=== PATIENT | male | born 1965 | race Hispanic/Latino ===

== ENCOUNTER 2021-02-20 08:41 | Emergency (ER) | payer SELFPAY ==
--- OUTSIDE RECORDS SUMMARY | 2021-02-20 08:53 | XMS REPORT | Continuity of Care Document ---
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 No [id number] 10mg Take 1 [facility] 10 mg 8-18 12-22 capsule by ity of capsule 00:00: 00:00 mouth [place] 00 :00 every 8 Medical (eight) Branch hours as needed for Abdominal pain. ondansetron 2020- No [id number] 4mg Take 1 [facility] 4 mg 8-18 12-22 tablet by [facility] disintegrat 00:00: 00:[place] tablet 00 :00 every 8 Medica l (eight) Branch hours as needed for Nausea and Vomiting (N/V). cholecalcif Yes 1000U Take 1,000 [facility] sofia, 7-19 Units by ity of vitamin D3, 20:20: mouth [place] (VITAMIN 49 daily. Medical D3) 25 mcg Branch (1,000 unit) tablet aspirin 81 0 Yes 81mg Take 81 mg U nivers mg chewable 7-19 by mouth ity of tablet 20:20: daily. [place] 49 Medical Branch cholecalcif 2021-0 Yes 1000U Take 1,000 [facility] sofia, 7-19 Units by ity of vitamin D3, 15:20: mouth [place] (VITAMIN 49 daily. Medical D3) 25 mcg Branch (1,000 unit) tablet aspirin 81 2020-0 Yes 81mg Take 81 mg U nivers mg chewable 7-19 by mouth ity of tablet 15:20: daily. [place] [address] Medical Branch cholecalcif 2020-0 Yes 1000U Take 1,000 [facility] sofia, 7-19 Units by ity of vitamin D3, 15:20: mouth [place] (VITAMIN 49 daily. Medical D3) 25 mcg Branch (1,000 unit) tablet aspirin 81 2020-0 Yes 81mg Take 81 mg U nivers mg chewable 7-19 by mouth ity of tablet 15:20: daily. [place] [address] Medical Branch cholecalcif 2020-0 Yes 1000U Take 1,000 [facility] sofia, 7-19 Units by ity of vitamin D3, 15:20: mouth [place] (VITAMIN 49 daily. Medical D3) 25 mcg Branch (1,000 unit) tablet aspirin 81 2020-0 Yes 81mg Take 81 mg U nivers mg chewable 7-19 by mouth ity of tablet 15:20: daily. [place] [address] Medical Branch cholecalcif 2020-0 Yes 1000U Take 1,000 [facility] sofia, 7-19 Units by ity of vitamin D3, 15:20: mouth [place] (VITAMIN 49 daily. Medical D3) 25 mcg Branch (1,000 unit) tablet aspirin 81 2020-0 Yes 81mg Take 81 mg U nivers mg chewable 7-19 by mouth ity of tablet 15:20: daily. [place] [address] Medical Branch cholecalcif 2020-0 Yes 1000U Take 1,000 [facility] sofia, 7-19 Units by ity of vitamin D3, 15:20: mouth [place] (VITAMIN 49 daily. Medical D3) 25 mcg Branch (1,000 unit) tablet aspirin 81 2020-0 Yes 81mg Take 81 mg U nivers mg chewable 7-19 by mouth ity of tablet 15:20: daily. [place] [address] Medical Branch cholecalcif 2021-0 Yes 1000U Take 1,000 [facility] sofia, 7-19 Units by ity of vitamin D3, 15:20: mouth [place] (VITAMIN 49 daily. Medical D3) 25 mcg Branch (1,000 unit) tablet aspirin 81 2020-0 Yes 81mg Take 81 mg U nivers mg chewable 7-19 by mouth ity of tablet 15:20: daily. [place] [address] Medical Branch nitroglycer 2020-[id number] 1 [facility] in 0.4 mg 6-12 tablet ity of sublingual 00:00: under the [place] tablet 00 tongue Medical every 5 Branch (five) minutes as needed for Chest pain. nitroglycer 2020-[id number] 1 [facility] in 0.4 mg 6-12 tablet ity of sublingual 00:00: under the [place] tablet 00 tongue Medical every 5 Branch (five) minutes as needed for Chest pain. nitroglycer 2020-[id number] 1 [facility] in 0.4 mg 6-12 tablet ity of sublingual 00:00: under the [place] tablet 00 tongue Medical every 5 Branch (five) minutes as needed for Chest pain. nitroglycer 2020-[id number] 1 [facility] in 0.4 mg 6-12 tablet ity of sublingual 00:00: under the [place] tablet 00 tongue Medical every 5 Branch (five) minutes as needed for Chest pain. nitroglycer 2020-[id number] 1 [facility] in 0.4 mg 6-12 tablet ity of sublingual 00:00: under the [place] tablet 00 tongue Medical every 5 Branch (five) minutes as needed for Chest pain. nitroglycer 2020-[id number] 1 [facility] in 0.4 mg 6-12 tablet ity of sublingual 00:00: under the [place] tablet 00 tongue Medical every 5 Branch (five) minutes as needed for Chest pain. nitroglycer 2020-[id number] 1 [facility] in 0.4 mg 6-12 tablet ity of sublingual 00:00: under the [place] tablet 00 tongue Medical every 5 Branch (five) minutes as needed for Chest pain. nitroglycer 2020-0 2021- No [id number] .4mg Place 1 [facility] in 0.4 mg 6-12 12-22 tablet ity of sublingual 00:00: 00:00 under the [place] tablet 00 :00 tongue Medical every 5 Branch (five) minutes as needed for Chest pain. cloNIDine 2020-0 Yes Take 1 [place] HCL 2-19 tablet(s) [facility] (CATAPRES) 00:00: by mouth 0.1 mg 00 Twice a tablet day for anxiety as needed OLANZapine Yes Take 1 [facility] (ZYPREXA) 2-19 tablet(s) Healt h 10 mg 00:00: by mouth tablet 00 Twice a day cloNIDine Yes Take 1 [place] HCL 2-19 tablet(s) [facility] (CATAPRES) 00:00: by mouth 0.1 mg 00 Twice a tablet day for anxiety as needed OLANZapine Yes Take 1 [facility] (ZYPREXA) 2-19 tablet(s) Healt h 10 mg 00:00: by mouth tablet 00 Twice a day cloNIDine 0 2021- No TAKE ONE [place] HCL 2-19 - TABLET BY [facility] (CATAPRES) 00:00: 23:59 MOUTH 0.1 mg 00 :00 TWICE A tablet DAY FOR ANXIETY NEEDED OLANZapine 0 2021- No TAKE ONE [place] [facility] (ZYPREXA) 2-19 - TABLET BY Heal 10 mg 00:00: 23:59 MOUTH tablet 00 :00 TWICE A DAY cloNIDine 0 2021- No TAKE ONE [place] [facility] HCL 2-19 -19 TABLET BY [facility] (CATAPRLollipuff) 00:00: 23:59 MOUTH 0.1 mg 00 :00 TWICE A tablet DAY FOR ANXIETY NEEDED OLANZapine 0 2021- No TAKE ONE [place] (ZYPREXA) 2-19 -19 TABLET BY Heal th 10 mg 00:00: 23:59 MOUTH tablet 00 :00 TWICE A DAY rosuvastati 0 No 1{table Q1D take 1 A ccess n 20 mg 1-16 t} tablet by Health tablet 00:00: oral route 00 every day rosuvastati 2020-0 No 1{table Q1D take 1 A ccess n 20 mg 1-16 t} tablet by Health tablet 00:00: oral route 00 every day rosuvastati 2020-0 No 1{table Q1D take 1 A ccess n 20 mg 1-16 t} tablet by Health tablet 00:00: oral route 00 every day rosuvastati 2020-0 No 1{table Q1D take 1 A ccess n 20 mg 1-16 t} tablet by Health tablet 00:00: oral route 00 every day rosuvastati 2020-0 No 1{table Q1D take 1 A ccess n 20 mg 1-16 t} tablet by Health tablet 00:00: oral route 00 every day rosuvastati 2020-0 No 1{table Q1D take 1 A ccess n 20 mg 1-16 t} tablet by Health tablet 00:00: oral route 00 every day olanzapine 2020-0 No 1{table Q1D take 1 Ac cess 10 mg 1-14 t} tablet by Health tablet 00:00: oral route 00 every day naproxen 2020-0 No 1{table Q12H take 1 [facility] ss 500 mg 1-14 t} tablet by Health tablet 00:00: oral route 00 2 times every day with food lisinopril 2020-0 No 1{table Q1D take 1 Ac cess 40 mg 1-14 t} tablet by Health tablet 00:00: oral route 00 every day metoprolol 2020-0 No 1{table Q12H take 1 Ac cess tartrate 25 1-14 t} tablet by [facility] mg tablet 00:00: oral route 00 2 times every day amlodipine 2020-0 No 1{table Q1D take 1 Ac cess 10 mg 1-14 t} tablet by Health tablet 00:00: oral route 00 every day olanzapine 2020-0 No 1{table Q1D take 1 Ac cess 10 mg 1-14 t} tablet by Health tablet 00:00: oral route 00 every day naproxen 2020-0 No 1{table Q12H take 1 [facility] ss 500 mg 1-14 t} tablet by Health tablet 00:00: oral route 00 2 times every day with food lisinopril 2020-0 No 1{table Q1D take 1 Ac cess 40 mg 1-14 t} tablet by Health tablet 00:00: oral route 00 every day metoprolol 2020-0 No 1{table Q12H take 1 Ac cess tartrate 25 1-14 t} tablet by [facility] mg tablet 00:00: oral route 00 2 times every day amlodipine 2020-0 No 1{table Q1D take 1 Ac cess 10 mg 1-14 t} tablet by Health tablet 00:00: oral route 00 every day olanzapine 2020-0 No 1{table Q1D take 1 Ac cess 10 mg 1-14 t} tablet by Health tablet 00:00: oral route 00 every day naproxen 2020-0 No 1{table Q12H take 1 Acce ss 500 mg 1-14 t} tablet by Health tablet 00:00: oral route 00 2 times every day with food lisinopril 2020-0 No 1{table Q1D take 1 Ac cess 40 mg 1-14 t} tablet by Health tablet 00:00: oral route 00 every day metoprolol 2020-0 No 1{table Q12H take 1 Ac cess tartrate 25 1-14 t} tablet by [facility] mg tablet 00:00: oral route 00 2 times every day amlodipine 2020-0 No 1{table Q1D take 1 Ac cess 10 mg 1-14 t} tablet by Health tablet 00:00: oral route 00 every day olanzapine 2020-0 No 1{table Q1D take 1 Ac cess 10 mg 1-14 t} tablet by Health tablet 00:00: oral route 00 every day naproxen 2020-0 No 1{table Q12H take 1 Acce ss 500 mg 1-14 t} tablet by Health tablet 00:00: oral route 00 2 times every day with food lisinopril 0 No 1{table Q1D take 1 Ac cess 40 mg 1-14 t} tablet by Health tablet 00:00: oral route 00 every day metoprolol 2020-0 No 1{table Q12H take 1 Ac cess tartrate 25 1-14 t} tablet by [facility] mg tablet 00:00: oral route 00 2 times every day amlodipine 2020-0 No 1{table Q1D take 1 Ac cess 10 mg 1-14 t} tablet by Health tablet 00:00: oral route 00 every day olanzapine 2020-0 No 1{table Q1D take 1 Ac cess 10 mg 1-14 t} tablet by Health tablet 00:00: oral route 00 every day naproxen 2020-0 No 1{table Q12H take 1 Acce ss 500 mg 1-14 t} tablet by Health tablet 00:00: oral route 00 2 times every day with food lisinopril 2020-0 No 1{table Q1D take 1 Ac cess 40 mg 1-14 t} tablet by Health tablet 00:00: oral route 00 every day metoprolol 2021-0 No 1{table Q12H take 1 Ac cess tartrate 25 1-14 t} tablet by [facility] mg tablet 00:00: oral route 00 2 times every day amlodipine No 1{table Q1D take 1 Ac cess 10 mg 1-14 t} tablet by Health tablet 00:00: oral route 00 every day olanzapine No 1{table Q1D take 1 Ac cess 10 mg 1-14 t} tablet by Health tablet 00:00: oral route 00 every day naproxen No 1{table Q12H take 1 [facility]ce ss 500 mg 1-14 t} tablet by Health tablet 00:00: oral route 00 2 times every day with food lisinopril No 1{table Q1D take 1 Ac cess 40 mg 1-14 t} tablet by Health tablet 00:00: oral route 00 every day metoprolol No 1{table Q12H take 1 Ac cess tartrate 25 1-14 t} tablet by [facility] mg tablet 00:00: oral route 00 2 times every day amlodipine No 1{table Q1D take 1 Ac cess 10 mg 1-14 t} tablet by Health tablet 00:00: oral route 00 every day rosuvastati 2019-02 No 1{table Q1D take 1 A ccess n 20 mg 2-15 t} tablet by Health tablet 00:00: oral route 00 every day Vitamin D2 2019-02 No take 1 [facility] 1,250 mcg 2-15 capsule by [facility] (50,000 00:00: oral route unit) 00 every capsule week metformin 2019-02 No 1{table Q12H take 1 Acc ess 500 mg 2-15 t} tablet by Health tablet 00:00: oral route 00 2 times every day with morning and evening meals True Metrix 2019-02 No 1{strip Q12H use 1 Ac cess Glucose 2-15 } strip by [facility] 00:00: subcutaneo 00 us route 2 times every day lancets 2019-02 No Use twice Acces s 2-15 daily as Health 00:00: directed. 00 rosuvastati 2019-02 No 1{table Q1D take 1 A ccess n 20 mg 2-15 t} tablet by Health tablet 00:00: oral route 00 every day Vitamin D2 2019-02 No take 1 Acces s 1,250 mcg 2-15 capsule by [facility] (50,000 00:00: oral route unit) 00 every capsule week metformin 2019-02 No 1{table Q12H take 1 Acc ess 500 mg 2-15 t} tablet by Health tablet 00:00: oral route 00 2 times every day with morning and evening meals True Metrix 2019-02 No 1{strip Q12H use 1 Ac cess Glucose 2-15 } strip by Health Test Strip 00:00: subcutaneo 00 us route 2 times every day lancets 2019-02 No Use twice Acces s 2-15 daily as Health 00:00: directed. rosuvastati 2019-02 No 1{table Q1D take 1 A ccess n 20 mg 2-15 t} tablet by Health tablet 00:00: oral route 00 every day Vitamin D2 2019-02 No take 1 Acces s 1,250 mcg 2-15 capsule by [facility] (50,000 00:00: oral route unit) 00 every capsule week metformin 2019-02 No 1{table Q12H take 1 Acc ess 500 mg 2-15 t} tablet by Health tablet 00:00: oral route 00 2 times every day with morning and evening meals True Metrix 2019-02 No 1{strip Q12H use 1 Ac cess Glucose 2-15 } strip by Health Test Strip 00:00: subcutaneo 00 us route 2 times every day lancets 2019-02 No Use twice Acces s 2-15 daily as Health 00:00: directed. Vitamin D2 2019-02 No take 1 Acces s 1,250 mcg 2-15 capsule by [facility] (50,000 00:00: oral route unit) 00 every capsule week True Metrix 2019-02 No 1{strip Q12H use 1 Ac cess Glucose 2-15 } strip by Health Test Strip 00:00: subcutaneo 00 us route 2 times every day lancets 2019-02 No Use twice Acces s 2-15 daily as Health 00:00: directed. 00 Vitamin D2 2019-02 No take 1 Acces s 1,250 mcg 2-15 capsule by [facility] (50,000 00:00: oral route unit) 00 every capsule week True Metrix 2019-02 No 1{strip Q12H use 1 Ac cess Glucose 2-15 } strip by Health Test Strip 00:00: subcutaneo 00 us route 2 times every day lancets 2019-02 No Use twice Acces s 2-15 daily as Health 00:00: directed. Vitamin D2 2019-02 No take 1 Acces s 1,250 mcg 2-15 capsule by [facility] (50,000 00:00: oral route unit) 00 every capsule week True Metrix 2019-02 No 1{strip Q12H use 1 Ac cess Glucose 2-15 } strip by Health Test Strip 00:00: subcutaneo 00 us route 2 times every day lancets 2019-02 No Use twice Acces s 2-15 daily as Health 00:00: directed. Vitamin D2 2019-02 No take 1 Acces s 1,250 mcg 2-15 capsule by [facility] (50,000 00:00: oral route unit) 00 every capsule week True Metrix 2019-02 No 1{strip Q12H use 1 Ac cess Glucose 2-15 } strip by Health Test Strip 00:00: subcutaneo 00 us route 2 times every day lancets 2019-02 No Use twice Acces s 2-15 daily as Health 00:00: directed. Vitamin D2 2019-02 No take 1 Acces s 1,250 mcg 2-15 capsule by [facility] (50,000 00:00: oral route unit) 00 every capsule week True Metrix 2019-02 No 1{strip Q12H use 1 Ac cess Glucose 2-15 } strip by Health Test Strip 00:00: subcutaneo 00 us route 2 times every day lancets 2019-02 No Use twice Acces s 2-15 daily as Health 00:00: directed. Vitamin D2 2019-02 No take 1 Acces s 1,250 mcg 2-15 capsule by [facility] (50,000 00:00: oral route unit) 00 every capsule week True Metrix 2019-02 No 1{strip Q12H use 1 Ac cess Glucose 2-15 } strip by Health Test Strip 00:00: subcutaneo 00 us route 2 times every day lancets 2019-02 No Use twice Acces s 2-15 daily as Health 00:00: directed. 00 rosuvastati 2019-2020- No 1{table Q1D take 1 Access n 20 mg 2-15 01-16 t} tablet by Health tablet 00:00: 00:00 oral route 00 :00 every day rosuvastati 2019-02- No 1{table Q1D take 1 Access n 20 mg 2-15 -16 t} tablet by Health tablet 00:00: 00:00 oral route 00 :00 every day rosuvastati 2019-02- No 1{table Q1D take 1 Access n 20 mg 2-15 -16 t} tablet by Health tablet 00:00: 00:00 oral route 00 :00 every day rosuvastati 2019-02- No 1{table Q1D take 1 Access n 20 mg 2-15 -16 t} tablet by Health tablet 00:00: 00:00 oral route 00 :00 every day rosuvastati 2019-02- No 1{table Q1D take 1 Access n 20 mg 2-15 -16 t} tablet by Health tablet 00:00: 00:00 oral route 00 :00 every day rosuvastati 2019-02- No 1{table Q1D take 1 Access n 20 mg 2-15 -16 t} tablet by Health tablet 00:00: 00:00 oral route 00 :00 every day metformin 2019-02- No 1{table Q12H take 1 Ac cess 500 mg 2-15 -14 t} tablet by Health tablet 00:00: 00:00 oral route 00 :00 2 times every day with morning and evening meals metformin 2019-02- No 1{table Q12H take 1 Ac cess 500 mg 2-15 -14 t} tablet by Health tablet 00:00: 00:00 oral route 00 :00 2 times every day with morning and evening meals metformin 2019-02- No 1{table Q12H take 1 Ac cess 500 mg 2-15 -14 t} tablet by Health tablet 00:00: 00:00 oral route 00 :00 2 times every day with morning and evening meals metformin 2019-02- No 1{table Q12H take 1 Ac cess 500 mg 2-15 -14 t} tablet by Health tablet 00:00: 00:00 oral route 00 :00 2 times every day with morning and evening meals metformin 2019-02- No 1{table Q12H take 1 Ac cess 500 mg 2-15 -14 t} tablet by Health tablet 00:00: 00:00 oral route 00 :00 2 times every day with morning and evening meals metformin 2019-2020- No 1{table Q12H take 1 Ac cess 500 mg 2-15 01-14 t} tablet by Health tablet 00:00: 00:00 oral route 00 :00 2 times every day with morning and evening meals omeprazole 2019- No take 1 [facility]es s 20 mg 2-14 capsule by Health capsule,del 00:00: oral route ayed 00 twice release daily 30 minute before meals. metoprolol 2019-02 No 1{table Q12H take 1 Ac cess tartrate 25 2-14 t} tablet by [facility] mg tablet 00:00: oral route 00 2 times every day lisinopril 2019-02 No 1{table Q1D take 1 Ac cess 40 mg 2-14 t} tablet by Health tablet 00:00: oral route 00 every day hydroxyzine 2019- No 1{table BID take 1 A ccess HCl 25 mg 2-14 t} tablet by Healt h tablet 00:00: oral route 00 2 times every day as needed as needed for anxiety, insomnia aspirin 81 2019- No 1{table Q1D chew 1 Ac cess mg chewable 2-14 t} tablet by [facility] tablet 00:00: oral route 00 every day cyclobenzap 2019-02 No take 1 Acce ss rine 10 mg 2-14 tablet by Heal th tablet 00:00: oral route 00 every day at bedtime as needed for muscle spasm amlodipine 2019- No 1{table Q1D take 1 Ac cess 10 mg 2-14 t} tablet by Health tablet 00:00: oral route 00 every day naproxen 2019- No 1{table Q12H take 1 Acce ss 500 mg 2-14 t} tablet by Health tablet 00:00: oral route 00 2 times every day with food omeprazole 2019- No take 1 Acces s 20 mg 2-14 capsule by Health capsule,del 00:00: oral route ayed 00 twice release daily 30 minute before meals. metoprolol 2019-02 No 1{table Q12H take 1 Ac cess tartrate 25 2-14 t} tablet by [facility] mg tablet 00:00: oral route 00 2 times every day lisinopril 2019- No 1{table Q1D take 1 Ac cess 40 mg 2-14 t} tablet by Health tablet 00:00: oral route 00 every day hydroxyzine 2020- No 1{table BID take 1 A ccess HCl 25 mg 2-14 t} tablet by Healt [facility] tablet 00:00: oral route 00 2 times every day as needed as needed for anxiety, insomnia aspirin 81 2019- No 1{table Q1D chew 1 Ac cess mg chewable 2-14 t} tablet by [facility] tablet 00:00: oral route 00 every day cyclobenzap 2019- No take 1 Acce ss rine 10 mg 2-14 tablet by Heal th tablet 00:00: oral route 00 every day at bedtime as needed for muscle spasm amlodipine 2019-02 No 1{table Q1D take 1 Ac cess 10 mg 2-14 t} tablet by Health tablet 00:00: oral route 00 every day naproxen 2019- No 1{table Q12H take 1 Acce ss 500 mg 2-14 t} tablet by Health tablet 00:00: oral route 00 2 times every day with food omeprazole 2019-02 No take 1 Acces s 20 mg 2-14 capsule by [facility] 00:00: oral route ayed 00 twice release daily 30 minute before meals. metoprolol 2019- No 1{table Q12H take 1 Ac cess tartrate 25 2-14 t} tablet by [facility] mg tablet 00:00: oral route 00 2 times every day lisinopril 2019- No 1{table Q1D take 1 Ac cess 40 mg 2-14 t} tablet by Health tablet 00:00: oral route 00 every day hydroxyzine 2019- No 1{table BID take 1 A ccess HCl 25 mg 2-14 t} tablet by Healt [facility] tablet 00:00: oral route 00 2 times every day as needed as needed for anxiety, insomnia aspirin 81 2019- No 1{table Q1D chew 1 Ac cess mg chewable 2-14 t} tablet by [facility] tablet 00:00: oral route 00 every day cyclobenzap 2019- No take 1 Acce ss rine 10 mg 2-14 tablet by Heal th tablet 00:00: oral route 00 every day at bedtime as needed for muscle spasm amlodipine 2019- No 1{table Q1D take 1 Ac cess 10 mg 2-14 t} tablet by Health tablet 00:00: oral route 00 every day naproxen 2019- No 1{table Q12H take 1 Acce ss 500 mg 2-14 t} tablet by Health tablet 00:00: oral route 00 2 times every day with food omeprazole 2019- No take 1 Acces s 20 mg 2-14 capsule by Health capsule,del 00:00: oral route ayed 00 twice release daily 30 minute before meals. hydroxyzine 2019- No 1{table BID take 1 A ccess HCl 25 mg 2-14 t} tablet by Healt [facility] tablet 00:00: oral route 00 2 times every day as needed as needed for anxiety, insomnia aspirin 81 2019-02 No 1{table Q1D chew 1 Ac cess mg chewable 2-14 t} tablet by [facility] tablet 00:00: oral route 00 every day omeprazole 2019- No take 1 Acces s 20 mg 2-14 capsule by Health capsule,del 00:00: oral route ayed 00 twice release daily 30 minute before meals. hydroxyzine 2019-02 No 1{table BID take 1 A ccess HCl 25 mg 2-14 t} tablet by Healt [facility] tablet 00:00: oral route 00 2 times every day as needed as needed for anxiety, insomnia aspirin 81 2019- No 1{table Q1D chew 1 Ac cess mg chewable 2-14 t} tablet by [facility] tablet 00:00: oral route 00 every day omeprazole 2019- No take 1 Acces s 20 mg 2-14 capsule by Health capsule,del 00:00: oral route ayed 00 twice release daily 30 minute before meals. hydroxyzine 2019- No 1{table BID take 1 A ccess HCl 25 mg 2-14 t} tablet by [facility]alt [facility] tablet 00:00: oral route 00 2 times every day as needed as needed for anxiety, insomnia aspirin 81 2019- No 1{table Q1D chew 1 Ac cess mg chewable 2-14 t} tablet by [facility] tablet 00:00: oral route 00 every day omeprazole 2020- No take 1 Acces s 20 mg 2-14 capsule by Health capsule,del 00:00: oral route ayed 00 twice release daily 30 minute before meals. hydroxyzine 2019- No 1{table BID take 1 A ccess HCl 25 mg 2-14 t} tablet by [facility]alt [facility] tablet 00:00: oral route 00 2 times every day as needed as needed for anxiety, insomnia aspirin 81 2019-02 No 1{table Q1D chew 1 Ac cess mg chewable 2-14 t} tablet by [facility] tablet 00:00: oral route 00 every day omeprazole 2019-02 No take 1 Acces s 20 mg 2-14 capsule by Health capsule,del 00:00: oral route ayed 00 twice release daily 30 minute before meals. hydroxyzine 2019-02 No 1{table BID take 1 A ccess HCl 25 mg 2-14 t} tablet by [facility]alt [facility] tablet 00:00: oral route 00 2 times every day as needed as needed for anxiety, insomnia aspirin 81 2019-02 No 1{table Q1D chew 1 Ac cess mg chewable 2-14 t} tablet by [facility] tablet 00:00: oral route 00 every day omeprazole 2019-02 No take 1 Acces s 20 mg 2-14 capsule by Health capsule,del 00:00: oral route ayed 00 twice release daily 30 minute before meals. hydroxyzine 2019-02 No 1{table BID take 1 A ccess HCl 25 mg 2-14 t} tablet by [facility]alt [facility] tablet 00:00: oral route 00 2 times every day as needed as needed for anxiety, insomnia aspirin 81 2019-02 No 1{table Q1D chew 1 Ac cess mg chewable 2-14 t} tablet by [facility] tablet 00:00: oral route 00 every day metoprolol 2019-02- No 1{table Q12H take 1 A ccess tartrate 25 2-14 -14 t} tablet by [facility] mg tablet 00:00: 00:00 oral route 00 :00 2 times every day lisinopril 2019-02- No 1{table Q1D take 1 A ccess 40 mg 2-14 -14 t} tablet by Health tablet 00:00: 00:00 oral route 00 :00 every day cyclobenzap 2019-02- No take 1 Acc ess rine 10 mg 2-14 -14 tablet by [facility] tablet 00:00: 00:00 oral route 00 :00 every day at bedtime as needed for muscle spasm amlodipine 2019-02- No 1{table Q1D take 1 A ccess 10 mg 2-14 -14 t} tablet by Health tablet 00:00: 00:00 oral route 00 :00 every day naproxen 2019-02- No 1{table Q12H take 1 Acc ess 500 mg 2-14 03-09 t} tablet by Health tablet 00:00: 00:00 oral route 00 :00 2 times every day with food metoprolol 2019-02- No 1{table Q12H take 1 A ccess tartrate 25 2-14 03-09 t} tablet by [facility] mg tablet 00:00: 00:00 oral route 00 :00 2 times every day lisinopril 2019-02- No 1{table Q1D take 1 A ccess 40 mg 2-14 03-09 t} tablet by Health tablet 00:00: 00:00 oral route 00 :00 every day cyclobenzap 2019-02- No take 1 Acc ess rine 10 mg 2-03-09 tablet by [facility] tablet 00:00: 00:00 oral route 00 :00 every day at bedtime as needed for muscle spasm amlodipine 2019-02- No 1{table Q1D take 1 A ccess 10 mg 2-14 03-09 t} tablet by Health tablet 00:00: 00:00 oral route 00 :00 every day naproxen 2019-02- No 1{table Q12H take 1 Acc ess 500 mg -03-09 t} tablet by Health tablet 00:00: 00:00 oral route 00 :00 2 times every day with food metoprolol 2019-02- No 1{table Q12H take 1 A ccess tartrate 25 2-03-09 t} tablet by [facility]: 00:00 oral route 00 :00 2 times every day lisinopril 2019-02- No 1{table Q1D take 1 A ccess 40 mg 2-14 -14 t} tablet by [facility] 00:00: 00:00 oral route 00 :00 every day cyclobenzap 2019-02- No take 1 Acc ess rine 10 mg 2-14 -14 tablet by [facility] 00:[facility]: 00:00 oral route 00 :00 every day at bedtime as needed for muscle spasm amlodipine 2019-02- No 1{table Q1D take 1 A ccess 10 mg 2-14 03-09 t} tablet by [facility] tablet 00:00: 00:00 oral route 00 :00 every day naproxen 2019-02- No 1{table Q12H take 1 Acc ess 500 mg 2-14 03-09 t} tablet by [facility] tablet 00:00: 00:00 oral route 00 :00 2 times every day with food metoprolol 2019-02- No 1{table Q12H take 1 A ccess tartrate 25 2-14 03-09 t} tablet by [facility] tablet 00:00: 00:00 oral route 00 :00 2 times every day lisinopril 2019-02- No 1{table Q1D take 1 A ccess 40 mg 2-14 03-09 t} tablet by [facility] tablet 00:00: 00:00 oral route 00 :00 every day cyclobenzap 2019-02- No take 1 Acc ess rine 10 mg 2-14 03-09 tablet by [facility] 00:[facility]: 00:00 oral route 00 :00 every day at bedtime as needed for muscle spasm amlodipine 2019-02- No 1{table Q1D take 1 A ccess 10 mg 2-14 03-09 t} tablet by [facility] tablet 00:00: 00:00 oral route 00 :00 every day naproxen 2019-02- No 1{table Q12H take 1 Acc ess 500 mg -03-09 t} tablet by [facility] tablet 00:00: 00:00 oral route 00 :00 2 times every day with food metoprolol 2019-02- No 1{table Q12H take 1 A ccess tartrate 25 2-14 03-09 t} tablet by [facility] tablet 00:00: 00:00 oral route 00 :00 2 times every day lisinopril 2019-02- No 1{table Q1D take 1 A ccess 40 mg 2-14 03-09 t} tablet by [facility] tablet 00:00: 00:00 oral route 00 :00 every day cyclobenzap 2019-02- No take 1 Acc ess rine 10 mg 2-14 -14 tablet by [facility] 00:[facility]: 00:00 oral route 00 :00 every day at bedtime as needed for muscle spasm amlodipine 2019-02- No 1{table Q1D take 1 A ccess 10 mg 2-14 -14 t} tablet by [facility] tablet 00:00: 00:00 oral route 00 :00 every day naproxen 2019-02- No 1{table Q12H take 1 Acc ess 500 mg 2-14 - t} tablet by [facility] tablet 00:00: 00:00 oral route 00 :00 2 times every day with food metoprolol 2019-02- No 1{table Q12H take 1 A ccess tartrate 25 -14 03-09 t} tablet by [facility] 00:00: 00:00 oral route 00 :00 2 times every day lisinopril 2019-02- No 1{table Q1D take 1 A ccess 40 mg -14 03-09 t} tablet by [facility] tablet 00:00: 00:00 oral route 00 :00 every day cyclobenzap 2019-02- No take 1 Acc ess rine 10 mg -14 03-09 tablet by [facility] 00:[facility]: 00:00 oral route 00 :00 every day at bedtime as needed for muscle spasm amlodipine 2019-02- No 1{table Q1D take 1 A ccess 10 mg 2-14 - t} tablet by [facility] tablet 00:00: 00:00 oral route 00 :00 every day naproxen 2019-02- No 1{table Q12H take 1 Acc ess 500 mg 2-14 - t} tablet by [facility] tablet 00:00: 00:00 oral route 00 :00 2 times every day with food venlafaxine 2020-0 No 1{capsu Q12H take 1 A ccess ER 75 mg 9-14 le} capsule by [facility],ext 00:[facility]: oral route ended 00 2 times release 24 every day hr with food Augmentin 2020-0 No 1{table Q12H take 1 Acc ess 875 mg-125 9-14 t} tablet [facility] tablet 00:[facility]: oral route 00 every 12 hours Tylenol-Cod 2020-0 No 1{table QID take 1 A ccess eine #3 300 9-14 t} tablet by [facility] mg 00:00: oral route tablet 00 every 6 hours as needed as needed for tooth pain Augmentin 2019-0 2020- No 1{table Q12H take 1 Ac cess 875 mg-125 9-14 12-14 t} tablet by [facility] 00:00: 00:00 oral route 00 :00 every 12 hours Tylenol-Cod 2020-0 2020- No take 1 Acc ess eine #3 300 9-14 12-14 tablet by [facility]-30 mg 00:00: 00:00 oral route tablet 00 :00 every 6 hours as needed as needed for tooth pain venlafaxine 2020-0 2020- No 1{capsu Q12H take 1 Access ER 75 mg 9-14 12-14 le} capsule by [facility] capsule,ext 00:00: 00:00 oral route ended 00 :00 2 times release 24 every day hr with food Augmentin 2020-0 2020- No 1{table Q12H take 1 Ac cess 875 mg-125 9-14 12-14 t} tablet by [facility] tablet 00:00: 00:00 oral route 00 :00 every 12 hours Tylenol-Cod 2020-0 2020- No take 1 Acc ess eine #3 300 9-14 12-14 tablet by [facility]-30 mg 00:00: 00:00 oral route tablet 00 :00 every 6 hours as needed as needed for tooth pain venlafaxine 2020-0 2020- No 1{capsu Q12H take 1 Access ER 75 mg 9-14 12-14 le} capsule by [facility] capsule,ext 00:00: 00:00 oral route ended 00 :00 2 times release 24 every day hr with food Augmentin 2020-0 2020- No 1{table Q12H take 1 Ac cess 875 mg-125 9-14 12-14 t} tablet by [facility] 00:00: 00:00 oral route 00 :00 every 12 hours Tylenol-Cod 2020-0 2020- No take 1 Acc ess eine #3 300 9-14 12-14 tablet by [facility]-30 mg 00:00: 00:00 oral route tablet 00 :00 every 6 hours as needed as needed for tooth pain venlafaxine 2020-0 2020- No 1{capsu Q12H take 1 Access ER 75 mg 9-14 12-14 le} capsule by [facility] capsule,ext 00:00: 00:00 oral route ended 00 :00 2 times release 24 every day hr with food Augmentin 2020-0 2020- No 1{table Q12H take 1 Ac cess 875 mg-125 9-14 12-14 t} tablet by [facility] 00:00: 00:00 oral route 00 :00 every 12 hours Tylenol-Cod 2020-0 2020- No take 1 Acc ess eine #3 300 9-14 12-14 tablet by [facility]-30 mg 00:00: 00:00 oral route tablet 00 :00 every 6 hours as needed as needed for tooth pain venlafaxine 2020-0 2020- No 1{capsu Q12H take 1 Access ER 75 mg 9-14 12-14 le} capsule by [facility] capsule,ext 00:00: 00:00 oral route ended 00 :00 2 times release 24 every day hr with food Augmentin 2020-0 2020- No 1{table Q12H take 1 Ac cess 875 mg-125 9-14 12-14 t} tablet by [facility] tablet 00:00: 00:00 oral route 00 :00 every 12 hours Tylenol-Cod 2020-0 2020- No take 1 Acc ess eine #3 300 9-14 12-14 tablet by [facility]-30 mg 00:00: 00:00 oral route tablet 00 :00 every 6 hours as needed as needed for tooth pain venlafaxine 2020-0 2020- No 1{capsu Q12H take 1 Access ER 75 mg 9-14 12-14 le} capsule by [facility] capsule,ext 00:00: 00:00 oral route ended 00 :00 2 times release 24 every day hr with food Augmentin 2020-0 2020- No 1{table Q12H take 1 Ac cess 875 mg-125 9-14 12-14 t} tablet by [facility] tablet 00:00: 00:00 oral route 00 :00 every 12 hours Tylenol-Cod 2020-0 2020- No take 1 Acc ess eine #3 300 9-14 12-14 tablet by [facility]-30 mg 00:00: 00:00 oral route tablet 00 :00 every 6 hours as needed as needed for tooth pain venlafaxine 2020-0 2020- No 1{capsu Q12H take 1 Access ER 75 mg 9-14 12-14 le} capsule by [facility] capsule,ext 00:00: 00:00 oral route ended 00 :00 2 times release 24 every day hr with food Augmentin 2020-0 2020- No 1{table Q12H take 1 Ac cess 875 mg-125 9-14 12-14 t} tablet by [facility] tablet 00:00: 00:00 oral route 00 :00 every 12 hours Tylenol-Cod 2020-0 2020- No take 1 Acc ess eine #3 300 9-14 12-14 tablet by [facility]-30 mg 00:00: 00:00 oral route tablet 00 :00 every 6 hours as needed as needed for tooth pain venlafaxine 2020-0 2020- No 1{capsu Q12H take 1 Access ER 75 mg 9-14 12-14 le} capsule by [facility] capsule,ext 00:00: 00:00 oral route ended 00 :00 2 times release 24 every day hr with food Augmentin 2020-0 2020- No 1{table Q12H take 1 Ac cess 875 mg-125 9-14 12-14 t} tablet by [facility] tablet 00:00: 00:00 oral route 00 :00 every 12 hours Tylenol-Cod 2020-0 2020- No take 1 Acc ess eine #3 300 - 12-14 tablet by [facility]-30 mg 00:00: 00:00 oral route tablet 00 :00 every 6 hours as needed as needed for tooth pain venlafaxine 2020-0 2020- No 1{capsu Q12H take 1 Access ER 75 mg 9-14 12-14 le} capsule by [facility] capsule,ext 00:00: 00:00 oral route ended 00 :00 2 times release 24 every day hr with food Augmentin 2020-0 2020- No 1{table Q12H take 1 Ac cess 875 mg-125 9-14 12-14 t} tablet by [facility] tablet 00:00: 00:00 oral route 00 :00 every 12 hours Tylenol-Cod 2020-0 2020- No take 1 Acc ess eine #3 300 9-14 12-14 tablet by [facility]-30 mg 00:00: 00:00 oral route tablet 00 :00 every 6 hours as needed as needed for tooth pain venlafaxine 2020-0 2020- No 1{capsu Q12H take 1 Access ER 75 mg 9-14 12-14 le} capsule by [facility] capsule,ext 00:00: 00:00 oral route ended 00 :00 2 times release 24 every day hr with food Vitamin D2 2020-0 No take 1 Acces s 1,250 mcg 9-03 capsule by [facility] (50,000 00:00: oral route unit) 00 every capsule week atorvastati 2020-0 No 1{table take 1 A ccess n 40 mg 9-03 t} tablet by [facility] tablet 00:00: oral route 00 every bedtime at bedtime Vitamin D2 2020-0 No take 1 Acces s 1,250 mcg 9-03 capsule by [facility] (50,000 00:00: oral route unit) 00 every capsule week atorvastati 2020-0 No 1{table take 1 A ccess n 40 mg 9-03 t} tablet by [facility] tablet 00:00: oral route 00 every bedtime at bedtime Vitamin D2 2020-0 No take 1 Acces s 1,250 mcg 9-03 capsule by [facility] (50,000 00:00: oral route unit) 00 every capsule week atorvastati 2020-0 No 1{table take 1 A ccess n 40 mg 9-03 t} tablet by [facility] tablet 00:00: oral route 00 every bedtime at bedtime atorvastati 2020-0 2020- No 1{table take 1 Access n 40 mg 9-03 12-15 t} tablet by [facility] tablet 00:00: 00:00 oral route 00 :00 every bedtime at bedtime atorvastati 2020-0 2020- No 1{table take 1 Access n 40 mg 9-03 12-15 t} tablet by [facility] tablet 00:00: 00:00 oral route 00 :00 every bedtime at bedtime atorvastati 2020-0 2020- No 1{table take 1 Access n 40 mg 9-03 12-15 t} tablet by [facility] tablet 00:00: 00:00 oral route 00 :00 every bedtime at bedtime atorvastati 2020-0 2020- No 1{table take 1 Access n 40 mg 9-03 12-15 t} tablet by [facility] tablet 00:00: 00:00 oral route 00 :00 every bedtime at bedtime atorvastati 2020-0 2020- No 1{table take 1 Access n 40 mg 9-03 12-15 t} tablet by [facility] tablet 00:00: 00:00 oral route 00 :00 every bedtime at bedtime atorvastati 2020-0 2020- No 1{table take 1 Access n 40 mg 9-03 12-15 t} tablet by [facility] tablet 00:00: 00:00 oral route 00 :00 every bedtime at bedtime atorvastati 2020-0 2020- No 1{table take 1 Access n 40 mg 9-03 12-15 t} tablet by [facility] tablet 00:00: 00:00 oral route 00 :00 every bedtime at bedtime atorvastati 2020-0 2020- No 1{table take 1 Access n 40 mg 9-03 12-15 t} tablet by [facility] tablet 00:00: 00:00 oral route 00 :00 every bedtime at bedtime atorvastati 2020-0 2020- No 1{table take 1 Access n 40 mg 9-03 12-15 t} tablet by [facility] tablet 00:00: 00:00 oral route 00 :00 every bedtime at bedtime Vitamin D2 2020-0 2020- No take 1 Acce ss 1,250 mcg 9-03 12-14 capsule by [facility] (50,000 00:00: 00:00 oral route unit) 00 :00 every capsule week Vitamin D2 2020-0 2020- No take 1 Acce ss 1,250 mcg 9-03 12-14 capsule by [facility] (50,000 00:00: 00:00 oral route unit) 00 :00 every capsule week Vitamin D2 2020-0 2020- No take 1 Acce ss 1,250 mcg 9-03 12-14 capsule by [facility] (50,000 00:00: 00:00 oral route unit) 00 :00 every capsule week Vitamin D2 2020-0 2020- No take 1 Acce ss 1,250 mcg 9-03 12-14 capsule by [facility] (50,000 00:00: 00:00 oral route unit) 00 :00 every capsule week Vitamin D2 2020-0 2020- No take 1 Acce ss 1,250 mcg 9-03 12-14 capsule by [facility] (50,000 00:00: 00:00 oral route unit) 00 :00 every capsule week Vitamin D2 2020-0 2020- No take 1 Acce ss 1,250 mcg 9-03 12-14 capsule by [facility] (50,000 00:00: 00:00 oral route unit) 00 :00 every capsule week Vitamin D2 2020-0 2020- No take 1 Acce ss 1,250 mcg 10-2714 capsule by [facility] (50,000 00:00: 00:00 oral route unit) 00 :00 every capsule week Vitamin D2 2020-0 2020- No take 1 Acce ss 1,250 mcg 10-2714 capsule by [facility] (50,000 00:00: 00:00 oral route unit) 00 :00 every capsule week Vitamin D2 2019-0 2020- No take 1 Acce ss 1,250 mcg 10-2714 capsule by [facility] (50,000 00:00: 00:00 oral route unit) 00 :00 every capsule week Aspir-81 mg 2020-0 No 1{table Q1D take 1 A ccess tablet,ramon 8-31 t} tablet by [facility] yed release 00:00: oral route 00 every day hydrochloro 2020-0 No 1{table Q1D take 1 A ccess thiazide 25 8-31 t} tablet by [facility] mg tablet 00:00: oral route 00 every day hydroxyzine 2020-0 No 1{table BID take 1 A ccess HCl 25 mg 8-31 [facility] 2 times every day as needed as needed for anxiety, insomnia lisinopril 2020-0 No 1{table Q1D take 1 Ac cess 40 mg 8-31 t} tablet by [facility] tablet 00:00: oral route 00 every day metoprolol 2020-0 No 1{table Q12H take 1 Ac cess tartrate 25 8-31 t} tablet by [facility] mg tablet 00:00: oral route 00 2 times every day omeprazole 2020-0 No take 1 Acces s 20 mg 8-31 capsule by [facility] capsule,del 00:00: oral route ayed 00 twice release daily 30 minute before meals. Aspir-81 mg 2020-0 No 1{table Q1D take 1 A ccess tablet,ramon 8-31 t} tablet by [facility] yed release 00:00: oral route 00 every day hydrochloro 2020-0 No 1{table Q1D take 1 A ccess thiazide 25 8-31 t} tablet by [facility] mg tablet 00:00: oral route 00 every day hydroxyzine 2020-0 No 1{table BID take 1 A ccess HCl 25 mg 8-31 t} tablet by [facility] tablet 00:00: oral route 00 2 times every day as needed as needed for anxiety, insomnia lisinopril 2020-0 No 1{table Q1D take 1 Ac cess 40 mg 8-31 t} tablet by [facility] tablet 00:00: oral route 00 every day metoprolol 2020-0 No 1{table Q12H take 1 Ac cess tartrate 25 8-31 t} tablet by [facility] tablet 00:00: oral route 00 2 times every day omeprazole 2020-0 No take 1 Acces s 20 mg 8-31 capsule by [facility] capsule,del 00:00: oral route ayed 00 twice release daily 30 minute before meals. Aspir-81 mg 2020-0 No 1{table Q1D take 1 A ccess tablet,ramon 8-31 t} tablet by [facility] yed release 00:00: oral route 00 every day hydrochloro 2020-0 No 1{table Q1D take 1 A ccess thiazide 25 8-31 t} tablet by [facility] tablet 00:00: oral route 00 every day hydroxyzine 2020-0 No 1{table BID take 1 A ccess HCl 25 mg 8-31 t} tablet by [facility] tablet 00:00: oral route 00 2 times every day as needed as needed for anxiety, insomnia lisinopril 2020-0 No 1{table Q1D take 1 Ac cess 40 mg 8-31 t} tablet by [facility] tablet 00:00: oral route 00 every day metoprolol 2020-0 No 1{table Q12H take 1 Ac cess tartrate 25 8-31 t} tablet by [facility] tablet 00:00: oral route 00 2 times every day omeprazole 2020-0 No take 1 Acces s 20 mg 8-31 capsule by [facility] capsule,del 00:00: oral route ayed 00 twice release daily 30 minute before meals. Aspir-81 mg 2020-0 2020- No take 1 Acc ess tablet,ramon 8-31 12-14 tablet by [facility] yed release 00:00: 00:00 oral route 00 :00 every day hydrochloro 2020-0 2020- No 1{table Q1D take 1 Access thiazide 25 8-31 12-14 t} tablet by [facility] tablet 00:00: 00:00 oral route 00 :00 every day hydroxyzine 2020-0 2020- No 1{table BID take 1 Access HCl 25 mg 8-31 12-14 t} tablet by [facility] tablet 00:00: 00:00 oral route 00 :00 2 times every day as needed as needed for anxiety, insomnia lisinopril 2020-0 2020- No 1{table Q1D take 1 A ccess 40 mg 8-31 12-14 t} tablet by [facility] tablet 00:00: 00:00 oral route 00 :00 every day metoprolol 2020-0 2020- No 1{table Q12H take 1 A ccess tartrate 25 8-31 12-14 t} tablet by [facility] mg tablet 00:00: 00:00 oral route 00 :00 2 times every day omeprazole 2020-0 2020- No take 1 Acce ss 20 mg 8-31 12-14 capsule by [facility] capsule,del 00:00: 00:00 oral route ayed 00 :00 twice release daily 30 minute before meals. Aspir-81 mg 2020-0 2020- No take 1 Acc ess tablet,ramon 8-31 12-14 tablet by [facility] yed release 00:00: 00:00 oral route 00 :00 every day hydrochloro 2020-0 2020- No 1{table Q1D take 1 Access thiazide 25 8-31 12-14 t} tablet by [facility] mg tablet 00:00: 00:00 oral route 00 :00 every day hydroxyzine 2020-0 2020- No 1{table BID take 1 Access HCl 25 mg 8-31 12-14 t} tablet by [facility] tablet 00:00: 00:00 oral route 00 :00 2 times every day as needed as needed for anxiety, insomnia lisinopril 2020-0 2020- No 1{table Q1D take 1 A ccess 40 mg 8-31 12-14 t} tablet by [facility] tablet 00:00: 00:00 oral route 00 :00 every day metoprolol 2020-0 2020- No 1{table Q12H take 1 A ccess tartrate 25 8-31 12-14 t} tablet by [facility] mg tablet 00:00: 00:00 oral route 00 :00 2 times every day omeprazole 2020-0 2020- No take 1 Acce ss 20 mg 8-31 12-14 capsule by [facility] capsule,del 00:00: 00:00 oral route ayed 00 :00 twice release daily 30 minute before meals. Aspir-81 mg 2020-0 2020- No take 1 Acc ess tablet,ramon 8-31 12-14 tablet by [facility] yed release 00:00: 00:00 oral route 00 :00 every day hydrochloro 2020-0 2020- No 1{table Q1D take 1 Access thiazide 25 8-31 12-14 t} tablet by [facility] mg tablet 00:00: 00:00 oral route 00 :00 every day hydroxyzine 2020-0 2020- No 1{table BID take 1 Access HCl 25 mg 8-31 12-14 t} tablet by [facility] tablet 00:00: 00:00 oral route 00 :00 2 times every day as needed as needed for anxiety, insomnia lisinopril 2020-0 2020- No 1{table Q1D take 1 A ccess 40 mg 8-31 12-14 t} tablet by [facility] tablet 00:00: 00:00 oral route 00 :00 every day metoprolol 2020-0 2020- No 1{table Q12H take 1 A ccess tartrate 25 8-31 12-14 t} tablet [facility] mg tablet 00:00: 00:00 oral route 00 :00 2 times every day omeprazole 2019-0 2020- No take 1 Acce ss 20 mg 8-31 12-14 capsule by [facility] capsule,del 00:00: 00:00 oral route ayed 00 :00 twice release daily 30 minute before meals. Aspir-81 mg 2020-0 2020- No take 1 Acc ess tablet,ramon 8-31 12-14 tablet by [facility] release 00:00: 00:00 oral route 00 :00 every day hydrochloro 2020-0 2020- No 1{table Q1D take 1 Access thiazide 25 8-31 12-14 t} tablet by [facility] mg tablet 00:00: 00:00 oral route 00 :00 every day hydroxyzine 2020-0 2020- No 1{table BID take 1 Access HCl 25 mg 8-31 12-14 t} tablet by [facility] tablet 00:00: 00:00 oral route 00 :00 2 times every day as needed as needed for anxiety, insomnia lisinopril 2020-0 2020- No 1{table Q1D take 1 A ccess 40 mg 8-31 12-14 t} tablet by [facility] tablet 00:00: 00:00 oral route 00 :00 every day metoprolol 2020-0 2020- No 1{table Q12H take 1 A ccess tartrate 25 8-31 12-14 t} tablet by [facility] mg tablet 00:00: 00:00 oral route 00 :00 2 times every day omeprazole 2019-0 2020- No take 1 Acce ss 20 mg 8-31 12-14 capsule by [facility] capsule,del 00:00: 00:00 oral route ayed 00 :00 twice release daily 30 minute before meals. Aspir-81 mg 2019-0 2020- No take 1 Acc ess tablet,ramon 8-31 12-14 tablet by [facility] yed release 00:00: 00:00 oral route 00 :00 every day hydrochloro 2020-0 2020- No 1{table Q1D take 1 Access thiazide 25 8-31 12-14 t} tablet by [facility] mg tablet 00:00: 00:00 oral route 00 :00 every day hydroxyzine 2019-0 2020- No 1{table BID take 1 Access HCl 25 mg 8-31 12-14 t} tablet by [facility] th tablet 00:00: 00:00 oral route 00 :00 2 times every day as needed as needed for anxiety, insomnia lisinopril 2019-0 2020- No 1{table Q1D take 1 A ccess 40 mg 8-31 12-14 t} tablet by [facility] tablet 00:00: 00:00 oral route 00 :00 every day metoprolol 2020-0 2020- No 1{table Q12H take 1 A ccess tartrate 25 8-31 12-14 t} tablet by [facility] mg tablet 00:00: 00:00 oral route 00 :00 2 times every day omeprazole 2019-0 2020- No take 1 Acce ss 20 mg 8-31 12-14 capsule by [facility] capsule,del 00:00: 00:00 oral route ayed 00 :00 twice release daily 30 minute before meals. Aspir-81 mg 2020-0 2020- No take 1 Acc ess tablet,ramon 8-31 12-14 tablet by [facility] yed release 00:00: 00:00 oral route 00 :00 every day hydrochloro 2020-0 2020- No 1{table Q1D take 1 Access thiazide 25 8-31 12-14 t} tablet by [facility] mg tablet 00:00: 00:00 oral route 00 :00 every day hydroxyzine 2019-0 2020- No 1{table BID take 1 Access HCl 25 mg 8-31 12-14 t} tablet by [facility] tablet 00:00: 00:00 oral route 00 :00 2 times every day as needed as needed for anxiety, insomnia lisinopril 2020-0 2020- No 1{table Q1D take 1 A ccess 40 mg 8-31 12-14 t} tablet by [facility] tablet 00:00: 00:00 oral route 00 :00 every day metoprolol 2020-0 2020- No 1{table Q12H take 1 A ccess tartrate 25 8-31 12-14 t} tablet by [facility] tablet 00:00: 00:00 oral route 00 :00 2 times every day omeprazole 2020-0 2020- No take 1 Acce ss 20 mg 8-31 12-14 capsule by [facility] capsule,del 00:00: 00:00 oral route ayed 00 :00 twice release daily 30 minute before meals. Aspir-81 mg 2020-0 2020- No take 1 Acc ess tablet,ramon 8-31 12-14 tablet by [facility] yed release 00:00: 00:00 oral route 00 :00 every day hydrochloro 2020-0 2020- No 1{table Q1D take 1 Access thiazide 25 8-31 12-14 t} tablet by [facility] tablet 00:00: 00:00 oral route 00 :00 every day hydroxyzine 2020-0 2020- No 1{table BID take 1 Access HCl 25 mg 8-31 12-14 t} tablet by [facility] tablet 00:00: 00:00 oral route 00 :00 2 times every day as needed as needed for anxiety, insomnia lisinopril 2020-0 2020- No 1{table Q1D take 1 A ccess 40 mg 8-31 12-14 t} tablet by [facility] tablet 00:00: 00:00 oral route 00 :00 every day metoprolol 2020-0 2020- No 1{table Q12H take 1 A ccess tartrate 25 8-31 12-14 t} tablet by [facility] mg tablet 00:00: 00:00 oral route 00 :00 2 times every day omeprazole 2020-0 2020- No take 1 Acce ss 20 mg 8-31 12-14 capsule by [facility] capsule,del 00:00: 00:00 oral route ayed 00 :00 twice release daily 30 minute before meals. Aspir-81 mg 2020-0 2020- No take 1 Acc ess tablet,ramon 8-31 12-14 tablet by [facility] yed release 00:00: 00:00 oral route 00 :00 every day hydrochloro 2020-0 2020- No 1{table Q1D take 1 Access thiazide 25 8-31 12-14 t} tablet by [facility] tablet 00:00: 00:00 oral route 00 :00 every day hydroxyzine 2020-0 2020- No 1{table BID take 1 Access HCl 25 mg 8-31 12-14 t} tablet by [facility] tablet 00:00: 00:00 oral route 00 :00 2 times every day as needed as needed for anxiety, insomnia lisinopril 2019-0 2020- No 1{table Q1D take 1 A ccess 40 mg 8-31 12-14 t} tablet by [facility] tablet 00:00: 00:00 oral route 00 :00 every day metoprolol 2020-0 2020- No 1{table Q12H take 1 A ccess tartrate 25 8-31 12-14 t} tablet by [facility] mg tablet 00:00: 00:00 oral route 00 :00 2 times every day omeprazole 2020-0 2020- No take 1 Acce ss 20 mg 8-31 12-14 capsule by [facility] capsule,del 00:00: 00:00 oral route ayed 00 :00 twice release daily 30 minute before meals. Aspir-81 mg 2020-0 2020- No take 1 Acc ess tablet,ramon 8-31 12-14 tablet by [facility] release 00:00: 00:00 oral route 00 :00 every day hydrochloro 2020-0 2020- No 1{table Q1D take 1 Access thiazide 25 8-31 12-14 t} tablet by [facility] tablet 00:00: 00:00 oral route 00 :00 every day hydroxyzine 2020-0 2020- No 1{table BID take 1 Access HCl 25 mg 8-31 12-14 t} tablet by [facility] tablet 00:00: 00:00 oral route 00 :00 2 times every day as needed as needed for anxiety, insomnia lisinopril 2020-0 2020- No 1{table Q1D take 1 A ccess 40 mg 8-31 12-14 t} tablet by [facility] tablet 00:00: 00:00 oral route 00 :00 every day metoprolol 2020-0 2020- No 1{table Q12H take 1 A ccess tartrate 25 8 12-14 t} tablet by [facility] mg tablet 00:00: 00:00 oral route 00 :00 2 times every day omeprazole 2019- No take 1 Acce ss 20 mg 8 12-14 capsule by [facility],del 00:00: 00:00 oral route ayed 00 :00 twice release daily 30 minute before meals. lisinopril 2019- No take 1 Acce ss 10 06-19- tablet by [facility] mg-hydrochl 00:00: 00:00 oral route orothiazide 00 :00 once daily 12.5 mg tablet lisinopril 2019- No take 1 Acce ss 10 06-19- tablet by [facility] mg-hydrochl 00:00: 00:00 oral route orothiazide 00 :00 once daily 12.5 mg tablet lisinopril 2019- No take 1 Acce ss 10 06-19- tablet by [facility] mg-hydrochl 00:00: 00:00 oral route orothiazide 00 :00 once daily 12.5 mg tablet lisinopril 2019- No take 1 Acce ss 10 06-19-31 tablet by [facility] mg-hydrochl 00:00: 00:00 oral route orothiazide 00 :00 once daily 12.5 mg tablet lisinopril 2019- No take 1 Acce ss 10 06-19-31 tablet by [facility] mg-hydrochl 00:00: 00:00 oral route orothiazide 00 :00 once daily 12.5 mg tablet lisinopril 2019- No take 1 Acce ss 10 06-19-31 tablet by [facility] mg-hydrochl 00:00: 00:00 oral route orothiazide 00 :00 once daily 12.5 mg tablet lisinopril 2019- No take 1 Acce ss 10 06-19-31 tablet by [facility] mg-hydrochl 00:00: 00:00 oral route orothiazide 00 :00 once daily 12.5 mg tablet lisinopril 2019- No take 1 Acce ss 10 06-19-31 tablet by [facility]-hydrochl 00:00: 00:00 oral route orothiazide 00 :00 once daily 12.5 mg tablet lisinopril 2019- No take 1 Acce ss 10 06-19 tablet by [facility] mg-hydrochl 00:00: 00:00 oral route orothiazide 00 :00 once daily 12.5 mg tablet lisinopril 2019- No take 1 Acce ss 10 06-19 tablet by [facility] mg-hydrochl 00:00: 00:00 oral route orothiazide 00 :00 once daily 12.5 mg tablet lisinopril 2019- No take 1 Acce ss 06-19 tablet by [facility]-hydrochl 00:00: 00:00 oral route orothiazide 00 :00 once daily 12.5 mg tablet lisinopril 2019- No take 1 [facility] 10 [facility]:00 oral route orothiazide 00 :00 once daily 12.5 mg tablet tiZANidine Yes Knee pain, take 1 [place] (ZANAFLEX) 7-30 right tablet by [facility] 4 mg tablet 00:00: mouth 6 00 hours as needed for muscle spasms lisinopril Yes HTN 20mg Q.5D Take 1 Harri s (PRINIVIL, 7-30 (hypertensi tablet by [facility] ZESTRIL) 20 00:00: on) mouth 2 mg tablet 00 times daily. simvastatin Yes HLD 40mg Take 1 Monique is (ZOCOR) 40 7-30 (hyperlipid tablet by [facility] mg tablet 00:00: emia) mouth at 00 bedtime nightly. hydrochloro Yes HTN 25mg QD Take 1 [facility] is thiazide 7-30 (hypertensi tablet by [facility] (HYDRODIURI 00:00: on) mouth L) 25 mg 00 daily. tablet naproxen Yes Knee pain, 500mg Take 1 [place] (NAPROSYN) 7-30 right tablet by [facility] 500 mg 00:00: mouth 2 tablet 00 times daily (with meals). HYDROcodone Yes Knee pain, 1{tbl} Take 1 [place] -acetaminop 7-[address] [facility] (NORCO) 00:00: mouth 5-325 mg 00 every 6 tablet hours as needed for Pain (only for break thru pain). tiZANidine Yes Knee pain, take 1 [place] (ZANAFLEX) 7-30 right tablet by [facility] lt 4 mg tablet 00:00: mouth 6 00 hours as needed for muscle spasms lisinopril Yes HTN 20mg Q.5D Take 1 Harri [facility] (PRINIVIL, 7-30 (hypertensi tablet by [facility] ZESTRIL) 20 00:00: on) mouth 2 mg tablet 00 times daily. simvastatin Yes HLD 40mg Take 1 Monique is (ZOCOR) 40 7-30 (hyperlipid tablet by [facility] mg tablet 00:00: emia) mouth at 00 bedtime nightly. hydrochloro Yes HTN 25mg QD Take 1 [place] is thiazide 7-30 (hypertensi tablet by [facility] (HYDRODIURI 00:00: on) mouth L) 25 mg 00 daily. tablet naproxen Yes Knee pain, 500mg Take 1 [place] (NAPROSYN) 7-30 right tablet by [facility] lt 500 mg 00:00: mouth 2 tablet 00 times daily (with meals). HYDROcodone Yes Knee pain, 1{tbl} Take 1 [place] -acetaminop 7-30 right tablet by [facility] (NORCO) 00:00: mouth 5-325 mg 00 every 6 tablet hours as needed for Pain (only for break thru pain). albuterol Yes Asthma 2{puff} Inhale 2 [place] (VENTOLIN 7-17 Puffs by [facility] HFA,PROVENT 00:00: mouth 4 [place] 00 times HFA,PROAIR daily as HFA) 90 needed for mcg/actuati Wheezing. on inhaler albuterol Yes Asthma 2{puff} Inhale 2 [place] (VENTOLIN 7-17 Puffs by [facility] HFA,PROVENT 00:00: mouth 4 [place] 00 times HFA,PROAIR daily as HFA) 90 needed for mcg/actuati Wheezing. on inhaler fenofibrate Yes Take 2 [place] is nanocrystal 5-29 tablets by alth lized 00:00: mouth (TRICOR) 48 00 daily (at mg tablet night). Automactic substituti on for Fenofibrat e 54mg per P&T. fenofibrate Yes Take 2 [place] is nanocrystal 5-29 tablets by Harpreet thiago flores 00:00: mouth (TRICOR) 48 00 daily (at mg tablet night). Automactic substituti on for Fenofibrat e 54mg per P&T. loratadine Yes Sinus 10mg QD Take 1 Monique is (CLARITIN) 5-28 congestion tablet by [facility] 10 mg 00:00: mouth tablet 00 daily. beclomethas Yes Sinus 2{spray Q.5D Use 2 H arris one 5-28 congestion } Sprays in [facility] (BECONASE 00:00: each AQ) 42 mcg 00 nostril 2 (0.042 %) times nasal spray daily Dose is for each nostril.. HYDROcodone Yes Pain in 1{tbl} Take 1 [place] -acetaminop 5-28 joint, tablet by eaelyssa young (NORCO) 00:00: shoulder mouth 5-325 mg 00 region every 6 tablet hours as needed for Pain. loratadine Yes Sinus 10mg QD Take 1 [place] is (CLARITIN) 5-28 congestion tablet by [facility] 10 mg 00:00: mouth tablet 00 daily. beclomethas Yes Sinus 2{spray Q.5D Use 2 H arris one 5-28 congestion } Sprays in [facility] (BECONASE 00:00: each AQ) 42 mcg 00 nostril 2 (0.042 %) times nasal spray daily Dose is for each nostril.. HYDROcodone Yes Pain in 1{tbl} Take 1 [place] -acetaminop 5-28 joint, tablet by eaelyssa young (NORCO) 00:00: shoulder mouth 5-325 mg 00 region every 6 tablet hours as needed for Pain. ondansetron Yes 4mg Take 4 mg H arris (ZOFRAN-ODT 3-28 by mouth [facility] ) 4 mg 15:30: every 8 disintegrat 27 hours as ing tablet needed for Nausea. ondansetron Yes 4mg Take 4 mg H arris (ZOFRAN-ODT 3-28 by mouth [facility] ) 4 mg 15:30: every 8 disintegrat 27 hours as ing tablet needed for Nausea. EFFEXOR XR 2012-02 Yes PTSD Take 1 Harri s 37.5 mg 2-23 (post-traum capsule by Health extended 00:00: atic stress mouth release 00 disorder) daily for capsule a week then increase to 2 capsules afterwards hydrOXYzine 2012-02 Yes PTSD Takes 1 or [place] (ATARAX) 25 2-23 (post-traum 2 tablets Health mg tablet 00:00: atic stress by mouth 00 disorder) up to 3 times a day as needed for increased anxiety prazosin 2012-02 Yes PTSD Take 1 [place] (MINIPRESS) 2-23 (post-traum tablet by Health 1 mg 00:00: atic stress mouth at capsule 00 disorder) bedtime for a week when increase to 2 tablets afterwards EFFEXOR XR 2012-02 Yes PTSD Take 1 Harri s 37.5 mg 2-23 (post-traum capsule by Health extended 00:00: atic stress mouth release 00 disorder) daily for capsule a week then increase to 2 capsules afterwards hydrOXYzine 2012-02 Yes PTSD Takes 1 or [place] (ATARAX) 25 2-23 (post-traum 2 tablets Health mg tablet 00:00: atic stress by mouth 00 disorder) up to 3 times a day as needed for increased anxiety prazosin 2012-02 Yes PTSD Take 1 [place] (MINIPRESS) 2-23 (post-traum tablet by Health 1 mg 00:00: atic stress mouth at capsule 00 disorder) bedtime for a week when increase to 2 tablets afterwards tamsulosin 2012-02 Yes Kidney .4mg QD Take 1 [place] ris (FLOMAX) 2-17 stone capsule by [facility] 0.4 mg 00:00: mouth extended 00 daily. release capsule tamsulosin 2012-02 Yes Kidney .4mg QD Take 1 Rom[place] ris (FLOMAX) 2-17 stone capsule by [facility] 0.4 mg 00:00: mouth extended 00 daily. release capsule triamcinolo Yes Dry skin Apply to [facility] 9 dermatitis affected [facility] (KENALOG) 00:00: area 3 0.1 % 00 times ointment daily. triamcinolo Yes Dry skin Apply to [place] 9-23 dermatitis affected [facility]alt [facility] (KENALOG) 00:00: area 3 0.1 % 00 times ointment daily. omeprazole Yes GERD 20mg QD Take 1 Harri [facility] (PRILOSEC) 7-02 (gastroesop capsule by Health 20 mg 00:00: hageal mouth delayed 00 reflux daily. release disease) capsule omeprazole Yes GERD 20mg QD Take 1 Harri [facility] (PRILOSEC) 7 (gastroesop capsule by Health 20 mg 00:00: hageal mouth delayed 00 reflux daily. release disease) capsule aspirin 2010-02 Yes Chest pain, 81mg QD 1 Tab [place] [facility] (ASPIRIN) 2-20 unspecified daily. H [facility]alth 81 mg 00:00: chewable 00 tablet aspirin 2010-02 Yes Chest pain, 81mg QD 1 Tab [place] [facility] (ASPIRIN) 2-20 unspecified daily. [facility] 81 mg 00:00: chewable 00 tablet olanzapine No 1{table Q1D take 1 Acce ss 10 mg t} tablet by Health tablet oral route every day venlafaxine No 1{capsu Q1D take 1 Acc ess ER 75 mg le} capsule by Healt [facility] capsule,ext oral route ended every day release 24 with food hr venlafaxine No 1{capsu Q1D take 1 Acc ess ER 150 mg le} capsule by [facility] capsule,ext oral route ended every day release 24 hr olanzapine No 1{table Q1D take 1 Acce ss 10 mg t} tablet by Health tablet oral route every day venlafaxine No 1{capsu Q1D take 1 Acc ess ER 75 mg le} capsule by [facility]alt [facility] capsule,ext oral route ended every day release 24 with food hr venlafaxine No 1{capsu Q1D take 1 Acc ess ER 150 mg le} capsule by [facility] capsule,ext oral route ended every day release 24 hr clonidine No 1{table Q12H take 1 Acces s HCl 0.1 mg t} tablet by [facility] tablet oral route 2 times every day for restless leg syndrome olanzapine No 1{table Q1D take 1 Acce ss 10 mg t} tablet by Health tablet oral route every day Zyprexa 10 No 1{table Q1D take 1 Acce ss mg tablet t} tablet by [facility]alt [facility] oral route every day venlafaxine No 1{capsu Q12H take 1 Acc ess ER 75 mg le} capsule by [facility]alt [facility] capsule,ext oral route ended 2 times release 24 every day hr with food clonidine No 1{table Q12H take 1 Acces s HCl 0.1 mg t} tablet by [facility] tablet oral route 2 times every day for restless leg syndrome olanzapine No 1{table Q1D take 1 Acce ss 10 mg t} tablet by Health tablet oral route every day Zyprexa 10 No 1{table Q1D take 1 Acce ss mg tablet t} tablet by [facility]alt [facility] oral route every day venlafaxine No 1{capsu Q12H take 1 Acc ess ER 75 mg le} capsule by [facility]alt [facility] capsule,ext oral route ended 2 times release 24 every day hr with food clonidine No 1{table Q12H take 1 Acces s HCl 0.1 mg t} tablet by [facility] th tablet oral route 2 times every day for restless leg syndrome olanzapine No 1{table Q1D take 1 Acce ss 10 mg t} tablet by Health tablet oral route every day Zyprexa 10 No 1{table Q1D take 1 Acce ss mg tablet t} tablet by [facility]alt [facility] oral route every day venlafaxine No 1{capsu Q12H take 1 Acc ess ER 75 mg le} capsule by [facility]alt [facility] capsule,ext oral route ended 2 times release 24 every day hr with food clonidine No 1{table Q12H take 1 Acces s HCl 0.1 mg t} tablet by [facility] tablet oral route 2 times every day for restless leg syndrome olanzapine No 1{table Q1D take 1 Acce ss 10 mg t} tablet by Health tablet oral route every day Zyprexa 10 No 1{table Q1D take 1 Acce ss mg tablet t} tablet by [facility]alt [facility] oral route every day venlafaxine No 1{capsu Q12H take 1 Acc ess ER 75 mg le} capsule by [facility]alt [facility] capsule,ext oral route ended 2 times release 24 every day hr with food clonidine No 1{table Q12H take 1 Acces s HCl 0.1 mg t} tablet by [facility] tablet oral route 2 times every day for restless leg syndrome Zyprexa 10 No 1{table Q1D take 1 Acce ss mg tablet t} tablet by [facility]alt [facility] oral route every day venlafaxine No 1{capsu Q12H take 1 Acc ess ER 75 mg le} capsule by [facility]alt [facility] capsule,ext oral route ended 2 times release 24 every day hr with food clonidine No 1{table Q12H take 1 Acces s HCl 0.1 mg t} tablet by [facility] tablet oral route 2 times every day for restless leg syndrome Zyprexa 10 No 1{table Q1D take 1 Acce ss mg tablet t} tablet by [facility]alt [facility] oral route every day venlafaxine No 1{capsu Q12H take 1 Acc ess ER 75 mg le} capsule by [facility]alt [facility] capsule,ext oral route ended 2 times release 24 every day hr with food clonidine No 1{table Q12H take 1 Acces s HCl 0.1 mg t} tablet by [facility] tablet oral route 2 times every day for restless leg syndrome Zyprexa 10 No 1{table Q1D take 1 Acce ss mg tablet t} tablet by [facility]alt [facility] oral route every day venlafaxine No 1{capsu Q12H take 1 Acc ess ER 75 mg le} capsule by [facility] capsule,ext oral route ended 2 times release 24 every day hr with food clonidine No 1{table Q12H take 1 Acces s HCl 0.1 mg t} tablet by [facility] tablet oral route 2 times every day for restless leg syndrome Zyprexa 10 No 1{table Q1D take 1 Acce ss mg tablet t} tablet by [facility]alt [facility] oral route every day venlafaxine No 1{capsu Q12H take 1 Acc ess ER 75 mg le} capsule by [facility]alt [facility] capsule,ext oral route ended 2 times release 24 every day hr with food clonidine No 1{table Q12H take 1 Acces s HCl 0.1 mg t} tablet by [facility] tablet oral route 2 times every day for restless leg syndrome Zyprexa 10 No 1{table Q1D take 1 Acce ss mg tablet t} tablet by [facility]alt [facility] oral route every day venlafaxine No 1{capsu Q12H take 1 Acc ess ER 75 mg le} capsule by [facility]alt [facility] capsule,ext oral route ended 2 times release 24 every day hr with food clonidine No 1{table Q12H take 1 Acces s HCl 0.1 mg t} tablet by [facility] tablet oral route 2 times every day for restless leg syndrome olanzapine 2020- No 1{table Q1D take 1 Acc ess 10 mg 01-14 t} tablet by Health tablet 00:00 oral route :00 every day olanzapine 2020- No 1{table Q1D take 1 Acc ess 10 mg 01-14 t} tablet by Health tablet 00:00 oral route :00 every day olanzapine 2020- No 1{table Q1D take 1 Acc ess 10 mg 01-14 t} tablet by Health tablet 00:00 oral route :00 every day olanzapine 2020- No 1{table Q1D take 1 Acc ess 10 mg -14 t} tablet by Health tablet 00:00 oral route :00 every day olanzapine 2020- No 1{table Q1D take 1 Acc ess 10 mg -14 t} tablet by Health tablet 00:00 oral route :00 every day olanzapine 2020- No 1{table Q1D take 1 Acc ess 10 mg 01-14 t} tablet by Health tablet 00:00 oral route :00 every day venlafaxine 2020- No 1{capsu Q1D take 1 Ac cess ER 75 mg 09-14 le} capsule by [facility] capsule,ext 00:00 oral route ended :00 every day release 24 with food hr venlafaxine 2020- No 1{capsu Q1D take 1 Ac cess ER 150 mg 09-14 le} capsule by [facility] capsule,ext 00:00 oral route ended :00 every day release 24 hr venlafaxine 2020- No 1{capsu Q1D take 1 Ac cess ER 75 mg 09-14 le} capsule by [facility] capsule,ext 00:00 oral route ended :00 every day release 24 with food hr venlafaxine 2020- No 1{capsu Q1D take 1 Ac cess ER 150 mg 09-14 le} capsule by [facility] capsule,ext 00:00 oral route ended :00 every day release 24 hr venlafaxine 2020- No 1{capsu Q1D take 1 Ac cess ER 75 mg 09-14 le} capsule by [facility] capsule,ext 00:00 oral route ended :00 every day release 24 with food hr venlafaxine 2020- No 1{capsu Q1D take 1 Ac cess ER 150 mg 09-14 le} capsule by [facility] capsule,ext 00:00 oral route ended :00 every day release 24 hr venlafaxine 2020- No 1{capsu Q1D take 1 Ac cess ER 75 mg 09-14 le} capsule by [facility] capsule,ext 00:00 oral route ended :00 every day release 24 with food hr venlafaxine 2020- No 1{capsu Q1D take 1 Ac cess ER 150 mg 09-14 le} capsule by [facility] capsule,ext 00:00 oral route ended :00 every day release 24 hr venlafaxine 2020- No 1{capsu Q1D take 1 Ac cess ER 75 mg 09-14 le} capsule by [facility] capsule,ext 00:00 oral route ended :00 every day release 24 with food hr venlafaxine 2020- No 1{capsu Q1D take 1 Ac cess ER 150 mg 09-14 le} capsule by [facility] capsule,ext 00:00 oral route ended :00 every day release 24 hr venlafaxine 2020- No 1{capsu Q1D take 1 Ac cess ER 75 mg 09-14 le} capsule by [facility] capsule,ext 00:00 oral route ended :00 every day release 24 with food hr venlafaxine 2020- No 1{capsu Q1D take 1 Ac cess ER 150 mg 09-14 le} capsule by [facility] capsule,ext 00:00 oral route ended :00 every day release 24 hr venlafaxine 2020- No 1{capsu Q1D take 1 Ac cess ER 75 mg 09-14 le} capsule by [facility] capsule,ext 00:00 oral route ended :00 every day release 24 with food hr venlafaxine 2020- No 1{capsu Q1D take 1 Ac cess ER 150 mg 09-14 le} capsule by [facility] capsule,ext 00:00 oral route ended :00 every day release 24 hr venlafaxine 2020- No 1{capsu Q1D take 1 Ac cess ER 75 mg 09-14 le} capsule by [facility] capsule,ext 00:00 oral route ended :00 every day release 24 with food hr venlafaxine 2020- No 1{capsu Q1D take 1 Ac cess ER 150 mg 09-14 le} capsule by [facility] capsule,ext 00:00 oral route ended :00 every day release 24 hr venlafaxine 2020- No 1{capsu Q1D take 1 Ac cess ER 75 mg 09-14 le} capsule by [facility] capsule,ext 00:00 oral route ended :00 every day release 24 with food hr venlafaxine 2020- No 1{capsu Q1D take 1 Ac cess ER 150 mg 09-14 le} capsule by [facility] capsule,ext 00:00 oral route ended :00 every day release 24 hr venlafaxine 2020- No 1{capsu Q1D take 1 Ac cess ER 75 mg 09-14 le} capsule by [facility] capsule,ext 00:00 oral route ended :00 every day release 24 with food hr venlafaxine 2020- No 1{capsu Q1D take 1 Ac cess ER 150 mg 11-07 le} capsule by [facility] capsule,ext 00:00 oral route ended :00 every day release 24 hr clonidine 2020- No 1{table Q12H take 1 Acce ss HCl 0.1 mg 08-31 t} tablet by [facility] tablet 00:00 oral route :00 2 times every day clonidine 2020- No 1{table Q12H take 1 Acce ss HCl 0.1 mg 08-31 t} tablet by [facility] tablet 00:00 oral route :00 2 times every day clonidine 2020- No 1{table Q12H take 1 Acce ss HCl 0.1 mg 08-31 t} tablet by [facility] tablet 00:00 oral route :00 2 times every day clonidine 2020- No 1{table Q12H take 1 Acce ss HCl 0.1 mg 08-31 t} tablet by [facility] tablet 00:00 oral route :00 2 times every day clonidine 2020- No 1{table Q12H take 1 Acce ss HCl 0.1 mg 08-31 t} tablet by [facility] tablet 00:00 oral route :00 2 times every day clonidine 2020- No 1{table Q12H take 1 Acce ss HCl 0.1 mg 08-31 t} tablet by [facility] tablet 00:00 oral route :00 2 times every day clonidine 2020- No 1{table Q12H take 1 Acce ss HCl 0.1 mg 08-31 t} tablet by [facility] tablet 00:00 oral route :00 2 times every day clonidine 2020- No 1{table Q12H take 1 Acce ss HCl 0.1 mg 08-31 t} tablet by [facility] tablet 00:00 oral route :00 2 times every day clonidine 2020- No 1{table Q12H take 1 Acce ss HCl 0.1 mg 08-31 t} tablet by [facility] tablet 00:00 oral route :00 2 times every day clonidine 2020- No 1{table Q12H take 1 Acce ss HCl 0.1 mg 08-31 t} tablet by [facility] tablet 00:00 oral route :00 2 times every day clonidine 2020- No 1{table Q12H take 1 Acce ss HCl 0.1 mg 08-31 t} tablet by [facility] tablet 00:00 oral route :00 2 times every day clonidine 2020- No 1{table Q12H take 1 Acce ss HCl 0.1 mg 08-31 t} tablet by [facility] tablet 00:00 oral route :00 2 times every day Immunizations Ordered Immunization Filled Immunization Date Status Commen ts Source Name Name Influenza Vaccine 2011-02-12 Completed [facility] 00:00:00 PPV 23 Pneumococcal 2011-02-12 Completed [facility] Polysaccaride 00:00:00 Influenza Vaccine 2011-02-12 Completed [facility] 00:00:00 PPV 23 Pneumococcal 2011-02-12 Completed [facility] Polysaccaride 00:00:00 Influenza Virus 2011-02-12 Completed [facility] Vaccine 00:00:00 [facility] Pneumococcal 2011-02-12 Completed [facility] Polysaccharide, 00:00:00 [place] [facility] PPSV23 (PNEUMOVAX) [facility] Influenza Virus 2011-02-12 Completed [facility] Vaccine 00:00:00 [facility] Pneumococcal 2011-02-12 Completed [facility] Polysaccharide, 00:00:00 [place] [facility] PPSV23 (PNEUMOVAX) [facility] Vital Signs Vital Name Observation Time Observation Value Comments Source Systolic blood 2021-02-16 15:01:00 150 mm[Hg] [facility] Diastolic blood 2021-02-16 15:01:00 89 mm[Hg] [facility] Heart rate 2021-02-16 15:01:00 74 /min [facility] Body temperature 2021-02-16 15:01:00 36.11 Lindsay [facility] Respiratory rate 2021-02-16 15:01:00 18 /[facility] in 2021-02-16 15:01:00 99 /min [facility] Arterial blood by [facility] Pulse oximetry Branch Systolic blood 2021-02-14 10:10:00 128 mm[Hg] [facility] Diastolic blood 2021-02-14 10:10:00 73 mm[Hg] [facility] Heart rate 2021-02-14 10:10:00 50 /min [facility] Body temperature 2021-02-14 10:10:00 36.11 Lindsay [facility] Respiratory rate 2021-02-14 10:10:00 20 /min [facility] Body weight 2021-02-14 10:10:00 89.444 kg [facility] BMI 2021-02-14 10:10:00 34.93 kg/m2 [facility] Oxygen saturation in 2021-02-14 10:10:00 98 /min [facility] Arterial blood by [place] [employer] [employer] [facility] Pulse oximetry Branch Body height 2021-02-13 23:17:00 160 cm [facility] Systolic blood 2020-11-25 14:48:00 161 mm[Hg] [facility] Diastolic blood 2020-11-25 14:48:00 89 mm[Hg] [facility] Heart rate 2020-11-25 14:48:00 67 /min [facility] Body temperature 2020-11-25 14:48:00 36.72 Lindsay [facility] Respiratory rate 2020-11-25 14:48:00 17 /min [facility] Body weight 2020-11-25 14:48:00 90.719 kg [facility] BMI 2020-11-25 14:48:00 35.43 kg/m2 [facility] Oxygen saturation in 2020-11-25 14:48:00 99 /min [facility] Arterial blood by [place] [employer] [employer] [facility] Pulse oximetry Branch Systolic blood 2020-11-21 21:10:00 131 mm[Hg] [facility] Diastolic blood 2020-11-21 21:10:00 75 mm[Hg] [facility] Heart rate 2020-11-21 21:10:00 61 /min [facility] Body temperature 2020-11-21 21:10:00 36.89 Lindsay [facility] Respiratory rate 2020-11-21 21:10:00 22 /min [facility] Oxygen saturation in 2020-11-21 21:10:00 97 /min [facility] Arterial blood by [facility] Pulse oximetry Branch Body height 2020-11-21 20:19:00 160 cm [facility] Body weight 2020-11-21 20:19:00 90.719 kg [facility] BMI 2020-11-21 20:19:00 35.43 kg/m2 [facility] Systolic blood 2020-11-16 19:32:00 114 mm[Hg] [facility]iver [facility]ity of pressure [facility] Diastolic blood 2020-11-16 19:32:00 64 mm[Hg] Unive rsity of pressure [facility] Heart rate 2020-11-16 19:32:00 88 /min [facility] Body temperature 2020-11-16 19:32:00 37.67 Lindsay [facility] Respiratory rate 2020-11-16 19:32:00 18 /min [facility] Body weight 2020-11-16 19:32:00 90.719 kg [facility] BMI 2020-11-16 19:32:00 35.43 kg/m2 [facility] Oxygen saturation in 2020-11-16 19:32:00 99 /min [facility] Arterial blood by [facility] Pulse oximetry Branch Body height 2020-03-09 09:26:00 157.48 cm [facility] Body Weight 2020-03-09 09:26:00 97.159 kg [facility] 2020-03-09 09:26:00 134 mm[Hg] [facility] Systolic [facility] 2020-03-09 09:26:00 86 mm[Hg] [facility] Diastolic Heart Beat 2020-03-09 09:26:00 68 /min [facility] Body Temperature 2020-03-09 09:26:00 36.61 Lindsay [facility] Respiratory Rate 2020-03-09 09:26:00 18 /min [facility] Body mass index 2020-03-09 09:26:00 39.18 kg/m2 [facility] 2020-02-07 16:51:00 143 mm[Hg] [facility] Systolic [facility] 2020-02-07 16:51:00 84 mm[Hg] [facility] Diastolic Heart Beat 2020-02-07 16:51:00 64 /min [facility] Body height 2020-02-07 10:37:00 157.48 cm [facility] Patient Body Weight 2020-02-07 10:37:00 97.250 kg [facility] 2020-02-07 10:37:00 150 mm[Hg] [facility] Systolic [facility] 2020-02-07 10:37:00 85 mm[Hg] [facility] Diastolic Heart Beat 2020-02-07 10:37:00 65 /min [facility] Body Temperature 2020-02-07 10:37:00 36.78 [facility] Respiratory Rate 2020-02-07 10:37:00 18 /min [facility] Body mass index 2020-02-07 10:37:00 39.21 kg/m2 [facility] O2 % BldC Oximetry 2020-02-07 10:37:00 96 % [facility] 2019-11-08 13:41:00 129 mm[Hg] [facility] Systolic [facility] 2019-11-08 13:41:00 87 mm[Hg] [facility] Diastolic Heart Beat 2019-11-08 13:41:00 72 /min [facility] Body height 2019-11-08 10:41:00 157.48 cm [facility] Patient Body Weight 2019-11-08 10:41:00 99.881 kg [facility] 2019-11-08 10:41:00 145 mm[Hg] [facility] Systolic Intravascular 2019-11-08 10:41:00 75 mm[Hg] [facility] Diastolic Heart Beat 2019-11-08 10:41:00 75 /min [facility] Body Temperature 2019-11-08 10:41:00 36.50 Lindsay [facility] Respiratory Rate 2019-11-08 10:41:00 18 /min [facility] Body mass index 2019-11-08 10:41:00 40.27 kg/m2 [facility] O2 % BldC Oximetry 2019-11-08 10:41:00 98 % [facility] Body height 2019-10-25 11:31:00 157.48 cm [facility] Patient Body Weight 2019-10-25 11:31:00 100.244 kg [facility] Intravascular 2019-10-25 11:31:00 174 mm[Hg] [facility] Systolic Intravascular 2019-10-25 11:31:00 75 mm[Hg] [facility] Diastolic Heart Beat 2019-10-25 11:31:00 81 /min [facility] Body Temperature 2019-10-25 11:31:00 36.78 [facility] Respiratory Rate 2019-10-25 11:31:00 20 /min [facility] Body mass index 2019-10-25 11:31:00 40.42 kg/m2 [facility] Systolic blood 2019-10-22 09:04:08 162 mm[Hg] [facility] pressure Diastolic blood 2019-10-22 09:04:08 111 mm[Hg] [facility] pressure Heart rate 2019-10-22 09:04:08 76 /min [facility] Body temperature 2019-10-22 09:04:08 36.94 Lindsay [facility] Respiratory rate 2019-10-22 09:04:08 18 /min [facility] Body height 2019-10-22 09:04:08 160 cm [facility] Body weight 2019-10-22 09:04:08 99.791 kg [facility] BMI 2019-10-22 09:04:08 38.97 kg/m2 [facility] Body height 2015-06-20 14:49:00 62.00 [in_us] [facility] Patient Body Weight 2015-06-20 14:49:00 197.20 [lb_av] [facility] Intravascular 2015-06-20 14:49:00 152 mm[Hg] [facility] Systolic Intravascular 2015-06-20 14:49:00 95 mm[Hg] [facility] Diastolic Heart Beat 2015-06-20 14:49:00 65 /min [facility] Body Temperature 2015-06-20 14:49:00 98.30 [degF] [facility] Respiratory Rate 2015-06-20 14:49:00 18 /min [facility] Body mass index 2015-06-20 14:49:00 36.10 kg/m2 [facility] Procedures Procedure Date / Time Performing Clinician Source Performed CONSENT/REFUSAL FOR 2021-02-16 14:56:52 Doctor Unassigned, [facility] DIAGNOSIS AND TREATMENT [facility] MAGNESIUM 2021-02-14 09:19:00 Alex Castillo [place] [facility] TROPONIN I 2021-02-14 09:19:00 [facility]OLIC [facility]EL 2021-02-14 09:19:[address] [facility] (NA, K, CL, CO2, GLUCOSE, Medica l Branch BUN, CREATININE, CA) LIPID PANEL (52631)(TOTAL 2021-02-14 09:19:00 Alex Castillo [facility] CHOLESTEROL, Medical Branch TRIGLYCERIDES, HDL) TROPONIN I 2021-02-14 03:14:00 Anna [facility] POCT GLUCOSE (AUTOMATED) 2021-02-14 03:12:00 [facility] (ID NOW RAPID 2021-02-13 20:39:00 Venancio Milligan [facility] TESTING) [facility] CT ANGIOGRAM CHEST 2021-02-13 20:01:48 Singer [facility] CT ANGIOGRAM 2021-02-13 20:01:48 Singer [facility] ABDOMEN/PELVIS Medical Branch LIPASE 2021-02-13 19:30:00 Singer [facility] MAGNESIUM 2021-02-13 19:30:00 Singer [facility] TROPONIN I 2021-02-13 19:30:00 Singer [facility] THYROID STIMULATING 2021-02-13 19:30:00 Anna [facility] HORMONE [facility] COMP. METABOLIC PANEL 2021-02-13 19:30:00 Singer Venancio [facility] ([id number]) [facility] CBC WITH DIFF 2021-02-13 19:30:00 Singer [facility] GLYCOSYLATED HEMOGLOBIN 2021-02-13 19:30:00 Anna [facility] (A1C) [facility] N-TERMINAL PRO-BNP 2021-02-13 19:30:00 Singer [facility] HB ECG ROUTINE & RHYTHM 2021-02-13 19:20:07 Singer [facility] STRIP Medical Branch CONSENT/REFUSAL FOR 2021-02-13 19:10:13 [facility] DIAGNOSIS AND TREATMENT [facility] [address] [facility] CONSENT/REFUSAL FOR 2020-11-25 14:43:08 [facility] DIAGNOSIS AND TREATMENT [facility] [address] [facility] CONSENT/REFUSAL FOR 2020-11-21 05:01:00 Doctor Frandy Wolfe [facility] DIAGNOSIS AND TREATMENT [facility] [address] [facility] CONSENT/REFUSAL FOR 2020-11-16 19:22:48 [facility] DIAGNOSIS AND TREATMENT [facility] MEDICAL LEGAL PROGRAM 2020-10-09 00:00:00 [facility] PHONE CALL TO 2020-10-09 00:00:00 [facility] AUTHORIZATION FOR RELEASE 2020-09-20 05:01:00 Doctor Wolfe, [facility] [address] [facility] GLUCOSE BLOOD TEST 2020-03-09 00:00:00 [facility] OFF[facility]/OUTPATIENT VISIT 2020-03-09 00:00:00 [facility] EST LIPID PANEL 2020-03-09 00:00:00 [facility] OFF[facility]/OUTPATIENT VISIT 2020-02-07 00:00:00 [facility] EST COMPLETE CBC W/AUTO DIFF 2020-02-07 00:00:00 [facility] WBC COMPREHEN METABOLIC PANEL 2020-02-07 00:00:00 [facility] LIPID PANEL 2020-02-07 00:00:00 [facility] PROTHROMBIN TIME 2020-02-07 00:00:00 [facility] GLYCOSYLATED HEMOGLOBIN 2020-02-07 00:00:00 [facility] TEST THROMBOPLASTIN TIME 2020-02-07 00:00:00 [facility] PARTIAL VITAMIN D 25 HYDROXY 2020-02-07 00:00:00 [facility] OFFICE/OUTPATIENT VISIT 2019-11-08 00:00:00 [facility] EST PREV VISIT NEW AGE 40-64 2019-10-25 00:00:00 [facility] COMPLETE CBC W/AUTO DIFF 2019-10-25 00:00:00 [facility] WBC COMPREHEN METABOLIC PANEL 2019-10-25 00:00:00 [facility] LIPID PANEL 2019-10-25 00:00:00 [facility] CHYLMD TRACH DNA AMP 2019-10-25 00:00:00 [facility] PROBE GLYCOSYLATED HEMOGLOBIN 2019-10-25 00:00:00 [facility] TEST ASSAY THYROID STIM 2019-10-25 00:00:00 [facility] HORMONE SYPHILIS TEST NON-TREP 2019-10-25 00:00:00 [facility] QUAL VITAMIN D 25 HYDROXY 2019-10-25 00:00:00 [facility] HIV-1 AG W/HIV-1 & HIV-2 2019-10-25 00:00:00 [facility] AB HEPATITIS C AB TEST 2019-10-25 00:00:00 [facility] Plan of Care Planned Activity Planned Date Details Comments Source Future Scheduled Test 2014-02-19 00:00:00 Screening for [facility] malignant neoplasm of colon (procedure) [code = 559657651] Future Scheduled Test 2014-02-19 00:00:00 Screening for [facility] malignant neoplasm of colon (procedure) [code = 625530970] Future Scheduled Test 1976 00:00:00 COVID-19 Vaccine (1) zoojoo.BE [code = COVID-19 Vaccine (1)] Future Scheduled Test 1976 00:00:00 COVID-19 Vaccine (1) zoojoo.BE [code = COVID-19 Vaccine (1)] Encounters Start End Encounter Admission Attending Care Care Encounter Source Date/Time Date/Time Type Type Clinicians Facility Department ID 2020-12-26 Emergency [facility] [id number] Univers 00:56:46 ity of [facility] 2020-12-25 Emergency [facility] [id number] Univers 16:20:27 [facility] 2020-12-25 Emergency [facility] [id number] Univers 08:52:45 [facility] 2020-12-25 Emergency [facility] [id number] Univers 03:19:02 ity of [facility] 2020-12-25 Emergency [facility] [id number] Univers 01:43:58 [facility] 2020-12-25 Emergency [facility] [id number] Univers 00:35:24 [facility] 2020-12-24 Emergency [facility] [id number] Univers 14:35:26 [facility] 2021-02-16 2021-02-16 Emergency Emanuel MENG [facility] ERT [id number] Univers 09:02:00 09:54:00 MIRIAM [facility] 2021-02-16 2021-02-16 [facility] 1.2.840.114 [id number] Univers 09:02:00 09:54:00 Miriam FALCON [id number] [facility] [id number] [facility] [id number] [address] 2021-02-13 2021-02-14 Outpatient X ANNA [facility] [id number] Univers 13:20:00 11:50:00 [facility] 2021-02-13 2021-02-14 Emergency Venancio Milligan [facility] 1.2.840. 114 [id number] Univers 13:20:00 11:50:00 Alex Castillo [id number] [facility] 4.2.7.2.686 [facility] [id number] [address] 2020-12-21 2020-12-21 Outpatient DESHAWN QUINTERO [facility] [id number] Access 08:26:00 08:26:00 Health 2020-12-21 2020-12-21 Outpatient DESHAWN QUINTERO [facility] [id number] Access 08:26:00 08:26:00 [id number] [id number] Health [id number] 0f4 [id number] 2020-11-29 2020-11-29 Outpatient DESHAWN QUINTERO [facility] [id number] Access 10:33:00 10:33:00 Health 2020-11-29 2020-11-29 Outpatient DESHAWN QUINTERO [facility] [id number] Access 10:33:00 10:33:00 e2-5vq4-47h 04e-43ed-b Health [id number] 0f4 [id number] 2020-11-25 2020-11-25 [facility] 1.2.840.114 [id number] Univers 09:49:00 10:11:00 Miriam Falcon [id number] ity [facility] 4.2.7.2.686 [facility] [id number] [facility] 084 Branch 2020-11-25 2020-11-25 Emergency X YUSRA, [facility] ERT [id number] Univers 09:49:00 10:11:00 [facility]IRIAM [facility] 2020-11-24 2020-11-24 Outpatient [facility] [id number] Univers 00:00:00 00:00:00 [facility] 2020-11-21 2020-11-21 Nurse Therapy, Adc Covid Infusion [facility] 1.2.840.114 [id number] Univers 15:05:10 16:05:10 Visit Ariane Santa [id number] ity [facility] 4.2.7.2.686 [facility] [id number] Med [facility] 053 Branch 2020-11-21 2020-11-21 Outpatient [facility] [id number] Univers 16:00:00 16:00:00 [id number] [facility] 2020-11-21 2020-11-21 Outpatient R CODY [facility] [id number] Univers 16:00:00 16:00:00 [facility] 2020-11-21 2020-11-21 Orders Doctor PAZ 1.2.840.114 [id number] Univers 00:00:00 00:00:00 Only Unassigned, ZELALEM [id number] [facility] 4.2.7.2.686 [place] [phone] [facility] 009 Branch 2020-11-18 2020-11-18 Telephone Alexandra Abreu 1.2.840.114 [id number] Univers 00:00:00 00:00:00 ZELALEM [id number] it y of [facility] 4.2.7.2.686 [place] [id number] [facility] 019 Branch 2020-11-16 2020-11-16 Emergency Jose Allen [facility] 1.2.840.114 [id number] Univers 14:37:00 16:06:00 Sherry Falcon 350.1.13.10 i ty of [place] 4.2.7.2.686 [facility] [id number] [facility] 084 [place] 2020-11-16 2020-11-16 Orders Doctor BRANDI 1.2.840.114 [id number] Univers 00:00:00 00:00:00 Only Unassigned, ZELALEM [id number] [facility] 4.2.7.2.686 [place] [id number] [address] 2020-10-11 2020-10-11 Emergency Singer [facility] [id number] 08:53:00 10:25:00 Venancio Falcon 350.1.13.10 [place] 4.2.7.2.686 Elsa [id number] 084 2020-10-09 2020-10-09 Outpatient ALEXIS PELAEZ [facility] [id number] Access 16:35:00 16:35:00 Health 2020-10-09 2020-10-09 Outpatient ALEXIS PELAEZ [facility] [id number] Access 16:35:00 16:35:00 e2-6ng6-72w 4cd-43bd-b Health [id number] 0f4 [id number] 2020-09-25 2020-09-25 Outpatient Adalberto OSUNA [facility] [id number] Univers 10:00:00 10:00:00 SENDIL [id number] ity of [facility] 2020-09-20 2020-09-20 Orders Doctor BRANDI 1.2.840.114 [id number] Univers 00:00:00 00:00:00 Only Unassigned, ZELALEM [id number] [facility]y [address] [facility] 4.2.7.2.686 [place] [id number] [address] 2020-09-09 2020-09-11 Emergency William Sanchez [facility] 1.2.840. 114 [id number] 16:49:00 15:15:00 Gaudencio Villaseñor 350.1.13.10 [place] 4.2.7.2.686 Elsa [id number] 2020-08-16 2020-08-16 [facility] [id number] 14:24:00 16:48:00 William Lobatoton 350.1.13.10 [place] 4.2.7.2.686 Elsa [id number] 084 2020-08-09 2020-08-09 [facility] 1.2.329.886 [id number] 17:02:00 21:20:00 William Lobatoton 350.1.13.10 [place] 4.2.7.2.686 Elsa [id number] 084 2020-08-04 2020-08-05 Emergency Venancio Milligan [facility] 1.2.840. 114 [id number] 08:19:00 13:32:00 Alex Castillo 350.1.13.10 [place] 4.2.7.2.686 Elsa [id number] 1 2020-06-16 2020-06-16 Telephone BRANDI Lowe 1.2.138.325 [id number] 00:00:00 00:00:00 Mala MASTERSON 350.1.13.10 [facility] 4.2.7.2.686 [id number] 019 2020-06-15 2020-06-15 Emergency Jose Allen [facility] 1.2.840.114 [id number] 10:08:00 15:00:00 Sherry Falcon 350.1.13.10 [place] 4.2.7.2.686 Elsa [id number] 084 2020-06-15 2020-06-15 Orders Doctor PAZ 1.2.840.114 [id number] 00:00:00 00:00:00 Only Unassigned, ZEL[place] [address] [facility] 4.2.7.2.686 [id number] 009 2020-06-05 2020-06-05 Outpatient DESHAWN QUINTERO [facility] [id number] Access 08:18:00 08:18:00 Health 2020-06-05 2020-06-05 Outpatient DESHAWN QUINTERO [facility] [id number] Access 08:18:00 08:18:00 e2-3qv1-58m [id number] Health [id number] [id number]-5616dd 0f4 2c8a6d 2020-05-29 2020-05-29 Outpatient ARMSTRONG, [facility] [id number] Access 10:33:00 10:33:00 [facility] 2020-05-29 2020-05-29 Outpatient ARMSTRONG, [facility] [id number] [id number] Access 10:33:00 10:33:00 NUNO 22-4926-a4f [id number] Health [id number] raoul [id number] 2020-05-26 2020-05-26 Outpatient R [facility] [id number] Univers 18:00:00 18:00:00 [facility] 2020-04-24 2020-04-24 Outpatient ARMSTRONG, [facility] [id number] Access 14:02:00 14:02:00 [facility] 2020-04-24 2020-04-24 Outpatient ARMSTRONG, [facility] [id number] Access 14:02:00 14:02:00 NUNO 22-4926-a4f z4f-06sf-i Health [id number] raoul [id number] 2020-03-30 2020-03-30 Outpatient ARMSTRONG, [facility] [id number] Access 13:07:00 13:07:00 NUNO e2-7vt2-76v [id number] Health [id number] 0f4 [id number] 2020-03-13 2020-03-13 Outpatient ARMSTRONG, [facility] [id number] Access 13:32:00 13:32:00 [facility] 2020-03-13 2020-03-13 Outpatient ARMSTRONG, [facility] [id number] Access 13:32:00 13:32:00 NUNO 22-4926-a4f josiane-4e0f-a Health f-[id number]-[id number] raoul [id number] 2020-03-13 2020-03-13 Outpatient PATTI, [facility] [id number] Access 09:58:00 09:58:00 [facility] 2020-03-13 2020-03-13 Outpatient PATTI, [facility] [id number]-u Access 09:58:00 09:58:00 [facility] 22-4926-a4f [id number] Health [id number] raoul [id number] 2020-03-11 2020-03-11 Outpatient DEMETRIS, [facility] [id number] Access 11:28:00 11:28:00 [facility] 2020-03-11 2020-03-11 Outpatient DEMETRIS, [facility] [id number] Access 11:28:00 11:28:00 MIRIAM 89-477f-ac7 [id number] [facility] [id number] de3 05ea2b 2020-03-09 2020-03-09 Outpatient DEMETRIS, [facility] [id number] Access 09:30:00 09:30:00 [facility] 2020-03-09 2020-03-09 OFFICE/OUT DEMETRIS, [facility] [id number] Access 09:30:00 09:30:00 PATIENT MIRIAM 89-477f-ac7 [id number] Health VISIT EST [id number] de3 [id number] 2020-02-08 2020-02-08 Outpatient PATTI, [facility] [id number] Access 16:20:00 16:20:00 [facility] 2020-02-08 2020-02-08 Outpatient PATTI, [facility] [id number] adfc9-d Access 16:20:00 16:20:00 [facility] e2-8pr2-14d fef-[id number]-b Health [id number] [id number]-bd5c56 0f4 3ebba6 2020-02-08 2020-02-08 Outpatient PATTI, [facility] [id number] Access 14:14:00 14:14:00 [facility] 2020-02-08 2020-02-08 Outpatient PATTI, [facility] [id number] Access 14:14:00 14:14:00 [facility] e2-7es5-93a [id number] [facility] [id number]-ji5pqt201 [id number]-[id number] 0f4 3eb9cd 2020-02-08 2020-02-08 Outpatient DEMETRIS, [facility] [id number] Access 09:25:00 09:25:00 [facility] 2020-02-08 2020-02-08 Outpatient DEMETRIS, [facility] [id number] Access 09:25:00 09:25:00 MIRIAM 89-477f-ac7 [id number] Health [id number] de3 [id number] 2020-02-07 2020-02-07 Outpatient DEMETRIS, [facility] [id number] Access 10:30:00 10:30:00 [facility] 2020-02-07 2020-02-07 OFFICE/OUT WILLSON, [facility] [id number] Access 10:30:00 10:30:00 PATIENT MIRIAM [id number]-[id number] Health VISIT EST [id number] de3 [id number] 2019-11-08 2019-11-08 Outpatient DEMETRIS, [facility] [id number] Access 11:00:00 11:00:00 MIRIAM [facility] 2019-11-08 2019-11-08 OFFICE/OUT WILLSON, [facility] [id number] Access 11:00:00 11:00:00 PATIENT MIRIAM [id number]-ac7 [id number] Health VISIT EST [id number] de3 [id number] 2019-10-28 2019-10-28 Outpatient DEMETRIS, [facility] [id number] Access 14:37:00 14:37:00 MIRIAM [facility] 2019-10-28 2019-10-28 Outpatient DEMETRIS, [facility] [id number] Access 14:37:00 14:37:00 MIRIAM Cazares-477f-ac7 [id number] [facility] [id number] [id number] de3 [id number] 2019-10-26 2019-10-26 Outpatient DEMETRIS [facility] [id number] Access 10:09:00 10:09:00 [facility] 2019-10-26 2019-10-26 Outpatient DEMETRIS [facility] [id number] Access 10:09:00 10:09:00 MIRIAM [id number]-[id number] [facility] [id number] de3 [id number] 2019-10-25 2019-10-25 Outpatient DEMETRIS [facility] [id number] Access 12:00:00 12:00:00 [facility] 2019-10-25 2019-10-25 PREV VISIT DEMETRIS [facility] [id number]-d Access 12:00:00 12:00:00 NEW AGE MIRIAM [id number]-[id number] [facility] 40-64 [id number] 802-adfeee de3 [id number] 2016-10-08 2016-10-08 Emergency [facility] MED [id number] 8 [place] 14:27:44 14:27:44 Health 2015-06-22 2015-06-22 Outpatient ACC[facility] [id number] Access 00:00:00 00:00:00 H, PROVIDER Harpreet das 2015-06-22 2015-06-22 Outpatient [facility] [id number] Access 00:00:00 00:00:00 H, PROVIDER e2-6sh3-93c bcf-49 9b-a [facility] [id number] 0f4 [id number] 2015-06-22 2015-06-22 Outpatient CAITLYNSOLA, [facility] [id number] Access 00:00:00 00:00:00 KATHERINE 22-4926-a4f [id number] Health [id number] ebf-[id number] raoul [id number] 2015-06-20 2015-06-20 Outpatient [facility] [id number] Access 00:00:00 00:00:00 H, PROVIDER Harpreet das 2015-06-20 2015-06-20 [facility] [id number] Access 00:00:00 00:00:00 H, PROVIDER e2-9fl3-21k ac0-41 7b-a Health [id number] 0f4 [id number] 2015-06-20 2015-06-20 Outpatient [facility], [facility] [id number] Access 00:00:00 00:00:00 ALO e2-8yu3-97x [id number]- 9 Health [id number] [id number] 0f4 [id number] 2015-06-20 2015-06-20 Outpatient [facility], [facility] [id number] Access 00:00:00 00:00:00 ALO 22-4926-a4f afe-[id number]- 9 Health [id number]-[id number] raoul [id number] Results Test Description Test Time Test Comments Results Result Comments Source Troponin I 2021-02-14 11:24:35 Test Item Value Reference Range Interpretation Comme nts TROPONIN I (test code = 0.002 ng/mL See_Comment [Au tomated message] The [id number]) system which ge nerated this result tra nsmitted reference range : <=0.034. The reference r tomas was not used to int erpret this result as normal/abnormal . GAVIN (test code = GAVIN) Reference (Normal) Range (defined by the 99th percentile reference limit): <= 0.034 ng/mL Note: Cardiac troponin begins to rise 3-4 hours after the onset of ischemia. Repeat in 4-6 hours if the sample was drawn within 3-4 hours of the onset of the symptom and found normal. Diagnosis of myocardial injury is made with acute changes in cTn concentrations with at least one serial sample above the 99th percentile upper reference limit (URL), taken together with the patient's clinical presentation. Biotin has been reported to cause a negative bias, interpret results relative to patient's use of biotin. Lab Interpretation Normal (test code = 83450-7) [facility] (Total Cholesterol, Triglycerides, HDL)2021-02-14 11:13:54 Test Item Value Reference Range Interpretation Comments CHOL (test code = 206 mg/dL 120-200 H [id number]) HDL (test code = 26 mg/dL >40 L [id number]) HDLC RATIO (test code = See_Comment H [Au tomated message] [id number]) The system [employer] generated this result transmit sherman reference range : <=5.0. The refe rence range was not u sed to interpret th is result as normal/abnormal . TRIG (test code = 247 mg/dL 30-170 H [id number]) LDL CHOL (test code = 131 mg/dL See_Comment [Auto mated message] 44438-1) The system [employer] generated this result transmit sherman reference range : <=160. The refe rence range was not u sed to interpret th is result as normal/abnormal . VLDL (test code = 49 mg/dL 5-60 [id number]) Lab Interpretation (test Abnormal code = 59956-5) [facility] (NA, K, CL, CO2, GLUCOSE, BUN, CREATININE, CA)2021-02-14 11:13:34 Test Item Value Reference Range Interpretation Comments NA (test code = 137 mmol/L 135-145 [id number]) K (test code = 3.8 mmol/L 3.5-5.0 9756076446) CL (test code = 104 mmol/L 98-108 0887277202) CO2 TOTAL (test code = 27 mmol/L 23-31 8134933603) AGAP (test code = 2-16 7782964919) BUN (test code = 15 mg/dL 7-23 6467074163) GLUCOSE (test code = 118 mg/dL 70-110 H [id number]) CREATININE (test code = 0.89 mg/dL 0.60-1.25 [id number]) CALCIUM (test code = 9.2 mg/dL 8.6-10.6 7307622522) eGFR (test code = mL/min/1.73m2 5214952507) GAVIN (test code = GAVIN) Association of Glomerular Filtration Rate (GFR) and Staging of Kidney Disease* + --+ --+ ------+| GFR (mL/min/1.73 m2) ?| With Kidney Damage ?| ?Without Kidney Damage+ --------+ --------+ +| ?>90 ?| ?Stage one ?| ? Normal ?+ ---+ ---+ -------+| ?60-89 ?| ?Stage two ?| ? Decreased GFR ? + --+ --+ ------+| ?30-59 ?| ?Stage three ?| ? Stage three ? + --+ --+ ------+| ?15-29 ?| ?Stage four ? | ? Stage four ?+ ---+ ---+ -------+| ?<15 (or dialysis) ? ?| ?Stage five ? | ? Stage five ?+ ---+ ---+ -------+ *Each stage assumes the associated GFR level has been in effect for at least three months. ?Stages 1 to 5, with or without kidney disease, indicate chronic kidney disease. Notes: Determination of stages one and two (with eGFR >59mL/min/1.73 m2) requires estimation of kidney damage for at least three months as defined by structural or functional abnormalities of the kidney, manifested by either:Pathological abnormalities or Markers of kidney damage (including abnormalities in the composition of the blood or urine or abnormalities in imaging tests). Lab Interpretation Abnormal (test code = 06111-3) [facility] [id number] 11:13:34 Test Item Value Reference Range Interpretation Comments MAGNESIUM (test code = 4636926547) 2.1 mg/dL 1.7-2.4 Lab Interpretation (test code = Normal 55461-5) [facility] [id number] 04:12:39 Test Item Value Reference Interpretation Comments Range TROPONIN I (test 0.003 ng/mL See_Comment [Automated code = [id number]) message] The system which generated this result transmitted reference range : <=0.034. The reference range was not used to interpret this result as normal/abnormal . GAVIN (test code = Reference (Normal) GAVIN) Range (defined by the 99th percentile reference limit): <= 0.034 ng/mL Note: Cardiac troponin begins to rise 3-4 hours after the onset of ischemia. Repeat in 4-6 hours if the sample was drawn within 3-4 hours of the onset of the symptom and found normal. Diagnosis of myocardial injury is made with acute changes in cTn concentrations with at least one serial sample above the 99th percentile upper reference limit (URL), taken together with the patient's clinical presentation. Biotin has been reported to cause a negative bias, interpret results relative to patient's use of biotin. Lab Interpretation Normal (test code = 31808-4) [facility]SE (AUTOMATED)2021-02-14 03:17:31 Test Item Value Reference Range Interpretation Comments POCT GLU (test code = 9343162222) 104 mg/dL 70-110 Lab Interpretation (test code = Normal 25686-9) [facility] HospitalThyroid Stimulating Hormone (TSH)2021-02-14 00:23:29 Test Item Value Reference Range Interpretation Comments TSH (test code = See_Comment [Automated message] [id number]) The system [employer] generated this result transmitted ref erence range: 0.45 - 4 .70 mIU/L. The refe rence range was not u sed to interpret this result as normal/abnor mal. Lab Interpretation (test Normal code = 47003-8) [facility] HospitalGlycosylated Hemoglobin (A1C)2021-02-13 23:39:13 Test Item Value Reference Range Interpretation Comments HGB A1C (test code = 5.9 % 4.0-5.7 H 4548-4) GAVIN (test code = GAVIN) Reference RangesNormal: <5.7%Prediabetes: 5.7 - 6.4%Diabetes: > 6.5% Lab Interpretation (test Abnormal code = 96053-2) [facility] HospitalCOMP. METABOLIC PANEL (80013)2021-02-13 20:14:02 Test Item Value Reference Range Interpretation Comments NA (test code = 137 mmol/L 135-145 9760984093) K (test code = 4.3 mmol/L 3.5-5.0 4720924426) CL (test code = 103 mmol/L 98-108 3720309165) CO2 TOTAL (test code 25 mmol/L 23-31 = 1116270601) AGAP (test code = 2-16 1323270320) BUN (test code = 12 mg/dL 7-23 0194719386) GLUCOSE (test code = 100 mg/dL 70-110 6077331835) CREATININE (test code 1.01 mg/dL 0.60-1.25 = 6290611853) TOTAL BILI (test code 0.7 mg/dL 0.1-1.1 = 9223381711) CALCIUM (test code = 9.9 mg/dL 8.6-10.6 2496477793) T PROTEIN (test code 8.0 g/dL 6.3-8.2 = 1081888521) ALBUMIN (test code = 4.5 g/dL 3.5-5.0 8857562816) ALK PHOS (test code = 70 U/L 34-122 4170196781) ALTv (test code = 24 U/L 5-50 2-6) AST(SGOT) (test code 25 U/L 13-40 = 5313941980) eGFR (test code = mL/min/1.73m2 2009491168) GAVIN (test code = GAVIN) Association of Glomerular Filtration Rate (GFR) and Staging of Kidney Disease* + + +- +| GFR (mL/min/1.73 m2) ?| With Kidney Damage ?| ?Without Kidney Damage+ ------+ ----+ ------+| ?>90 ?| ?Stage one ?| ? Normal ?+ -+ + -+| ?60-89 ?| ?Stage two ?| ? Decreased GFR ? + + +- +| ?30-59 ?| ?Stage three ?| ? Stage three ? + + +- +| ?15-29 ?| ?Stage four ? | ? Stage four ?+ -+ + -+| ?<15 (or dialysis) ? ?| ?Stage five ? | ? Stage five ?+ -+ + -+ *Each stage assumes the associated GFR level has been in effect for at least three months. ?Stages 1 to 5, with or without kidney disease, indicate chronic kidney disease. Notes: Determination of stages one and two (with eGFR >59mL/min/1.73 m2) requires estimation of kidney damage for at least three months as defined by structural or functional abnormalities of the kidney, manifested by either:Pathological abnormalities or Markers of kidney damage (including abnormalities in the composition of the blood or urine or abnormalities in imaging tests). [facility] HospitalTROPONIN [id number] 20:10:29 Test Item Value Reference Interpretation Comments Range TROPONIN I (test 0.003 ng/mL See_Comment [Automated code = [id number]) message] The system which generated this result transmitted reference range : <=0.034. The reference range was not used to interpret this result as normal/abnormal . GAVIN (test code = Reference (Normal) GAVIN) Range (defined by the 99th percentile reference limit): <= 0.034 ng/mL Note: Cardiac troponin begins to rise 3-4 hours after the onset of ischemia. Repeat in 4-6 hours if the sample was drawn within 3-4 hours of the onset of the symptom and found normal. Diagnosis of myocardial injury is made with acute changes in cTn concentrations with at least one serial sample above the 99th percentile upper reference limit (URL), taken together with the patient's clinical presentation. Biotin has been reported to cause a negative bias, interpret results relative to patient's use of biotin. Lab Interpretation Normal (test code = 58938-8) [facility] HospitalN-TERMINAL [id number] 20:07:27 Test Item Value Reference Range Interpretation Comments NT-proBNP (test code 48 pg/mL See_Comment [Autom ated = 5082514639) message] The system which generated this result transmitted reference range : <=125. The reference range was not used to interpret this result as normal/abnormal . GAVIN (test code = GAVIN) Biotin has been reported to cause a negative bias, interpret results relative to patient's use of biotin. Lab Interpretation Normal (test code = 47117-7) [facility] HospitalMAGNESIUM2021-12-21 19:58:47 Test Item Value Reference Range Interpretation Comments MAGNESIUM (test code = 2532275500) 1.9 mg/dL 1.7-2.4 Lab Interpretation (test code = Normal 00403-1) [facility] HospitalLIPASE2021-12-21 19:58:27 Test Item Value Reference Range Interpretation Comments LIPASE (test code = 2483892115) 55 U/L 0-220 Lab Interpretation (test code = Normal 70603-5) [facility] WITH [id number] 19:42:44 Test Item Value Reference Range Interpretation Comments WBC (test code = See_Comment [Automated 6690-2) message] The sy stem which generated this result transmitted reference range : 4.20 - 10.70 10*3/?L. The reference range was not used to interpret this result as normal/abnormal . RBC (test code = See_Comment [Automated 789-8) message] The sy stem which generated this result transmitted reference range : 4.26 - 5.52 10*6/?L. The reference range was not used to interpret this result as normal/abnormal . HGB (test code = 13.6 g/dL 12.2-16.4 718-7) HCT (test code = 41.7 % 38.4-49.3 4544-3) MCV (test code = 86.5 fL 81.7-95.6 787-2) MCH (test code = 28.2 pg 26.1-32.7 785-6) MCHC (test code = 32.6 g/dL 31.2-35.0 786-4) RDW-SD (test code = 42.7 fL 38.5-51.6 56808-4) RDW-CV (test code = 13.5 % 12.1-15.4 788-0) PLT (test code = See_Comment [Automated 777-3) message] The sy stem which generated this result transmitted reference range : 150 - 328 10*3/ ?L. The reference r tomas was not used to interpret this result as normal/abnormal . MPV (test code = 11.3 fL 9.8-13.0 03196-6) NRBC/100 WBC (test See_Comment [Automat ed code = 5200860105) message] The system which generated this result transmitted reference range : 0.0 - 10.0 /100 WBCs. The refer ence range was not u sed to interpret th is result as normal/abnormal . NRBC x10^3 (test code <0.01 See_Comment [Auto mated = 1672570573) message] The s ystem which generated this result transmitted reference range : 10*3/?L. The reference range was not used to interpret this result as normal/abnormal . GRAN MAT (NEUT) % 62.4 % (test code = 770-8) IMM GRAN % (test code 0.40 % = 9893208997) LYMPH % (test code = 29.8 % 736-9) MONO % (test code = 6.7 % 5905-5) EOS % (test code = 0.1 % 713-8) BASO % (test code = 0.6 % 706-2) GRAN MAT x10^3(ANC) 5.64 10*3/uL 1.99-6.95 (test code = 5491004144) IMM GRAN x10^3 (test 0.04 10*3/uL 0.00-0.06 code = 7186886308) LYMPH x10^3 (test code 2.70 10*3/uL 1.09-3.23 = 731-0) MONO x10^3 (test code 0.61 10*3/uL 0.36-1.02 = 742-7) EOS x10^3 (test code = <0.03 0.06-0.53 L 711-2) BASO x10^3 (test code 0.05 10*3/uL 0.01-0.09 = 704-7) Lab Interpretation Abnormal (test code = 59234-7) [facility] Description: Lipid [id number] 01:06:00 Test Item Value Reference Range Interpretation Comments Cholesterol, Total (test code = 120 mg/dL 170-530 5178-3) Triglycerides (test code = 2571-8) 109 mg/dL 0-149 HDL Cholesterol (test code = 33 mg/dL >39 L 5-9) VLDL Cholesterol Andrea (test code = 20 mg/dL 5-40 77518-0) LDL Chol Calc ([facility]) (test code = 67 mg/dL 0-99 21826-9) Comment: (test code = 74001-4) [facility] Description: Lipid [id number] 01:06:00 Test Item Value Reference Range Interpretation Comments Cholesterol, Total (test code = 120 mg/dL 813-474 9938-3) Triglycerides (test code = 2571-8) 109 mg/dL 0-149 HDL Cholesterol (test code = 33 mg/dL >39 L 5-9) VLDL Cholesterol Andrea (test code = 20 mg/dL 5-40 62024-2) LDL Chol Calc ([facility]) (test code = 67 mg/dL 0-99 26588-5) Comment: (test code = 24596-5) [employer] Description: Lipid [id number] 01:06:00 Test Item Value Reference Range Interpretation Comments Cholesterol, Total (test code = 120 mg/dL 946-119 1515-3) Triglycerides (test code = 2571-8) 109 mg/dL 0-149 HDL Cholesterol (test code = 33 mg/dL >39 L 2085-9) VLDL Cholesterol Andrea (test code = 20 mg/dL 5-40 32999-0) LDL Chol Calc ([facility]) (test code = 67 mg/dL 0-99 19354-4) Comment: (test code = 17960-5) [employer] Description: Lipid [id number] 01:06:00 Test Item Value Reference Range Interpretation Comments Cholesterol, Total (test code = 120 mg/dL 498-188 1865-3) Triglycerides (test code = 2571-8) 109 mg/dL 0-149 HDL Cholesterol (test code = 33 mg/dL >39 L 2085-9) VLDL Cholesterol Andrea (test code = 20 mg/dL 5-40 63068-6) LDL Chol Calc ([facility]) (test code = 67 mg/dL 0-99 22077-1) Comment: (test code = 47583-1) [employer] Description: Lipid [id number] 01:06:00 Test Item Value Reference Range Interpretation Comments Cholesterol, Total (test code = 120 mg/dL 868-987 7478-3) Triglycerides (test code = 2571-8) 109 mg/dL 0-149 HDL Cholesterol (test code = 33 mg/dL >39 L 2085-9) VLDL Cholesterol Andrea (test code = 20 mg/dL 5-40 99605-1) LDL Chol Calc ([facility]) (test code = 67 mg/dL 0-99 76140-5) Comment: (test code = 47698-7) [employer] Description: Lipid [id number] 01:06:00 Test Item Value Reference Range Interpretation Comments Cholesterol, Total (test code = 120 mg/dL 730-063 3801-3) Triglycerides (test code = 2571-8) 109 mg/dL 0-149 HDL Cholesterol (test code = 33 mg/dL >39 L 2085-9) VLDL Cholesterol Andrea (test code = 20 mg/dL 5-40 47993-3) LDL Chol Calc ([facility]) (test code = 67 mg/dL 0-99 08404-1) Comment: (test code = 59105-6) [facility] Description: Prothrombin Time (PT)2020-02-08 09:53:00 Test Item Value Reference Range Interpretation Comments INR (test code = 1.0 0.9-1.2 6301-6) Reference inter gosia is for non-anticoa gulated patients. . Suggested INR therapeutic ran ge for Vitamin K antagonist the rapy: Standard Dose (moderate inten sity therapeut ic range): 2 .0 - 3.0 Higher intensit y therapeutic ran ge 2.5 - 3.5

Pe rformed by:
[facility] Patrick ()
<br/&g t; Prothrombin Time (test 10.5 sec 9.1-12.0 code = 5902-2) [facility] Description: aPTT in Platelet poor plasma by Coagulation [id number] 09:53:00 Test Item Value Reference Range Interpretation Comments aPTT (test code = 31 sec 24-33 This test has not been 85730-4) validated for m onitoring unfractionated heparintherapy. aPTT-based therapeutic ran ges for unfractionated heparintherapy have not been established. Fo r general guidelines onHe alice monitoring, ref [facility].
< br/>Performed by:
[facility] alejandro Nguyen ()

[facility] Description: Prothrombin Time (PT)2020-02-08 09:53:00 Test Item Value Reference Range Interpretation Comments INR (test code = 1.0 0.9-1.2 6301-6) Reference inter gosia is for non-anticoa gulated patients. . Suggested INR therapeutic ran ge for Vitamin K antagonist the rapy: Standard Dose (moderate inten sity therapeut ic range): 2 .0 - 3.0 Higher intensit y therapeutic ran ge 2.5 - 3.5

[facility]:
[facility]
<br/&g t; Prothrombin Time (test 10.5 sec 9.1-12.0 code = 5902-2) [facility] Description: aPTT in Platelet poor plasma by Coagulation [id number] 09:53:00 Test Item Value Reference Range Interpretation Comments aPTT (test code = 31 sec 24-33 This test has not been 13582-6) validated for m onitoring unfractionated heparintherapy. aPTT-based therapeutic ran ges for unfractionated heparintherapy have not been established. Fo r general guidelines onHe alice monitoring, ref er to the [facility] ry of Services.
< br/>Performed by:
[facility] ()

[facility] Description: Prothrombin Time (PT)2020-02-08 09:53:00 Test Item Value Reference Range Interpretation Comments INR (test code = 1.0 0.9-1.2 6301-6) Reference inter gosia is for non-anticoa gulated patients. . Suggested INR therapeutic ran ge for Vitamin K antagonist the rapy: Standard Dose (moderate inten sity therapeut ic range): 2 .0 - 3.0 Higher intensit y therapeutic ran ge 2.5 - 3.5

Pe rformed by:
[facility] ()
<br/&g t; Prothrombin Time (test 10.5 sec 9.1-12.0 code = 5902-2) [facility] Description: aPTT in Platelet poor plasma by Coagulation [id number] 09:53:00 Test Item Value Reference Range Interpretation Comments aPTT (test code = 31 sec 24-33 This test has not been 26793-9) validated for m onitoring unfractionated heparintherapy. aPTT-based therapeutic ran ges for unfractionated heparintherapy have not been established. Fo r general guidelines onHe alice monitoring, ref er to the [facility] ry of Services.
< br/>Performed by:
[facility] ()

[facility] Description: Prothrombin Time (PT)2020-02-08 09:53:00 Test Item Value Reference Range Interpretation Comments INR (test code = 1.0 0.9-1.2 6301-6) Reference inter gosia is for non-anticoa gulated patients. . Suggested INR therapeutic ran ge for Vitamin K antagonist the rapy: Standard Dose (moderate inten sity therapeut ic range): 2 .0 - 3.0 Higher intensit y therapeutic ran ge 2.5 - 3.5

Pe rformed by:
[facility] ()
<br/&g t; Prothrombin Time (test 10.5 sec 9.1-12.0 code = 5902-2) [facility] Description: aPTT in Platelet poor plasma by Coagulation [id number] 09:53:00 Test Item Value Reference Range Interpretation Comments aPTT (test code = 31 sec 24-33 This test has not been 62166-0) validated for m onitoring unfractionated heparintherapy. aPTT-based therapeutic ran ges for unfractionated heparintherapy have not been established. Fo r general guidelines onHe alice monitoring, ref [facility].
< br/>Performed by:
[facility] ()

[facility] Description: Prothrombin Time (PT)2020-02-08 09:53:00 Test Item Value Reference Range Interpretation Comments INR (test code = 1.0 0.9-1.2 6301-6) Reference inter gosia is for non-anticoa gulated patients. . Suggested INR therapeutic ran ge for Vitamin K antagonist the rapy: Standard Dose (moderate inten sity therapeut ic range): 2 .0 - 3.0 Higher intensit y therapeutic ran ge 2.5 - 3.5

Pe rformed by:
[facility] ()
<br/&g t; Prothrombin Time (test 10.5 sec 9.1-12.0 code = 5902-2) [facility] Description: aPTT in Platelet poor plasma by Coagulation [id number] 09:53:00 Test Item Value Reference Range Interpretation Comments aPTT (test code = 31 sec 24-33 This test has not been 10840-0) validated for m onitoring unfractionated heparintherapy. aPTT-based therapeutic ran ges for unfractionated heparintherapy have not been established. Fo r general guidelines onHe alice monitoring, ref [facility] the [facility].
< br/>Performed by:
[facility] ()

[facility]: Pro[facility] Time (PT)2020-02-08 09:53:00 Test Item Value Reference Range Interpretation Comments INR (test code = 1.0 0.9-1.2 6301-6) Reference inter gosia is for non-anticoa gulated patients. . Suggested INR therapeutic ran ge for Vitamin K antagonist the rapy: Standard Dose (moderate inten sity therapeut ic range): 2 .0 - 3.0 Higher intensit y therapeutic ran ge 2.5 - 3.5

Pe rformed by:
[facility] ()
<br/&g t; Prothrombin Time (test 10.5 sec 9.1-12.0 code = 5902-2) [facility] Description: aPTT in Platelet poor plasma by Coagulation [id number] 09:53:00 Test Item Value Reference Range Interpretation Comments aPTT (test code = 31 sec 24-33 This test has not been 37680-8) validated for m onitoring unfractionated heparintherapy. aPTT-based therapeutic ran ges for unfractionated heparintherapy have not been established. Fo r general guidelines onHe alice monitoring, ref er [facility] the [facility].
< br/>Performed by:
[facility] ()

[facility] Description: Prothrombin Time (PT)2020-02-08 09:53:00 Test Item Value Reference Range Interpretation Comments INR (test code = 1.0 0.9-1.2 6301-6) Reference inter gosia is for non-anticoa gulated patients. . Suggested INR therapeutic ran ge for Vitamin K antagonist the rapy: Standard Dose (moderate inten sity therapeut ic range): 2 .0 - 3.0 Higher intensit y therapeutic ran ge 2.5 - 3.5

Pe rformed by:
[facility] ([place])
<br/&g t; Prothrombin Time (test 10.5 sec 9.1-12.0 code = 5902-2) [facility] Description: aPTT in Platelet poor plasma by Coagulation [id number] 09:53:00 Test Item Value Reference Range Interpretation Comments aPTT (test code = 31 sec 24-33 This test has not been 59270-7) validated for m onitoring unfractionated heparintherapy. aPTT-based therapeutic ran ges for unfractionated heparintherapy have not been established. Fo r general guidelines onHe alice monitoring, ref er to the [employer] [facility] ry of Services.
< br/>Performed by:
[facility] ()

[facility] Description: Prothrombin Time (PT)2020-02-08 09:53:00 Test Item Value Reference Range Interpretation Comments INR (test code = 1.0 0.9-1.2 6301-6) Reference inter gosia is for non-anticoa gulated patients. . Suggested INR therapeutic ran ge for Vitamin K antagonist the rapy: Standard Dose (moderate inten sity therapeut ic range): 2 .0 - 3.0 Higher intensit y therapeutic ran ge 2.5 - 3.5

Pe rformed by:
[facility] ()
<br/&g t; Prothrombin Time (test 10.5 sec 9.1-12.0 code = 5902-2) [facility] Description: aPTT in Platelet poor plasma by Coagulation [id number] 09:53:00 Test Item Value Reference Range Interpretation Comments aPTT (test code = 31 sec 24-33 This test has not been 05987-4) validated for m onitoring unfractionated heparintherapy. aPTT-based therapeutic ran ges for unfractionated heparintherapy have not been established. Fo r general guidelines onHe alice monitoring, ref er to the [facility] Direct[facility] ry of Services.
< br/>Performed by:
[facility] ()

[facility] Description: Prothrombin Time (PT)2020-02-08 09:53:00 Test Item Value Reference Range Interpretation Comments INR (test code = 1.0 0.9-1.2 6301-6) Reference inter gosia is for non-anticoa gulated patients. . Suggested INR therapeutic ran ge for Vitamin K antagonist the rapy: Standard Dose (moderate inten sity therapeut ic range): 2 .0 - 3.0 Higher intensit y therapeutic ran ge 2.5 - 3.5

Pe rformed by:
[facility] Nguyen ()
<br/&g t; Prothrombin Time (test 10.5 sec 9.1-12.0 code = 5902-2) [facility] Description: aPTT in Platelet poor plasma by Coagulation [id number] 09:53:00 Test Item Value Reference Range Interpretation Comments aPTT (test code = 31 sec 24-33 This test has not been 48593-5) validated for m onitoring unfractionated heparintherapy. aPTT-based therapeutic ran ges for unfractionated heparintherapy have not been established. Fo r general guidelines onHe alice monitoring, ref er to the [facility] of Services.
< br/>Performed by:
[facility] ()

[facility] Description: Hemoglobin A1c/Hemoglobin.total in Blood 2020-02-08 09:36:00 Test Item Value Reference Range Interpretation Comments Hemoglobin A1c (test code 6.5 % 4.8-5.6 H = 4548-4) . Prediabetes: 5. 7 - 6.4 Diabetes : >6.4 Glycemic control for adults with diabetes: <7.0

P erformed by:
[facility] Nguyen ()

[facility] Description: Hemoglobin A1c/Hemoglobin.total in Blood 2020-02-08 09:36:00 Test Item Value Reference Range Interpretation Comments Hemoglobin A1c (test code 6.5 % 4.8-5.6 H = 4548-4) . Prediabetes: 5. 7 - 6.4 Diabetes : >6.4 Glycemic control for adults with diabetes: <7.0

P erformed by:
[facility] ([place])

[facility] Description: Hemoglobin A1c/Hemoglobin.total in Blood 2020-02-08 09:36:00 Test Item Value Reference Range Interpretation Comments Hemoglobin A1c (test code 6.5 % 4.8-5.6 H = 4548-4) . Prediabetes: 5. 7 - 6.4 Diabetes : >6.4 Glycemic control for adults with diabetes: <7.0

P erformed by:
[facility] ([place])

[facility] Description: Hemoglobin A1c/Hemoglobin.total in Blood 2020-02-08 09:36:00 Test Item Value Reference Range Interpretation Comments Hemoglobin A1c (test code 6.5 % 4.8-5.6 H = 4548-4) . Prediabetes: 5. 7 - 6.4 Diabetes : >6.4 Glycemic control for adults with diabetes: <7.0

P erformed by:
[facility] ([place])

[facility] Description: Hemoglobin A1c/Hemoglobin.total in Blood 2020-02-08 09:36:00 Test Item Value Reference Range Interpretation Comments Hemoglobin A1c (test code 6.5 % 4.8-5.6 H = 4548-4) . Prediabetes: 5. 7 - 6.4 Diabetes : >6.4 Glycemic control for adults with diabetes: <7.0

P erformed by:
[facility] ()

[facility] Description: Hemoglobin A1c/Hemoglobin.total in Blood 2020-02-08 09:36:00 Test Item Value Reference Range Interpretation Comments Hemoglobin A1c (test code 6.5 % 4.8-5.6 H = 4548-4) . Prediabetes: 5. 7 - 6.4 Diabetes : >6.4 Glycemic control for adults with diabetes: <7.0

P erformed by:
[facility] ()

[facility] Description: Hemoglobin A1c/Hemoglobin.total in Blood 2020-02-08 09:36:00 Test Item Value Reference Range Interpretation Comments Hemoglobin A1c (test code 6.5 % 4.8-5.6 H = 4548-4) . Prediabetes: 5. 7 - 6.4 Diabetes : >6.4 Glycemic control for adults with diabetes: <7.0

P erformed by:
[facility] ([place])

[facility] Description: Hemoglobin A1c/Hemoglobin.total in Blood 2020-02-08 09:36:00 Test Item Value Reference Range Interpretation Comments Hemoglobin A1c (test code 6.5 % 4.8-5.6 H = 4548-4) . Prediabetes: 5. 7 - 6.4 Diabetes : >6.4 Glycemic control for adults with diabetes: <7.0

P erformed by:
[facility] ()

[facility] Description: Hemoglobin A1c/Hemoglobin.total in Blood 2020-02-08 09:36:00 Test Item Value Reference Range Interpretation Comments Hemoglobin A1c (test code 6.5 % 4.8-5.6 H = 4548-4) . Prediabetes: 5. 7 - 6.4 Diabetes : >6.4 Glycemic control for adults with diabetes: <7.0

P erformed by:
[facility] ()

[facility] Description: CBC With Differential/[id number] 07:35:00 Test Item Value Reference Range Interpretation Comments WBC (test code = 6690-2) 10.0 x10E3/uL 3.4-10.8 RBC (test code = 789-8) 5.07 x10E6/uL 4.14-5.80 Hemoglobin (test code = 718-7) 14.0 g/dL 13.0-17.7 Hematocrit (test code = 4544-3) 42.9 % 37.5-51.0 MCV (test code = 787-2) 85 fL 79-97 MCH (test code = 785-6) 27.6 pg 26.6-33.0 MCHC (test code = 786-4) 32.6 g/dL 31.5-35.7 RDW (test code = 788-0) 14.2 % 11.6-15.4 Platelets (test code = 777-3) 319 x10E3/uL 150-450 Neutrophils (test code = 770-8) 67 % Not Estab. Lymphs (test code = 736-9) 24 % Not Estab. Monocytes (test code = 5905-5) 7 % Not Estab. Eos (test code = 713-8) 1 % Not Estab. Basos (test code = 706-2) 0 % Not Estab. Neutrophils (Absolute) (test 6.7 x10E3/uL 1.4-7.0 code = 751-8) Lymphs (Absolute) (test code = 2.4 x10E3/uL 0.7-3.1 731-0) Monocytes(Absolute) (test code 0.7 x10E3/uL 0.1-0.9 = 742-7) Eos (Absolute) (test code = 0.1 x10E3/uL 0.0-0.4 711-2) Baso (Absolute) (test code = 0.0 x10E3/uL 0.0-0.2 704-7) Immature Granulocytes (test 1 % Not Estab. code = 52771-6) Immature Grans (Abs) (test code 0.1 x10E3/uL 0.0-0.1 = 34258-3) NRBC (test code = 56695-5) Hematology Comments: (test code = 39550-1) [facility] Description: CBC With Differential/[id number] 07:35:00 Test Item Value Reference Range Interpretation Comments WBC (test code = 6690-2) 10.0 x10E3/uL 3.4-10.8 RBC (test code = 789-8) 5.07 x10E6/uL 4.14-5.80 Hemoglobin (test code = 718-7) 14.0 g/dL 13.0-17.7 Hematocrit (test code = 4544-3) 42.9 % 37.5-51.0 MCV (test code = 787-2) 85 fL 79-97 MCH (test code = 785-6) 27.6 pg 26.6-33.0 MCHC (test code = 786-4) 32.6 g/dL 31.5-35.7 RDW (test code = 788-0) 14.2 % 11.6-15.4 Platelets (test code = 777-3) 319 x10E3/uL 150-450 Neutrophils (test code = 770-8) 67 % Not Estab. Lymphs (test code = 736-9) 24 % Not Estab. Monocytes (test code = 5905-5) 7 % Not Estab. Eos (test code = 713-8) 1 % Not Estab. Basos (test code = 706-2) 0 % Not Estab. Neutrophils (Absolute) (test 6.7 x10E3/uL 1.4-7.0 code = 751-8) Lymphs (Absolute) (test code = 2.4 x10E3/uL 0.7-3.1 731-0) Monocytes(Absolute) (test code 0.7 x10E3/uL 0.1-0.9 = 742-7) Eos (Absolute) (test code = 0.1 x10E3/uL 0.0-0.4 711-2) Baso (Absolute) (test code = 0.0 x10E3/uL 0.0-0.2 704-7) Immature Granulocytes (test 1 % Not Estab. code = 97880-6) Immature Grans (Abs) (test code 0.1 x10E3/uL 0.0-0.1 = 15987-8) NRBC (test code = 84884-0) Hematology Comments: (test code = 30392-7) [facility] Description: CBC With Differential/Ggoycobe1498-95-13 07:35:00 Test Item Value Reference Range Interpretation Comments WBC (test code = 6690-2) 10.0 x10E3/uL 3.4-10.8 RBC (test code = 789-8) 5.07 x10E6/uL 4.14-5.80 Hemoglobin (test code = 718-7) 14.0 g/dL 13.0-17.7 Hematocrit (test code = 4544-3) 42.9 % 37.5-51.0 MCV (test code = 787-2) 85 fL 79-97 MCH (test code = 785-6) 27.6 pg 26.6-33.0 MCHC (test code = 786-4) 32.6 g/dL 31.5-35.7 RDW (test code = 788-0) 14.2 % 11.6-15.4 Platelets (test code = 777-3) 319 x10E3/uL 150-450 Neutrophils (test code = 770-8) 67 % Not Estab. Lymphs (test code = 736-9) 24 % Not Estab. Monocytes (test code = 5905-5) 7 % Not Estab. Eos (test code = 713-8) 1 % Not Estab. Basos (test code = 706-2) 0 % Not Estab. Neutrophils (Absolute) (test 6.7 x10E3/uL 1.4-7.0 code = 751-8) Lymphs (Absolute) (test code = 2.4 x10E3/uL 0.7-3.1 731-0) Monocytes(Absolute) (test code 0.7 x10E3/uL 0.1-0.9 = 742-7) Eos (Absolute) (test code = 0.1 x10E3/uL 0.0-0.4 711-2) Baso (Absolute) (test code = 0.0 x10E3/uL 0.0-0.2 704-7) Immature Granulocytes (test 1 % Not Estab. code = 90522-7) Immature Grans (Abs) (test code 0.1 x10E3/uL 0.0-0.1 = 42950-3) NRBC (test code = 10891-2) Hematology Comments: (test code = 74713-0) [facility] Description: CBC With Differential/Qguqgouw4392-74-76 07:35:00 Test Item Value Reference Range Interpretation Comments WBC (test code = 6690-2) 10.0 x10E3/uL 3.4-10.8 RBC (test code = 789-8) 5.07 x10E6/uL 4.14-5.80 Hemoglobin (test code = 718-7) 14.0 g/dL 13.0-17.7 Hematocrit (test code = 4544-3) 42.9 % 37.5-51.0 MCV (test code = 787-2) 85 fL 79-97 MCH (test code = 785-6) 27.6 pg 26.6-33.0 MCHC (test code = 786-4) 32.6 g/dL 31.5-35.7 RDW (test code = 788-0) 14.2 % 11.6-15.4 Platelets (test code = 777-3) 319 x10E3/uL 150-450 Neutrophils (test code = 770-8) 67 % Not Estab. Lymphs (test code = 736-9) 24 % Not Estab. Monocytes (test code = 5905-5) 7 % Not Estab. Eos (test code = 713-8) 1 % Not Estab. Basos (test code = 706-2) 0 % Not Estab. Neutrophils (Absolute) (test 6.7 x10E3/uL 1.4-7.0 code = 751-8) Lymphs (Absolute) (test code = 2.4 x10E3/uL 0.7-3.1 731-0) Monocytes(Absolute) (test code 0.7 x10E3/uL 0.1-0.9 = 742-7) Eos (Absolute) (test code = 0.1 x10E3/uL 0.0-0.4 711-2) Baso (Absolute) (test code = 0.0 x10E3/uL 0.0-0.2 704-7) Immature Granulocytes (test 1 % Not Estab. code = 75012-7) Immature Grans (Abs) (test code 0.1 x10E3/uL 0.0-0.1 = 31633-9) NRBC (test code = 66925-0) Hematology Comments: (test code = 94728-5) [facility]: CBC With Differential/Eopcepmb8816-88-90 07:35:00 Test Item Value Reference Range Interpretation Comments WBC (test code = 6690-2) 10.0 x10E3/uL 3.4-10.8 RBC (test code = 789-8) 5.07 x10E6/uL 4.14-5.80 Hemoglobin (test code = 718-7) 14.0 g/dL 13.0-17.7 Hematocrit (test code = 4544-3) 42.9 % 37.5-51.0 MCV (test code = 787-2) 85 fL 79-97 MCH (test code = 785-6) 27.6 pg 26.6-33.0 MCHC (test code = 786-4) 32.6 g/dL 31.5-35.7 RDW (test code = 788-0) 14.2 % 11.6-15.4 Platelets (test code = 777-3) 319 x10E3/uL 150-450 Neutrophils (test code = 770-8) 67 % Not Estab. Lymphs (test code = 736-9) 24 % Not Estab. Monocytes (test code = 5905-5) 7 % Not Estab. Eos (test code = 713-8) 1 % Not Estab. Basos (test code = 706-2) 0 % Not Estab. Neutrophils (Absolute) (test 6.7 x10E3/uL 1.4-7.0 code = 751-8) Lymphs (Absolute) (test code = 2.4 x10E3/uL 0.7-3.1 731-0) Monocytes(Absolute) (test code 0.7 x10E3/uL 0.1-0.9 = 742-7) Eos (Absolute) (test code = 0.1 x10E3/uL 0.0-0.4 711-2) Baso (Absolute) (test code = 0.0 x10E3/uL 0.0-0.2 704-7) Immature Granulocytes (test 1 % Not Estab. code = 32768-4) Immature Grans (Abs) (test code 0.1 x10E3/uL 0.0-0.1 = 51362-8) NRBC (test code = 88163-9) Hematology Comments: (test code = 06694-0) [facility]: CBC With Differential/Lfrbyype1851-01-31 07:35:00 Test Item Value Reference Range Interpretation Comments WBC (test code = 6690-2) 10.0 x10E3/uL 3.4-10.8 RBC (test code = 789-8) 5.07 x10E6/uL 4.14-5.80 Hemoglobin (test code = 718-7) 14.0 g/dL 13.0-17.7 Hematocrit (test code = 4544-3) 42.9 % 37.5-51.0 MCV (test code = 787-2) 85 fL 79-97 MCH (test code = 785-6) 27.6 pg 26.6-33.0 MCHC (test code = 786-4) 32.6 g/dL 31.5-35.7 RDW (test code = 788-0) 14.2 % 11.6-15.4 Platelets (test code = 777-3) 319 x10E3/uL 150-450 Neutrophils (test code = 770-8) 67 % Not Estab. Lymphs (test code = 736-9) 24 % Not Estab. Monocytes (test code = 5905-5) 7 % Not Estab. Eos (test code = 713-8) 1 % Not Estab. Basos (test code = 706-2) 0 % Not Estab. Neutrophils (Absolute) (test 6.7 x10E3/uL 1.4-7.0 code = 751-8) Lymphs (Absolute) (test code = 2.4 x10E3/uL 0.7-3.1 731-0) Monocytes(Absolute) (test code 0.7 x10E3/uL 0.1-0.9 = 742-7) Eos (Absolute) (test code = 0.1 x10E3/uL 0.0-0.4 711-2) Baso (Absolute) (test code = 0.0 x10E3/uL 0.0-0.2 704-7) Immature Granulocytes (test 1 % Not Estab. code = 70246-9) Immature Grans (Abs) (test code 0.1 x10E3/uL 0.0-0.1 = 30558-2) NRBC (test code = 20144-6) Hematology Comments: (test code = 45403-4) [facility] Description: CBC With Differential/Vsvnkbca9043-30-91 07:35:00 Test Item Value Reference Range Interpretation Comments WBC (test code = 6690-2) 10.0 x10E3/uL 3.4-10.8 RBC (test code = 789-8) 5.07 x10E6/uL 4.14-5.80 Hemoglobin (test code = 718-7) 14.0 g/dL 13.0-17.7 Hematocrit (test code = 4544-3) 42.9 % 37.5-51.0 MCV (test code = 787-2) 85 fL 79-97 MCH (test code = 785-6) 27.6 pg 26.6-33.0 MCHC (test code = 786-4) 32.6 g/dL 31.5-35.7 RDW (test code = 788-0) 14.2 % 11.6-15.4 Platelets (test code = 777-3) 319 x10E3/uL 150-450 Neutrophils (test code = 770-8) 67 % Not Estab. Lymphs (test code = 736-9) 24 % Not Estab. Monocytes (test code = 5905-5) 7 % Not Estab. Eos (test code = 713-8) 1 % Not Estab. Basos (test code = 706-2) 0 % Not Estab. Neutrophils (Absolute) (test 6.7 x10E3/uL 1.4-7.0 code = 751-8) Lymphs (Absolute) (test code = 2.4 x10E3/uL 0.7-3.1 731-0) Monocytes(Absolute) (test code 0.7 x10E3/uL 0.1-0.9 = 742-7) Eos (Absolute) (test code = 0.1 x10E3/uL 0.0-0.4 711-2) Baso (Absolute) (test code = 0.0 x10E3/uL 0.0-0.2 704-7) Immature Granulocytes (test 1 % Not Estab. code = 58142-1) Immature Grans (Abs) (test code 0.1 x10E3/uL 0.0-0.1 = 89239-5) NRBC (test code = 43806-0) Hematology Comments: (test code = 53193-4) [facility] Description: CBC With Differential/Wciefesb3716-17-11 07:35:00 Test Item Value Reference Range Interpretation Comments WBC (test code = 6690-2) 10.0 x10E3/uL 3.4-10.8 RBC (test code = 789-8) 5.07 x10E6/uL 4.14-5.80 Hemoglobin (test code = 718-7) 14.0 g/dL 13.0-17.7 Hematocrit (test code = 4544-3) 42.9 % 37.5-51.0 MCV (test code = 787-2) 85 fL 79-97 MCH (test code = 785-6) 27.6 pg 26.6-33.0 MCHC (test code = 786-4) 32.6 g/dL 31.5-35.7 RDW (test code = 788-0) 14.2 % 11.6-15.4 Platelets (test code = 777-3) 319 x10E3/uL 150-450 Neutrophils (test code = 770-8) 67 % Not Estab. Lymphs (test code = 736-9) 24 % Not Estab. Monocytes (test code = 5905-5) 7 % Not Estab. Eos (test code = 713-8) 1 % Not Estab. Basos (test code = 706-2) 0 % Not Estab. Neutrophils (Absolute) (test 6.7 x10E3/uL 1.4-7.0 code = 751-8) Lymphs (Absolute) (test code = 2.4 x10E3/uL 0.7-3.1 731-0) Monocytes(Absolute) (test code 0.7 x10E3/uL 0.1-0.9 = 742-7) Eos (Absolute) (test code = 0.1 x10E3/uL 0.0-0.4 711-2) Baso (Absolute) (test code = 0.0 x10E3/uL 0.0-0.2 704-7) Immature Granulocytes (test 1 % Not Estab. code = 70057-5) Immature Grans (Abs) (test code 0.1 x10E3/uL 0.0-0.1 = 52005-5) NRBC (test code = 14069-8) Hematology Comments: (test code = 08772-9) [facility] Description: CBC With Differential/Xnobflmg8597-33-89 07:35:00 Test Item Value Reference Range Interpretation Comments WBC (test code = 6690-2) 10.0 x10E3/uL 3.4-10.8 RBC (test code = 789-8) 5.07 x10E6/uL 4.14-5.80 Hemoglobin (test code = 718-7) 14.0 g/dL 13.0-17.7 Hematocrit (test code = 4544-3) 42.9 % 37.5-51.0 MCV (test code = 787-2) 85 fL 79-97 MCH (test code = 785-6) 27.6 pg 26.6-33.0 MCHC (test code = 786-4) 32.6 g/dL 31.5-35.7 RDW (test code = 788-0) 14.2 % 11.6-15.4 Platelets (test code = 777-3) 319 x10E3/uL 150-450 Neutrophils (test code = 770-8) 67 % Not Estab. Lymphs (test code = 736-9) 24 % Not Estab. Monocytes (test code = 5905-5) 7 % Not Estab. Eos (test code = 713-8) 1 % Not Estab. Basos (test code = 706-2) 0 % Not Estab. Neutrophils (Absolute) (test 6.7 x10E3/uL 1.4-7.0 code = 751-8) Lymphs (Absolute) (test code = 2.4 x10E3/uL 0.7-3.1 731-0) Monocytes(Absolute) (test code 0.7 x10E3/uL 0.1-0.9 = 742-7) Eos (Absolute) (test code = 0.1 x10E3/uL 0.0-0.4 711-2) Baso (Absolute) (test code = 0.0 x10E3/uL 0.0-0.2 704-7) Immature Granulocytes (test 1 % Not Estab. code = 12217-0) Immature Grans (Abs) (test code 0.1 x10E3/uL 0.0-0.1 = 10543-5) NRBC (test code = 95910-8) Hematology Comments: (test code = 63247-3) [facility] Description: 25-hydroxyvitamin D3 [Mass/volume] in Serum or [id number] 07:19:00 Test Item Value Reference Range Interpretation Comments Vitamin D, 24.2 ng/mL 30.0-100.0 L Vitamin D defic iency has 25-Hydroxy (test been define d by the code = 16955-0) [employer] [facility] ine as alevel of serum 25-OH vitamin D less than 20 ng/mL (1,2).The Endocrine Society went on to further define vitamin Dinsufficiency as a level between 21 and 29 ng/mL (2).1. IOM (Ins titute of Medicine). 2010 . Dietary reference int akes for calcium and D. [place]: [employer] .2. Armand Chanel, Sarai SALINAS, et al. Evaluatio n, treatment, and prevention of vitamin D deficiency: an Endocrine Society clinica l practice guideline. EM. 2010; 96(7):1911-30.< br/>
P erformed by:
[facility] ()

[facility] Description: 25-hydroxyvitamin D3 [Mass/volume] in Serum or [id number] 07:19:00 Test Item Value Reference Range Interpretation Comments Vitamin D, 24.2 ng/mL 30.0-100.0 L Vitamin D defic iency has 25-Hydroxy (test been define d by the code = 05742-4) [employer] [facility] guidel ine as alevel of serum 25-OH vitamin D less than 20 ng/mL (1,2).The Endocrine Society went on to further define vitamin Dinsufficiency as a level between 21 and 29 ng/mL (2).1. IOM (Ins titute of Medicine). 2010 . Dietary reference int akes for calcium and D. [place]: [employer] .2. Armand Chanel, Sarai SALINAS, et al. Evaluatio n, treatment, and prevention of vitamin D deficiency: an Endocrine Society clinica l practice guideline. EM. 2010; 96(7):1911-30.< br/>
P erformed by:
[facility] ([place])

[facility] Description: 25-hydroxyvitamin D3 [Mass/volume] in Serum or [id number] 07:19:00 Test Item Value Reference Range Interpretation Comments Vitamin D, 24.2 ng/mL 30.0-100.0 L Vitamin D defic iency has 25-Hydroxy (test been define d by the code = 21599-0) [employer] [facility] guidel ine as alevel of serum 25-OH vitamin D less than 20 ng/mL (1,2).The Endocrine Society went on to further define vitamin Dinsufficiency as a level between 21 and 29 ng/mL (2).1. IOM (Ins titute of Medicine). 2010 . Dietary reference int akes for calcium and D. [place]: [employer] .2. Armand Chanel, Sarai SALINAS, et al. Evaluatio n, treatment, and prevention of vitamin D deficiency: an Endocrine Society clinica l practice guideline. EM. 2010; 96(7):1911-30.< br/>
P erformed by:
[facility] ([place])

[facility] Description: 25-hydroxyvitamin D3 [Mass/volume] in Serum or [id number] 07:19:00 Test Item Value Reference Range Interpretation Comments Vitamin D, 24.2 ng/mL 30.0-100.0 L Vitamin D defic iency has 25-Hydroxy (test been define d by the code = 06832-9) [employer] [facility] guidel [facility]e as alevel of serum 25-OH vitamin D less than 20 ng/mL (1,2).The Endocrine Society went on to further define vitamin Dinsufficiency as a level between 21 and 29 ng/mL (2).1. IOM (Ins titute of Medicine). 2010 . Dietary reference int akes for calcium and D. [place]: [employer] .2. Armand Chanel, Sarai SALINAS, et al. Evaluatio n, treatment, and prevention of vitamin D deficiency: an Endocrine Society clinica l practice guideline. EM. 2010; 96(7):1911-30.< br/>
P erformed by:
[facility] ([place])

[facility] Description: 25-hydroxyvitamin D3 [Mass/volume] in Serum or [id number] 07:19:00 Test Item Value Reference Range Interpretation Comments Vitamin D, 24.2 ng/mL 30.0-100.0 L Vitamin D defic iency has 25-Hydroxy (test been define d by the code = 39816-5) [employer] [facility]e as alevel of serum 25-OH vitamin D less than 20 ng/mL (1,2).The Endocrine Society went on to further define vitamin Dinsufficiency as a level between 21 and 29 ng/mL (2).1. IOM (Ins titute of Medicine). 2010 . Dietary reference int akes for calcium and D. [place]: [employer] .2. Marguerite MF, Armand BOB, Sarai SALINAS, et al. Evaluatio n, treatment, and prevention of vitamin D deficiency: an Endocrine Society clinica l practice guideline. EM. 2010; 96(7):1911-30.< br/>
P erformed by:
[facility] ()

[facility] Description: 25-hydroxyvitamin D3 [Mass/volume] in Serum or [id number] 07:19:00 Test Item Value Reference Range Interpretation Comments Vitamin D, 24.2 ng/mL 30.0-100.0 L Vitamin D defic iency has 25-Hydroxy (test been define d by the code = 32449-5) [employer] [facility]e as alevel of serum 25-OH vitamin D less than 20 ng/mL (1,2).The Endocrine Society went on to further define vitamin Dinsufficiency as a level between 21 and 29 ng/mL (2).1. IOM (Ins titute of Medicine). 2010 . Dietary reference int akes for calcium and D. [facility]: [employer] .2. Armand Chanel, Sarai SALINAS, et al. Evaluatio n, treatment, and prevention of vitamin D deficiency: an Endocrine Society clinica l practice guideline. [facility]. 2010; 96(7):1911-30.< br/>
P erformed by:
[facility] ([place])

[facility] Description: 25-hydroxyvitamin D3 [Mass/volume] in Serum or [id number] 07:19:00 Test Item Value Reference Range Interpretation Comments Vitamin D, 24.2 ng/mL 30.0-100.0 L Vitamin D defic iency has 25-Hydroxy (test been define d by the code = 97116-5) [employer] [facility]e as alevel of serum 25-OH vitamin D less than 20 ng/mL (1,2).The Endocrine Society went on to further define vitamin Dinsufficiency as a level between 21 and 29 ng/mL (2).1. IOM (Ins titute of Medicine). 2010 . Dietary reference int akes for calcium and D. [facility]: [employer] .2. Armand Chanel, Sarai SALINAS, et al. Evaluatio n, treatment, and prevention of vitamin D deficiency: an Endocrine Society clinica l practice guideline. [facility]. 2010; 96(7):1911-30.< br/>
P erformed by:
[facility] ([place])

[facility] Description: 25-hydroxyvitamin D3 [Mass/volume] in Serum or [id number] 07:19:00 Test Item Value Reference Range Interpretation Comments Vitamin D, 24.2 ng/mL 30.0-100.0 L Vitamin D defic iency has 25-Hydroxy (test been define d by the code = 44575-4) [employer] [facility]idel [facility]e as alevel of serum 25-OH vitamin D less than 20 ng/mL (1,2).The Endocrine Society went on to further define vitamin Dinsufficiency as a level between 21 and 29 ng/mL (2).1. IOM (Ins titute of Medicine). 2010 . Dietary reference int akes for calcium and D. [facility]: [employer] .2. Armand Chanel, Sarai SALINAS, et al. Evaluatio n, treatment, and prevention of vitamin D deficiency: an Endocrine Society clinica l practice guideline. [facility] EM. 2010; 96(7):191-30.< br/>
P erformed by:
[facility] ([place])

[facility] Description: 25-hydroxyvitamin D3 [Mass/volume] in Serum or [id number] 07:19:00 Test Item Value Reference Range Interpretation Comments Vitamin D, 24.2 ng/mL 30.0-100.0 L Vitamin D defic iency has 25-Hydroxy (test been define d by the code = 63789-6) [employer] [facility]e as alevel of serum 25-OH vitamin D less than 20 ng/mL (1,2).The Endocrine Society went on to further define vitamin Dinsufficiency as a level between 21 and 29 ng/mL (2).1. IOM (Ins titute of Medicine). 2010 . Dietary reference int akes for calcium and D. [facility]: [employer] .2. Marguerite ROBERTO, Armand BOB, Sarai SALINAS, et al. Evaluatio n, treatment, and prevention of vitamin D deficiency: an Endocrine Society clinica l practice guideline. EM. 2010; 96(7):1911-30.< br/>
P erformed by:
[facility] ([place])

[facility] Description: Lipid [id number] 06:52:00 Test Item Value Reference Range Interpretation Comments Cholesterol, Total (test code = 249 mg/dL 100-199 H 2092-3) Triglycerides (test code = 2571-8) 226 mg/dL 0-149 H HDL Cholesterol (test code = 35 mg/dL >39 L 2085-9) VLDL Cholesterol Andrea (test code = 43 mg/dL 5-40 H 64175-4) LDL Chol Calc (NIH) (test code = 171 mg/dL 0-99 H 83501-4) Comment: (test code = 84283-2) [employer] Description: Lipid [id number] 06:52:00 Test Item Value Reference Range Interpretation Comments Cholesterol, Total (test code = 249 mg/dL 100-199 H 2093-3) Triglycerides (test code = 2571-8) 226 mg/dL 0-149 H HDL Cholesterol (test code = 35 mg/dL >39 L 5-9) VLDL Cholesterol Andrea (test code = 43 mg/dL 5-40 H 89843-8) LDL Chol Calc (NIH) (test code = 171 mg/dL 0-99 H 02683-7) Comment: (test code = 21362-9) [employer] Description: Lipid [id number] 06:52:00 Test Item Value Reference Range Interpretation Comments Cholesterol, Total (test code = 249 mg/dL 100-199 H 2093-3) Triglycerides (test code = 2571-8) 226 mg/dL 0-149 H HDL Cholesterol (test code = 35 mg/dL >39 L 2084-9) VLDL Cholesterol Andrea (test code = 43 mg/dL 5-40 H 23951-6) LDL Chol Calc (NIH) (test code = 171 mg/dL 0-99 H 33350-1) Comment: (test code = 66816-1) [employer] Description: Lipid [id number] 06:52:00 Test Item Value Reference Range Interpretation Comments Cholesterol, Total (test code = 249 mg/dL 100-199 H 2093-3) Triglycerides (test code = 2571-8) 226 mg/dL 0-149 H HDL Cholesterol (test code = 35 mg/dL >39 L 2084-9) VLDL Cholesterol Andrea (test code = 43 mg/dL 5-40 H 97058-1) LDL Chol Calc (NIH) (test code = 171 mg/dL 0-99 H 28624-0) Comment: (test code = 35091-9) [employer] Description: Lipid [id number] 06:52:00 Test Item Value Reference Range Interpretation Comments Cholesterol, Total (test code = 249 mg/dL 100-199 H 2093-3) Triglycerides (test code = 2571-8) 226 mg/dL 0-149 H HDL Cholesterol (test code = 35 mg/dL >39 L 5-9) VLDL Cholesterol Andrea (test code = 43 mg/dL 5-40 H 48629-6) LDL Chol Calc (NIH) (test code = 171 mg/dL 0-99 H 92656-6) Comment: (test code = 90763-0) [employer] Description: Lipid [id number] 06:52:00 Test Item Value Reference Range Interpretation Comments Cholesterol, Total (test code = 249 mg/dL 100-199 H 2093-3) Triglycerides (test code = 2571-8) 226 mg/dL 0-149 H HDL Cholesterol (test code = 35 mg/dL >39 L 2084-9) VLDL Cholesterol Andrea (test code = 43 mg/dL 5-40 H 77458-1) LDL Chol Calc (NIH) (test code = 171 mg/dL 0-99 H 29225-8) Comment: (test code = 74891-1) [employer] Description: Lipid [id number] 06:52:00 Test Item Value Reference Range Interpretation Comments Cholesterol, Total (test code = 249 mg/dL 100-199 H 3-3) Triglycerides (test code = 2571-8) 226 mg/dL 0-149 H HDL Cholesterol (test code = 35 mg/dL >39 L 2084-9) VLDL Cholesterol Andrea (test code = 43 mg/dL 5-40 H 85919-4) LDL Chol Calc (NIH) (test code = 171 mg/dL 0-99 H 34149-2) Comment: (test code = 24383-8) [employer] Description: Lipid [id number] 06:52:00 Test Item Value Reference Range Interpretation Comments Cholesterol, Total (test code = 249 mg/dL 100-199 H 3-3) Triglycerides (test code = 2571-8) 226 mg/dL 0-149 H HDL Cholesterol (test code = 35 mg/dL >39 L 5-9) VLDL Cholesterol Andrea (test code = 43 mg/dL 5-40 H 82480-7) LDL Chol Calc (NIH) (test code = 171 mg/dL 0-99 H 40301-1) Comment: (test code = 69620-8) [employer] Description: Lipid [id number] 06:52:00 Test Item Value Reference Range Interpretation Comments Cholesterol, Total (test code = 249 mg/dL 100-199 H 3-3) Triglycerides (test code = 2571-8) 226 mg/dL 0-149 H HDL Cholesterol (test code = 35 mg/dL >39 L 5-9) VLDL Cholesterol Andrea (test code = 43 mg/dL 5-40 H 57526-5) LDL Chol Calc (NIH) (test code = 171 mg/dL 0-99 H 92110-1) Comment: (test code = 71862-5) [employer] Description: Comp. Metabolic Panel (14)2020-02-08 06:31:00 Test Item Value Reference Range Interpretation Comments Glucose (test code = 2345-7) 96 mg/dL 65-99 BUN (test code = 3094-0) 15 mg/dL 6-24 Creatinine (test code = 0.97 mg/dL 0.76-1.27 0-0) eGFR If NonAfricn Am (test 88 mL/min/1.73 >59 code = 70035-5) eGFR If Africn Am (test code 101 mL/min/1.73 >59 = 59898-7) BUN/Creatinine Ratio (test 15 - code = 3097-3) Sodium (test code = 2951-2) 136 mmol/L 134-144 Potassium (test code = 4.4 mmol/L 3.5-5.2 2823-3) Chloride (test code = 2075-0) 96 mmol/L 96-106 Carbon Dioxide, Total (test 25 mmol/L 20-29 code = 2027-9) Calcium (test code = 08184-5) 10.0 mg/dL 8.7-10.2 Protein, Total (test code = 8.1 g/dL 6.0-8.5 2885-2) Albumin (test code = 1751-7) 4.8 g/dL 3.8-4.9 Globulin, Total (test code = 3.3 g/dL 1.5-4.5 56378-9) A/G Ratio (test code = 1.5 1.2-2.2 1759-0) Bilirubin, Total (test code = 0.5 mg/dL 0.0-1.2 1974-03) Alkaline Phosphatase (test 79 IU/L 39-117 code = 6768-6) AST (SGOT) (test code = 27 IU/L 0-40 1920-8) ALT (SGPT) (test code = 42 IU/L 0-44 1742-6) [facility] Description: Comp. Metabolic Panel (14)2020-02-08 06:31:00 Test Item Value Reference Range Interpretation Comments Glucose (test code = 2345-7) 96 mg/dL 65-99 BUN (test code = 3094-0) 15 mg/dL 6-24 Creatinine (test code = 0.97 mg/dL 0.76-1.27 2160-0) eGFR If NonAfricn Am (test 88 mL/min/1.73 >59 code = 05006-2) eGFR If Africn Am (test code 101 mL/min/1.73 >59 = 85563-5) BUN/Creatinine Ratio (test 15 9-20 code = 3097-3) Sodium (test code = 2951-2) 136 mmol/L 134-144 Potassium (test code = 4.4 mmol/L 3.5-5.2 2823-3) Chloride (test code = 2075-0) 96 mmol/L 96-106 Carbon Dioxide, Total (test 25 mmol/L 20-29 code = 8-9) Calcium (test code = 82376-9) 10.0 mg/dL 8.7-10.2 Protein, Total (test code = 8.1 g/dL 6.0-8.5 2885-2) Albumin (test code = 1751-7) 4.8 g/dL 3.8-4.9 Globulin, Total (test code = 3.3 g/dL 1.5-4.5 75325-9) A/G Ratio (test code = 1.5 1.2-2.2 1759-0) Bilirubin, Total (test code = 0.5 mg/dL 0.0-1.2 1974-03) Alkaline Phosphatase (test 79 IU/L 39-117 code = 6768-6) AST (SGOT) (test code = 27 IU/L 0-40 1920-8) ALT (SGPT) (test code = 42 IU/L 0-44 1742-6) [facility] Description: Comp. Metabolic Panel (14)2020-02-08 06:31:00 Test Item Value Reference Range Interpretation Comments Glucose (test code = 2345-7) 96 mg/dL 65-99 BUN (test code = 3094-0) 15 mg/dL 6-24 Creatinine (test code = 0.97 mg/dL 0.76-1.27 2160-0) eGFR If NonAfricn Am (test 88 mL/min/1.73 >59 code = 21248-1) eGFR If Africn Am (test code 101 mL/min/1.73 >59 = 06687-0) BUN/Creatinine Ratio (test 15 - code = 3097-3) Sodium (test code = 2951-2) 136 mmol/L 134-144 Potassium (test code = 4.4 mmol/L 3.5-5.2 2823-3) Chloride (test code = 2075-0) 96 mmol/L 96-106 Carbon Dioxide, Total (test 25 mmol/L 20-29 code = 8-9) Calcium (test code = 74021-7) 10.0 mg/dL 8.7-10.2 Protein, Total (test code = 8.1 g/dL 6.0-8.5 2885-2) Albumin (test code = 1751-7) 4.8 g/dL 3.8-4.9 Globulin, Total (test code = 3.3 g/dL 1.5-4.5 90121-8) A/G Ratio (test code = 1.5 1.2-2.2 1759-0) Bilirubin, Total (test code = 0.5 mg/dL 0.0-1.2 1975-2) Alkaline Phosphatase (test 79 IU/L 39-117 code = 6768-6) AST (SGOT) (test code = 27 IU/L 0-40 1920-8) ALT (SGPT) (test code = 42 IU/L 0-44 1742-6) [facility] Description: Comp. Metabolic Panel (14)2020-02-08 06:31:00 Test Item Value Reference Range Interpretation Comments Glucose (test code = 2345-7) 96 mg/dL 65-99 BUN (test code = 3094-0) 15 mg/dL 6-24 Creatinine (test code = 0.97 mg/dL 0.76-1.27 2160-0) eGFR If NonAfricn Am (test 88 mL/min/1.73 >59 code = 51325-1) eGFR If Africn Am (test code 101 mL/min/1.73 >59 = 34194-1) BUN/Creatinine Ratio (test 15 9- code = 3097-3) Sodium (test code = 2951-2) 136 mmol/L 134-144 Potassium (test code = 4.4 mmol/L 3.5-5.2 2823-3) Chloride (test code = 2075-0) 96 mmol/L 96-106 Carbon Dioxide, Total (test 25 mmol/L 20-29 code = 8-9) Calcium (test code = 34446-8) 10.0 mg/dL 8.7-10.2 Protein, Total (test code = 8.1 g/dL 6.0-8.5 2885-2) Albumin (test code = 1751-7) 4.8 g/dL 3.8-4.9 Globulin, Total (test code = 3.3 g/dL 1.5-4.5 56601-7) A/G Ratio (test code = 1.5 1.2-2.2 1759-0) Bilirubin, Total (test code = 0.5 mg/dL 0.0-1.2 1975-2) Alkaline Phosphatase (test 79 IU/L 39-117 code = 6768-6) AST (SGOT) (test code = 27 IU/L 0-40 1920-8) ALT (SGPT) (test code = 42 IU/L 0-44 1742-6) [facility] Description: Comp. Metabolic Panel (2020-02-08 06:31:00 Test Item Value Reference Range Interpretation Comments Glucose (test code = 2345-7) 96 mg/dL 65-99 BUN (test code = 3094-0) 15 mg/dL 6-24 Creatinine (test code = 0.97 mg/dL 0.76-1.27 2160-0) eGFR If NonAfricn Am (test 88 mL/min/1.73 >59 code = 44916-8) eGFR If Africn Am (test code 101 mL/min/1.73 >59 = 46790-5) BUN/Creatinine Ratio (test 11-13 code = 3097-3) Sodium (test code = 2951-2) 136 mmol/L 134-144 Potassium (test code = 4.4 mmol/L 3.5-5.2 2823-3) Chloride (test code = 2075-0) 96 mmol/L 96-106 Carbon Dioxide, Total (test 25 mmol/L 20-29 code = 8-9) Calcium (test code = 47022-9) 10.0 mg/dL 8.7-10.2 Protein, Total (test code = 8.1 g/dL 6.0-8.5 2885-2) Albumin (test code = 1751-7) 4.8 g/dL 3.8-4.9 Globulin, Total (test code = 3.3 g/dL 1.5-4.5 85468-5) A/G Ratio (test code = 1.5 1.2-2.2 1759-0) Bilirubin, Total (test code = 0.5 mg/dL 0.0-1.2 1975-2) Alkaline Phosphatase (test 79 IU/L 39-117 code = 6768-6) AST (SGOT) (test code = 27 IU/L 0-40 1920-8) ALT (SGPT) (test code = 42 IU/L 0-44 1742-6) [facility] Description: Comp. Metabolic Panel (14)2020-02-08 06:31:00 Test Item Value Reference Range Interpretation Comments Glucose (test code = 2345-7) 96 mg/dL 65-99 BUN (test code = 3094-0) 15 mg/dL 6-24 Creatinine (test code = 0.97 mg/dL 0.76-1.27 2160-0) eGFR If NonAfricn Am (test 88 mL/min/1.73 >59 code = 46458-6) eGFR If Africn Am (test code 101 mL/min/1.73 >59 = 69910-8) BUN/Creatinine Ratio (test 11-13 code = 3097-3) Sodium (test code = 2951-2) 136 mmol/L 134-144 Potassium (test code = 4.4 mmol/L 3.5-5.2 2823-3) Chloride (test code = 2075-0) 96 mmol/L 96-106 Carbon Dioxide, Total (test 25 mmol/L - code = 2027-) Calcium (test code = 28582-0) 10.0 mg/dL 8.7-10.2 Protein, Total (test code = 8.1 g/dL 6.0-8.5 2885-2) Albumin (test code = 1751-7) 4.8 g/dL 3.8-4.9 Globulin, Total (test code = 3.3 g/dL 1.5-4.5 09539-3) A/G Ratio (test code = 1.5 1.2-2.2 1759-0) Bilirubin, Total (test code = 0.5 mg/dL 0.0-1.2 1974-2) Alkaline Phosphatase (test 79 IU/L 39-117 code = 6768-6) AST (SGOT) (test code = 27 IU/L 0-40 1920-8) ALT (SGPT) (test code = 42 IU/L 0-44 1742-6) [facility] Description: Comp. Metabolic Panel (14)2020-02-08 06:31:00 Test Item Value Reference Range Interpretation Comments Glucose (test code = 2345-7) 96 mg/dL 65-99 BUN (test code = 3094-0) 15 mg/dL 6-24 Creatinine (test code = 0.97 mg/dL 0.76-1.27 2160-0) eGFR If NonAfricn Am (test 88 mL/min/1.73 >59 code = 95966-4) eGFR If Africn Am (test code 101 mL/min/1.73 >59 = 02471-4) BUN/Creatinine Ratio (test 15 11-13 code = 3097-3) Sodium (test code = 2951-2) 136 mmol/L 134-144 Potassium (test code = 4.4 mmol/L 3.5-5.2 2823-3) Chloride (test code = 2075-0) 96 mmol/L 96-106 Carbon Dioxide, Total (test 25 mmol/L code = 2027-9) Calcium (test code = 90067-8) 10.0 mg/dL 8.7-10.2 Protein, Total (test code = 8.1 g/dL 6.0-8.5 2885-2) Albumin (test code = 1751-7) 4.8 g/dL 3.8-4.9 Globulin, Total (test code = 3.3 g/dL 1.5-4.5 63545-4) A/G Ratio (test code = 1.5 1.2-2.2 1759-0) Bilirubin, Total (test code = 0.5 mg/dL 0.0-1.2 1975-2) Alkaline Phosphatase (test 79 IU/L 39-117 code = 6768-6) AST (SGOT) (test code = 27 IU/L 0-40 1920-8) ALT (SGPT) (test code = 42 IU/L 0-44 1742-6) [facility] Description: Comp. Metabolic Panel (14)2020-02-08 06:31:00 Test Item Value Reference Range Interpretation Comments Glucose (test code = 2345-7) 96 mg/dL 65-99 BUN (test code = 3094-0) 15 mg/dL 6-24 Creatinine (test code = 0.97 mg/dL 0.76-1.27 2160-0) eGFR If NonAfricn Am (test 88 mL/min/1.73 >59 code = 69531-9) eGFR If Africn Am (test code 101 mL/min/1.73 >59 = 33689-2) BUN/Creatinine Ratio (test 15 9-20 code = 3097-3) Sodium (test code = 2951-2) 136 mmol/L 134-144 Potassium (test code = 4.4 mmol/L 3.5-5.2 2823-3) Chloride (test code = 2075-0) 96 mmol/L 96-106 Carbon Dioxide, Total (test 25 mmol/L 20-29 code = 8-9) Calcium (test code = 80313-5) 10.0 mg/dL 8.7-10.2 Protein, Total (test code = 8.1 g/dL 6.0-8.5 2885-2) Albumin (test code = 1751-7) 4.8 g/dL 3.8-4.9 Globulin, Total (test code = 3.3 g/dL 1.5-4.5 94763-3) A/G Ratio (test code = 1.5 1.2-2.2 1759-0) Bilirubin, Total (test code = 0.5 mg/dL 0.0-1.2 1974-) Alkaline Phosphatase (test 79 IU/L 39-117 code = 6768-6) AST (SGOT) (test code = 27 IU/L 0-40 1920-8) ALT (SGPT) (test code = 42 IU/L 0-44 1742-6) [facility] Description: Comp. Metabolic Panel (14)2020-02-08 06:31:00 Test Item Value Reference Range Interpretation Comments Glucose (test code = 2345-7) 96 mg/dL 65-99 BUN (test code = 3094-0) 15 mg/dL 6-24 Creatinine (test code = 0.97 mg/dL 0.76-1.27 2160-0) eGFR If NonAfricn Am (test 88 mL/min/1.73 >59 code = 29006-1) eGFR If Africn Am (test code 101 mL/min/1.73 >59 = 55128-6) BUN/Creatinine Ratio (test 15 9-20 code = 3097-3) Sodium (test code = 2951-2) 136 mmol/L 134-144 Potassium (test code = 4.4 mmol/L 3.5-5.2 2823-3) Chloride (test code = 2075-0) 96 mmol/L 96-106 Carbon Dioxide, Total (test 25 mmol/L 20-29 code = 2027-9) Calcium (test code = 79428-0) 10.0 mg/dL 8.7-10.2 Protein, Total (test code = 8.1 g/dL 6.0-8.5 2885-2) Albumin (test code = 1751-7) 4.8 g/dL 3.8-4.9 Globulin, Total (test code = 3.3 g/dL 1.5-4.5 20701-1) A/G Ratio (test code = 1.5 1.2-2.2 1759-0) Bilirubin, Total (test code = 0.5 mg/dL 0.0-1.2 1974-03) Alkaline Phosphatase (test 79 IU/L 39-117 code = 6768-6) AST (SGOT) (test code = 27 IU/L 0-40 1920-8) ALT (SGPT) (test code = 42 IU/L 0-44 1742-6) [facility] Description: Chlamydia/GC Hqnwnhlkhyeuo5620-62-76 12:24:00 Test Item Value Reference Range Interpretation Comments Chlamydia trachomatis, MASSIMO (test Negative Negative code = 53912-8) Neisseria gonorrhoeae, MASSIMO (test Negative Negative code = 55040-5) [facility] Description: Chlamydia/GC Lxengfpmjsjkp5894-41-38 12:24:00 Test Item Value Reference Range Interpretation Comments Chlamydia trachomatis, MASSIMO (test Negative Negative code = 77620-5) Neisseria gonorrhoeae, MASSIMO (test Negative Negative code = 32036-9) [facility] Description: Chlamydia/GC Ewhtqcllvkpvz4441-78-37 12:24:00 Test Item Value Reference Range Interpretation Comments Chlamydia trachomatis, MASSIMO (test Negative Negative code = 45927-6) Neisseria gonorrhoeae, MASSIMO (test Negative Negative code = 22728-3) [facility] Description: Chlamydia/GC Awkkvlwssdwqe2010-41-91 12:24:00 Test Item Value Reference Range Interpretation Comments Chlamydia trachomatis, MASSIMO (test Negative Negative code = 68186-9) Neisseria gonorrhoeae, MASSIMO (test Negative Negative code = 60888-0) [facility] Description: Chlamydia/GC Daofcgwdesuxq2183-02-05 12:24:00 Test Item Value Reference Range Interpretation Comments Chlamydia trachomatis, MASSIMO (test Negative Negative code = 92850-9) Neisseria gonorrhoeae, MASSIMO (test Negative Negative code = 26697-2) [facility] Description: Chlamydia/GC Iakwbugvtdyik2189-93-89 12:24:00 Test Item Value Reference Range Interpretation Comments Chlamydia trachomatis, MASSIMO (test Negative Negative code = 77150-5) Neisseria gonorrhoeae, MASSIMO (test Negative Negative code = 15273-3) [facility] Description: Chlamydia/GC Qxrqbsgxltdti4863-36-10 12:24:00 Test Item Value Reference Range Interpretation Comments Chlamydia trachomatis, MASSIMO (test Negative Negative code = 39901-3) Neisseria gonorrhoeae, MASSIMO (test Negative Negative code = 80547-0) [facility] Description: Chlamydia/GC Mowndrbidbwhn8397-13-99 12:24:00 Test Item Value Reference Range Interpretation Comments Chlamydia trachomatis, MASSIMO (test Negative Negative code = 51017-7) Neisseria gonorrhoeae, MASSIMO (test Negative Negative code = 85634-4) [facility] Description: Chlamydia/GC Apgojqaqgncde8253-25-74 12:24:00 Test Item Value Reference Range Interpretation Comments Chlamydia trachomatis, MASSIMO (test Negative Negative code = 58550-1) Neisseria gonorrhoeae, MASSIMO (test Negative Negative code = 80018-3) [facility] Description: Chlamydia/GC Xewclvcsvxdqy2740-11-47 12:24:00 Test Item Value Reference Range Interpretation Comments Chlamydia trachomatis, MASSIMO (test Negative Negative code = 31523-5) Neisseria gonorrhoeae, MASSIMO (test Negative Negative code = 16175-0) [facility] Description: Chlamydia/GC Jbrbqiskfrace5827-52-77 12:24:00 Test Item Value Reference Range Interpretation Comments Chlamydia trachomatis, MASSIMO (test Negative Negative code = 24635-0) Neisseria gonorrhoeae, MASSIMO (test Negative Negative code = 32979-7) [facility] Description: Chlamydia/GC Nfckbohnkrzdu5550-24-36 12:24:00 Test Item Value Reference Range Interpretation Comments Chlamydia trachomatis, MASSIMO (test Negative Negative code = 64489-6) Neisseria gonorrhoeae, MASSIMO (test Negative Negative code = 11987-5) [facility] Description: HIV 1+2 Ab+HIV1 p24 Ag [Presence] in Serum or Plasma by Iabhcbeguze4970-27-28 07:26:00 Test Item Value Reference Range Interpretation Comments HIV Screen 4th Generation wRfx Non Reactive Non Reactive (test code = 86850-8) [facility] Description: HIV 1+2 Ab+HIV1 p24 Ag [Presence] in Serum or Plasma by Vapcurrnlyx0966-70-06 07:26:00 Test Item Value Reference Range Interpretation Comments HIV Screen 4th Generation wRfx Non Reactive Non Reactive (test code = 64072-3) [facility] Description: HIV 1+2 Ab+HIV1 p24 Ag [Presence] in Serum or Plasma by Kawqcxxjohw8275-06-13 07:26:00 Test Item Value Reference Range Interpretation Comments HIV Screen 4th Generation wRfx Non Reactive Non Reactive (test code = 91830-8) [facility] Description: HIV 1+2 Ab+HIV1 p24 Ag [Presence] in Serum or Plasma by Fazbyonxwbg4661-19-58 07:26:00 Test Item Value Reference Range Interpretation Comments HIV Screen 4th Generation wRfx Non Reactive Non Reactive (test code = 91106-0) [facility] Description: HIV 1+2 Ab+HIV1 p24 Ag [Presence] in Serum or Plasma by Eqdzewzytne1759-93-46 07:26:00 Test Item Value Reference Range Interpretation Comments HIV Screen 4th Generation wRfx Non Reactive Non Reactive (test code = 28188-7) [facility] Description: HIV 1+2 Ab+HIV1 p24 Ag [Presence] in Serum or Plasma by Gyywsyukcqh2790-79-74 07:26:00 Test Item Value Reference Range Interpretation Comments HIV Screen 4th Generation wRfx Non Reactive Non Reactive (test code = 08230-4) [facility] Description: HIV 1+2 Ab+HIV1 p24 Ag [Presence] in Serum or Plasma by Uvhcmdqregh3724-02-55 07:26:00 Test Item Value Reference Range Interpretation Comments HIV Screen 4th Generation wRfx Non Reactive Non Reactive (test code = 82066-0) [facility] Description: HIV 1+2 Ab+HIV1 p24 Ag [Presence] in Serum or Plasma by Ddhpzaztuyz4126-42-46 07:26:00 Test Item Value Reference Range Interpretation Comments HIV Screen 4th Generation wRfx Non Reactive Non Reactive (test code = 97031-4) [facility] Description: HIV 1+2 Ab+HIV1 p24 Ag [Presence] in Serum or Plasma by Pkdckdlkoee9200-77-17 07:26:00 Test Item Value Reference Range Interpretation Comments HIV Screen 4th Generation wRfx Non Reactive Non Reactive (test code = 73538-4) [facility] Description: HIV 1+2 Ab+HIV1 p24 Ag [Presence] in Serum or Plasma by Hsibvhgfkci0487-39-45 07:26:00 Test Item Value Reference Range Interpretation Comments HIV Screen 4th Generation wRfx Non Reactive Non Reactive (test code = 47779-5) [facility] Description: HIV 1+2 Ab+HIV1 p24 Ag [Presence] in Serum or Plasma by Tuqawbfqfor1178-85-82 07:26:00 Test Item Value Reference Range Interpretation Comments HIV Screen 4th Generation wRfx Non Reactive Non Reactive (test code = 11938-1) [facility] Description: HIV 1+2 Ab+HIV1 p24 Ag [Presence] in Serum or Plasma by Wlqggnvtwzc0398-26-99 07:26:00 Test Item Value Reference Range Interpretation Comments HIV Screen 4th Generation wRfx Non Reactive Non Reactive (test code = 27957-9) [facility] Description: 25-hydroxyvitamin D3 [Mass/volume] in Serum or Nmiovd3167-52-79 06:20:00 Test Item Value Reference Range Interpretation Comments Vitamin D, 13.0 ng/mL 30.0-100.0 L Vitamin D defic iency has 25-Hydroxy (test been define d by the code = 34176-6) [facility]e as alevel of serum 25-OH vitamin D less than 20 ng/mL (1,2).The Endocrine Society went on to further define vitamin Dinsufficiency as a level between 21 and 29 ng/mL (2).1. IOM (Ins titute of Medicine). 2010 . Dietary reference int akes for calcium and D. [place]: The [employer] .2. Armand Chanel, Sarai i SALINAS, et al. Evaluatio n, treatment, and prevention of vitamin D deficiency: an Endocrine Society clinica l practice guideline. EM. 2010; 96(7):1911-30.< br/>
P erformed by:
[facility] ()

[facility] Description: 25-hydroxyvitamin D3 [Mass/volume] in Serum or Kzyhvt6232-60-82 06:20:00 Test Item Value Reference Range Interpretation Comments Vitamin D, 13.0 ng/mL 30.0-100.0 L Vitamin D defic iency has 25-Hydroxy (test been define d by the code = 18861-1) [facility] guidel ine as alevel of serum 25-OH vitamin D less than 20 ng/mL (1,2).The Endocrine Society went on to further define vitamin Dinsufficiency as a level between 21 and 29 ng/mL (2).1. IOM (Ins titute of Medicine). 2010 . Dietary reference int akes for calcium and D. [place]: [employer] .2. Armand Chanel, Sarai SALINAS, et al. Evaluatio n, treatment, and prevention of vitamin D deficiency: an Endocrine Society clinica l practice guideline. CLARA EM. 2010; 96(7):1911-30.< br/>
P erformed by:
[facility] ([place])

[facility] Description: 25-hydroxyvitamin D3 [Mass/volume] in Serum or Xcyhab5186-21-05 06:20:00 Test Item Value Reference Range Interpretation Comments Vitamin D, 13.0 ng/mL 30.0-100.0 L Vitamin D defic iency has 25-Hydroxy (test been define d by the code = 36659-1) [facility] guidel ine as alevel of serum 25-OH vitamin D less than 20 ng/mL (1,2).The Endocrine Society went on to further define vitamin Dinsufficiency as a level between 21 and 29 ng/mL (2).1. IOM (Ins titute of Medicine). 2010 . Dietary reference int akes for calcium and D. [place]: [employer] .2. Marguerite ROBERTO, Armand BOB, Sarai SALINAS, et al. Evaluatio n, treatment, and prevention of vitamin D deficiency: an Endocrine Society clinica l practice guideline. EM. 2010; 96(7):1911-30.< br/>
P erformed by:
[facility] ([place])

[facility] Description: 25-hydroxyvitamin D3 [Mass/volume] in Serum or [id number] 06:20:00 Test Item Value Reference Range Interpretation Comments Vitamin D, 13.0 ng/mL 30.0-100.0 L Vitamin D defic iency has 25-Hydroxy (test been define d by the code = 72209-1) [facility] guidel [facility]e as alevel of serum 25-OH vitamin D less than 20 ng/mL (1,2).The Endocrine Society went on to further define vitamin Dinsufficiency as a level between 21 and 29 ng/mL (2).1. IOM (Ins titute of Medicine). 2010 . Dietary reference int akes for calcium and D. [facility]: The [email or web address] .2. Armand Chanel, Sarai SALINAS, et al. Evaluatio n, treatment, and prevention of vitamin D deficiency: an Endocrine Society clinica l practice guideline. EM. 2010; 96(7):191-.< br/>
P erformed by:
[facility] ([place])

[facility] Description: 25-hydroxyvitamin D3 [Mass/volume] in Serum or Xqknur3514-57-91 06:20:00 Test Item Value Reference Range Interpretation Comments Vitamin D, 13.0 ng/mL 30.0-100.0 L Vitamin D defic iency has 25-Hydroxy (test been define d by the code = 69946-4) [facility] guidel [facility]e as alevel of serum 25-OH vitamin D less than 20 ng/mL (1,2).The Endocrine Society went on to further define vitamin Dinsufficiency as a level between 21 and 29 ng/mL (2).1. IOM ([facility]). 2010 . Dietary reference int akes for calcium and D. [facility]: The [employer] .2. Armand Chanel, Sarai SALINAS, et al. Evaluatio n, treatment, and prevention of vitamin D deficiency: an Endocrine Society clinica l practice guideline. EM. 2010; 96(7):1911-30.< br/>
P erformed by:
[facility] ()

[facility] Description: 25-hydroxyvitamin D3 [Mass/volume] in Serum or Kvvjos1377-97-88 06:20:00 Test Item Value Reference Range Interpretation Comments Vitamin D, 13.0 ng/mL 30.0-100.0 L Vitamin D defic iency has 25-Hydroxy (test been define d by the code = 98945-4) [facility] [employer] [facility] So ciety practice guidel ine as alevel of serum 25-OH vitamin D less than 20 ng/mL (1,2).The Endocrine Society went on to further define vitamin Dinsufficiency as a level between 21 and 29 ng/mL (2).1. IOM (Ins titute of Medicine). 2010 . Dietary reference int akes for calcium and D. [facility]: The [employer] .2. Armand Chanel, Sarai SALINAS, et al. Evaluatio n, treatment, and prevention of vitamin D deficiency: an Endocrine Society clinica l practice guideline. CLARA EM. 2010; 96(7):1911-30.< br/>
P erformed by:
[facility] ([place])

[facility] Description: 25-hydroxyvitamin D3 [Mass/volume] in Serum or [id number] 06:20:00 Test Item Value Reference Range Interpretation Comments Vitamin D, 13.0 ng/mL 30.0-100.0 L Vitamin D defic iency has 25-Hydroxy (test been define d by the code = 88556-4) [facility]e as alevel of serum 25-OH vitamin D less than 20 ng/mL (1,2).The Endocrine Society went on to further define vitamin Dinsufficiency as a level between 21 and 29 ng/mL (2).1. IOM (Ins titute of Medicine). 2010 . Dietary reference int akes for calcium and D. [facility]: The [employer] .2. Armand Chanel, Sarai SALINAS, et al. Evaluatio n, treatment, and prevention of vitamin D deficiency: an Endocrine Society clinica l practice guideline. CLARA EM. 2010; 96(7):1911-30.< br/>
P erformed by:
[facility] ([place])

[facility] [employer] [facility] Description: 25-hydroxyvitamin D3 [Mass/volume] in Serum or [id number] 06:20:00 Test Item Value Reference Range Interpretation Comments Vitamin D, 13.0 ng/mL 30.0-100.0 L Vitamin D defic iency has 25-Hydroxy (test been define d by the code = 73731-6) [facility]idel [facility]e as alevel of serum 25-OH vitamin D less than 20 ng/mL (1,2).The Endocrine Society went on to further define vitamin Dinsufficiency as a level between 21 and 29 ng/mL (2).1. IOM (Ins titute of Medicine). 2010 . Dietary reference int akes for calcium and D. [facility]: [employer] .2. Armand Chanel, Sarai SALINAS, et al. Evaluatio n, treatment, and prevention of vitamin D deficiency: an Endocrine Society clinica l practice guideline. CLARA EM. 2010; 96(7):191-.< br/>
P erformed by:
[facility] ([place])

[facility]: 25-hydroxyvitamin D3 [Mass/volume] in Serum or [id number] 06:20:00 Test Item Value Reference Range Interpretation Comments Vitamin D, 13.0 ng/mL 30.0-100.0 L Vitamin D defic iency has 25-Hydroxy (test been define d by the code = 18213-3) [place] [employer] and an End[facility] practice guidel ine as alevel of serum 25-OH vitamin D less than 20 ng/mL (1,2).The Endocrine Society went on to further define vitamin Dinsufficiency as a level between 21 and 29 ng/mL (2).1. IOM (Ins [employer] of [employer]). 2010 . Dietary reference int akes for calcium and D. [facility]: [employer] .2. Armand Chanel, Sarai SALINAS, et al. Evaluatio n, treatment, and prevention of vitamin D deficiency: an Endocrine Society clinica l practice guideline. CLARA EM. 2010; 96(7):191-.< br/>
P erformed by:
[facility] (HD)

[facility] Description: 25-hydroxyvitamin D3 [Mass/volume] in Serum or [id number] 06:20:00 Test Item Value Reference Range Interpretation Comments Vitamin D, 13.0 ng/mL 30.0-100.0 L Vitamin D defic iency has 25-Hydroxy (test been define d by the code = 51397-7) [place] [employer] and an Endocrine So ciety practice guidel ine as alevel of serum 25-OH vitamin D less than 20 ng/mL (1,2).The Endocrine Society went on to further define vitamin Dinsufficiency as a level between 21 and 29 ng/mL (2).1. IOM (Ins titute of Medicine). 2010 . Dietary reference int akes for calcium and D. [facility]: [employer] .2. Armand Chanel, Sarai SALINAS, et al. Evaluatio n, treatment, and prevention of vitamin D deficiency: an Endocrine Society clinica l practice guideline. EM. 2010; 96(7):191-.< br/>
P erformed by:
[facility] (HD)

[facility] Description: 25-hydroxyvitamin D3 [Mass/volume] in Serum or [id number] 06:20:00 Test Item Value Reference Range Interpretation Comments Vitamin D, 13.0 ng/mL 30.0-100.0 L Vitamin D defic iency has 25-Hydroxy (test been define d by the code = 40204-4) [place] [employer] and an [facility] guidel ine as alevel of serum 25-OH vitamin D less than 20 ng/mL (1,2).The Endocrine Society went on to further define vitamin Dinsufficiency as a level between 21 and 29 ng/mL (2).1. IOM (Ins titute of Medicine). 2010 . Dietary reference int akes for calcium and D. [facility]: [employer] .2. Armand Chanel, Sarai SALINAS, et al. Evaluatio n, treatment, and prevention of vitamin D deficiency: an Endocrine Society clinica l practice guideline. EM. 2010; 96(7):191-.< br/>
P erformed by:
[facility] (HD)

[facility] Description: 25-hydroxyvitamin D3 [Mass/volume] in Serum or [id number] 06:20:00 Test Item Value Reference Range Interpretation Comments Vitamin D, 13.0 ng/mL 30.0-100.0 L Vitamin D defic iency has 25-Hydroxy (test been define d by the code = 37944-4) [place] [employer] and an Endocrine So ciety practice guidel ine as alevel of serum 25-OH vitamin D less than 20 ng/mL (1,2).The Endocrine Society went on to further define vitamin Dinsufficiency as a level between 21 and 29 ng/mL (2).1. IOM (Ins titute of Medicine). 2010 . Dietary reference int akes for calcium and D. [place]: [employer] .2. Marguerite MF, Armand BOB, Sarai cantu SALINAS, et al. Evaluatio n, treatment, and prevention of vitamin D deficiency: an Endocrine Society clinica l practice guideline. CLARA EM. 2010; 96(8):1911-30.< br/>
P erformed by:
[facility] (HD)

[facility] Description: RPR, Rfx Qn RPR/Confirm [id number] 05:52:00 Test Item Value Reference Range Interpretation Comments RPR (test code = 21766-7) Non Reactive Non Reactive [facility] Description: RPR, Rfx Qn RPR/Confirm [id number] 05:52:00 Test Item Value Reference Range Interpretation Comments RPR (test code = 37408-4) Non Reactive Non Reactive [facility] Description: RPR, Rfx Qn RPR/Confirm [id number] 05:52:00 Test Item Value Reference Range Interpretation Comments RPR (test code = 59024-3) Non Reactive Non Reactive [facility] Description: RPR, Rfx Qn RPR/Confirm [id number] 05:52:00 Test Item Value Reference Range Interpretation Comments RPR (test code = 35329-2) Non Reactive Non Reactive [facility] Description: RPR, Rfx Qn RPR/Confirm [id number] 05:52:00 Test Item Value Reference Range Interpretation Comments RPR (test code = 26873-7) Non Reactive Non Reactive [facility] Description: RPR, Rfx Qn RPR/Confirm [id number] 05:52:00 Test Item Value Reference Range Interpretation Comments RPR (test code = 99788-2) Non Reactive Non Reactive [facility] Description: RPR, Rfx Qn RPR/Confirm [id number] 05:52:00 Test Item Value Reference Range Interpretation Comments RPR (test code = 92909-6) Non Reactive Non Reactive [facility] Description: RPR, Rfx Qn RPR/Confirm [id number] 05:52:00 Test Item Value Reference Range Interpretation Comments RPR (test code = 65142-7) Non Reactive Non Reactive [facility] Description: RPR, Rfx Qn RPR/Confirm [id number] 05:52:00 Test Item Value Reference Range Interpretation Comments RPR (test code = 83012-1) Non Reactive Non Reactive [facility] Description: RPR, Rfx Qn RPR/Confirm [id number] 05:52:00 Test Item Value Reference Range Interpretation Comments RPR (test code = 43077-6) Non Reactive Non Reactive [facility] Description: RPR, Rfx Qn RPR/Confirm [id number] 05:52:00 Test Item Value Reference Range Interpretation Comments RPR (test code = 07365-6) Non Reactive Non Reactive [facility] Description: RPR, Rfx Qn RPR/Confirm [id number] 05:52:00 Test Item Value Reference Range Interpretation Comments RPR (test code = 06652-8) Non Reactive Non Reactive [facility] Description: Hepatitis C virus Ab Signal/Cutoff in Serum or Plasma by [id number] 05:50:00 Test Item Value Reference Range Interpretation Comments Hep C Virus Ab (test code = 19094-8) <0.1 0.0-0.9 [facility] Description: Hepatitis C virus Ab Signal/Cutoff in Serum or Plasma by [id number] 05:50:00 Test Item Value Reference Range Interpretation Comments Hep C Virus Ab (test code = 99434-6) <0.1 0.0-0.9 [facility] Description: Hepatitis C virus Ab Signal/Cutoff in Serum or Plasma by [id number] 05:50:00 Test Item Value Reference Range Interpretation Comments Hep C Virus Ab (test code = 09736-8) <0.1 0.0-0.9 [facility] Description: Hepatitis C virus Ab Signal/Cutoff in Serum or Plasma by [id number] 05:50:00 Test Item Value Reference Range Interpretation Comments Hep C Virus Ab (test code = 78371-3) <0.1 0.0-0.9 [facility] Description: Hepatitis C virus Ab Signal/Cutoff in Serum or Plasma by [id number] 05:50:00 Test Item Value Reference Range Interpretation Comments Hep C Virus Ab (test code = 12518-8) <0.1 0.0-0.9 [facility] Description: Hepatitis C virus Ab Signal/Cutoff in Serum or Plasma by [id number] 05:50:00 Test Item Value Reference Range Interpretation Comments Hep C Virus Ab (test code = 61743-9) <0.1 0.0-0.9 [facility] Description: Hepatitis C virus Ab Signal/Cutoff in Serum or Plasma by Zkcqcqalgaz0304-61-75 05:50:00 Test Item Value Reference Range Interpretation Comments Hep C Virus Ab (test code = 77999-1) <0.1 0.0-0.9 [facility] Description: Hepatitis C virus Ab Signal/Cutoff in Serum or Plasma by [id number] 05:50:00 Test Item Value Reference Range Interpretation Comments Hep C Virus Ab (test code = 91177-0) <0.1 0.0-0.9 [facility] Description: Hepatitis C virus Ab Signal/Cutoff in Serum or Plasma by [id number] 05:50:00 Test Item Value Reference Range Interpretation Comments Hep C Virus Ab (test code = 97114-1) <0.1 0.0-0.9 [facility] Description: Hepatitis C virus Ab Signal/Cutoff in Serum or Plasma by [id number] 05:50:00 Test Item Value Reference Range Interpretation Comments Hep C Virus Ab (test code = 73623-2) <0.1 0.0-0.9 [facility] Description: Hepatitis C virus Ab Signal/Cutoff in Serum or Plasma by [id number] 05:50:00 Test Item Value Reference Range Interpretation Comments Hep C Virus Ab (test code = 38005-2) <0.1 0.0-0.9 [facility] Description: Hepatitis C virus Ab Signal/Cutoff in Serum or Plasma by [id number] 05:50:00 Test Item Value Reference Range Interpretation Comments Hep C Virus Ab (test code = 78485-2) <0.1 0.0-0.9 [facility] Description: Thyrotropin [Units/volume] in Serum or Plasma by Detection limit <= 0.05 mIU/[id number] 03:47:00 Test Item Value Reference Range Interpretation Comments TSH (test code = 39847-6) 2.020 uIU/mL 0.450-4.500 [facility] Description: Thyrotropin [Units/volume] in Serum or Plasma by Detection limit <= 0.05 mIU/[id number] 03:47:00 Test Item Value Reference Range Interpretation Comments TSH (test code = 43461-0) 2.020 uIU/mL 0.450-4.500 [facility] Description: Thyrotropin [Units/volume] in Serum or Plasma by Detection limit <= 0.05 mIU/[id number] 03:47:00 Test Item Value Reference Range Interpretation Comments TSH (test code = 84636-3) 2.020 uIU/mL 0.450-4.500 [facility] Description: Thyrotropin [Units/volume] in Serum or Plasma by Detection limit <= 0.05 mIU/[id number] 03:47:00 Test Item Value Reference Range Interpretation Comments TSH (test code = 06012-9) 2.020 uIU/mL 0.450-4.500 [facility] Description: Thyrotropin [Units/volume] in Serum or Plasma by Detection limit <= 0.05 mIU/[id number] 03:47:00 Test Item Value Reference Range Interpretation Comments TSH (test code = 76546-3) 2.020 uIU/mL 0.450-4.500 [facility] Description: Thyrotropin [Units/volume] in Serum or Plasma by Detection limit <= 0.05 mIU/[id number] 03:47:00 Test Item Value Reference Range Interpretation Comments TSH (test code = 70719-1) 2.020 uIU/mL 0.450-4.500 [facility] Description: Thyrotropin [Units/volume] in Serum or Plasma by Detection limit <= 0.05 mIU/[id number] 03:47:00 Test Item Value Reference Range Interpretation Comments TSH (test code = 62473-6) 2.020 uIU/mL 0.450-4.500 [facility]: Thyrotropin [Units/volume] in Serum or Plasma by Detection limit <= 0.05 mIU/[id number] 03:47:00 Test Item Value Reference Range Interpretation Comments TSH (test code = 65534-5) 2.020 uIU/mL 0.450-4.500 [facility] Description: Thyrotropin [Units/volume] in Serum or Plasma by Detection limit <= 0.05 mIU/[id number] 03:47:00 Test Item Value Reference Range Interpretation Comments TSH (test code = 72285-8) 2.020 uIU/mL 0.450-4.500 [facility]: Thyrotropin [Units/volume] in Serum or Plasma by Detection limit <= 0.05 mIU/[id number] 03:47:00 Test Item Value Reference Range Interpretation Comments TSH (test code = 32449-4) 2.020 uIU/mL 0.450-4.500 [facility] Description: Thyrotropin [Units/volume] in Serum or Plasma by Detection limit <= 0.05 mIU/[id number] 03:47:00 Test Item Value Reference Range Interpretation Comments TSH (test code = 67559-1) 2.020 uIU/mL 0.450-4.500 [facility]: Thyrotropin [Units/volume] in Serum or Plasma by Detection limit <= 0.05 mIU/[id number] 03:47:00 Test Item Value Reference Range Interpretation Comments TSH (test code = 63353-1) 2.020 uIU/mL 0.450-4.500 [facility] Description: Hemoglobin A1c/Hemoglobin.total in Blood 2019-10-26 02:46:00 Test Item Value Reference Range Interpretation Comments Hemoglobin A1c (test code 6.3 % 4.8-5.6 H = 4548-4) . Prediabetes: 5. 7 - 6.4 Diabetes : >6.4 Glycemic control for adults with diabetes: <7.0

P erformed by:
[facility] (HD)

[facility] Description: Hemoglobin A1c/Hemoglobin.total in Blood 2019-10-26 02:46:00 Test Item Value Reference Range Interpretation Comments Hemoglobin A1c (test code 6.3 % 4.8-5.6 H = 4548-4) . Prediabetes: 5. 7 - 6.4 Diabetes : >6.4 Glycemic control for adults with diabetes: <7.0

P erformed by:
[facility] ([place])

[facility] Description: Hemoglobin A1c/Hemoglobin.total in Blood 2019-10-26 02:46:00 Test Item Value Reference Range Interpretation Comments Hemoglobin A1c (test code 6.3 % 4.8-5.6 H = 4548-4) . Prediabetes: 5. 7 - 6.4 Diabetes : >6.4 Glycemic control for adults with diabetes: <7.0

P erformed by:
[facility] (HD)

[facility] Description: Hemoglobin A1c/Hemoglobin.total in Blood 2019-10-26 02:46:00 Test Item Value Reference Range Interpretation Comments Hemoglobin A1c (test code 6.3 % 4.8-5.6 H = 4548-4) . Prediabetes: 5. 7 - 6.4 Diabetes : >6.4 Glycemic control for adults with diabetes: <7.0

P erformed by:
[facility] ([place])

[facility] Description: Hemoglobin A1c/Hemoglobin.total in Blood 2019-10-26 02:46:00 Test Item Value Reference Range Interpretation Comments Hemoglobin A1c (test code 6.3 % 4.8-5.6 H = 4548-4) . Prediabetes: 5. 7 - 6.4 Diabetes : >6.4 Glycemic control for adults with diabetes: <7.0

P erformed by:
[facility] ([place])

[facility] Description: Hemoglobin A1c/Hemoglobin.total in Blood 2019-10-26 02:46:00 Test Item Value Reference Range Interpretation Comments Hemoglobin A1c (test code 6.3 % 4.8-5.6 H = 4548-4) . Prediabetes: 5. 7 - 6.4 Diabetes : >6.4 Glycemic control for adults with diabetes: <7.0

P erformed by:
[facility] (HD)

[facility] Description: Hemoglobin A1c/Hemoglobin.total in Blood 2019-10-26 02:46:00 Test Item Value Reference Range Interpretation Comments Hemoglobin A1c (test code 6.3 % 4.8-5.6 H = 4548-4) . Prediabetes: 5. 7 - 6.4 Diabetes : >6.4 Glycemic control for adults with diabetes: <7.0

P erformed by:
[facility] (HD)

[facility] Description: Hemoglobin A1c/Hemoglobin.total in Blood 2019-10-26 02:46:00 Test Item Value Reference Range Interpretation Comments Hemoglobin A1c (test code 6.3 % 4.8-5.6 H = 4548-4) . Prediabetes: 5. 7 - 6.4 Diabetes : >6.4 Glycemic control for adults with diabetes: <7.0

P erformed by:
[facility] (HD)

[facility] Description: Hemoglobin A1c/Hemoglobin.total in Blood 2019-10-26 02:46:00 Test Item Value Reference Range Interpretation Comments Hemoglobin A1c (test code 6.3 % 4.8-5.6 H = 4548-4) . Prediabetes: 5. 7 - 6.4 Diabetes : >6.4 Glycemic control for adults with diabetes: <7.0

P erformed by:
[facility] ()

[facility] Description: Hemoglobin A1c/Hemoglobin.total in Blood 2019-10-26 02:46:00 Test Item Value Reference Range Interpretation Comments Hemoglobin A1c (test code 6.3 % 4.8-5.6 H = 4548-4) . Prediabetes: 5. 7 - 6.4 Diabetes : >6.4 Glycemic control for adults with diabetes: <7.0

P erformed by:
[facility] ([place])

[facility] Description: Hemoglobin A1c/Hemoglobin.total in Blood 2019-10-26 02:46:00 Test Item Value Reference Range Interpretation Comments Hemoglobin A1c (test code 6.3 % 4.8-5.6 H = 4548-4) . Prediabetes: 5. 7 - 6.4 Diabetes : >6.4 Glycemic control for adults with diabetes: <7.0

P erformed by:
[facility] ()

[facility] Description: Hemoglobin A1c/Hemoglobin.total in Blood 2019-10-26 02:46:00 Test Item Value Reference Range Interpretation Comments Hemoglobin A1c (test code 6.3 % 4.8-5.6 H = 4548-4) . Prediabetes: 5. 7 - 6.4 Diabetes : >6.4 Glycemic control for adults with diabetes: <7.0

P erformed by:
[facility] ()

[facility] Description: Comp. Metabolic Panel (14)2019-10-26 02:18:00 Test Item Value Reference Range Interpretation Comments Glucose (test code = 2345-7) 96 mg/dL 65-99 BUN (test code = 3094-0) 14 mg/dL 6-24 Creatinine (test code = 1.00 mg/dL 0.76-1.27 2160-0) eGFR If NonAfricn Am (test 84 mL/min/1.73 >59 code = 55169-4) eGFR If Africn Am (test code = 98 mL/min/1.73 >59 18225-0) BUN/Creatinine Ratio (test 14 9-20 code = 3097-3) Sodium (test code = 2951-2) 137 mmol/L 134-144 Potassium (test code = 2823-3) 4.3 mmol/L 3.5-5.2 Chloride (test code = 2075-0) 97 mmol/L 96-106 Carbon Dioxide, Total (test 23 mmol/L 20-29 code = 2028-9) Calcium (test code = 68994-4) 9.5 mg/dL 8.7-10.2 Protein, Total (test code = 7.5 g/dL 6.0-8.5 2885-2) Albumin (test code = 1751-7) 4.2 g/dL 3.8-4.9 Globulin, Total (test code = 3.3 g/dL 1.5-4.5 69314-5) A/G Ratio (test code = 1759-0) 1.3 1.2-2.2 Bilirubin, Total (test code = 0.3 mg/dL 0.0-1.2 1975-2) Alkaline Phosphatase (test 68 IU/L 39-117 code = 6768-6) AST (SGOT) (test code = 26 IU/L 0-40 1920-8) ALT (SGPT) (test code = 36 IU/L 0-44 1742-6) [employer] [facility] Description: Lipid [id number] 02:18:00 Test Item Value Reference Range Interpretation Comments Cholesterol, Total (test 228 mg/dL 100-199 H code = 3-3) Triglycerides (test code 483 mg/dL 0-149 H = 2571-8) HDL Cholesterol (test 34 mg/dL >39 L code = 5-9) VLDL Cholesterol Andrea 84 mg/dL 5-40 H (test code = 71109-9) LDL Chol Calc (NIH) (test 110 mg/dL 0-99 H code = 53932-5) Comment: (test code = [place] [address]-9) performed
< br/> Performed by:
[facility] ()

[facility] Description: Comp. Metabolic Panel (14)2019-10-26 02:18:00 Test Item Value Reference Range Interpretation Comments Glucose (test code = 2345-7) 96 mg/dL 65-99 BUN (test code = 3094-0) 14 mg/dL 6-24 Creatinine (test code = 1.00 mg/dL 0.76-1.27 2160-0) eGFR If NonAfricn Am (test 84 mL/min/1.73 >59 code = 85450-8) eGFR If Africn Am (test code = 98 mL/min/1.73 >59 67506-7) BUN/Creatinine Ratio (test 14 9-20 code = 3097-3) Sodium (test code = 2951-2) 137 mmol/L 134-144 Potassium (test code = 2823-3) 4.3 mmol/L 3.5-5.2 Chloride (test code = 2075-0) 97 mmol/L 96-106 Carbon Dioxide, Total (test 23 mmol/L 20-29 code = 2028-9) Calcium (test code = 75124-1) 9.5 mg/dL 8.7-10.2 Protein, Total (test code = 7.5 g/dL 6.0-8.5 2885-2) Albumin (test code = 1751-7) 4.2 g/dL 3.8-4.9 Globulin, Total (test code = 3.3 g/dL 1.5-4.5 38008-9) A/G Ratio (test code = 1759-0) 1.3 1.2-2.2 Bilirubin, Total (test code = 0.3 mg/dL 0.0-1.2 1975-2) Alkaline Phosphatase (test 68 IU/L 39-117 code = 6768-6) AST (SGOT) (test code = 26 IU/L 0-40 1920-8) ALT (SGPT) (test code = 36 IU/L 0-44 1742-6) [facility] Description: Lipid [id number] 02:18:00 Test Item Value Reference Range Interpretation Comments Cholesterol, Total (test 228 mg/dL 100-199 H code = 3-3) Triglycerides (test code 483 mg/dL 0-149 H = 2571-8) HDL Cholesterol (test 34 mg/dL >39 L code = 5-9) VLDL Cholesterol Andrea 84 mg/dL 5-40 H (test code = 38883-3) LDL Chol Calc (NIH) (test 110 mg/dL 0-99 H code = 48344-6) Comment: (test code = [place] [address]-9) performed
< br/> Performed by:
[facility] ([place])

[facility] Description: Comp. Metabolic Panel (14)2019-10-26 02:18:00 Test Item Value Reference Range Interpretation Comments Glucose (test code = 2345-7) 96 mg/dL 65-99 BUN (test code = 3094-0) 14 mg/dL 6-24 Creatinine (test code = 1.00 mg/dL 0.76-1.27 2160-0) eGFR If NonAfricn Am (test 84 mL/min/1.73 >59 code = 38432-9) eGFR If Africn Am (test code = 98 mL/min/1.73 >59 53894-8) BUN/Creatinine Ratio (test 14 9-20 code = 3097-3) Sodium (test code = 2951-2) 137 mmol/L 134-144 Potassium (test code = 2823-3) 4.3 mmol/L 3.5-5.2 Chloride (test code = 2075-0) 97 mmol/L 96-106 Carbon Dioxide, Total (test 23 mmol/L 20-29 code = 8-9) Calcium (test code = 86717-1) 9.5 mg/dL 8.7-10.2 Protein, Total (test code = 7.5 g/dL 6.0-8.5 2885-2) Albumin (test code = 1751-7) 4.2 g/dL 3.8-4.9 Globulin, Total (test code = 3.3 g/dL 1.5-4.5 39661-8) A/G Ratio (test code = 1759-0) 1.3 1.2-2.2 Bilirubin, Total (test code = 0.3 mg/dL 0.0-1.2 1975-2) Alkaline Phosphatase (test 68 IU/L 39-117 code = 6768-6) AST (SGOT) (test code = 26 IU/L 0-40 1920-8) ALT (SGPT) (test code = 36 IU/L 0-44 1742-6) [facility] Description: Lipid [id number] 02:18:00 Test Item Value Reference Range Interpretation Comments Cholesterol, Total (test 228 mg/dL 100-199 H code = 2093-3) Triglycerides (test code 483 mg/dL 0-149 H = 2571-8) HDL Cholesterol (test 34 mg/dL >39 L code = 5-9) VLDL Cholesterol Andrea 84 mg/dL 5-40 H (test code = 80165-5) LDL Chol Calc (NIH) (test 110 mg/dL 0-99 H code = 19140-4) Comment: (test code = [place] [address]-1) performed
< br/> Performed by:
[facility] ([place])

[facility] Description: Comp. Metabolic Panel (14)2019-10-26 02:18:00 Test Item Value Reference Range Interpretation Comments Glucose (test code = 2345-7) 96 mg/dL 65-99 BUN (test code = 3094-0) 14 mg/dL 6-24 Creatinine (test code = 1.00 mg/dL 0.76-1.27 2160-0) eGFR If NonAfricn Am (test 84 mL/min/1.73 >59 code = 23652-7) eGFR If Africn Am (test code = 98 mL/min/1.73 >59 08378-2) BUN/Creatinine Ratio (test 14 9-20 code = 3097-3) Sodium (test code = 2951-2) 137 mmol/L 134-144 Potassium (test code = 2823-3) 4.3 mmol/L 3.5-5.2 Chloride (test code = 2075-0) 97 mmol/L 96-106 Carbon Dioxide, Total (test 23 mmol/L 20-29 code = 2027-9) Calcium (test code = 24922-3) 9.5 mg/dL 8.7-10.2 Protein, Total (test code = 7.5 g/dL 6.0-8.5 2885-2) Albumin (test code = 1751-7) 4.2 g/dL 3.8-4.9 Globulin, Total (test code = 3.3 g/dL 1.5-4.5 18690-7) A/G Ratio (test code = 1759-0) 1.3 1.2-2.2 Bilirubin, Total (test code = 0.3 mg/dL 0.0-1.2 1975-2) Alkaline Phosphatase (test 68 IU/L 39-117 code = 6768-6) AST (SGOT) (test code = 26 IU/L 0-40 1920-8) ALT (SGPT) (test code = 36 IU/L 0-44 1742-6) [facility] Description: Lipid [id number] 02:18:00 Test Item Value Reference Range Interpretation Comments Cholesterol, Total (test 228 mg/dL 100-199 H code = 2093-3) Triglycerides (test code 483 mg/dL 0-149 H = 2571-8) HDL Cholesterol (test 34 mg/dL >39 L code = 2085-9) VLDL Cholesterol Andrea 84 mg/dL 5-40 H (test code = 69134-1) LDL Chol Calc (NIH) (test 110 mg/dL 0-99 H code = 44871-7) Comment: (test code = [place] [address]-0) performed
< br/> Performed by:
[facility] ([place])

[employer] [facility] Description: Comp. Metabolic Panel (14)2019-10-26 02:18:00 Test Item Value Reference Range Interpretation Comments Glucose (test code = 2345-7) 96 mg/dL 65-99 BUN (test code = 3094-0) 14 mg/dL 6-24 Creatinine (test code = 1.00 mg/dL 0.76-1.27 2160-0) eGFR If NonAfricn Am (test 84 mL/min/1.73 >59 code = 15855-6) eGFR If Africn Am (test code = 98 mL/min/1.73 >59 44115-0) BUN/Creatinine Ratio (test 14 11-13 code = 3097-3) Sodium (test code = 2951-2) 137 mmol/L 134-144 Potassium (test code = 2823-3) 4.3 mmol/L 3.5-5.2 Chloride (test code = 2075-0) 97 mmol/L 96-106 Carbon Dioxide, Total (test 23 mmol/L 20-29 code = 8-9) Calcium (test code = 69918-5) 9.5 mg/dL 8.7-10.2 Protein, Total (test code = 7.5 g/dL 6.0-8.5 2885-2) Albumin (test code = 1751-7) 4.2 g/dL 3.8-4.9 Globulin, Total (test code = 3.3 g/dL 1.5-4.5 95267-2) A/G Ratio (test code = 1759-0) 1.3 1.2-2.2 Bilirubin, Total (test code = 0.3 mg/dL 0.0-1.2 1975-2) Alkaline Phosphatase (test 68 IU/L 39-117 code = 6768-6) AST (SGOT) (test code = 26 IU/L 0-40 1920-8) ALT (SGPT) (test code = 36 IU/L 0-44 1742-6) [employer] Description: Lipid [id number] 02:18:00 Test Item Value Reference Range Interpretation Comments Cholesterol, Total (test 228 mg/dL 100-199 H code = 3-3) Triglycerides (test code 483 mg/dL 0-149 H = 2571-8) HDL Cholesterol (test 34 mg/dL >39 L code = 5-9) VLDL Cholesterol Andrea 84 mg/dL 5-40 H (test code = 75520-9) LDL Chol Calc (NIH) (test 110 mg/dL 0-99 H code = 62011-4) Comment: (test code = [place] [address]-1) performed
< br/> Performed by:
[facility] ()

[employer] Description: Comp. Metabolic Panel (14)2019-10-26 02:18:00 Test Item Value Reference Range Interpretation Comments Glucose (test code = 2345-7) 96 mg/dL 65-99 BUN (test code = 3094-0) 14 mg/dL 6-24 Creatinine (test code = 1.00 mg/dL 0.76-1.27 2160-0) eGFR If NonAfricn Am (test 84 mL/min/1.73 >59 code = 97447-4) eGFR If Africn Am (test code = 98 mL/min/1.73 >59 59785-4) BUN/Creatinine Ratio (test 14 9-20 code = 3097-3) Sodium (test code = 2951-2) 137 mmol/L 134-144 Potassium (test code = 2823-3) 4.3 mmol/L 3.5-5.2 Chloride (test code = 2075-0) 97 mmol/L 96-106 Carbon Dioxide, Total (test 23 mmol/L 20-29 code = 2028-9) Calcium (test code = 07910-3) 9.5 mg/dL 8.7-10.2 Protein, Total (test code = 7.5 g/dL 6.0-8.5 2885-2) Albumin (test code = 1751-7) 4.2 g/dL 3.8-4.9 Globulin, Total (test code = 3.3 g/dL 1.5-4.5 98554-4) A/G Ratio (test code = 1759-0) 1.3 1.2-2.2 Bilirubin, Total (test code = 0.3 mg/dL 0.0-1.2 1975-2) Alkaline Phosphatase (test 68 IU/L 39-117 code = 6768-6) AST (SGOT) (test code = 26 IU/L 0-40 1920-8) ALT (SGPT) (test code = 36 IU/L 0-44 1742-6) [facility] Description: Lipid [id number] 02:18:00 Test Item Value Reference Range Interpretation Comments Cholesterol, Total (test 228 mg/dL 100-199 H code = 3-3) Triglycerides (test code 483 mg/dL 0-149 H = 2571-8) HDL Cholesterol (test 34 mg/dL >39 L code = 5-9) VLDL Cholesterol Andrea 84 mg/dL 5-40 H (test code = 20943-4) LDL Chol Calc (NIH) (test 110 mg/dL 0-99 H code = 90384-3) Comment: (test code = [place] [address]-0) performed
< br/> Performed by:
[facility] (HD)

[facility] Description: Comp. Metabolic Panel (14)2019-10-26 02:18:00 Test Item Value Reference Range Interpretation Comments Glucose (test code = 2345-7) 96 mg/dL 65-99 BUN (test code = 3094-0) 14 mg/dL 6-24 Creatinine (test code = 1.00 mg/dL 0.76-1.27 2160-0) eGFR If NonAfricn Am (test 84 mL/min/1.73 >59 code = 74696-8) eGFR If Africn Am (test code = 98 mL/min/1.73 >59 58538-0) BUN/Creatinine Ratio (test 14 -20 code = 3097-3) Sodium (test code = 2951-2) 137 mmol/L 134-144 Potassium (test code = 2823-3) 4.3 mmol/L 3.5-5.2 Chloride (test code = 2075-0) 97 mmol/L 96-106 Carbon Dioxide, Total (test 23 mmol/L 20-29 code = 8-9) Calcium (test code = 86312-1) 9.5 mg/dL 8.7-10.2 Protein, Total (test code = 7.5 g/dL 6.0-8.5 2885-2) Albumin (test code = 1751-7) 4.2 g/dL 3.8-4.9 Globulin, Total (test code = 3.3 g/dL 1.5-4.5 47961-0) A/G Ratio (test code = 1759-0) 1.3 1.2-2.2 Bilirubin, Total (test code = 0.3 mg/dL 0.0-1.2 1975-2) Alkaline Phosphatase (test 68 IU/L 39-117 code = 6768-6) AST (SGOT) (test code = 26 IU/L 0-40 1920-8) ALT (SGPT) (test code = 36 IU/L 0-44 1742-6) [facility] Description: Lipid [id number] 02:18:00 Test Item Value Reference Range Interpretation Comments Cholesterol, Total (test 228 mg/dL 100-199 H code = 3-3) Triglycerides (test code 483 mg/dL 0-149 H = 2571-8) HDL Cholesterol (test 34 mg/dL >39 L code = 2085-9) VLDL Cholesterol Andrea 84 mg/dL 5-40 H (test code = 39899-6) LDL Chol Calc (NIH) (test 110 mg/dL 0-99 H code = 65573-1) Comment: (test code = [place] [address]-3) performed
< br/> Performed by:
[facility] (HD)

[facility] Description: Comp. Metabolic Panel (14)2019-10-26 02:18:00 Test Item Value Reference Range Interpretation Comments Glucose (test code = 2345-7) 96 mg/dL 65-99 BUN (test code = 3094-0) 14 mg/dL 6-24 Creatinine (test code = 1.00 mg/dL 0.76-1.27 2160-0) eGFR If NonAfricn Am (test 84 mL/min/1.73 >59 code = 86393-9) eGFR If Africn Am (test code = 98 mL/min/1.73 >59 59249-2) BUN/Creatinine Ratio (test 14 9-20 code = 3097-3) Sodium (test code = 2951-2) 137 mmol/L 134-144 Potassium (test code = 2823-3) 4.3 mmol/L 3.5-5.2 Chloride (test code = 2075-0) 97 mmol/L 96-106 Carbon Dioxide, Total (test 23 mmol/L 20-29 code = 2027-9) Calcium (test code = 88682-9) 9.5 mg/dL 8.7-10.2 Protein, Total (test code = 7.5 g/dL 6.0-8.5 2885-2) Albumin (test code = 1751-7) 4.2 g/dL 3.8-4.9 Globulin, Total (test code = 3.3 g/dL 1.5-4.5 12715-1) A/G Ratio (test code = 1759-0) 1.3 1.2-2.2 Bilirubin, Total (test code = 0.3 mg/dL 0.0-1.2 1975-2) Alkaline Phosphatase (test 68 IU/L 39-117 code = 6768-6) AST (SGOT) (test code = 26 IU/L 0-40 1920-8) ALT (SGPT) (test code = 36 IU/L 0-44 1742-6) [facility] Description: Lipid [id number] 02:18:00 Test Item Value Reference Range Interpretation Comments Cholesterol, Total (test 228 mg/dL 100-199 H code = 2093-3) Triglycerides (test code 483 mg/dL 0-149 H = 2571-8) HDL Cholesterol (test 34 mg/dL >39 L code = 5-9) VLDL Cholesterol Andrea 84 mg/dL 5-40 H (test code = 72250-5) LDL Chol Calc (NIH) (test 110 mg/dL 0-99 H code = 09358-2) Comment: (test code = [place] [address]-5) performed
< br/> Performed by:
[facility] (HD)

[facility] Description: Comp. Metabolic Panel (14)2019-10-26 02:18:00 Test Item Value Reference Range Interpretation Comments Glucose (test code = 2345-7) 96 mg/dL 65-99 BUN (test code = 3094-0) 14 mg/dL 6-24 Creatinine (test code = 1.00 mg/dL 0.76-1.27 2160-0) eGFR If NonAfricn Am (test 84 mL/min/1.73 >59 code = 97004-7) eGFR If Africn Am (test code = 98 mL/min/1.73 >59 95335-5) BUN/Creatinine Ratio (test 14 9- code = 3097-3) Sodium (test code = 2951-2) 137 mmol/L 134-144 Potassium (test code = 2823-3) 4.3 mmol/L 3.5-5.2 Chloride (test code = 2075-0) 97 mmol/L 96-106 Carbon Dioxide, Total (test 23 mmol/L 20-29 code = 2027-9) Calcium (test code = 00952-0) 9.5 mg/dL 8.7-10.2 Protein, Total (test code = 7.5 g/dL 6.0-8.5 2885-2) Albumin (test code = 1751-7) 4.2 g/dL 3.8-4.9 Globulin, Total (test code = 3.3 g/dL 1.5-4.5 91436-9) A/G Ratio (test code = 1759-0) 1.3 1.2-2.2 Bilirubin, Total (test code = 0.3 mg/dL 0.0-1.2 1975-2) Alkaline Phosphatase (test 68 IU/L 39-117 code = 6768-6) AST (SGOT) (test code = 26 IU/L 0-40 1920-8) ALT (SGPT) (test code = 36 IU/L 0-44 1742-6) [facility] Description: Lipid [id number] 02:18:00 Test Item Value Reference Range Interpretation Comments Cholesterol, Total (test 228 mg/dL 100-199 H code = 2093-3) Triglycerides (test code 483 mg/dL 0-149 H = 2571-8) HDL Cholesterol (test 34 mg/dL >39 L code = 2085-9) VLDL Cholesterol Andrea 84 mg/dL 5-40 H (test code = 94746-2) LDL Chol Calc (NIH) (test 110 mg/dL 0-99 H code = 17633-4) Comment: (test code = [place] [address]-3) performed
< br/> Performed by:
[facility] ()

[facility] Description: Comp. Metabolic Panel (14)2019-10-26 02:18:00 Test Item Value Reference Range Interpretation Comments Glucose (test code = 2345-7) 96 mg/dL 65-99 BUN (test code = 3094-0) 14 mg/dL 6-24 Creatinine (test code = 1.00 mg/dL 0.76-1.27 2160-0) eGFR If NonAfricn Am (test 84 mL/min/1.73 >59 code = 25126-1) eGFR If Africn Am (test code = 98 mL/min/1.73 >59 82519-2) BUN/Creatinine Ratio (test 14 20 code = 3097-3) Sodium (test code = 2951-2) 137 mmol/L 134-144 Potassium (test code = 2823-3) 4.3 mmol/L 3.5-5.2 Chloride (test code = 2075-0) 97 mmol/L 96-106 Carbon Dioxide, Total (test 23 mmol/L 20-29 code = 8-9) Calcium (test code = 00037-1) 9.5 mg/dL 8.7-10.2 Protein, Total (test code = 7.5 g/dL 6.0-8.5 2885-2) Albumin (test code = 1751-7) 4.2 g/dL 3.8-4.9 Globulin, Total (test code = 3.3 g/dL 1.5-4.5 10797-3) A/G Ratio (test code = 1759-0) 1.3 1.2-2.2 Bilirubin, Total (test code = 0.3 mg/dL 0.0-1.2 1975-2) Alkaline Phosphatase (test 68 IU/L 39-117 code = 6768-6) AST (SGOT) (test code = 26 IU/L 0-40 1920-8) ALT (SGPT) (test code = 36 IU/L 0-44 1742-6) [employer] [facility] [employer] [facility] Description: Lipid [id number] 02:18:00 Test Item Value Reference Range Interpretation Comments Cholesterol, Total (test 228 mg/dL 100-199 H code = 3-3) Triglycerides (test code 483 mg/dL 0-149 H = 2571-8) HDL Cholesterol (test 34 mg/dL >39 L code = 5-9) VLDL Cholesterol Andrea 84 mg/dL 5-40 H (test code = 67130-8) LDL Chol Calc (NIH) (test 110 mg/dL 0-99 H code = 72842-1) Comment: (test code = [place] [address]-2) performed
< br/> Performed by:
[facility] ()

[facility]: [facility] (14)2019-10-26 02:18:00 Test Item Value Reference Range Interpretation Comments Glucose (test code = 2345-7) 96 mg/dL 65-99 BUN (test code = 3094-0) 14 mg/dL 6-24 Creatinine (test code = 1.00 mg/dL 0.76-1.27 2160-0) eGFR If NonAfricn Am (test 84 mL/min/1.73 >59 code = 21939-2) eGFR If Africn Am (test code = 98 mL/min/1.73 >59 38951-7) BUN/Creatinine Ratio (test 14 9-20 code = 3097-3) Sodium (test code = 2951-2) 137 mmol/L 134-144 Potassium (test code = 2823-3) 4.3 mmol/L 3.5-5.2 Chloride (test code = 2075-0) 97 mmol/L 96-106 Carbon Dioxide, Total (test 23 mmol/L 20-29 code = 8-9) Calcium (test code = 35170-2) 9.5 mg/dL 8.7-10.2 Protein, Total (test code = 7.5 g/dL 6.0-8.5 2885-2) Albumin (test code = 1751-7) 4.2 g/dL 3.8-4.9 Globulin, Total (test code = 3.3 g/dL 1.5-4.5 73990-3) A/G Ratio (test code = 1759-0) 1.3 1.2-2.2 Bilirubin, Total (test code = 0.3 mg/dL 0.0-1.2 1975-2) Alkaline Phosphatase (test 68 IU/L 39-117 code = 6768-6) AST (SGOT) (test code = 26 IU/L 0-40 1920-8) ALT (SGPT) (test code = 36 IU/L 0-44 1742-6) [facility] Description: Lipid [id number] 02:18:00 Test Item Value Reference Range Interpretation Comments Cholesterol, Total (test 228 mg/dL 100-199 H code = 3-3) Triglycerides (test code 483 mg/dL 0-149 H = 2571-8) HDL Cholesterol (test 34 mg/dL >39 L code = 5-9) VLDL Cholesterol Andrea 84 mg/dL 5-40 H (test code = 95990-2) LDL Chol Calc (NIH) (test 110 mg/dL 0-99 H code = 33942-9) Comment: (test code = [place] [address]-9) performed
< br/> Performed by:
[facility] (HD)

[employer] [facility] Description: Comp. Metabolic Panel (14)2019-10-26 02:18:00 Test Item Value Reference Range Interpretation Comments Glucose (test code = 2345-7) 96 mg/dL 65-99 BUN (test code = 3094-0) 14 mg/dL 6-24 Creatinine (test code = 1.00 mg/dL 0.76-1.27 2160-0) eGFR If NonAfricn Am (test 84 mL/min/1.73 >59 code = 20465-3) eGFR If Africn Am (test code = 98 mL/min/1.73 >59 69841-4) BUN/Creatinine Ratio (test 14 9-20 code = 3097-3) Sodium (test code = 2951-2) 137 mmol/L 134-144 Potassium (test code = 2823-3) 4.3 mmol/L 3.5-5.2 Chloride (test code = 2075-0) 97 mmol/L 96-106 Carbon Dioxide, Total (test 23 mmol/L 20-29 code = 8-9) Calcium (test code = 20633-5) 9.5 mg/dL 8.7-10.2 Protein, Total (test code = 7.5 g/dL 6.0-8.5 2885-2) Albumin (test code = 1751-7) 4.2 g/dL 3.8-4.9 Globulin, Total (test code = 3.3 g/dL 1.5-4.5 21096-9) A/G Ratio (test code = 1759-0) 1.3 1.2-2.2 Bilirubin, Total (test code = 0.3 mg/dL 0.0-1.2 1975-2) Alkaline Phosphatase (test 68 IU/L 39-117 code = 6768-6) AST (SGOT) (test code = 26 IU/L 0-40 1920-8) ALT (SGPT) (test code = 36 IU/L 0-44 1742-6) [employer] [facility] Description: Lipid [id number] 02:18:00 Test Item Value Reference Range Interpretation Comments Cholesterol, Total (test 228 mg/dL 100-199 H code = 2093-3) Triglycerides (test code 483 mg/dL 0-149 H = 2571-8) HDL Cholesterol (test 34 mg/dL >39 L code = 2085-9) VLDL Cholesterol Andrea 84 mg/dL 5-40 H (test code = 90728-5) LDL Chol Calc (NIH) (test 110 mg/dL 0-99 H code = 98004-6) Comment: (test code = [place] [address]-7) performed
< br/> Performed by:
[facility] (HD)

[facility] Description: CBC With Differential/Utfwzoeq9373-41-92 00:15:00 Test Item Value Reference Range Interpretation Comments WBC (test code = 6690-2) 9.1 x10E3/uL 3.4-10.8 RBC (test code = 789-8) 4.52 x10E6/uL 4.14-5.80 Hemoglobin (test code = 718-7) 12.7 g/dL 13.0-17.7 L Hematocrit (test code = 4544-3) 38.6 % 37.5-51.0 MCV (test code = 787-2) 85 fL 79-97 MCH (test code = 785-6) 28.1 pg 26.6-33.0 MCHC (test code = 786-4) 32.9 g/dL 31.5-35.7 RDW (test code = 788-0) 13.5 % 11.6-15.4 Platelets (test code = 777-3) 283 x10E3/uL 150-450 Neutrophils (test code = 770-8) 62 % Not Estab. Lymphs (test code = 736-9) 26 % Not Estab. Monocytes (test code = 5905-5) 11 % Not Estab. Eos (test code = 713-8) 0 % Not Estab. Basos (test code = 706-2) 0 % Not Estab. Neutrophils (Absolute) (test 5.6 x10E3/uL 1.4-7.0 code = 751-8) Lymphs (Absolute) (test code = 2.4 x10E3/uL 0.7-3.1 731-0) Monocytes(Absolute) (test code 1.0 x10E3/uL 0.1-0.9 H = 742-7) Eos (Absolute) (test code = 0.0 x10E3/uL 0.0-0.4 711-2) Baso (Absolute) (test code = 0.0 x10E3/uL 0.0-0.2 704-7) Immature Granulocytes (test 1 % Not Estab. code = 86020-9) Immature Grans (Abs) (test code 0.1 x10E3/uL 0.0-0.1 = 86938-7) NRBC (test code = 18149-1) Hematology Comments: (test code = 71854-6) [facility] Description: CBC With Differential/Vawmjvhw4086-14-37 00:15:00 Test Item Value Reference Range Interpretation Comments WBC (test code = 6690-2) 9.1 x10E3/uL 3.4-10.8 RBC (test code = 789-8) 4.52 x10E6/uL 4.14-5.80 Hemoglobin (test code = 718-7) 12.7 g/dL 13.0-17.7 L Hematocrit (test code = 4544-3) 38.6 % 37.5-51.0 MCV (test code = 787-2) 85 fL 79-97 MCH (test code = 785-6) 28.1 pg 26.6-33.0 MCHC (test code = 786-4) 32.9 g/dL 31.5-35.7 RDW (test code = 788-0) 13.5 % 11.6-15.4 Platelets (test code = 777-3) 283 x10E3/uL 150-450 Neutrophils (test code = 770-8) 62 % Not Estab. Lymphs (test code = 736-9) 26 % Not Estab. Monocytes (test code = 5905-5) 11 % Not Estab. Eos (test code = 713-8) 0 % Not Estab. Basos (test code = 706-2) 0 % Not Estab. Neutrophils (Absolute) (test 5.6 x10E3/uL 1.4-7.0 code = 751-8) Lymphs (Absolute) (test code = 2.4 x10E3/uL 0.7-3.1 731-0) Monocytes(Absolute) (test code 1.0 x10E3/uL 0.1-0.9 H = 742-7) Eos (Absolute) (test code = 0.0 x10E3/uL 0.0-0.4 711-2) Baso (Absolute) (test code = 0.0 x10E3/uL 0.0-0.2 704-7) Immature Granulocytes (test 1 % Not Estab. code = 60900-6) Immature Grans (Abs) (test code 0.1 x10E3/uL 0.0-0.1 = 93461-9) NRBC (test code = 48472-2) Hematology Comments: (test code = 89574-8) [facility]: CBC With Differential/Gyfortol0445-01-56 00:15:00 Test Item Value Reference Range Interpretation Comments WBC (test code = 6690-2) 9.1 x10E3/uL 3.4-10.8 RBC (test code = 789-8) 4.52 x10E6/uL 4.14-5.80 Hemoglobin (test code = 718-7) 12.7 g/dL 13.0-17.7 L Hematocrit (test code = 4544-3) 38.6 % 37.5-51.0 MCV (test code = 787-2) 85 fL 79-97 MCH (test code = 785-6) 28.1 pg 26.6-33.0 MCHC (test code = 786-4) 32.9 g/dL 31.5-35.7 RDW (test code = 788-0) 13.5 % 11.6-15.4 Platelets (test code = 777-3) 283 x10E3/uL 150-450 Neutrophils (test code = 770-8) 62 % Not Estab. Lymphs (test code = 736-9) 26 % Not Estab. Monocytes (test code = 5905-5) 11 % Not Estab. Eos (test code = 713-8) 0 % Not Estab. Basos (test code = 706-2) 0 % Not Estab. Neutrophils (Absolute) (test 5.6 x10E3/uL 1.4-7.0 code = 751-8) Lymphs (Absolute) (test code = 2.4 x10E3/uL 0.7-3.1 731-0) Monocytes(Absolute) (test code 1.0 x10E3/uL 0.1-0.9 H = 742-7) Eos (Absolute) (test code = 0.0 x10E3/uL 0.0-0.4 711-2) Baso (Absolute) (test code = 0.0 x10E3/uL 0.0-0.2 704-7) Immature Granulocytes (test 1 % Not Estab. code = 97094-4) Immature Grans (Abs) (test code 0.1 x10E3/uL 0.0-0.1 = 27449-2) NRBC (test code = 26629-7) Hematology Comments: (test code = 54809-3) [facility]: CBC With Differential/[id number] 00:15:00 Test Item Value Reference Range Interpretation Comments WBC (test code = 6690-2) 9.1 x10E3/uL 3.4-10.8 RBC (test code = 789-8) 4.52 x10E6/uL 4.14-5.80 Hemoglobin (test code = 718-7) 12.7 g/dL 13.0-17.7 L Hematocrit (test code = 4544-3) 38.6 % 37.5-51.0 MCV (test code = 787-2) 85 fL 79-97 MCH (test code = 785-6) 28.1 pg 26.6-33.0 MCHC (test code = 786-4) 32.9 g/dL 31.5-35.7 RDW (test code = 788-0) 13.5 % 11.6-15.4 Platelets (test code = 777-3) 283 x10E3/uL 150-450 Neutrophils (test code = 770-8) 62 % Not Estab. Lymphs (test code = 736-9) 26 % Not Estab. Monocytes (test code = 5905-5) 11 % Not Estab. Eos (test code = 713-8) 0 % Not Estab. Basos (test code = 706-2) 0 % Not Estab. Neutrophils (Absolute) (test 5.6 x10E3/uL 1.4-7.0 code = 751-8) Lymphs (Absolute) (test code = 2.4 x10E3/uL 0.7-3.1 731-0) Monocytes(Absolute) (test code 1.0 x10E3/uL 0.1-0.9 H = 742-7) Eos (Absolute) (test code = 0.0 x10E3/uL 0.0-0.4 711-2) Baso (Absolute) (test code = 0.0 x10E3/uL 0.0-0.2 704-7) Immature Granulocytes (test 1 % Not Estab. code = 16837-2) Immature Grans (Abs) (test code 0.1 x10E3/uL 0.0-0.1 = 77304-7) NRBC (test code = 56297-0) Hematology Comments: (test code = 66813-9) [facility]: CBC With Differential/Dhjqotui5795-06-59 00:15:00 Test Item Value Reference Range Interpretation Comments WBC (test code = 6690-2) 9.1 x10E3/uL 3.4-10.8 RBC (test code = 789-8) 4.52 x10E6/uL 4.14-5.80 Hemoglobin (test code = 718-7) 12.7 g/dL 13.0-17.7 L Hematocrit (test code = 4544-3) 38.6 % 37.5-51.0 MCV (test code = 787-2) 85 fL 79-97 MCH (test code = 785-6) 28.1 pg 26.6-33.0 MCHC (test code = 786-4) 32.9 g/dL 31.5-35.7 RDW (test code = 788-0) 13.5 % 11.6-15.4 Platelets (test code = 777-3) 283 x10E3/uL 150-450 Neutrophils (test code = 770-8) 62 % Not Estab. Lymphs (test code = 736-9) 26 % Not Estab. Monocytes (test code = 5905-5) 11 % Not Estab. Eos (test code = 713-8) 0 % Not Estab. Basos (test code = 706-2) 0 % Not Estab. Neutrophils (Absolute) (test 5.6 x10E3/uL 1.4-7.0 code = 751-8) Lymphs (Absolute) (test code = 2.4 x10E3/uL 0.7-3.1 731-0) Monocytes(Absolute) (test code 1.0 x10E3/uL 0.1-0.9 H = 742-7) Eos (Absolute) (test code = 0.0 x10E3/uL 0.0-0.4 711-2) Baso (Absolute) (test code = 0.0 x10E3/uL 0.0-0.2 704-7) Immature Granulocytes (test 1 % Not Estab. code = 40313-9) Immature Grans (Abs) (test code 0.1 x10E3/uL 0.0-0.1 = 66779-9) NRBC (test code = 45796-6) Hematology Comments: (test code = 37610-5) [facility] Description: CBC With Differential/Vrpeevic5419-69-81 00:15:00 Test Item Value Reference Range Interpretation Comments WBC (test code = 6690-2) 9.1 x10E3/uL 3.4-10.8 RBC (test code = 789-8) 4.52 x10E6/uL 4.14-5.80 Hemoglobin (test code = 718-7) 12.7 g/dL 13.0-17.7 L Hematocrit (test code = 4544-3) 38.6 % 37.5-51.0 MCV (test code = 787-2) 85 fL 79-97 MCH (test code = 785-6) 28.1 pg 26.6-33.0 MCHC (test code = 786-4) 32.9 g/dL 31.5-35.7 RDW (test code = 788-0) 13.5 % 11.6-15.4 Platelets (test code = 777-3) 283 x10E3/uL 150-450 Neutrophils (test code = 770-8) 62 % Not Estab. Lymphs (test code = 736-9) 26 % Not Estab. Monocytes (test code = 5905-5) 11 % Not Estab. Eos (test code = 713-8) 0 % Not Estab. Basos (test code = 706-2) 0 % Not Estab. Neutrophils (Absolute) (test 5.6 x10E3/uL 1.4-7.0 code = 751-8) Lymphs (Absolute) (test code = 2.4 x10E3/uL 0.7-3.1 731-0) Monocytes(Absolute) (test code 1.0 x10E3/uL 0.1-0.9 H = 742-7) Eos (Absolute) (test code = 0.0 x10E3/uL 0.0-0.4 711-2) Baso (Absolute) (test code = 0.0 x10E3/uL 0.0-0.2 704-7) Immature Granulocytes (test 1 % Not Estab. code = 45867-2) Immature Grans (Abs) (test code 0.1 x10E3/uL 0.0-0.1 = 15028-6) NRBC (test code = 75903-3) Hematology Comments: (test code = 44066-1) [facility] Description: CBC With Differential/Hlcqljou1377-55-25 00:15:00 Test Item Value Reference Range Interpretation Comments WBC (test code = 6690-2) 9.1 x10E3/uL 3.4-10.8 RBC (test code = 789-8) 4.52 x10E6/uL 4.14-5.80 Hemoglobin (test code = 718-7) 12.7 g/dL 13.0-17.7 L Hematocrit (test code = 4544-3) 38.6 % 37.5-51.0 MCV (test code = 787-2) 85 fL 79-97 MCH (test code = 785-6) 28.1 pg 26.6-33.0 MCHC (test code = 786-4) 32.9 g/dL 31.5-35.7 RDW (test code = 788-0) 13.5 % 11.6-15.4 Platelets (test code = 777-3) 283 x10E3/uL 150-450 Neutrophils (test code = 770-8) 62 % Not Estab. Lymphs (test code = 736-9) 26 % Not Estab. Monocytes (test code = 5905-5) 11 % Not Estab. Eos (test code = 713-8) 0 % Not Estab. Basos (test code = 706-2) 0 % Not Estab. Neutrophils (Absolute) (test 5.6 x10E3/uL 1.4-7.0 code = 751-8) Lymphs (Absolute) (test code = 2.4 x10E3/uL 0.7-3.1 731-0) Monocytes(Absolute) (test code 1.0 x10E3/uL 0.1-0.9 H = 742-7) Eos (Absolute) (test code = 0.0 x10E3/uL 0.0-0.4 711-2) Baso (Absolute) (test code = 0.0 x10E3/uL 0.0-0.2 704-7) Immature Granulocytes (test 1 % Not Estab. code = 48111-2) Immature Grans (Abs) (test code 0.1 x10E3/uL 0.0-0.1 = 73832-5) NRBC (test code = 23285-1) Hematology Comments: (test code = 17902-6) [facility] Description: CBC With Differential/Mhgcwups8580-61-34 00:15:00 Test Item Value Reference Range Interpretation Comments WBC (test code = 6690-2) 9.1 x10E3/uL 3.4-10.8 RBC (test code = 789-8) 4.52 x10E6/uL 4.14-5.80 Hemoglobin (test code = 718-7) 12.7 g/dL 13.0-17.7 L Hematocrit (test code = 4544-3) 38.6 % 37.5-51.0 MCV (test code = 787-2) 85 fL 79-97 MCH (test code = 785-6) 28.1 pg 26.6-33.0 MCHC (test code = 786-4) 32.9 g/dL 31.5-35.7 RDW (test code = 788-0) 13.5 % 11.6-15.4 Platelets (test code = 777-3) 283 x10E3/uL 150-450 Neutrophils (test code = 770-8) 62 % Not Estab. Lymphs (test code = 736-9) 26 % Not Estab. Monocytes (test code = 5905-5) 11 % Not Estab. Eos (test code = 713-8) 0 % Not Estab. Basos (test code = 706-2) 0 % Not Estab. Neutrophils (Absolute) (test 5.6 x10E3/uL 1.4-7.0 code = 751-8) Lymphs (Absolute) (test code = 2.4 x10E3/uL 0.7-3.1 731-0) Monocytes(Absolute) (test code 1.0 x10E3/uL 0.1-0.9 H = 742-7) Eos (Absolute) (test code = 0.0 x10E3/uL 0.0-0.4 711-2) Baso (Absolute) (test code = 0.0 x10E3/uL 0.0-0.2 704-7) Immature Granulocytes (test 1 % Not Estab. code = 29937-2) Immature Grans (Abs) (test code 0.1 x10E3/uL 0.0-0.1 = 78588-2) NRBC (test code = 84368-7) Hematology Comments: (test code = 26917-5) Access [facility] Description: CBC With Differential/Mjlxehsf5535-25-08 00:15:00 Test Item Value Reference Range Interpretation Comments WBC (test code = 6690-2) 9.1 x10E3/uL 3.4-10.8 RBC (test code = 789-8) 4.52 x10E6/uL 4.14-5.80 Hemoglobin (test code = 718-7) 12.7 g/dL 13.0-17.7 L Hematocrit (test code = 4544-3) 38.6 % 37.5-51.0 MCV (test code = 787-2) 85 fL 79-97 MCH (test code = 785-6) 28.1 pg 26.6-33.0 MCHC (test code = 786-4) 32.9 g/dL 31.5-35.7 RDW (test code = 788-0) 13.5 % 11.6-15.4 Platelets (test code = 777-3) 283 x10E3/uL 150-450 Neutrophils (test code = 770-8) 62 % Not Estab. Lymphs (test code = 736-9) 26 % Not Estab. Monocytes (test code = 5905-5) 11 % Not Estab. Eos (test code = 713-8) 0 % Not Estab. Basos (test code = 706-2) 0 % Not Estab. Neutrophils (Absolute) (test 5.6 x10E3/uL 1.4-7.0 code = 751-8) Lymphs (Absolute) (test code = 2.4 x10E3/uL 0.7-3.1 731-0) Monocytes(Absolute) (test code 1.0 x10E3/uL 0.1-0.9 H = 742-7) Eos (Absolute) (test code = 0.0 x10E3/uL 0.0-0.4 711-2) Baso (Absolute) (test code = 0.0 x10E3/uL 0.0-0.2 704-7) Immature Granulocytes (test 1 % Not Estab. code = 64482-9) Immature Grans (Abs) (test code 0.1 x10E3/uL 0.0-0.1 = 08281-4) NRBC (test code = 13382-4) Hematology Comments: (test code = 12483-0) [facility]: [facility] With Differential/Njuqsoyu1833-17-39 00:15:00 Test Item Value Reference Range Interpretation Comments WBC (test code = 6690-2) 9.1 x10E3/uL 3.4-10.8 RBC (test code = 789-8) 4.52 x10E6/uL 4.14-5.80 Hemoglobin (test code = 718-7) 12.7 g/dL 13.0-17.7 L Hematocrit (test code = 4544-3) 38.6 % 37.5-51.0 MCV (test code = 787-2) 85 fL 79-97 MCH (test code = 785-6) 28.1 pg 26.6-33.0 MCHC (test code = 786-4) 32.9 g/dL 31.5-35.7 RDW (test code = 788-0) 13.5 % 11.6-15.4 Platelets (test code = 777-3) 283 x10E3/uL 150-450 Neutrophils (test code = 770-8) 62 % Not Estab. Lymphs (test code = 736-9) 26 % Not Estab. Monocytes (test code = 5905-5) 11 % Not Estab. Eos (test code = 713-8) 0 % Not Estab. Basos (test code = 706-2) 0 % Not Estab. Neutrophils (Absolute) (test 5.6 x10E3/uL 1.4-7.0 code = 751-8) Lymphs (Absolute) (test code = 2.4 x10E3/uL 0.7-3.1 731-0) Monocytes(Absolute) (test code 1.0 x10E3/uL 0.1-0.9 H = 742-7) Eos (Absolute) (test code = 0.0 x10E3/uL 0.0-0.4 711-2) Baso (Absolute) (test code = 0.0 x10E3/uL 0.0-0.2 704-7) Immature Granulocytes (test 1 % Not Estab. code = 53427-8) Immature Grans (Abs) (test code 0.1 x10E3/uL 0.0-0.1 = 23093-9) NRBC (test code = 83233-4) Hematology Comments: (test code = 09519-1) Access [facility] Description: CBC With Differential/Aoikyjct5801-58-79 00:15:00 Test Item Value Reference Range Interpretation Comments WBC (test code = 6690-2) 9.1 x10E3/uL 3.4-10.8 RBC (test code = 789-8) 4.52 x10E6/uL 4.14-5.80 Hemoglobin (test code = 718-7) 12.7 g/dL 13.0-17.7 L Hematocrit (test code = 4544-3) 38.6 % 37.5-51.0 MCV (test code = 787-2) 85 fL 79-97 MCH (test code = 785-6) 28.1 pg 26.6-33.0 MCHC (test code = 786-4) 32.9 g/dL 31.5-35.7 RDW (test code = 788-0) 13.5 % 11.6-15.4 Platelets (test code = 777-3) 283 x10E3/uL 150-450 Neutrophils (test code = 770-8) 62 % Not Estab. Lymphs (test code = 736-9) 26 % Not Estab. Monocytes (test code = 5905-5) 11 % Not Estab. Eos (test code = 713-8) 0 % Not Estab. Basos (test code = 706-2) 0 % Not Estab. Neutrophils (Absolute) (test 5.6 x10E3/uL 1.4-7.0 code = 751-8) Lymphs (Absolute) (test code = 2.4 x10E3/uL 0.7-3.1 731-0) Monocytes(Absolute) (test code 1.0 x10E3/uL 0.1-0.9 H = 742-7) Eos (Absolute) (test code = 0.0 x10E3/uL 0.0-0.4 711-2) Baso (Absolute) (test code = 0.0 x10E3/uL 0.0-0.2 704-7) Immature Granulocytes (test 1 % Not Estab. code = 58152-9) Immature Grans (Abs) (test code 0.1 x10E3/uL 0.0-0.1 = 01066-2) NRBC (test code = 03704-7) Hematology Comments: (test code = 40671-8) Access [facility] Description: CBC With Differential/[id number] 00:15:00 Test Item Value Reference Range Interpretation Comments WBC (test code = 6690-2) 9.1 x10E3/uL 3.4-10.8 RBC (test code = 789-8) 4.52 x10E6/uL 4.14-5.80 Hemoglobin (test code = 718-7) 12.7 g/dL 13.0-17.7 L Hematocrit (test code = 4544-3) 38.6 % 37.5-51.0 MCV (test code = 787-2) 85 fL 79-97 MCH (test code = 785-6) 28.1 pg 26.6-33.0 MCHC (test code = 786-4) 32.9 g/dL 31.5-35.7 RDW (test code = 788-0) 13.5 % 11.6-15.4 Platelets (test code = 777-3) 283 x10E3/uL 150-450 Neutrophils (test code = 770-8) 62 % Not Estab. Lymphs (test code = 736-9) 26 % Not Estab. Monocytes (test code = 5905-5) 11 % Not Estab. Eos (test code = 713-8) 0 % Not Estab. Basos (test code = 706-2) 0 % Not Estab. Neutrophils (Absolute) (test 5.6 x10E3/uL 1.4-7.0 code = 751-8) Lymphs (Absolute) (test code = 2.4 x10E3/uL 0.7-3.1 731-0) Monocytes(Absolute) (test code 1.0 x10E3/uL 0.1-0.9 H = 742-7) Eos (Absolute) (test code = 0.0 x10E3/uL 0.0-0.4 711-2) Baso (Absolute) (test code = 0.0 x10E3/uL 0.0-0.2 704-7) Immature Granulocytes (test 1 % Not Estab. code = 83663-7) Immature Grans (Abs) (test code 0.1 x10E3/uL 0.0-0.1 = 03684-8) NRBC (test code = 39010-8) Hematology Comments: (test code = 42750-6) [employer]"
[2021-02-20] MEDS ORDERED: DIPHENHYDRAMINE 25 MG TAB/CAP ONE (09:45)
[2021-02-20] MEDS ORDERED: FAMOTIDINE 20 MG TAB ONE (09:45)
[2021-02-20] MEDS ORDERED: dexAMETHasone 10 MG/ML VIAL ONE (09:45)
--- NOTE | 2021-02-20 10:01 | EDPHYS ---
Physician Documentation [facility] Name: Sean Starks Age: 56 yrs Sex: Male : 1965 Arrival Date: 02/20/2021 Time: 08:46 Bed DIS12 Private MD: ED Physician Michael Lyon HPI: 02/20 11:31 This 56 yrs old Male presents to ER via Ambulatory with complaints of Rash, pm1 Itching. 11:31 The patient's rash thought to be caused by soap. The rash is located on the back, chest pm1 and abdomen. The rash can be described as raised, urticarial. Onset: The symptoms/episode began/occurred 2 day(s) ago. Associated signs and symptoms: Pertinent positives: itching, Pertinent negatives: fever. Severity of symptoms: in the emergency department the symptoms are worse. The patient has not experienced similar symptoms in the past. Historical: - Allergies: 09:06 Nuts; ll1 - Immunization history:: Adult Immunizations up to date. - Social history:: Smoking status: Patient denies any tobacco usage or history of. ROS: 11:31 Constitutional: Negative for fever, chills, and weight loss, Cardiovascular: Negative pm1 for chest pain, palpitations, and edema, Respiratory: Negative for shortness of breath, cough, wheezing, and pleuritic chest pain. 11:31 MS/Extremity: Negative for injury and deformity, Neuro: Negative for headache, weakness, numbness, tingling, and seizure. 11:31 Skin: Positive for rash. 11:31 All other systems are negative. Exam: 11:31 Constitutional: This is a well developed, well nourished patient who is awake, alert, pm1 and in no acute distress. Head/Face: Normocephalic, atraumatic. 11:31 MS/ Extremity: Pulses equal, no cyanosis. Neurovascular intact. Full, normal range of motion. 11:31 Cardiovascular: Rate: normal, Rhythm: regular, Pulses: no pulse deficits are appreciated. 11:31 Respiratory: Exam negative for acute changes, respiratory distress, shortness of breath, Breath sounds: are clear throughout. 11:31 Skin: Appearance: normal except for affected area, consistent with contact dermatitis. Vital Signs: 09:02 BP 165 / 80; Pulse 68; Resp 16; Temp 98.1; Pulse Ox 100% ; Weight 89.81 kg; Height 5 ll1 ft. 3 in. (160.02 cm); 09:02 Body Mass Index 35.07 (89.81 kg, 160.02 cm) ll1 MDM: 09:29 Patient medically screened. pm1 09:59 Data reviewed: vital signs. Data interpreted: Pulse oximetry: on room air is 100 %. pm1 Interpretation: normal. Counseling: I had a detailed discussion with the patient and/or guardian regarding: the historical points, exam findings, and any diagnostic results supporting the discharge/admit diagnosis, the need for outpatient follow up, to return to the emergency department if symptoms worsen or persist or if there are any questions or concerns that arise at home. Administered Medications: 09:56 Drug: Decadron (dexamethasone) 10 mg Route: IM; Site: right gluteus; ll1 10:18 Follow up: Response: No adverse reaction ll1 09:56 Drug: Pepcid (famotidine) 20 mg Route: PO; ll1 10:19 Follow up: Response: No adverse reaction ll1 09:56 Drug: Benadryl (diphenhydrAMINE) 25 mg Route: PO; ll1 10:19 Follow up: Response: No adverse reaction ll1 Disposition: 11:31 Co-signature as Attending Physician, Michael Lyon MD I agree with the assessment and kdr plan of care. Disposition Summary: 02/20/21 10:00 Discharge Ordered Location: Home pm1 Problem: new pm1 Symptoms: have improved pm1 Condition: Stable pm1 Diagnosis - Rash and other nonspecific skin eruption pm1 Followup: pm1 - With: Emergency Department - When: As needed - Reason: Worsening of condition Followup: pm1 - With: Private Physician - When: 2 - 3 days - Reason: Recheck today's complaints, Continuance of care, Re-evaluation by your physician Discharge Instructions: - Contact Dermatitis pm1 - Rash, Adult pm1 - Discharge Summary Sheet ll1 Forms: - Work release form ll1 - Medication Reconciliation Form pm1 - Thank You Letter pm1 - Antibiotic Education pm1 - Prescription Opioid Use pm1 Prescriptions: - Benadryl 25 mg Oral Capsule - take 1 capsule by ORAL route every 6 hours As needed; 30 tablet; Refills: 0, pm1 Product Selection Permitted - Pepcid 20 mg Oral Tablet - take 1 tablet by ORAL route every 12 hours for 10 days; 20 tablet; Refills: 0, pm1 Product Selection Permitted - Medrol (Mike) 4 mg Oral Tablets, Dose Pack - take 1 tablet by ORAL route as directed - follow package instructions; 1 pm1 packet; Refills: 0, Product Selection Permitted Signatures: Michael Lyon MD MD kdr Duarte Hagan NP REEL HOOKER pm1 Fátima Burk RN RN ll1 Corrections: (The following items were deleted from the chart) 09:07 09:06 Allergies: No Known Allergies; ll1 ll1
--- NOTE | 2021-02-20 10:01 | ER ---
Nurse's Notes [facility] Name: Sean Starks Age: 56 yrs Sex: Male : 1965 Arrival Date: 02/20/2021 Time: 08:46 Bed DIS12 Private MD: Diagnosis: Rash and other nonspecific skin eruption Presentation: 02/20 09:02 Chief complaint: Patient states: rash all over body, legs, itching and restless. Pt ll1 thinks they got something from cat.. states cat goes by [employer], theyre unsure of what it is but cat at home has spots all over face. Coronavirus screen: Vaccine status: Patient reports being unvaccinated. Client denies travel out of the [place] in the last 14 days. At this time, the client does not indicate any symptoms associated with coronavirus-19. Ebola Screen: Patient negative for fever greater than or equal to 101.5 degrees Fahrenheit, and additional compatible Ebola Virus Disease symptoms Patient denies exposure to infectious person. Patient denies travel to an Ebola-affected area in the 21 days before illness onset. Onset: The symptoms/episode began/occurred gradually. Anaphylaxis evaluation, no signs or symptoms of anaphylaxis were noted. Initial Sepsis Screen: Does the patient meet any 2 criteria? No. Patient's initial sepsis screen is negative. Does the patient have a suspected source of infection? No. Patient's initial sepsis screen is negative. Risk Assessment: Do you want to hurt yourself or someone else? Patient reports no desire to harm self or others. Onset of symptoms was February 17, 2021. 09:02 Method Of Arrival: Ambulatory ll1 09:02 Acuity: DOMINGA 4 ll1 Triage Assessment: 09:07 General: Appears in no apparent distress. well groomed, well developed, well nourished, ll1 Behavior is calm, cooperative, appropriate for age. Pain: Denies pain. Historical: - Allergies: 09:06 Nuts; ll1 - Immunization history:: Adult Immunizations up to date. - Social history:: Smoking status: Patient denies any tobacco usage or history of. Screenin:29 Abuse screen: Denies threats or abuse. Nutritional screening: No deficits noted. ll1 Tuberculosis screening: No symptoms or risk factors identified. Fall Risk Total Gordon Fall Scale indicates No Risk (0-24 pts). Assessment: 09:24 Reassessment: No changes from previously documented assessment. Patient and/or family ll1 updated on plan of care and expected duration. Pain level reassessed. Patient is alert, oriented x 3, equal unlabored respirations, skin warm/dry/pink. Respiratory: Airway is patent Respiratory effort is even, unlabored, Breath sounds are clear. Derm: Reports rash with itching all over. 10:10 Reassessment: No changes from previously documented assessment. Patient and/or family ll1 updated on plan of care and expected duration. Pain level reassessed. Patient is alert, oriented x 3, equal unlabored respirations, skin warm/dry/pink. Vital Signs: 09:02 BP 165 / 80; Pulse 68; Resp 16; Temp 98.1; Pulse Ox 100% ; Weight 89.81 kg; Height 5 ll1 ft. 3 in. (160.02 cm); 09:02 Body Mass Index 35.07 (89.81 kg, 160.02 cm) ll1 ED Course: 08:46 Patient arrived in ED. mr 09:06 Triage completed. ll1 09:17 Fátima Burk, DANTE is Primary Nurse. ll1 09:19 Duarte Hagan NP is PHCP. pm1 09:19 Michael Lyon MD is Attending Physician. pm1 09:25 Arm band placed on Patient placed in an exam room, on a stretcher. ll1 09:29 Patient has correct armband on for positive identification. Bed in low position. Call ll1 light in reach. Side rails up X 1. Cardiac monitoring not applicable on this patient. 09:29 No provider procedures requiring assistance completed. Patient did not have IV access ll1 during this emergency room visit. Administered Medications: 09:56 Drug: Decadron (dexamethasone) 10 mg Route: IM; Site: right gluteus; ll1 10:18 Follow up: Response: No adverse reaction ll1 09:56 Drug: Pepcid (famotidine) 20 mg Route: PO; ll1 10:19 Follow up: Response: No adverse reaction ll1 09:56 Drug: Benadryl (diphenhydrAMINE) 25 mg Route: PO; ll1 10:19 Follow up: Response: No adverse reaction 1 Outcome: 10:00 Discharge ordered by . pm1 10:12 Patient left the ED. ll1 10:12 Discharged to home ambulatory. ll1 10:12 Condition: stable 10:12 Discharge instructions given to patient, family, Instructed on discharge instructions, follow up and referral plans. medication usage, Demonstrated understanding of instructions, follow-up care, medications, Prescriptions given X 3. Signatures: Ruth Ann Villatoro BentleyDuarte, RED CAP RED CAP pm1 Fátima Burk RN RN ll1 Corrections: (The following items were deleted from the chart) 09:07 09:06 Allergies: No Known Allergies; ll1 ll1
[2021-02-20 10:18] VITALS: BP 165/80; TEMP 98.1; O2SAT 100
== END 2021-02-20 10:12 | disposition home or self-care (01) ==
LOC: ER 08:41
DX: R21 Rash and other nonspecific skin eruption (principal)
CPT/HCPCS: 96372; 99283; J1100

== ENCOUNTER 2021-03-05 08:39 | Emergency (ER) | payer SELFPAY ==
--- OUTSIDE RECORDS SUMMARY | 2021-03-05 08:53 | XMS REPORT | Continuity of Care Document ---
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 00 (three) Medical times Branch daily as needed for Cough for up to 20 doses. ondansetron 2020-0 Yes [id number] 4mg Take 1 [facility] (ZOFRAN 9-23 tablet by ity of ODT) 4 mg 00:00: mouth [place] disintegrat 00 every 8 Medic al ing tablet (eight) Branch hours as needed for Nausea and Vomiting (N/V). albuterol 2020-0 Yes [id number] 2{puff} Inhale 2 [facility] 90 9-23 Puffs ity of mcg/actuati 00:00: every 4 [place] on inhaler 00 (four) Medical hours as Branch needed for Wheezing or Shortness of Breath. ibuprofen 0 Yes [id number] 600mg Take 1 [facility] 600 mg 9-23 tablet by ity of tablet 00:00: mouth [place] 00 every 6 Medical (six) Branch hours as needed for Pain (scale 4-6). benzonatate 0 Yes [id number] 200mg Take 1 [facility] 200 mg 9-23 capsule by ity of capsule 00:00: mouth 3 [place] 00 (three) Medical times Branch daily as needed for Cough for up to 20 doses. ondansetron 0 Yes [id number] 4mg Take 1 [facility] (ZOFRAN 9-23 tablet by ity of ODT) 4 mg 00:00: mouth [place] disintegrat 00 every 8 Medic al ing tablet (eight) Branch hours as needed for Nausea and Vomiting (N/V). ibuprofen 0 Yes [id number] 600mg Take 1 [facility] 600 mg 9-23 tablet by ity of tablet 00:00: mouth [place] 00 every 6 Medical (six) Branch hours as needed for Pain (scale 4-6). ibuprofen 0 Yes [id number] 600mg Take 1 [facility] 600 mg 9-23 tablet by ity of tablet 00:00: mouth [place] 00 every 6 Medical (six) Branch hours as needed for Pain (scale 4-6). ibuprofen 0 Yes [id number] 600mg Take 1 [facility] 600 mg 9-23 tablet by ity of tablet 00:00: mouth [place] 00 every 6 Medical (six) Branch hours as needed for Pain (scale 4-6). ibuprofen 0 Yes [id number] 600mg Take 1 [facility] 600 mg 9-23 tablet by ity of tablet 00:00: mouth [place] 00 every 6 Medical (six) Branch hours as needed for Pain (scale 4-6). albuterol 2020-0 2020- No [id number] 2{puff} Inhale 2 [facility] 90 9-23 12-22 Puffs ity of mcg/actuati 00:00: 00:00 every 4 [place] on inhaler 00 :00 (four) Medical hours as Branch needed for Wheezing or Shortness of Breath. benzonatate 2020- No [id number] 200mg Take 1 [facility] 200 mg 9-23 12-22 capsule by ity of capsule 00:00: 00:00 mouth 3 [place] 00 :00 (three) Medical times Branch daily as needed for Cough for up to 20 doses. ondansetron 2020- No [id number] 4mg Take 1 [facility] (ZOFRAN 9-23 12-22 tablet by ity of ODT) 4 mg 00:00: 00:00 mouth [place] disintegrat 00 :00 every 8 Medic al ing tablet (eight) Branch hours as needed for Nausea and Vomiting (N/V). dicyclomine Yes [id number] 10mg Take 1 [facility] 10 mg 8-18 capsule by ity of capsule 00:00: mouth [place] 00 every 8 Medical (eight) Branch hours as needed for Abdominal pain. ondansetron Yes [id number] 4mg Take 1 [facility] 4 mg 8-18 tablet by ity of disintegrat 00:00: mouth [place] ing tablet 00 every 8 Medica l (eight) Branch hours as needed for Nausea and Vomiting (N/V). dicyclomine Yes [id number] 10mg Take 1 [facility] 10 mg 8-18 capsule by ity of capsule 00:00: mouth [place] 00 every 8 Medical (eight) Branch hours as needed for Abdominal pain. ondansetron Yes [id number] 4mg Take 1 [facility] 4 mg 8-18 tablet by ity of disintegrat 00:00: mouth [place] ing tablet 00 every 8 Medica l (eight) Branch hours as needed for Nausea and Vomiting (N/V). dicyclomine Yes [id number] 10mg Take 1 [facility] 10 mg 8-18 capsule by ity of capsule 00:00: mouth [place] 00 every 8 Medical (eight) Branch hours as needed for Abdominal pain. ondansetron 0 Yes [id number] 4mg Take 1 [facility] 4 mg 8-18 tablet by ity of disintegrat 00:00: mouth [place] ing tablet 00 every 8 Medica l (eight) Branch hours as needed for Nausea and Vomiting (N/V). dicyclomine Yes [id number] 10mg Take 1 [facility] 10 mg 8-18 capsule by ity of capsule 00:00: mouth [place] 00 every 8 Medical (eight) Branch hours as needed for Abdominal pain. ondansetron Yes [id number] 4mg Take 1 [facility] 4 mg 8-18 tablet by ity of disintegrat 00:00: mouth [place] ing tablet 00 every 8 Medica l (eight) Branch hours as needed for Nausea and Vomiting (N/V). dicyclomine Yes [id number] 10mg Take 1 [facility] 10 mg 8-18 capsule by ity of capsule 00:00: mouth [place] 00 every 8 Medical (eight) Branch hours as needed for Abdominal pain. ondansetron Yes [id number] 4mg Take 1 [facility] 4 mg 8-18 tablet by ity of disintegrat 00:00: mouth [place] ing tablet 00 every 8 Medica l (eight) Branch hours as needed for Nausea and Vomiting (N/V). dicyclomine Yes [id number] 10mg Take 1 [facility] 10 mg 8-18 capsule by ity of capsule 00:00: mouth [place] 00 every 8 Medical (eight) Branch hours as needed for Abdominal pain. ondansetron Yes [id number] 4mg Take 1 [facility] 4 mg 8-18 tablet by ity of disintegrat 00:00: mouth [place] ing tablet 00 every 8 Medica l (eight) Branch hours as needed for Nausea and Vomiting (N/V). dicyclomine 2020- No [id number] 10mg Take 1 [facility] 10 mg 8-18 12-22 capsule by ity of capsule 00:00: 00:00 mouth [place] 00 :00 every 8 Medical (eight) Branch hours as needed for Abdominal pain. ondansetron 2020- No [id number] 4mg Take 1 [facility] 4 mg 8-18 12-22 tablet by ity of disintegrat 00:00: 00:00 mouth [place] ing tablet 00 :00 every 8 Medica l (eight) Branch hours as needed for Nausea and Vomiting (N/V). cholecalcif Yes 1000U Take 1,000 [facility] sofia, 7-19 Units by ity of vitamin D3, 20:20: mouth [place] (VITAMIN 49 daily. Medical D3) 25 mcg Branch (1,000 unit) tablet aspirin 81 2021-0 Yes 81mg Take 81 mg U nivers mg chewable 7-19 by mouth ity of tablet 20:20: daily. [place] [address] Medical Branch cholecalcif 2020-0 Yes 1000U Take 1,000 [facility] sofia, 7-19 Units by ity of vitamin D3, 15:20: mouth [place] (VITAMIN 49 daily. Medical D3) 25 mcg Branch (1,000 unit) tablet aspirin 81 2020-0 Yes 81mg Take 81 mg U nivers mg chewable 7-19 by mouth ity of tablet 15:20: daily. [place] [address] Medical Branch cholecalcif 202-0 Yes 1000U Take 1,000 [facility] sofia, 7-19 Units by ity of vitamin D3, 15:20: mouth [place] (VITAMIN 49 daily. Medical D3) 25 mcg Branch (1,000 unit) tablet aspirin 81 2020-0 Yes 81mg Take 81 mg U nivers mg chewable 7-19 by mouth ity of tablet 15:20: daily. [place] [address] Medical Branch cholecalcif 2020-0 Yes 1000U Take 1,000 [facility] sofia, 7-19 Units by ity of vitamin D3, 15:20: mouth [place] (VITAMIN 49 daily. Medical D3) 25 mcg Branch (1,000 unit) tablet aspirin 81 2020-0 Yes 81mg Take 81 mg U nivers mg chewable 7-19 by mouth ity of tablet 15:20: daily. [place] [address] Medical Branch cholecalcif 2020-0 Yes 1000U Take 1,000 [facility] sofia, 7-19 Units by ity of vitamin D3, 15:20: mouth [place] (VITAMIN 49 daily. Medical D3) 25 mcg Branch (1,000 unit) tablet aspirin 81 2020-0 Yes 81mg Take 81 mg U nivers mg chewable 7-19 by mouth ity of tablet 15:20: daily. [place] [address] Medical Branch cholecalcif 2021-0 Yes 1000U Take 1,000 [facility] sofia, 7-19 Units by ity of vitamin D3, 15:20: mouth [place] (VITAMIN 49 daily. Medical D3) 25 mcg Branch (1,000 unit) tablet aspirin 81 2021-0 Yes 81mg Take 81 mg U nivers mg chewable 7-19 by mouth ity of tablet 15:20: daily. [place] [address] Medical Branch cholecalcif 2021-0 Yes 1000U Take 1,000 [facility] sofia, 7-19 Units by ity of vitamin D3, 15:20: mouth [place] (VITAMIN 49 daily. Medical D3) 25 mcg Branch (1,000 unit) tablet aspirin 81 2020-0 Yes 81mg Take 81 mg U nivers mg chewable 7-19 by mouth ity of tablet 15:20: daily. [place] 49 Medical Branch nitroglycer 2020-[id number] 1 [facility] in 0.4 mg 6-12 tablet ity of sublingual 00:00: under the [place] tablet 00 tongue Medical every 5 Branch (five) minutes as needed for Chest pain. nitroglycer 2020-[id number] 1 [facility] in 0.4 mg 6-12 tablet ity of sublingual 00:00: under the [place] tablet 00 tongue Medical every 5 Branch (five) minutes as needed for Chest pain. nitroglycer 2020-[id number] 1 [facility] in 0.4 mg 6-12 tablet ity of sublingual 00:00: under the [place] tablet 00 tongue Medical every 5 Branch (five) minutes as needed for Chest pain. nitroglycer 2020-[id number] 1 [facility] in 0.4 mg 6-12 tablet ity of sublingual 00:00: under the [place] tablet 00 tongue Medical every 5 Branch (five) minutes as needed for Chest pain. nitroglycer 2020-[id number] 1 [facility] in 0.4 mg 6-12 tablet ity of sublingual 00:00: under the [place] tablet 00 tongue Medical every 5 Branch (five) minutes as needed for Chest pain. nitroglycer 2020-[id number] 1 [facility] in 0.4 mg 6-12 tablet ity of sublingual 00:00: under the [place] tablet 00 tongue Medical every 5 Branch (five) minutes as needed for Chest pain. nitroglycer 2020-[id number] 1 [facility] in 0.4 mg 6-12 tablet ity of sublingual 00:00: under the [place] tablet 00 tongue Medical every 5 Branch (five) minutes as needed for Chest pain. nitroglycer 2020-0 202- No [id number] .4mg Place 1 [facility] in 0.4 mg 6-12 12-22 tablet ity of sublingual 00:00: 00:00 under the [place] tablet 00 :00 tongue Medical every 5 Branch (five) minutes as needed for Chest pain. cloNIDine Yes Take 1 [place] HCL 2-19 tablet(s) [facility] (CATAPRES) 00:00: by mouth 0.1 mg 00 Twice a tablet day for anxiety as needed OLANZapine Yes Take 1 [facility] [facility] (ZYPREXA) 2-19 tablet(s) Healt h 10 mg 00:00: by mouth tablet 00 Twice a day cloNIDine Yes Take 1 [place] HCL 2-19 tablet(s) [facility] (CATAPROMG) 00:00: by mouth 0.1 mg 00 Twice a tablet day for anxiety as needed OLANZapine Yes Take 1 [facility] [facility] (ZYPREXA) 2-19 tablet(s) Healt h 10 mg 00:00: by mouth tablet 00 Twice a day cloNIDine 2020-0 2021- No TAKE ONE [place] HCL 2-19 -19 TABLET BY [facility] (CATAPROMG) 00:00: 23:59 MOUTH 0.1 mg 00 :00 TWICE A tablet DAY FOR ANXIETY NEEDED OLANZapine 0 2021- No TAKE ONE [place] (ZYPREXA) 2-19 -19 TABLET BY Heal th 10 mg 00:00: 23:59 MOUTH tablet 00 :00 TWICE A DAY cloNIDine 2020-0 2021- No TAKE ONE [place] ris HCL 2-19 -19 TABLET BY [facility] (CATAPRES) 00:00: 23:59 MOUTH 0.1 mg 00 :00 TWICE A tablet DAY FOR ANXIETY NEEDED OLANZapine 2020-0 2021- No TAKE ONE [place] (ZYPREXA) 2-19 -19 TABLET BY Heal th 10 mg 00:00: 23:59 MOUTH tablet 00 :00 TWICE A DAY rosuvastati 2020-0 No 1{table Q1D take 1 [...] tablet 00:00: oral route 00 every day amlodipine 2020-0 No 1{table Q1D [...] oral route 00 2 times every day rosuvastati 2019-02 No 1{table Q1D take 1 A ccess n 20 mg 2-15 t} tablet by Health tablet 00:00: oral route 00 every day Vitamin D2 2019- No take 1 Acces s 1,250 mcg 2-15 capsule by [facility] (50,000 00:00: oral route unit) 00 every capsule week metformin 2019- No 1{table Q12H take 1 Acc ess 500 mg 2-15 t} tablet by Health tablet 00:00: oral route 00 2 times every day with morning and evening meals True Metrix 2019- No 1{strip Q12H use 1 Ac cess Glucose 2-15 } strip by [place] Test Strip 00:00: subcutaneo 00 us route 2 times every day lancets 2019- No Use twice Acces s 2-15 daily as Health 00:00: directed. 00 rosuvastati 2019-02 No 1{table Q1D take 1 A ccess n 20 mg 2-15 t} tablet by Health tablet 00:00: oral route 00 every day Vitamin D2 2019-02 No take 1 Acces s 1,250 mcg 2-15 capsule by [facility] (50,000 00:00: oral route unit) 00 [...] Acces s 1,250 mcg 2-15 capsule by [facility] (50,000 00:00: oral route unit) 00 [...] Acces s 1,250 mcg 2-15 capsule by [facility] (50,000 00:00: oral route unit) 00 every capsule week True Metrix 2019-02 No 1{strip Q12H use 1 Ac cess Glucose 2-15 } strip by Health Test Strip 00:00: subcutaneo 00 us route 2 times every day lancets 2019-02 No Use twice Acces s 2-15 daily as Health 00:00: directed. Vitamin D2 2019-02 No take 1 Acces s 1,250 mcg 2-15 capsule by [facility] (50,000 00:00: oral route unit) 00 every capsule week True Metrix 2019- No 1{strip Q12H use 1 Ac cess Glucose 2-15 } strip by Health Test Strip 00:00: subcutaneo 00 us route 2 times every day lancets 2019-02 No Use twice Acces s 2-15 daily as Health 00:00: directed. 00 Vitamin D2 2019-02 No take 1 Acces s 1,250 mcg 2-15 capsule by [facility] (50,000 00:00: oral route unit) 00 every capsule week True Metrix 2019-02 No 1{strip Q12H use 1 Ac cess Glucose 2-15 } strip by Health Test Strip 00:00: subcutaneo 00 us route 2 times every day lancets 2019-02 No Use twice Acces s 2-15 daily as Health 00:00: directed. Vitamin D2 2019-02 No take 1 Acces s 1,250 mcg 2-15 capsule by [facility] (50,000 00:00: oral route unit) 00 every capsule week True Metrix 2019-02 No 1{strip Q12H use 1 Ac cess Glucose 2-15 } strip by Health Test Strip 00:00: subcutaneo 00 us route 2 times every day lancets 2019-02 No Use twice Acces s 2-15 daily as Health 00:00: directed. Vitamin D2 2019-02 No take 1 Acces s 1,250 mcg 2-15 capsule by [facility] (50,000 00:00: oral route unit) 00 [...] Acces s 1,250 mcg 2-15 capsule by [facility] (50,000 00:00: oral route unit) 00 every capsule week True Metrix 2020 No 1{strip Q12H use 1 Ac cess Glucose 2-15 } strip by Health Test Strip 00:00: subcutaneo 00 us route 2 times every day lancets 2019-02 No Use twice Acces s 2-15 daily as Health 00:00: directed. 00 rosuvastati 2019-02- No 1{table Q1D take 1 [...] day with morning and evening meals omeprazole 2019-02 No take 1 Acces s [...] 00:00: oral route 00 every day hydroxyzine 2019-02 No 1{table BID take 1 [...] route 00 2 times every day lisinopril 2020- No 1{table Q1D take 1 Ac cess [...] Acces s 20 mg 2-14 capsule by [place] capsule,del 00:00: oral route ayed 00 twice release daily 30 minute before meals. metoprolol 2019- No 1{table Q12H take 1 Ac cess tartrate 25 2-14 t} tablet by Hea lth mg tablet 00:00: oral route 00 2 times every day lisinopril 2020- No 1{table Q1D take 1 Ac cess [...] take 1 Acc ess rine 10 mg -09 03- tablet by Hea lth tablet 00:00: 00:00 [...] take 1 Acc ess 500 mg 2-14 -14 t} tablet by Health [...] take 1 Acc ess 500 mg 2-14 -14 t} tablet by Health tablet 00:00: 00:00 oral route 00 :00 2 times every day with food metoprolol 2019-02- No 1{table Q12H take 1 A ccess tartrate 25 2-14 - t} tablet by He alth mg tablet [...] take 1 Acc ess 500 mg 2-14 -14 t} tablet by Health [...] needed as needed for tooth pain Augmentin 2020-0 2020- No 1{table Q12H take [...] Q12H take 1 [facility] 75 mg -14 12-14 le} capsule by Heal th capsule,ext [...] needed as needed for tooth pain venlafaxine 2019-0 2020- No 1{capsu Q12H take 1 [facility] 75 mg -14 12-14 le} capsule by Heal th capsule,ext [...] 75 mg 9-14 12-14 le} capsule by [facility] capsule,ext 00:00: 00:00 oral route ended 00 [...] 75 mg 9-14 12-14 le} capsule by [facility] capsule,ext 00:00: 00:00 oral route ended 00 [...] 75 mg 9-14 12-14 le} capsule by [facility] capsule,ext 00:00: 00:00 oral route ended 00 [...] 75 mg 9-14 12-14 le} capsule by [facility] capsule,ext 00:00: 00:00 oral route ended 00 [...] 75 mg 9-14 12-14 le} capsule by [facility] capsule,ext 00:00: 00:00 oral route ended 00 :00 2 times release 24 every day hr with food Vitamin D2 2020-0 No take 1 Acces s 1,250 mcg 9-03 capsule by [facility] (50,000 00:00: oral route unit) 00 every capsule week atorvastati 2020-0 No 1{table take 1 A ccess n 40 mg 9-03 t} tablet by Health tablet 00:00: oral route 00 every bedtime at bedtime Vitamin D2 2020-0 No take 1 Acces s 1,250 mcg 9-03 capsule by [facility] (50,000 00:00: oral route unit) 00 every capsule week atorvastati 2020-0 No 1{table take 1 A ccess n 40 mg 9-03 t} tablet by Health tablet 00:00: oral route 00 every bedtime at bedtime Vitamin D2 2020-0 No take 1 Acces s 1,250 mcg 9-03 capsule by [facility] (50,000 00:00: oral route unit) 00 [...] No take 1 Acce ss 1,250 mcg 9- 12-14 capsule by [facility] (50,000 00:00: 00:00 oral route unit) 00 :00 every capsule week Vitamin D2 2020-0 2020- No take 1 Acce ss 1,250 mcg 9-03 12-14 capsule by [facility] (50,000 00:00: 00:00 oral route unit) 00 :00 every capsule week Vitamin D2 2020-0 2020- No take 1 Acce ss 1,250 mcg 9- 12-14 capsule by [facility] (50,000 00:00: 00:00 oral route unit) 00 :00 every capsule week Vitamin D2 2020-0 2020- No take 1 Acce ss 1,250 mcg 9-03 12-14 capsule by [facility] (50,000 00:00: 00:00 oral route unit) 00 :00 every capsule week Vitamin D2 2020-0 2020- No take 1 Acce ss 1,250 mcg 9-03 12-14 capsule by [facility] (50,000 00:00: 00:00 oral route unit) 00 :00 every capsule week Vitamin D2 2020-0 2020- No take 1 Acce ss 1,250 mcg 9-03 12-14 capsule by [facility] (50,000 00:00: 00:00 oral route unit) 00 :00 every capsule week Vitamin D2 2020-0 2020- No take 1 Acce ss 1,250 mcg -14 capsule by [facility] (50,000 00:00: 00:00 oral route unit) 00 :00 every capsule week Vitamin D2 2019-0 2020- No take 1 [facility]ce ss 1,250 mcg 10-2714 capsule by [facility] (50,000 00:00: 00:00 oral route unit) 00 :00 every capsule week Vitamin D2 2019-0 2020- No take 1 Acce ss 1,250 mcg 10-2714 capsule by [facility] (50,000 00:00: 00:00 oral route unit) 00 :00 every capsule week Aspir-81 mg 2020-0 No 1{table Q1D take 1 A ccess tablet,ramon 8-31 t} tablet by [facility] yed release 00:00: oral route 00 every day hydrochloro 2020-0 No 1{table Q1D take 1 A ccess thiazide 25 8-31 t} tablet by [facility] mg tablet 00:00: oral route 00 every day hydroxyzine 2020-0 No 1{table BID take 1 A ccess HCl 25 mg 8-31 t} tablet by [facility] h tablet 00:00: oral route 00 2 times every day as needed as needed for anxiety, insomnia lisinopril 2020-0 No 1{table Q1D take 1 Ac cess 40 mg 8-31 t} tablet by Health tablet 00:00: oral route 00 every day metoprolol 2020-0 No 1{table Q12H take 1 Ac cess tartrate 25 8-31 t} tablet by [facility] mg tablet 00:00: oral route 00 2 times every day omeprazole 2020-0 No take 1 Acces s 20 mg 8-31 capsule by [facility] capsule,del 00:00: oral route ayed 00 twice release daily 30 minute before meals. Aspir-81 mg 2020-0 No 1{table Q1D take 1 A ccess tablet,ramon 8-31 t} tablet by [facility] yed release 00:00: oral route 00 [...] Acces s 20 mg 8-31 capsule by [place] capsule,del 00:00: oral route ayed 00 twice [...] ss 20 mg 8-31 12-14 capsule by [facility] capsule,del 00:00: 00:00 oral route ayed 00 [...] oral route 00 :00 every day metoprolol 2019-0 2020- No 1{table Q12H take 1 A [...] 25 mg 8-31 12-14 t} tablet by [facility] th tablet 00:00: 00:00 oral route 00 [...] oral route 00 :00 every day metoprolol 2020- No 1{table Q12H take 1 A ccess tartrate 25 8-31 12-14 t} tablet by alth mg tablet 00:00: 00:00 oral route 00 :00 2 times every day omeprazole 2019- No take 1 Acce ss 20 mg 8 12-14 capsule by [place] capsule,del 00:00: 00:00 oral route ayed 00 :00 twice release daily 30 minute before meals. lisinopril 2019- No take 1 Acce ss 10 06-19-31 tablet by [place] mg-hydrochl 00:00: 00:00 oral route orothiazide 00 :00 once daily 12.5 mg tablet lisinopril 2019- No take 1 Acce ss 10 06-19-31 tablet by [place] mg-hydrochl 00:00: 00:00 oral route orothiazide 00 :00 once daily 12.5 mg tablet lisinopril 2019- No take 1 Acce ss 10 06-19-31 tablet by [place] mg-hydrochl 00:00: 00:00 oral route orothiazide 00 :00 once daily 12.5 mg tablet lisinopril 2019- No take 1 Acce ss 10 06-19-31 tablet by [place] mg-hydrochl 00:00: 00:00 oral route orothiazide 00 :00 once daily 12.5 mg tablet lisinopril 2019- No take 1 Acce ss 10 06-19-31 tablet by [place] mg-hydrochl 00:00: 00:00 oral route orothiazide 00 :00 once daily 12.5 mg tablet lisinopril 2019- No take 1 Acce ss 10 - 08-31 tablet by [place] mg-hydrochl 00:00: 00:00 oral route orothiazide 00 :00 once daily 12.5 mg tablet lisinopril 2019- No take 1 Acce ss 10 - 08-31 tablet by [place] mg-hydrochl 00:00: 00:00 oral route orothiazide 00 :00 once daily 12.5 mg tablet lisinopril 2019- No take 1 Acce ss 10 4- 08-31 tablet by [facility] mg-hydrochl 00:00: 00:00 oral route orothiazide 00 :00 once daily 12.5 mg tablet lisinopril 2019- No take 1 Acce ss 10 06-19 tablet by [facility] mg-hydrochl 00:00: 00:00 oral route orothiazide 00 :00 once daily 12.5 mg tablet lisinopril 2019- No take 1 Acce ss 10 06-[address] [facility]-hydrochl 00:00: 00:00 oral route orothiazide 00 :00 once daily 12.5 mg tablet lisinopril 2019- No take 1 Acce ss 10 06-[address] [facility]-hydrochl 00:00: 00:00 oral route orothiazide 00 :00 once daily 12.5 mg tablet lisinopril 2019- No take 1 Acce ss 06-19 tablet by [facility] mg-hydrochl 00:00: 00:00 oral route orothiazide 00 :00 once daily 12.5 mg tablet tiZANidine Yes Knee pain, take 1 [place] (ZANAFLEX) 7-30 right tablet by [facility] 4 mg tablet 00:00: mouth 6 00 hours as needed for muscle spasms lisinopril Yes HTN 20mg Q.5D Take 1 [facility] (PRINIVIL, 7-30 (hypertensi tablet by [facility] ZESTRIL) 20 00:00: on) mouth 2 mg tablet 00 times daily. simvastatin Yes HLD 40mg Take 1 [facility] (ZOCOR) 40 7-30 (hyperlipid tablet by [facility] mg tablet 00:00: emia) mouth at 00 bedtime nightly. hydrochloro Yes HTN 25mg QD Take 1 [place] thiazide 7-30 (hypertensi tablet by [facility] (HYDRODIURI 00:00: on) mouth L) 25 mg 00 daily. tablet naproxen Yes Knee pain, 500mg Take 1 [place] (NAPROSYN) 7-30 right tablet by [facility] lt 500 mg 00:00: mouth 2 tablet 00 times daily (with meals). HYDROcodone Yes Knee pain, 1{tbl} Take 1 [place] -acetaminop 7-30 right tablet by [facility] ([place]) 00:00: mouth 5-325 mg 00 every 6 tablet hours as needed for Pain (only for break thru pain). tiZANidine Yes Knee pain, take 1 [place] (ZANAFLEX) 7-30 right tablet by [facility] 4 mg tablet 00:00: mouth 6 00 hours as needed for muscle spasms lisinopril Yes HTN 20mg Q.5D Take 1 [place] (PRINIVIL, 7-30 (hypertensi tablet by [facility] ZESTRIL) 20 00:00: on) mouth 2 mg tablet 00 times daily. simvastatin Yes HLD 40mg Take 1 [place] [facility] (ZOCOR) 40 7-30 (hyperlipid tablet by [facility] mg tablet 00:00: emia) mouth at 00 bedtime nightly. hydrochloro Yes HTN 25mg QD Take 1 [place] thiazide 7-30 (hypertensi tablet by [facility] (HYDRODIURI 00:00: on) mouth L) 25 mg 00 daily. tablet naproxen Yes Knee pain, 500mg Take 1 [place] (NAPROSYN) 7-30 right tablet by [facility] 500 mg 00:00: mouth 2 tablet 00 times daily (with meals). HYDROcodone Yes Knee pain, 1{tbl} Take 1 [place] -acetaminop 7-30 right tablet by [facility] ([place]) 00:00: mouth 5-325 mg 00 every 6 tablet hours as needed for Pain (only for break thru pain). albuterol Yes Asthma 2{puff} Inhale 2 [place] (VENTOLIN 7-17 Puffs by [place] HFA,PROVENT 00:00: mouth 4 [place] 00 times HFA,PROAIR daily as HFA) 90 needed for mcg/actuati Wheezing. on inhaler albuterol Yes Asthma 2{puff} Inhale 2 [place] (VENTOLIN 7-17 Puffs by [place] HFA,PROVENT 00:00: mouth 4 [place] 00 times [...] Monique is (CLARITIN) 5-28 congestion tablet by Health 10 mg 00:00: mouth tablet 00 daily. beclomethas Yes Sinus 2{spray Q.5D Use 2 H arris one 5-28 congestion } Sprays in [facility] (BECONASE 00:00: each AQ) 42 mcg 00 nostril 2 (0.042 %) times nasal spray daily Dose is for each nostril.. HYDROcodone Yes Pain in 1{tbl} Take 1 [place] -acetaminop 5-28 joint, tablet by H ealth hen (NORCO) 00:00: shoulder mouth 5-325 mg 00 region every 6 tablet hours as needed for Pain. loratadine Yes Sinus 10mg QD Take 1 Monique is (CLARITIN) 5-28 congestion tablet by Health 10 mg 00:00: mouth tablet 00 daily. beclomethas Yes Sinus 2{spray Q.5D Use 2 H arris one 5-28 congestion } Sprays in [facility] (BECONASE 00:00: each AQ) 42 mcg 00 nostril 2 (0.042 %) times nasal spray daily Dose is for each nostril.. HYDROcodone Yes Pain in 1{tbl} Take 1 [place] -acetaminop 5-28 joint, tablet by H ealth hen (NORCO) 00:00: shoulder mouth 5-325 mg 00 region every 6 tablet hours as needed for Pain. ondansetron 2013-0 Yes 4mg Take 4 mg H arris (ZOFRAN-ODT 3-28 by mouth [facility] ) 4 mg 15:30: every 8 disintegrat 27 hours as ing tablet needed for Nausea. ondansetron 2013-0 Yes 4mg Take 4 mg H arris (ZOFRAN-ODT 3-28 by mouth [facility] ) 4 mg 15:30: every 8 [...] 2012-02 Yes Kidney .4mg QD Take 1 [place] ris (FLOMAX) 2-17 stone capsule by Heal th 0.4 mg 00:00: mouth extended 00 daily. release capsule tamsulosin 2012-02 Yes Kidney .4mg QD Take 1 Romel ris (FLOMAX) 2-17 stone capsule by Heal th 0.4 mg 00:00: mouth extended 00 daily. release capsule triamcinolo Yes Dry skin Apply to [place] 9-23 dermatitis affected Healt [facility] (KENALOG) 00:00: area 3 0.1 % 00 times ointment daily. triamcinolo Yes Dry skin Apply to [place] 9-23 dermatitis affected [facility]alt [facility] (KENALOG) 00:00: area 3 0.1 % 00 times ointment daily. omeprazole Yes GERD 20mg QD Take 1 [facility] (PRILOSEC) 08-25 (gastroesop capsule by Health 20 mg 00:00: hageal mouth delayed 00 reflux daily. release disease) capsule omeprazole Yes GERD 20mg QD Take 1 [place] (PRILOSEC) 08-25 (gastroesop capsule by Health 20 mg 00:00: [...] ER 75 mg 09-14 le} capsule by [facility] capsule,ext 00:00 oral route ended :00 every day release 24 with food hr venlafaxine 2020- No 1{capsu Q1D take 1 Ac cess ER 150 mg 09-14 le} capsule by [facility] capsule,ext 00:00 oral route ended :00 every day release 24 hr venlafaxine 2020- No 1{capsu Q1D take 1 Ac cess ER 75 mg 09-14 le} capsule by [facility] capsule,ext 00:00 oral route ended :00 every day release 24 with food hr venlafaxine 2020- No 1{capsu Q1D take 1 Ac cess ER 150 mg 09-14 le} capsule by [facility] capsule,ext 00:00 oral route ended :00 every day release 24 hr venlafaxine 2020- No 1{capsu Q1D take 1 Ac cess ER 75 mg 09-14 le} capsule by [facility] capsule,ext 00:00 oral route ended :00 every day release 24 with food hr venlafaxine 2020- No 1{capsu Q1D take 1 Ac cess ER 150 mg 09-14 le} capsule by [facility] capsule,ext 00:00 oral route ended :00 every day release 24 hr venlafaxine 2020- No 1{capsu Q1D take 1 Ac cess ER 75 mg 09-14 le} capsule by [facility] capsule,ext 00:00 oral route ended :00 every day release 24 with food hr venlafaxine 2020- No 1{capsu Q1D take 1 Ac cess ER 150 mg 09-14 le} capsule by [facility] capsule,ext 00:00 oral route ended :00 every day release 24 hr venlafaxine 2020- No 1{capsu Q1D take 1 Ac cess ER 75 mg 09-14 le} capsule by [facility] capsule,ext 00:00 oral route ended :00 every day release 24 with food hr venlafaxine 2020- No 1{capsu Q1D take 1 Ac cess ER 150 mg 09-14 le} capsule by [facility] capsule,ext 00:00 oral route ended :00 every day release 24 hr venlafaxine 2020- No 1{capsu Q1D take 1 Ac cess ER 75 mg 09-14 le} capsule by [facility] capsule,ext 00:00 oral route ended :00 every day release 24 with food hr venlafaxine 2020- No 1{capsu Q1D take 1 Ac cess ER 150 mg 09-14 le} capsule by [facility] capsule,ext 00:00 oral route ended :00 every day release 24 hr venlafaxine 2020- No 1{capsu Q1D take 1 Ac cess ER 75 mg 09-14 le} capsule by [facility] capsule,ext 00:00 oral route ended :00 every day release 24 with food hr venlafaxine 2020- No 1{capsu Q1D take 1 Ac cess ER 150 mg 09-14 le} capsule by [facility] capsule,ext 00:00 oral route ended :00 every day release 24 hr venlafaxine 2020- No 1{capsu Q1D take 1 Ac cess ER 75 mg 09-14 le} capsule by [facility] capsule,ext 00:00 oral route ended :00 every day release 24 with food hr venlafaxine 2020- No 1{capsu Q1D take 1 Ac cess ER 150 mg 09-14 le} capsule by [facility] capsule,ext 00:00 oral route ended :00 every day release 24 hr venlafaxine 2020- No 1{capsu Q1D take 1 Ac cess ER 75 mg 09-14 le} capsule by [facility] capsule,ext 00:00 oral route ended :00 every day release 24 with food hr venlafaxine 2020- No 1{capsu Q1D take 1 Ac cess ER 150 mg 09-14 le} capsule by [facility] capsule,ext 00:00 oral route ended :00 every day release 24 hr venlafaxine 2020- No 1{capsu Q1D take 1 Ac cess ER 75 mg 14 le} capsule by Heal th capsule,ext 00:00 oral route ended :00 every day release 24 with food hr venlafaxine 2020- No 1{saidau Q1D take 1 Ac cess ER 150 mg -14 le} capsule by Hea lth capsule,ext 00:00 [...] route :00 2 times every day clonidine 2019- No 1{table Q12H take 1 Acce [...] Source Name Name Influenza Vaccine 2011-02-12 Completed [facility] 00:00:00 PPV 23 Pneumococcal 2011-02-12 Completed [facility] Polysaccaride 00:00:00 Influenza Vaccine 2011-02-12 Completed [facility] 00:00:00 PPV 23 Pneumococcal 2011-02-12 Completed [facility] Polysaccaride 00:00:00 Influenza Virus 2011-02-12 Completed Universit y of Vaccine 00:00:00 [facility] Pneumococcal 2011-02-12 Completed University o f Polysaccharide, 00:00:00 [place] [facility] PPSV23 (PNEUMOVAX) Branch Influenza Virus 2011-02-12 Completed Universit y of Vaccine 00:00:00 [facility] Pneumococcal 2011-02-12 Completed University o f Polysaccharide, 00:00:00 [place] [facility] PPSV23 (PNEUMOVAX) Branch Influenza Virus 2011-02-12 Completed Universit y of Vaccine 00:00:00 [facility] Pneumococcal 2011-02-12 Completed University o f Polysaccharide, 00:00:00 [place] [facility] PPSV23 (PNEUMOVAX) Branch Influenza Virus 2011-02-12 Completed Universit y of Vaccine 00:00:00 [facility] Pneumococcal 2011-02-12 Completed University o f Polysaccharide, 00:00:00 [place] [facility] PPSV23 (PNEUMOVAX) Branch Vital Signs Vital Name Observation Time Observation Value Comments Source Systolic blood 2021-03-04 01:38:35 132 mm[Hg] Univer sity of pressure [facility] Diastolic blood 2021-03-04 01:38:35 78 mm[Hg] Unive rsity of pressure [facility] Heart rate 2021-03-04 01:38:35 76 /min Universi ty of [facility] Respiratory rate 2021-03-04 01:38:35 20 /min Univ ersity of [facility] Oxygen saturation in 2021-03-04 01:38:35 97 /min University of Arterial blood by [place] [facility] Pulse oximetry Branch Body temperature 2021-03-03 23:00:00 36.5 Lindsay [facility] Body height 2021-03-03 23:00:00 160 cm [facility] Body weight 2021-03-03 23:00:00 89.812 kg [facility] BMI 2021-03-03 23:00:00 35.07 kg/m2 [facility] Systolic blood 2021-02-16 15:01:00 150 mm[Hg] Univer sity of pressure [facility] Diastolic blood 2021-02-16 15:01:00 89 mm[Hg] Unive rsity of pressure [facility] Heart rate 2021-02-16 15:01:00 74 /min [facility] Body temperature 2021-02-16 15:01:00 36.11 Lindsay Univ ersity [facility] [place] [facility] Respiratory rate 2021-02-16 15:01:00 18 /min [facility] Oxygen saturation in 2021-02-16 15:01:00 99 /min University of Arterial blood by [place] [facility] Pulse oximetry Branch Systolic blood 2021-02-14 10:10:00 128 mm[Hg] Univer sity of pressure [facility] Diastolic blood 2021-02-14 10:10:00 73 mm[Hg] Unive rsity of pressure [facility] Heart rate 2021-02-14 10:10:00 50 /min [facility] Body temperature 2021-02-14 10:10:00 36.11 Lindsay [facility] [place] [facility] Respiratory rate 2021-02-14 10:10:00 20 /min Univ [facility] Body weight 2021-02-14 10:10:00 89.444 kg [facility] BMI 2021-02-14 10:10:00 34.93 kg/m2 [facility] [place] [facility] Oxygen saturation in 2021-02-14 10:10:00 98 /min University of Arterial blood by [place] [facility] Pulse oximetry Branch Body height 2021-02-13 23:17:00 160 cm [facility] Systolic blood 2020-11-25 14:48:00 161 mm[Hg] Univer sity of pressure [facility] Diastolic blood 2020-11-25 14:48:00 89 mm[Hg] Unive rsity of pressure [facility] Heart rate 2020-11-25 14:48:00 67 /min [facility]i [facility] Body temperature 2020-11-25 14:48:00 36.72 Lindsay Univ [facility] [place] [facility] Respiratory rate 2020-11-25 14:48:00 17 /min Univ ersity [facility] Body weight 2020-11-25 14:48:00 90.719 kg [facility] [place] [facility] BMI 2020-11-25 14:48:00 35.43 kg/m2 [facility] [place] [facility] Oxygen saturation in 2020-11-25 14:48:00 99 /min University of Arterial blood by [facility] Pulse oximetry Branch Systolic blood 2020-11-21 21:10:00 131 mm[Hg] Univer sity of pressure [facility] [place] [facility] Diastolic blood 2020-11-21 21:10:00 75 mm[Hg] Unive rsity of pressure [facility] Heart rate 2020-11-21 21:10:00 61 /min [facility]i [facility] [place] [facility] Body temperature 2020-11-21 21:10:00 36.89 Lindsay [facility] [place] [facility] Respiratory rate 2020-11-21 21:10:00 22 /min Univ ersity [facility] [place] [facility] Oxygen saturation in 2020-11-21 21:10:00 97 /min University of Arterial blood by [facility] Pulse oximetry Branch Body height 2020-11-21 20:19:00 160 cm [facility] [place] [facility] Body weight 2020-11-21 20:19:00 90.719 kg [facility] BMI 2020-11-21 20:19:00 35.43 kg/m2 [facility] [place] [facility] Systolic blood 2020-11-16 19:32:00 114 mm[Hg] Univer sity of pressure [facility] [place] [facility] Diastolic blood 2020-11-16 19:32:00 64 mm[Hg] Unive rsity of pressure [facility] Heart rate 2020-11-16 19:32:00 88 /min [facility] Body temperature 2020-11-16 19:32:00 37.67 Lindsay [facility] Respiratory rate 2020-11-16 19:32:00 18 /min [facility] Body weight 2020-11-16 19:32:00 90.719 kg [facility] BMI 2020-11-16 19:32:00 35.43 kg/m2 [facility] Oxygen saturation in 2020-11-16 19:32:00 99 /min University Arterial blood by [facility] Pulse oximetry Branch Body height 2020-03-09 09:26:00 157.48 cm [facility] Body Weight 2020-03-09 09:26:00 97.159 kg [facility] 2020-03-09 09:26:00 134 mm[Hg] [facility] Systolic [facility]ravascular 2020-03-09 09:26:00 86 mm[Hg] [facility] Diastolic Heart Beat 2020-03-09 09:26:00 68 /min [facility] Body Temperature 2020-03-09 09:26:00 36.61 Lindsay [facility] Respiratory Rate 2020-03-09 09:26:00 18 /min [facility] Body mass index 2020-03-09 09:26:00 39.18 kg/m2 [facility] 2020-02-07 16:51:00 143 mm[Hg] [facility] Systolic [facility] 2020-02-07 16:51:00 84 mm[Hg] [facility] Diastolic Heart Beat 2020-02-07 16:51:00 64 /min [facility] Body height 2020-02-07 10:37:00 157.48 cm [facility] Body Weight 2020-02-07 10:37:00 97.250 kg [facility] 2020-02-07 10:37:00 150 mm[Hg] [facility] Systolic [facility]ascular 2020-02-07 10:37:00 85 mm[Hg] [facility] Diastolic Heart Beat 2020-02-07 10:37:00 65 /min [facility] Body Temperature 2020-02-07 10:37:00 36.78 Lindsay Acce [...] pressure Diastolic blood 2019-10-22 09:04:08 111 mm[Hg] [facility] pressure Heart rate 2019-10-22 09:04:08 76 /min [facility] Body temperature 2019-10-22 09:04:08 36.94 Lindsay [facility] Respiratory rate 2019-10-22 09:04:08 18 /min [facility] Body height 2019-10-22 09:04:08 160 cm [place] [facility] Body weight 2019-10-22 09:04:08 99.791 kg [facility] BMI 2019-10-22 09:04:08 38.97 kg/m2 [facility] Body height 2015-06-20 14:49:00 62.00 [in_us] [facility] Patient Body Weight 2015-06-20 14:49:00 197.20 [lb_av] [facility] Int[facility] 2015-06-20 14:49:00 152 mm[Hg] [facility] Systolic Intravascular 2015-06-20 14:49:00 95 mm[Hg] [facility] Diastolic Heart Beat 2015-06-20 14:49:00 65 /min [facility] Body Temperature 2015-06-20 14:49:00 98.30 [facility]degF[facility] 2015-06-20 14:49:00 18 /min [facility] Body mass index 2015-06-20 14:49:00 36.10 kg/m2 [facility] Procedures Procedure Date / Time Performing Clinician Source Performed CONSENT/REFUSAL FOR 2021-03-03 22:48:57 [facility] DIAGNOSIS AND TREATMENT [facility] [place] NOTICE OF PRIVACY 2021-03-03 22:48:12 Doctor Yaneth, [facility] PRACTICES [facility] CONSENT/REFUSAL FOR 2021-02-16 14:56:52 [facility] DIAGNOSIS AND TREATMENT [facility] MAGNESIUM 2021-02-14 09:19:00 [facility] TROPONIN I 2021-02-14 09:19:00 [facility] BASIC METABOLIC PANEL 2021-02-14 09:19:00 Anna Alex [facility] (NA, K, CL, CO2, GLUCOSE, Medica l Branch BUN, CREATININE, CA) LIPID PANEL (22104)(TOTAL 2021-02-14 09:19:00 Alex Castillo [facility] CHOLESTEROL, Medical Branch TRIGLYCERIDES, HDL) TROPONIN I 2021-02-14 03:14:00 [facility] POCT GLUCOSE (AUTOMATED) 2021-02-14 03:12:00 Alex Castillo [facility] COVID-19 (ID NOW RAPID 2021-02-13 20:39:00 Venancio Milligan [facility] TESTING) Medical Branch CT ANGIOGRAM CHEST 2021-02-13 20:01:48 Singer Venancio [facility] CT ANGIOGRAM 2021-02-13 20:01:48 Singer [facility] ABDOMEN/PELVIS Medical Branch LIPASE 2021-02-13 19:30:00 Singer [facility] MAGNESIUM 2021-02-13 19:30:00 Singer [facility] TROPONIN I 2021-02-13 19:30:00 Singer [facility] THYROID STIMULATING 2021-02-13 19:30:00 Anna Alex [facility] HORMONE [facility] COMP. METABOLIC PANEL 2021-02-13 19:30:00 [facility]io [facility] ([id number]) [facility] [place] CBC WITH DIFF 2021-02-13 19:30:00 Singer [facility] GLYCOSYLATED HEMOGLOBIN 2021-02-13 19:30:00 Anna [facility] (A1C) [facility] N-TERMINAL PRO-BNP 2021-02-13 19:30:00 Venancio Milligan [facility] HB ECG ROUTINE & RHYTHM 2021-02-13 19:20:07 Singer Venancio [facility] STRIP Medical Branch CONSENT/REFUSAL FOR 2021-02-13 19:10:13 Doctor Yaneth [facility] DIAGNOSIS AND TREATMENT [facility] CONSENT/REFUSAL FOR 2020-11-25 14:43:08 Doctor Yaneth [facility] DIAGNOSIS AND TREATMENT [facility] CONSENT/REFUSAL FOR 2020-11-21 05:01:00 Doctor Yaneth [facility] DIAGNOSIS AND TREATMENT [facility] CONSENT/REFUSAL FOR 2020-11-16 19:22:48 Doctor Yaneth [facility] DIAGNOSIS AND TREATMENT [facility] MEDICAL LEGAL PROGRAM 2020-10-09 00:00:00 [facility] PHONE CALL TO 2020-10-09 00:00:00 [facility] AUTHORIZATION FOR RELEASE 2020-09-20 05:01:00 Doctor Anayelisskana, [facility] GLUCOSE BLOOD TEST 2020-03-09 00:00:00 [...] alth HORMONE SYPHILIS TEST NON-TREP 2019-10-25 00:00:00 [facility] QUAL VITAMIN D 25 HYDROXY 2019-10-25 00:00:00 [facility] HIV-1 AG W/HIV-1 & HIV-2 2019-10-25 00:00:00 [facility] AB HEPATITIS C AB TEST 2019-10-25 00:00:00 [facility] Plan of Care Planned Activity Planned Date Details Comments Source Future Scheduled Test 2014-02-19 00:00:00 Screening for [facility] malignant neoplasm of colon (procedure) [code = 032831113] Future Scheduled Test 2014-02-19 00:00:00 Screening for [facility] malignant neoplasm of colon (procedure) [code = 286921491] Future Scheduled Test 1976 00:00:00 COVID-19 Vaccine (1) [facility] [code = COVID-19 Vaccine (1)] Future Scheduled Test 1976 00:00:00 COVID-19 Vaccine (1) [facility] [code = COVID-19 Vaccine (1)] Encounters Start End Encounter Admission Attending Care Care Encounter Source Date/Time Date/Time Type Type Clinicians Facility Department ID 2020-12-26 Emergency [facility] [id number] Univers 00:56:46 ity of [facility] 2020-12-25 [facility] [id number] Univers 16:20:27 ity of [facility] 2020-12-25 [facility] [id number] Univers 08:52:45 ity of [facility] 2020-12-25 [facility] [id number] Univers 03:19:02 ity [facility] 2020-12-25 [facility] [id number] Univers 01:43:58 ity [facility] 2020-12-25 [facility] [id number] Univers 00:35:24 ity [facility] 2020-12-24 [facility] [id number] Univers 14:35:26 ity [facility] 2021-03-04 2021-03-04 Letter BRANDI Perez [id number] Univers 00:00:00 00:00:00 (Out) Lisa MASTERSON [id number] it y [facility] [id number] [place] [phone] [address] 2021-03-03 2021-03-03 Emergency [facility] [id number] Univers 17:01:00 20:38:00 WAKILI ity [facility] 2021-03-03 2021-03-03 Emergency [facility] [id number] Univers 17:01:00 20:38:00 Adalberto FALCON [id number] ity [facility] [id number] [facility] [phone] [address] 2021-02-16 2021-02-16 Emergency X [facility] ERT [id number] Univers 09:02:00 09:54:00 MIRIAM westfall [facility] 2021-02-16 2021-02-16 Emergency [facility] [id number] Univers 09:02:00 09:54:00 Miriam Pop TERRIE [id number] ity [facility] [id number] [facility] [id number] [address] 2021-02-13 2021-02-14 Outpatient [facility] [id number] Univers 13:20:00 11:50:00 ALEX itcabrera [facility] 2021-02-13 2021-02-14 Emergency Singer Venancio [facility] 1.2.840. [id number] Univers 13:20:00 11:50:00 Stanton Castilloemilio FALCON [id number] ity [facility] [id number] [facility] [phone] [address] 2020-12-21 2020-12-21 Outpatient DESHAWN QUINTERO [facility] [id number] Access 08:26:00 08:26:00 Health 2020-12-21 2020-12-21 Outpatient DESHAWN QUINTERO [facility] [id number] Access 08:26:00 08:26:00 [id number] [facility] [id number] 2020-11-29 2020-11-29 Outpatient DESHAWN QUINTERO [facility] [id number] Access 10:33:00 10:33:00 Health 2020-11-29 2020-11-29 Outpatient DESHAWN QUINTERO [facility] [id number] Access 10:33:00 10:33:00 [id number] [facility] [id number] 2020-11-25 2020-11-25 Emergency [facility] [id number] Univers 09:49:00 10:11:00 Miriam Falcon [id number] ity [facility] [id number] [phone] [facility] 084 [place] 2020-11-25 2020-11-25 Emergency X [facility] ERT [id number] Univers 09:49:00 10:11:00 [facility] 2020-11-24 2020-11-24 Outpatient [facility] [id number] [facility]21 2020-11-21 Nurse Therapy, Adc Covid Infusion [facility] [id number] Univers 15:05:10 16:05:10 Visit Ariane Santa [id number] ity [facility] [id number] [phone] [place] [id number] Branch 2020-11-21 2020-11-21 Outpatient [facility] [id number] Univers 16:00:00 16:00:00 [id number] [facility] 2020-11-21 2020-11-21 Outpatient Adalberto SANTA [facility] [id number] Univers 16:00:00 16:00:00 ARIANE [facility] 2020-11-21 2020-11-21 Orders Doctor PAZ [id number] Univers 00:00:00 00:00:00 Only Unassigned, ZELALEM [id number] ity of [place] [facility] [id number] [place] [phone] [facility] 009 [place] 2020-11-18 2020-11-18 Telephone BradyAlexandra [id number] Univers 00:00:00 00:00:00 ZELALEM [id number] it y of [facility] [id number] [place] [phone] [facility] 019 Branch 2020-11-16 2020-11-16 Emergency Jose Allen [facility] [id number] Univers 14:37:00 16:06:00 Sherry Falcon [id number] i ty of [place] [id number] [facility] [phone] [facility] 084 Branch 2020-11-16 2020-11-16 Orders Doctor PAZ [id number] Univers 00:00:00 00:00:00 Only Unassigned, ZELALEM [id number] ity of [place] [facility] [id number] [place] [phone] [facility] 009 [place] 2020-10-11 2020-10-11 Emergency [facility] [id number] 08:53:00 10:25:00 Venancio [place] [id number] [place] [id number] [place] [id number] [id number] 2020-10-09 2020-10-09 Outpatient ALEXIS PELAEZ [facility] [id number] Access 16:35:00 16:35:00 Health 2020-10-09 2020-10-09 Outpatient ALEXIS PELAEZ [facility] [id number] Access 16:35:00 16:35:00 [id number] 2020-09-25 2020-09-25 Outpatient Adalberto OSUNA [facility] [id number] Univers 10:00:00 10:00:00 SENDIL [id number] ity of [facility] 2020-09-20 2020-09-20 Orders Doctor BRANDI [id number] Univers 00:00:00 00:00:00 Only Unassigned, ZELALEM [id number] ity of [place] [facility] [id number] [facility] as [phone] [address] 2020-09-09 2020-09-11 Emergency Sanchez William [facility] 1.2.840. 114 [id number] 16:49:00 15:15:00 Gaudencio Villaseñor [id number] [place] 4.2.7.2.686 [place] [id number] 081 2020-08-16 2020-08-16 Emergency Daniel [facility] [id number] 14:24:00 16:48:00 William Falcon 350.1.13.10 [place] 4.2.7.2.686 [place] [id number] 084 2020-08-09 2020-08-09 Emergency Daniel [facility] [id number] 17:02:00 21:20:00 William Falcon 350.1.13.10 [place] 4.2.7.2.686 [place] [id number] 2020-08-04 2020-08-05 Emergency Venancio Milligan [facility] 1.2.840. 114 [id number] 08:19:00 13:32:00 Alex Castillo 350.1.13.10 [place] 4.2.7.2.686 [place] [id number] 081 2020-06-16 2020-06-16 Telephone BRANDI Lowe 1.2.603.011 [id number] 00:00:00 00:00:00 Mala MASTERSON 350.1.13.10 [facility] 4.2.7.2.686 [id number] 2020-06-15 2020-06-15 Emergency Jose Allen [facility] 1.2.840.114 [id number] 10:08:00 15:00:00 Sherry Falcon 350.1.13.10 [place] 4.2.7.2.686 [place] [id number] 084 2020-06-15 2020-06-15 Orders Doctor BRANDI 1.2.840.114 [id number] 00:00:00 00:00:00 Only Unassigned, [place] 350.1.13.10 [place] [facility] 4.2.7.2.686 [id number] 2020-06-05 2020-06-05 Outpatient DESHAWN QUINTERO [facility] [id number] Access 08:18:00 08:18:00 Health 2020-06-05 2020-06-05 Outpatient DESHAWN QUINTERO [facility] [id number] Access 08:18:00 08:18:00 e2-7wz4-53z [id number]-9 [facility] [id number] [id number]-5616dd 0f4 2c8a6d 2020-05-29 2020-05-29 Outpatient PATTI [facility] [id number] Access 10:33:00 10:33:00 [facility] 2020-05-29 2020-05-29 Outpatient PATTI [facility] [id number] [id number]-p Access 10:33:00 10:33:00 [facility] 22-4926-a4f [id number]-8 Health f-[id number] raoul 00e4fe 2020-05-26 2020-05-26 Outpatient R [facility] [id number] 18:00:00 18:00:00 [facility] of [facility] 2020-04-24 2020-04-24 Outpatient PATTI [facility] [id number] Access 14:02:00 14:02:00 [facility] 2020-04-24 2020-04-24 Outpatient PATTI [facility] [id number] [id number] Access 14:02:00 14:02:00 NUNO 22-4926-a4f w2f-31gy-b Health f-[id number] raoul [id number] 2020-03-30 2020-03-30 Outpatient PATTI [facility] [id number] d99 [id number] Access 13:07:00 13:07:00 NUNO e2-0af8-89x 373-4f89-b Health [id number]-ni9ffd558 [id number]-qha518 0f4 9b12d6 2020-03-13 2020-03-13 Outpatient PATTI, [facility] [id number] Access 13:32:00 13:32:00 [facility] 2020-03-13 2020-03-13 Outpatient PATTI [facility] [id number] Access 13:32:00 13:32:00 [facility] 22-4926-a4f josiane-4e0f-a Health f-[id number] [id number]-[id number] raoul 5aab79 2020-03-13 2020-03-13 Outpatient PATTI, [facility] [id number] Access 09:58:00 09:58:00 [facility] 2020-03-13 2020-03-13 Outpatient PATTI [facility] [id number] fkc6o-a Access 09:58:00 09:58:00 [facility] 22-4926-a4f [id number] Health f-[id number] raoul [id number] 2020-03-11 2020-03-11 Outpatient DEMETRIS, [facility] [id number] Access 11:28:00 11:28:00 [facility] 2020-03-11 2020-03-11 Outpatient DEMETRIS [facility] [id number] Access 11:28:00 11:28:00 MIRIAM 89-477f-ac7 [id number] [facility] 5-m66x2v9o5 [id number] [facility] 05ea2b 2020-03-09 2020-03-09 Outpatient DEMETRIS [facility] [id number] Access 09:30:00 09:30:00 [facility] 2020-03-09 2020-03-09 OFFICE/OUT DEMETRIS [facility] [id number] Access 09:30:00 09:30:00 PATIENT MIRIAM 89-477f-ac7 [id number] Health VISIT EST 5-[id number] [id number] de3 [id number] 2020-02-08 2020-02-08 Outpatient PATTI, [facility] [id number] Access 16:20:00 16:20:00 [facility] 2020-02-08 2020-02-08 Outpatient PATTI, [facility] [id number] fe9 adfc9-d Access 16:20:00 16:20:00 NUNO e2-8cd7-86s fef-453b-b Health [id number]-ta4cqz043 3ef-bd5c56 0f4 3ebba6 2020-02-08 2020-02-08 Outpatient PATTI, [facility] [id number] Access 14:14:00 14:14:00 [facility] 2020-02-08 2020-02-08 Outpatient PATTI, [facility] [id number] [id number] [id number] Access 14:14:00 14:14:00 NUNO e2-2rn3-60w [id number]-b Health 0-el2xzg325 9o3-m62t3o 0f4 3eb9cd 2020-02-08 2020-02-08 Outpatient DEMETRIS, [facility] [id number] Access 09:25:00 09:25:00 [facility] 2020-02-08 2020-02-08 Outpatient DEMETRIS, [facility] [id number] Access 09:25:00 09:25:00 MIRIAM 89-477f-ac7 [id number] Health 5-k13q2n0h2 [id number] de3 9d4bf4 2020-02-07 2020-02-07 Outpatient DEMETRIS, [facility] [id number] Access 10:30:00 10:30:00 [facility] 2020-02-07 2020-02-07 OFFICE/OUT DEMETRIS, [facility] [id number] [id number] Access 10:30:00 10:30:00 PATIENT MIRIAM 89-477f-ac7 [id number] Health VISIT EST 5-[id number] [id number]-[id number] de3 [id number] 2019-11-08 2019-11-08 Outpatient DEMETRIS, [facility] [id number] Access 11:00:00 11:00:00 [facility] 2019-11-08 2019-11-08 [facility] [id number] [id number] [id number] Access 11:00:00 11:00:00 PATIENT MIRIAM Simon477f-ac7 [id number] Health VISIT EST 5-o68u9x3y1 [id number] de3 [id number] 2019-10-28 2019-10-28 [facility] [id number] Access 14:37:00 14:37:00 [facility] 2019-10-28 2019-10-28 [facility] [id number] [id number] Access 14:37:00 14:37:00 MIRIAM Simon477f-ac7 [id number]-a Health 5-p02s2v9y2 09c-3ba5a2 de3 9d32ec 2019-10-26 2019-10-26 [facility] [id number] Access 10:09:00 10:09:00 [facility] 2019-10-26 2019-10-26 [facility] [id number] [id number] dda41-b Access 10:09:00 10:09:00 MIRIAM Simon477f-ac7 [id number] [facility] 5-[id number] [id number] de3 [id number] 2019-10-25 2019-10-25 [facility] [id number] Access 12:00:00 12:00:00 [facility] 2019-10-25 2019-10-25 [facility]V V[facility]IT [facility] [id number] [id number]-n Access 12:00:00 12:00:00 NEW AGE MIRIAM Cazares-477f-ac7 36b-45e4-b Health 40-64 5-u03j2q9x9 802-adfeee de3 17d2e4 2016-10-08 2016-10-08 Emergency [facility] [id number] [place] 14:27:44 14:27:44 Health 2015-06-22 2015-06-22 Outpatient ACCESSHEALT [facility] [id number] Access 00:00:00 00:00:00 H, PROVIDER Harpreet das 2015-06-22 2015-06-22 [facility] [id number] Access 00:00:00 00:00:00 H, PROVIDER e2-1qm8-33p bcf-49 9b-a Health [id number] 5g6-75ceti 0f4 [id number] 2015-06-22 2015-06-22 Outpatient HARRIET, [facility] [id number] Access 00:00:00 00:00:00 KATHERINE 22-4926-a4f [id number] Health f-[id number]-[id number] raoul [id number] 2015-06-20 2015-06-20 Outpatient [facility] [id number] Access 00:00:00 00:00:00 H, PROVIDER Harpreet ads 2015-06-20 2015-06-20 Outpatient [facility] [id number] Access 00:00:00 00:00:00 H, PROVIDER odin-8nf9-84b ac0-41 7b-a Health [id number] [id number]-[id number] 0f4 68fa3d 2015-06-20 2015-06-20 Outpatient [facility], [facility] [id number] Access 00:00:00 00:00:00 ALO odin-4nb9-48s [id number]- 9 Health [id number]-[id number]-[id number] 0f4 [id number] 2015-06-20 2015-06-20 Outpatient [facility], [facility] [id number] 9e7 [id number]-1 Access 00:00:00 00:00:00 ALO 22-4926-a4f afe-456b- 9 Health f-[id number] [id number]-cp9et8 raoul hs7943 Results Test Description Test Time Test Comments Results Result Comments Source Troponin I 2021-02-14 11:24:35 Test Item Value Reference Range Interpretation Comme nts TROPONIN I (test code = 0.002 ng/mL See_Comment [Au tomated message] The [id number]) system which ge nerated this result tra nsmitted reference range : <=0.034. The reference r tomas was not used to int erpret this result as normal/abnormal . AGVIN (test code = GAVIN) Reference (Normal) Range [...] biotin. Lab Interpretation Normal (test code = 83167-3) [facility] (Total Cholesterol, Triglycerides, HDL)2021-02-14 11:13:54 Test Item Value Reference Range Interpretation Comments CHOL (test code = 206 mg/dL 120-200 H 2670580386) HDL (test code = 26 mg/dL >40 L 0959929613) HDLC RATIO (test code = See_Comment H [Au tomated message] 1758713311) The system Tessella generated this result transmit sherman reference range : <=5.0. The refe rence range was not u sed to interpret th is result as normal/abnormal . TRIG (test code = 247 mg/dL 30-170 H 8685920904) LDL CHOL (test code = 131 mg/dL See_Comment [Auto mated message] 93568-9) The system Tessella generated this result transmit sherman reference range : <=160. The refe rence range was not u sed to interpret th is result as normal/abnormal . VLDL (test code = 49 mg/dL 5-60 5383399958) Lab Interpretation (test Abnormal code = 12835-1) [facility] (NA, K, CL, CO2, GLUCOSE, BUN, CREATININE, CA)2021-02-14 11:13:34 Test Item Value Reference Range Interpretation Comments NA (test code = 137 mmol/L 135-145 8974805950) K (test code = 3.8 mmol/L 3.5-5.0 0822136746) CL (test code = 104 mmol/L 98-108 0974368353) CO2 TOTAL (test code = 27 mmol/L 23-31 3022830610) AGAP (test code = 2-16 3888487235) BUN (test code = 15 mg/dL 7-23 8309372306) GLUCOSE (test code = 118 mg/dL 70-110 H 2428586901) CREATININE (test code = 0.89 mg/dL 0.60-1.25 8443502550) CALCIUM (test code = 9.2 mg/dL 8.6-10.6 8277588065) eGFR (test code = mL/min/1.73m2 1210179583) GAVIN (test code = GAVIN) Association of [...] tests). Lab Interpretation Abnormal (test code = 56361-8) [facility] [id number] 11:13:34 Test Item Value Reference Range Interpretation Comments MAGNESIUM (test code = 2607703128) 2.1 mg/dL 1.7-2.4 Lab Interpretation (test code = Normal 60280-5) [facility] [id number] 04:12:39 Test Item Value Reference Interpretation Comments Range TROPONIN I (test 0.003 ng/mL See_Comment [Automated code = 9294689432) message] The system which generated this result [...] biotin. Lab Interpretation Normal (test code = 56316-6) [facility] (AUTOMATED)2021-02-14 03:17:31 Test Item Value Reference Range Interpretation Comments POCT GLU (test code = 8413432486) 104 mg/dL 70-110 Lab Interpretation (test code = Normal 23012-5) [facility] Center[facility]yroid Stimulating Hormone (TSH)2021-02-14 00:23:29 Test Item Value Reference Range Interpretation Comments TSH (test code = See_Comment [Automated message] 0181096005) The system Tessella generated this result transmitted ref erence range: 0.45 - 4 .70 mIU/L. The refe rence range was not u sed to interpret this result as normal/abnor mal. Lab Interpretation (test Normal code = 97106-9) [facility]cos[facility] Hemoglobin (A1C)2021-02-13 23:39:13 Test Item Value Reference Range Interpretation Comments HGB A1C (test code = 5.9 % 4.0-5.7 H 4548-4) GAVIN (test code = GAVIN) Reference RangesNormal: <5.7%Prediabetes: 5.7 - 6.4%Diabetes: > 6.5% Lab Interpretation (test Abnormal code = 65845-5) [facility]. METABOLIC PANEL (84555)2021-02-13 20:14:02 Test Item Value Reference Range Interpretation Comments NA (test code = 137 mmol/L 135-145 0702948640) K (test code = 4.3 mmol/L 3.5-5.0 1468853510) CL (test code = 103 mmol/L 98-108 9912930034) CO2 TOTAL (test code 25 mmol/L 23-31 = 0138177344) AGAP (test code = 2-16 1719802445) BUN (test code = 12 mg/dL 7-23 2789222002) GLUCOSE (test code = 100 mg/dL 70-110 9011243917) CREATININE (test code 1.01 mg/dL 0.60-1.25 = 5563586421) TOTAL BILI (test code 0.7 mg/dL 0.1-1.1 = 1245006299) CALCIUM (test code = 9.9 mg/dL 8.6-10.6 0667909925) T PROTEIN (test code 8.0 g/dL 6.3-8.2 = 9232271624) ALBUMIN (test code = 4.5 g/dL 3.5-5.0 0423059417) ALK PHOS (test code = 70 U/L 34-122 0392797015) ALTv (test code = 24 U/L 5-50 1742-6) AST(SGOT) (test code 25 U/L 13-40 = 3931517919) eGFR (test code = mL/min/1.73m2 8177681747) GAVIN (test code = GAVIN) Association of [...] or urine or abnormalities in imaging tests). [facility] [id number] 20:10:29 Test Item Value Reference Interpretation Comments Range TROPONIN I (test 0.003 ng/mL See_Comment [Automated code = 9629798286) message] The system which generated this result [...] biotin. Lab Interpretation Normal (test code = 01264-0) [facility] Center[facility]-TERMINAL [id number] 20:07:27 Test Item Value Reference Range Interpretation Comments NT-proBNP (test code 48 pg/mL See_Comment [Autom ated = 9041156168) message] The system which generated this result transmitted reference range : <=125. The reference range was not used to interpret this result as normal/abnormal . GAVIN (test code = GAVIN) Biotin has been reported to cause a negative bias, interpret results relative to patient's use of biotin. Lab Interpretation Normal (test code = 16195-7) [facility]UM2021-12-21 19:58:47 Test Item Value Reference Range Interpretation Comments MAGNESIUM (test code = 2770676175) 1.9 mg/dL 1.7-2.4 Lab Interpretation (test code = Normal 12545-3) [facility]2021-12-21 19:58:27 Test Item Value Reference Range Interpretation Comments LIPASE (test code = 4526996511) 55 U/L 0-220 Lab Interpretation (test code = Normal 69311-1) [facility] CenterCB WITH [id number] 19:42:44 Test Item Value Reference Range Interpretation Comments WBC (test code = See_Comment [Automated 9690-2) message] The sy stem which generated this result transmitted reference range : 4.20 - 10.70 10*3/?L. The reference range was not used to interpret this result as normal/abnormal . RBC (test code = See_Comment [Automated 946-8) message] The sy stem which generated this [...] RDW-SD (test code = 42.7 fL 38.5-51.6 97002-0) RDW-CV (test code = 13.5 % 12.1-15.4 788-0) PLT (test code = See_Comment [Automated 227-3) message] The sy stem which generated this result transmitted reference range : 150 - 328 10*3/ ?L. The reference r tomas was not used to interpret this result as normal/abnormal . MPV (test code = 11.3 fL 9.8-13.0 62823-6) NRBC/100 WBC (test See_Comment [Automat ed code = 2749119447) message] The system which generated this result transmitted reference range : 0.0 - 10.0 /100 WBCs. The refer ence range was not u sed to interpret th is result as normal/abnormal . NRBC x10^3 (test code <0.01 See_Comment [Auto mated = 9287730401) message] The s ystem which generated this result transmitted reference range : 10*3/?L. The reference range was not used to interpret this result as normal/abnormal . GRAN MAT (NEUT) % 62.4 % (test code = 770-8) IMM GRAN % (test code 0.40 % = 9627242679) LYMPH % (test code = 29.8 % 736-9) MONO % (test code = 6.7 % 5905-5) EOS % (test code = 0.1 % 713-8) BASO % (test code = 0.6 % 706-2) GRAN MAT x10^3(ANC) 5.64 10*3/uL 1.99-6.95 (test code = 3938060382) IMM GRAN x10^3 (test 0.04 10*3/uL 0.00-0.06 code = 0127190857) LYMPH x10^3 (test code 2.70 10*3/uL 1.09-3.23 = 731-0) MONO x10^3 (test code 0.61 10*3/uL 0.36-1.02 = 742-7) EOS x10^3 (test code = <0.03 0.06-0.53 L 711-2) BASO x10^3 (test code 0.05 10*3/uL 0.01-0.09 = 704-7) Lab Interpretation Abnormal (test code = 24603-9) [facility] Description: Lipid Arswn8549-92-76 01:06:00 Test Item Value Reference Range Interpretation Comments Cholesterol, Total (test code = 120 mg/dL 747-885 0528-3) Triglycerides (test code = 2571-8) 109 mg/dL 0-149 HDL Cholesterol (test code = 33 mg/dL >39 L 2084-9) VLDL Cholesterol Andrea (test code = 20 mg/dL 5-40 88261-1) LDL Chol Calc (NIH) (test code = 67 mg/dL 0-99 47202-5) Comment: (test code = 56262-2) [facility] Description: Lipid Hcsgx6224-75-54 01:06:00 Test Item Value Reference Range Interpretation Comments Cholesterol, Total (test code = 120 mg/dL 956-560 5547-3) Triglycerides (test code = 2571-8) 109 mg/dL 0-149 HDL Cholesterol (test code = 33 mg/dL >39 L 2085-9) VLDL Cholesterol Andrea (test code = 20 mg/dL 5-40 53908-4) LDL Chol Calc (NIH) (test code = 67 mg/dL 0-99 10287-6) Comment: (test code = 82758-1) [facility] Description: Lipid Zrlel2064-96-79 01:06:00 Test Item Value Reference Range Interpretation Comments Cholesterol, Total (test code = 120 mg/dL 671-695 7502-3) Triglycerides (test code = 2571-8) 109 mg/dL 0-149 HDL Cholesterol (test code = 33 mg/dL >39 L 2085-9) VLDL Cholesterol Andrea (test code = 20 mg/dL 5-40 12782-1) LDL Chol Calc (NIH) (test code = 67 mg/dL 0-99 58590-2) Comment: (test code = 91795-2) [facility] Description: Lipid Rltvk7004-14-83 01:06:00 Test Item Value Reference Range Interpretation Comments Cholesterol, Total (test code = 120 mg/dL 733-719 3563-3) Triglycerides (test code = 2571-8) 109 mg/dL 0-149 HDL Cholesterol (test code = 33 mg/dL >39 L 2085-9) VLDL Cholesterol Andrea (test code = 20 mg/dL 5-40 62426-2) LDL Chol Calc (NIH) (test code = 67 mg/dL 0-99 86329-9) Comment: (test code = 40967-4) [facility] Description: Lipid Ofonp7597-09-10 01:06:00 Test Item Value Reference Range Interpretation Comments Cholesterol, Total (test code = 120 mg/dL 565-495 3211-3) Triglycerides (test code = 2571-8) 109 mg/dL 0-149 HDL Cholesterol (test code = 33 mg/dL >39 L 2085-9) VLDL Cholesterol Andrea (test code = 20 mg/dL 5-40 61184-1) LDL Chol Calc (NIH) (test code = 67 mg/dL 0-99 59378-4) Comment: (test code = 31326-9) [facility] Description: Lipid [id number] 01:06:00 Test Item Value Reference Range Interpretation Comments Cholesterol, Total (test code = 120 mg/dL 755-586 2128-3) Triglycerides (test code = 2571-8) 109 mg/dL 0-149 HDL Cholesterol (test code = 33 mg/dL >39 L 5-9) VLDL Cholesterol Andrea (test code = 20 mg/dL 5-40 12878-1) LDL Chol Calc (NIH) (test code = 67 mg/dL 0-99 80563-9) Comment: (test code = 70059-5) [facility] Description: Prothrombin Time (PT)2020-02-08 09:53:00 Test [...] ge 2.5 - 3.5

Pe rformed by:
[facility]
<br/&g t; Prothrombin Time (test 10.5 sec 9.1-12.0 code = 5902-2) [facility] Description: aPTT in Platelet poor plasma by Coagulation [id number] 09:53:00 Test Item Value Reference Range Interpretation Comments aPTT (test code = 31 sec 24-33 This test has not been 52079-5) validated for m onitoring unfractionated heparintherapy. aPTT-based therapeutic ran ges for unfractionated heparintherapy have not been established. Fo r general guidelines onHe alice monitoring, ref er to the [facility] ry of Services.
< br/>Performed by:
Lab ormartha Nguyen ()

Access [facility] Description: Prothrombin Time (PT)2020-02-08 09:53:00 Test Item Value Reference Range Interpretation Comments INR (test code = 1.0 0.9-1.2 6301-6) Reference inter gosia is for non-anticoa gulated patients. . Suggested INR therapeutic ran ge for Vitamin K antagonist the rapy: Standard Dose (moderate inten sity therapeut ic range): 2 .0 - 3.0 Higher intensit y therapeutic ran ge 2.5 - 3.5

Pe rformed by:
[facility] ()
<br/&g t; Prothrombin Time (test 10.5 sec 9.1-12.0 code = 5902-2) [facility] Description: aPTT in Platelet poor plasma by Coagulation frawv7495-38-93 09:53:00 Test Item Value Reference Range Interpretation Comments aPTT (test code = 31 sec 24-33 This test has not been 61336-7) validated for m onitoring unfractionated heparintherapy. aPTT-based therapeutic ran ges for unfractionated heparintherapy have not been established. Fo r general guidelines onHe alice monitoring, ref er to the [facility] ry of Services.
< br/>Performed by:
[facility] ()

Access [facility] Description: Prothrombin Time (PT)2020-02-08 09:53:00 Test Item Value Reference Range Interpretation Comments INR (test code = 1.0 0.9-1.2 6301-6) Reference inter gosia is for non-anticoa gulated patients. . Suggested INR therapeutic ran ge for Vitamin K antagonist the rapy: Standard Dose (moderate inten sity therapeut ic range): 2 .0 - 3.0 Higher intensit y therapeutic ran ge 2.5 - 3.5

Pe rformed by:
[facility] ()
<br/&g t; Prothrombin Time (test 10.5 sec 9.1-12.0 code = 5902-2) Access [facility] Description: aPTT in Platelet poor plasma by Coagulation [id number] 09:53:00 Test Item Value Reference Range Interpretation Comments aPTT (test code = 31 sec 24-33 [place] test [place] been 35507-5) validated for m onitoring unfractionated heparintherapy. aPTT-based therapeutic ran ges for unfractionated heparintherapy have not been established. Fo r general guidelines onHe alice monitoring, ref [facility].
< br/>Performed by:
[facility] ()

Access [facility] Description: Prothrombin Time (PT)2020-02-08 09:53:00 Test Item Value Reference Range Interpretation Comments INR (test code = 1.0 0.9-1.2 6301-6) Reference inter gosia is for non-anticoa gulated patients. . Suggested INR therapeutic ran ge for Vitamin K antagonist the rapy: Standard Dose (moderate inten sity therapeut ic range): 2 .0 - 3.0 Higher intensit y therapeutic ran ge 2.5 - 3.5

Pe rformed by:
[facility] ()
<br/&g t; Prothrombin Time (test 10.5 sec 9.1-12.0 code = 5902-2) [facility] Description: aPTT in Platelet poor plasma by Coagulation [id number] 09:53:00 Test Item Value Reference Range Interpretation Comments aPTT (test code = 31 sec 24-33 This test has not been 44763-8) validated for m onitoring unfractionated heparintherapy. aPTT-based therapeutic ran ges for unfractionated heparintherapy have not been established. Fo r general guidelines onHe alice monitoring, ref [facility].
< br/>Performed by:
[facility] ()

Access [facility] Description: Prothrombin Time (PT)2020-02-08 09:53:00 Test Item Value Reference Range Interpretation Comments INR (test code = 1.0 0.9-1.2 6301-6) Reference inter gosia is for non-anticoa gulated patients. . Suggested INR therapeutic ran ge for Vitamin K antagonist the rapy: Standard Dose (moderate inten sity therapeut ic range): 2 .0 - 3.0 Higher intensit y therapeutic ran ge 2.5 - 3.5

Pe rformed by:
[facility] ([facility])
<br/&g t; Prothrombin Time (test 10.5 sec 9.1-12.0 code = 5902-2) Access [facility] Description: aPTT in Platelet poor plasma by Coagulation [id number] 09:53:00 Test Item Value Reference Range Interpretation Comments aPTT (test code = 31 sec 24-33 This test [place] not been 52805-7) validated for m onitoring unfractionated heparintherapy. aPTT-based therapeutic ran ges for unfractionated heparintherapy have not been established. Fo r general guidelines onHe alice monitoring, ref er to the [facility] ry of Services.
< br/>Performed by:
[facility] ([facility])

Access [facility] Description: Prothrombin Time (PT)2020-02-08 09:53:00 Test Item Value Reference Range Interpretation Comments INR (test code = 1.0 0.9-1.2 6301-6) Reference inter gosia is for non-anticoa gulated patients. . Suggested INR therapeutic ran ge for Vitamin K antagonist the rapy: Standard Dose (moderate inten sity therapeut ic range): 2 .0 - 3.0 Higher intensit y therapeutic ran ge 2.5 - 3.5

Pe rformed by:
[facility] ([facility])
<br/&g t; Prothrombin Time (test 10.5 sec 9.1-12.0 code = 5902-2) Access [facility] Description: aPTT in Platelet poor plasma by Coagulation [id number] 09:53:00 Test Item Value Reference Range Interpretation Comments aPTT (test code = 31 sec 24-33 This test has [place] been 49273-4) validated for m onitoring unfractionated heparintherapy. aPTT-based therapeutic ran ges for unfractionated heparintherapy have not been established. Fo r general guidelines onHe alice monitoring, ref er to the [facility].
< br/>Performed by:
[facility] ()

[facility] Description: Prothrombin Time (PT)2020-02-08 09:53:00 Test Item Value Reference Range Interpretation Comments INR (test code = 1.0 0.9-1.2 6301-6) Reference inter gosia is for non-anticoa gulated patients. . Suggested INR therapeutic ran ge for Vitamin K antagonist the rapy: Standard Dose (moderate inten sity therapeut ic range): 2 .0 - 3.0 Higher intensit y therapeutic ran ge 2.5 - 3.5

Pe rformed by:
[facility] ()
<br/&g t; Prothrombin Time (test 10.5 sec 9.1-12.0 code = 5902-2) [facility] Description: aPTT in Platelet poor plasma by Coagulation [id number] 09:53:00 Test Item Value Reference Range Interpretation Comments aPTT (test code = 31 sec 24-33 [place] test [place] been 89722-5) validated for m onitoring unfractionated heparintherapy. aPTT-based therapeutic ran ges for unfractionated heparintherapy have not been established. Fo r general guidelines onHe alice monitoring, ref er to the [facility].
< br/>Performed by:
[facility] ()

[facility] Description: Prothrombin Time (PT)2020-02-08 09:53:00 Test Item Value Reference Range Interpretation Comments INR (test code = 1.0 0.9-1.2 6301-6) Reference inter gosia is for non-anticoa gulated patients. . Suggested INR therapeutic ran ge for Vitamin K antagonist the rapy: Standard Dose (moderate inten sity therapeut ic range): 2 .0 - 3.0 Higher intensit y therapeutic ran ge 2.5 - 3.5

Pe rformed by:
[facility] ()
<br/&g t; Prothrombin Time (test 10.5 sec 9.1-12.0 code = 5902-2) [facility] Description: aPTT in Platelet poor plasma by Coagulation [id number] 09:53:00 Test Item Value Reference Range Interpretation Comments aPTT (test code = 31 sec 24-33 This test [place] been 19715-9) validated for m onitoring unfractionated heparintherapy. aPTT-based therapeutic ran ges for unfractionated heparintherapy have not been established. Fo r general guidelines onHe alice monitoring, ref er to the [facility].
< br/>Performed by:
[facility] ()

[facility] Description: Prothrombin Time (PT)2020-02-08 09:53:00 Test Item Value Reference Range Interpretation Comments INR (test code = 1.0 0.9-1.2 6301-6) Reference inter gosia is for non-anticoa gulated patients. . Suggested INR therapeutic ran ge for Vitamin K antagonist the rapy: Standard Dose (moderate inten sity therapeut ic range): 2 .0 - 3.0 Higher intensit y therapeutic ran ge 2.5 - 3.5

Pe rformed by:
[facility] ()
<br/&g t; Prothrombin Time (test 10.5 sec 9.1-12.0 code = 5902-2) [facility] Description: aPTT in Platelet poor plasma by Coagulation [id number] 09:53:00 Test Item Value Reference Range Interpretation Comments aPTT (test code = 31 sec 24-33 This test has not been 52587-1) validated for m onitoring unfractionated heparintherapy. aPTT-based therapeutic ran ges for unfractionated heparintherapy have not been established. Fo r general guidelines onHe alice monitoring, [facility].
< br/>Performed by:
[facility] ()

[facility] Description: Hemoglobin A1c/Hemoglobin.total in Blood 2020-02-08 09:36:00 [...]

P erformed by:
[facility] ([place])

[facility] Description: Hemoglobin A1c/Hemoglobin.total in Blood 2020-02-08 09:36:00 [...] with diabetes: <7.0

P erformed by:
[facility] ([place])

[facility]: CBC With Differential/[id number] 07:35:00 Test Item Value Reference Range Interpretation [...] (test 1 % Not Estab. code = 62905-5) Immature Grans (Abs) (test code 0.1 x10E3/uL 0.0-0.1 = 35006-6) NRBC (test code = 38654-6) Hematology Comments: (test code = 47236-4) [facility] Description: CBC With Differential/[id number] 07:35:00 Test Item Value Reference Range Interpretation [...] (test 1 % Not Estab. code = 66791-0) Immature Grans (Abs) (test code 0.1 x10E3/uL 0.0-0.1 = 00922-8) NRBC (test code = 92978-1) Hematology Comments: (test code = 93696-1) [facility]: CBC With Differential/[id number] 07:35:00 Test Item Value Reference Range Interpretation [...] (test 1 % Not Estab. code = 06925-4) Immature Grans (Abs) (test code 0.1 x10E3/uL 0.0-0.1 = 21322-5) NRBC (test code = 15786-9) Hematology Comments: (test code = 40699-7) [facility] Description: CBC With Differential/Wyttbwrv0214-86-05 07:35:00 Test Item Value Reference Range Interpretation [...] (test 1 % Not Estab. code = 21433-6) Immature Grans (Abs) (test code 0.1 x10E3/uL 0.0-0.1 = 66279-5) NRBC (test code = 39624-0) Hematology Comments: (test code = 20656-7) [facility]: CBC With Differential/[id number] 07:35:00 Test Item Value Reference Range Interpretation [...] (test 1 % Not Estab. code = 41139-9) Immature Grans (Abs) (test code 0.1 x10E3/uL 0.0-0.1 = 79944-2) NRBC (test code = 57779-3) Hematology Comments: (test code = 82856-6) [facility]: CBC With Differential/Grixlukp3395-02-74 07:35:00 Test Item Value Reference Range Interpretation [...] (test 1 % Not Estab. code = 32540-8) Immature Grans (Abs) (test code 0.1 x10E3/uL 0.0-0.1 = 76227-7) NRBC (test code = 82758-7) Hematology Comments: (test code = 09018-6) [facility]: CBC With Differential/Vpyrimoy5970-77-65 07:35:00 Test Item Value Reference Range Interpretation [...] (test 1 % Not Estab. code = 81436-0) Immature Grans (Abs) (test code 0.1 x10E3/uL 0.0-0.1 = 34817-5) NRBC (test code = 71770-6) Hematology Comments: (test code = 31698-6) [facility]: CBC With Differential/Vaytxvct8728-41-07 07:35:00 Test Item Value Reference Range Interpretation [...] (test 1 % Not Estab. code = 16261-2) Immature Grans (Abs) (test code 0.1 x10E3/uL 0.0-0.1 = 08885-2) NRBC (test code = 44391-1) Hematology Comments: (test code = 75324-9) [facility] Description: CBC With Differential/[id number] 07:35:00 Test Item Value Reference Range Interpretation [...] (test 1 % Not Estab. code = 83928-2) Immature Grans (Abs) (test code 0.1 x10E3/uL 0.0-0.1 = 33373-3) NRBC (test code = 74640-0) Hematology Comments: (test code = 77161-4) [facility] Description: 25-hydroxyvitamin D3 [Mass/volume] in Serum or [id number] 07:19:00 Test Item Value Reference Range Interpretation Comments Vitamin D, 24.2 ng/mL 30.0-100.0 L Vitamin D defic iency has 25-Hydroxy (test been define d by the code = 38633-8) [place] [employer] and an Endocrine [facility] guidel ine as alevel of serum 25-OH vitamin D less than 20 ng/mL (1,2).The Endocrine Society went on to further define vitamin Dinsufficiency as a level between 21 and 29 ng/mL (2).1. IOM (Ins titute of Medicine). 2010 . Dietary reference int akes for calcium and D. [place]: [employer] .2. Marguerite MF, Armand NC, Sarai cantu SALINAS, et al. Evaluatio n, treatment, and prevention of vitamin D deficiency: an Endocrine Society clinica l practice guideline. CLARA EM. 2010; 96(7):1911-30.< br/>
P erformed by:
[facility] ()

[facility] Description: 25-hydroxyvitamin D3 [Mass/volume] in Serum or [id number] 07:19:00 Test Item Value Reference Range Interpretation Comments Vitamin D, 24.2 ng/mL 30.0-100.0 L Vitamin D defic iency has 25-Hydroxy (test been define d by the code = 39685-3) [place] [employer] and an Endocrine [facility] guidel ine as alevel of serum 25-OH vitamin D less than 20 ng/mL (1,2).The Endocrine Society went on to further define vitamin Dinsufficiency as a level between 21 and 29 ng/mL (2).1. IOM (Ins titute of Medicine). 2010 . Dietary reference int akes for calcium and D. [facility]: The [employer] .2. Armand Chanel, Sarai SALINAS, et al. Evaluatio n, treatment, and prevention of vitamin D deficiency: an Endocrine Society clinica l practice guideline. CLARA EM. 2010; 96(7):1911-30.< br/>
P erformed by:
[facility] ([place])

[facility] Description: 25-hydroxyvitamin D3 [Mass/volume] in Serum or [id number] 07:19:00 Test Item Value Reference Range Interpretation Comments Vitamin D, 24.2 ng/mL 30.0-100.0 L Vitamin D defic iency has 25-Hydroxy (test been define d by the code = 44268-0) [place] [employer] and an Endocrine [facility] guidel ine as alevel of serum 25-OH vitamin D less than 20 ng/mL (1,2).The Endocrine Society went on to further define vitamin Dinsufficiency as a level between 21 and 29 ng/mL (2).1. IOM (Ins titute of Medicine). 2010 . Dietary reference int akes for calcium and D. [place]: The [employer] .2. Armand Chanel, Sarai SALINAS, et al. Evaluatio n, treatment, and prevention of vitamin D deficiency: an Endocrine Society clinica l practice guideline. CLARA EM. 2010; 96(7):1911-30.< br/>
P erformed by:
[facility] ([place])

[facility] Description: 25-hydroxyvitamin D3 [Mass/volume] in Serum or [id number] 07:19:00 Test Item Value Reference Range Interpretation Comments Vitamin D, 24.2 ng/mL 30.0-100.0 L Vitamin D defic iency has 25-Hydroxy (test been define d by the code = 84260-3) [place] [employer] and an Endocrine So ety practice guidel ine as alevel of serum 25-OH vitamin D less than 20 ng/mL (1,2).The Endocrine Society went on to further define vitamin Dinsufficiency as a level between 21 and 29 ng/mL (2).1. IOM (Ins titute of Medicine). 2010 . Dietary reference int akes for calcium and D. [facility]: The [employer] .2. Armand Chanel, Sarai SALINAS, et al. Evaluatio n, treatment, and prevention of vitamin D deficiency: an Endocrine Society clinica l practice guideline. EM. 2010; 96(7):191-.< br/>
P erformed by:
[facility] ([place])

[facility] Description: 25-hydroxyvitamin D3 [Mass/volume] in Serum or [id number] 07:19:00 Test Item Value Reference Range Interpretation Comments Vitamin D, 24.2 ng/mL 30.0-100.0 L Vitamin D defic iency has 25-Hydroxy (test been define d by the code = 26006-0) [place] [employer] and an Endocrine [facility] guidel ine as alevel of serum 25-OH vitamin D less than 20 ng/mL (1,2).The Endocrine Society went on to further define vitamin Dinsufficiency as a level between 21 and 29 ng/mL (2).1. IOM (Ins titute of Medicine). 2010 . Dietary reference int akes for calcium and D. [facility]: The [employer] .2. Armand Chanel, Sarai SALINAS, et al. Evaluatio n, treatment, and prevention of vitamin D deficiency: an Endocrine Society clinica l practice guideline. EM. 2010; 96(7):191-.< br/>
P erformed by:
[facility] ([place])

[facility] Description: 25-hydroxyvitamin D3 [Mass/volume] in Serum or [id number] 07:19:00 Test Item Value Reference Range Interpretation Comments Vitamin D, 24.2 ng/mL 30.0-100.0 L Vitamin D defic iency has 25-Hydroxy (test been define d by the code = 13914-4) [place] [employer] and an Endocrine So [facility] guidel ine as alevel of serum 25-OH vitamin D less than 20 ng/mL (1,2).The Endocrine Society went on to further define vitamin Dinsufficiency as a level between 21 and 29 ng/mL (2).1. IOM (Ins titute of Medicine). 2010 . Dietary reference int akes for calcium and D. [place]: The [employer] .2. Armand Chanel, Sarai SALINAS, et al. Evaluatio n, treatment, and prevention of vitamin D deficiency: an Endocrine Society clinica l practice guideline. EM. 2010; 96(7):191-.< br/>
P erformed by:
[facility] ([place])

[facility] Description: 25-hydroxyvitamin D3 [Mass/volume] in Serum or [id number] 07:19:00 Test Item Value Reference Range Interpretation Comments Vitamin D, 24.2 ng/mL 30.0-100.0 L Vitamin D defic iency has 25-Hydroxy (test been define d by the code = 89143-8) [place] [employer] and an Endocrine [facility] guidel ine as alevel of serum 25-OH vitamin D less than 20 ng/mL (1,2).The Endocrine Society went on to further define vitamin Dinsufficiency as a level between 21 and 29 ng/mL (2).1. IOM (Ins titute of Medicine). 2010 . Dietary reference int akes for calcium and D. [place]: The [employer] .2. Armand Chanel, Sarai SALINAS, et al. Evaluatio n, treatment, and prevention of vitamin D deficiency: an Endocrine Society clinica l practice guideline. EM. 2010; 96(7):1911-30.< br/>
P erformed by:
[facility] ([place])

[facility] Description: 25-hydroxyvitamin D3 [Mass/volume] in Serum or [id number] 07:19:00 Test Item Value Reference Range Interpretation Comments Vitamin D, 24.2 ng/mL 30.0-100.0 L Vitamin D defic iency has 25-Hydroxy (test been define d by the code = 90203-3) [place] [employer] and an Endocrine [facility] guidel ine as alevel of serum 25-OH vitamin D less than 20 ng/mL (1,2).The Endocrine Society went on to further define vitamin Dinsufficiency as a level between 21 and 29 ng/mL (2).1. IOM (Ins titute of Medicine). 2010 . Dietary reference int akes for calcium and D. [place]: The [employer] .2. Armand Chanel, Sarai SALINAS, et al. Evaluatio n, treatment, and prevention of vitamin D deficiency: an Endocrine Society clinica l practice guideline. EM. 2010; 96(9):1911-30.< br/>
P erformed by:
[facility] ([place])

[facility] Description: 25-hydroxyvitamin D3 [Mass/volume] in Serum or [id number] 07:19:00 Test Item Value Reference Range Interpretation Comments Vitamin D, 24.2 ng/mL 30.0-100.0 L Vitamin D defic iency has 25-Hydroxy (test been define d by the code = 91420-3) [place] [employer] and an Endocrine [facility] guidel ine as alevel of serum 25-OH vitamin D less than 20 ng/mL (1,2).The Endocrine Society went on to further define vitamin Dinsufficiency as a level between 21 and 29 ng/mL (2).1. IOM (Ins titute of Medicine). 2010 . Dietary reference int akes for calcium and D. [place]: The [employer] .2. Armand Chanel, Sarai SALINAS, et al. Evaluatio n, treatment, and prevention of vitamin D deficiency: an Endocrine Society clinica l practice guideline. CLARA EM. 2010; 96(4):9441-30.< br/>
P erformed by:
[facility] ([place])

[facility] Description: Lipid [id number] 06:52:00 Test Item Value Reference Range Interpretation Comments Cholesterol, Total (test code = 249 mg/dL 100-199 H 2093-3) Triglycerides (test code = 2571-8) 226 mg/dL 0-149 H HDL Cholesterol (test code = 35 mg/dL >39 L 2085-9) VLDL Cholesterol Andrea (test code = 43 mg/dL 5-40 H 28565-2) LDL Chol Calc (NIH) (test code = 171 mg/dL 0-99 H 04222-0) Comment: (test code = 68608-1) [facility] Description: Lipid [id number] 06:52:00 Test Item Value Reference Range Interpretation Comments Cholesterol, Total (test code = 249 mg/dL 100-199 H 2093-3) Triglycerides (test code = 2571-8) 226 mg/dL 0-149 H HDL Cholesterol (test code = 35 mg/dL >39 L 5-9) VLDL Cholesterol Andrea (test code = 43 mg/dL 5-40 H 55631-5) LDL Chol Calc (NIH) (test code = 171 mg/dL 0-99 H 12504-6) Comment: (test code = 45417-3) [facility] Description: Lipid [id number] 06:52:00 Test Item Value Reference Range Interpretation Comments Cholesterol, Total (test code = 249 mg/dL 100-199 H 2093-3) Triglycerides (test code = 2571-8) 226 mg/dL 0-149 H HDL Cholesterol (test code = 35 mg/dL >39 L 5-9) VLDL Cholesterol Andrea (test code = 43 mg/dL 5-40 H 29797-2) LDL Chol Calc (NIH) (test code = 171 mg/dL 0-99 H 21201-5) Comment: (test code = 40130-2) [facility] Description: Lipid [id number] 06:52:00 Test Item Value Reference Range Interpretation Comments Cholesterol, Total (test code = 249 mg/dL 100-199 H 2093-3) Triglycerides (test code = 2571-8) 226 mg/dL 0-149 H HDL Cholesterol (test code = 35 mg/dL >39 L 5-9) VLDL Cholesterol Andrea (test code = 43 mg/dL 5-40 H 63618-0) LDL Chol Calc (NIH) (test code = 171 mg/dL 0-99 H 03756-9) Comment: (test code = 99304-7) [facility] Description: Lipid [id number] 06:52:00 Test Item Value Reference Range Interpretation Comments Cholesterol, Total (test code = 249 mg/dL 100-199 H 2093-3) Triglycerides (test code = 2571-8) 226 mg/dL 0-149 H HDL Cholesterol (test code = 35 mg/dL >39 L 2084-9) VLDL Cholesterol Andrea (test code = 43 mg/dL 5-40 H 21016-1) LDL Chol Calc (NIH) (test code = 171 mg/dL 0-99 H 69208-1) Comment: (test code = 89486-9) [facility] Description: Lipid [id number] 06:52:00 Test Item Value Reference Range Interpretation Comments Cholesterol, Total (test code = 249 mg/dL 100-199 H 3-3) Triglycerides (test code = 2571-8) 226 mg/dL 0-149 H HDL Cholesterol (test code = 35 mg/dL >39 L 2084-9) VLDL Cholesterol Andrea (test code = 43 mg/dL 5-40 H 07524-7) LDL Chol Calc (NIH) (test code = 171 mg/dL 0-99 H 35328-4) Comment: (test code = 25492-8) [facility] Description: Lipid [id number] 06:52:00 Test Item Value Reference Range Interpretation Comments Cholesterol, Total (test code = 249 mg/dL 100-199 H 3-3) Triglycerides (test code = 2571-8) 226 mg/dL 0-149 H HDL Cholesterol (test code = 35 mg/dL >39 L 5-9) VLDL Cholesterol Andrea (test code = 43 mg/dL 5-40 H 62211-9) LDL Chol Calc (NIH) (test code = 171 mg/dL 0-99 H 19671-6) Comment: (test code = 28288-4) [facility] Description: Lipid [id number] 06:52:00 Test Item Value Reference Range Interpretation Comments Cholesterol, Total (test code = 249 mg/dL 100-199 H 2093-3) Triglycerides (test code = 2571-8) 226 mg/dL 0-149 H HDL Cholesterol (test code = 35 mg/dL >39 L 2085-9) VLDL Cholesterol Andrea (test code = 43 mg/dL 5-40 H 77643-3) LDL Chol Calc (NIH) (test code = 171 mg/dL 0-99 H 43923-5) Comment: (test code = 97138-3) [facility] Description: Lipid [id number] 06:52:00 Test Item Value Reference Range Interpretation Comments Cholesterol, Total (test code = 249 mg/dL 100-199 H 3-3) Triglycerides (test code = 2571-8) 226 mg/dL 0-149 H HDL Cholesterol (test code = 35 mg/dL >39 L 2085-9) VLDL Cholesterol Andrea (test code = 43 mg/dL 5-40 H 99028-7) LDL Chol Calc (NIH) (test code = 171 mg/dL 0-99 H 70831-8) Comment: (test code = 14447-6) [facility] Description: Comp. Metabolic Panel (14)2020-02-08 06:31:00 Test Item Value Reference Range Interpretation Comments Glucose (test code = 2345-7) 96 mg/dL 65-99 BUN (test code = 3094-0) 15 mg/dL 6-24 Creatinine (test code = 0.97 mg/dL 0.76-1.27 2160-0) eGFR If NonAfricn Am (test 88 mL/min/1.73 >59 code = 88864-7) eGFR If Africn Am (test code 101 mL/min/1.73 >59 = 85073-4) BUN/Creatinine Ratio (test 15 11-13 code = 3097-3) Sodium (test code = 2951-2) 136 mmol/L 134-144 Potassium (test code = 4.4 mmol/L 3.5-5.2 2823-3) Chloride (test code = 2075-0) 96 mmol/L 96-106 Carbon Dioxide, Total (test 25 mmol/L 20-29 code = 2028-) Calcium (test code = 96956-8) 10.0 mg/dL 8.7-10.2 Protein, Total (test code = 8.1 g/dL 6.0-8.5 2885-2) Albumin (test code = 1751-7) 4.8 g/dL 3.8-4.9 Globulin, Total (test code = 3.3 g/dL 1.5-4.5 22655-4) A/G Ratio (test code = 1.5 1.2-2.2 1759-0) Bilirubin, Total (test code = 0.5 mg/dL 0.0-1.2 1975-2) Alkaline Phosphatase (test 79 IU/L 39-117 code = 6768-6) AST (SGOT) (test code = 27 IU/L 0-40 1920-8) ALT (SGPT) (test code = 42 IU/L 0-44 1742-6) [facility] Description: Comp. Metabolic Panel (2020-02-08 06:31:00 Test Item Value Reference Range Interpretation Comments Glucose (test code = 2345-7) 96 mg/dL 65-99 BUN (test code = 3094-0) 15 mg/dL 6-24 Creatinine (test code = 0.97 mg/dL 0.76-1.27 2160-0) eGFR If NonAfricn Am (test 88 mL/min/1.73 >59 code = 99364-6) eGFR If Africn Am (test code 101 mL/min/1.73 >59 = 06631-4) BUN/Creatinine Ratio (test 15 11-13 code = 3097-3) Sodium (test code = 2951-2) 136 mmol/L 134-144 Potassium (test code = 4.4 mmol/L 3.5-5.2 2823-3) Chloride (test code = 2075-0) 96 mmol/L 96-106 Carbon Dioxide, Total (test 25 mmol/L code = 2027-) Calcium (test code = 71740-0) 10.0 mg/dL 8.7-10.2 Protein, Total (test code = 8.1 g/dL 6.0-8.5 2885-2) Albumin (test code = 1751-7) 4.8 g/dL 3.8-4.9 Globulin, Total (test code = 3.3 g/dL 1.5-4.5 77252-5) A/G Ratio (test code = 1.5 1.2-2.2 1759-0) Bilirubin, Total (test code = 0.5 mg/dL 0.0-1.2 1975-2) Alkaline Phosphatase (test 79 IU/L 39-117 code = 6768-6) AST (SGOT) (test code = 27 IU/L 0-40 1920-8) ALT (SGPT) (test code = 42 IU/L 0-44 1742-6) [facility] Description: Comp. Metabolic Panel (2020-02-08 06:31:00 Test Item Value Reference Range Interpretation Comments Glucose (test code = 2345-7) 96 mg/dL 65-99 BUN (test code = 3094-0) 15 mg/dL 6-24 Creatinine (test code = 0.97 mg/dL 0.76-1.27 2160-0) eGFR If NonAfricn Am (test 88 mL/min/1.73 >59 code = 23142-0) eGFR If Africn Am (test code 101 mL/min/1.73 >59 = 70522-8) BUN/Creatinine Ratio (test 15 -20 code = 3097-3) Sodium (test code = 2951-2) 136 mmol/L 134-144 Potassium (test code = 4.4 mmol/L 3.5-5.2 2823-3) Chloride (test code = 2075-0) 96 mmol/L 96-106 Carbon Dioxide, Total (test 25 mmol/L 20-29 code = 2027-9) Calcium (test code = 08047-4) 10.0 mg/dL 8.7-10.2 Protein, Total (test code = 8.1 g/dL 6.0-8.5 2885-2) Albumin (test code = 1751-7) 4.8 g/dL 3.8-4.9 Globulin, Total (test code = 3.3 g/dL 1.5-4.5 40052-7) A/G Ratio (test code = 1.5 1.2-2.2 1759-0) Bilirubin, Total (test code = 0.5 mg/dL 0.0-1.2 1974-03) Alkaline Phosphatase (test 79 IU/L 39-117 code = 6768-6) AST (SGOT) (test code = 27 IU/L 0-40 1920-8) ALT (SGPT) (test code = 42 IU/L 0-44 1742-6) [facility] Description: Comp. Metabolic Panel (2020-02-08 06:31:00 Test Item Value Reference Range Interpretation Comments Glucose (test code = 2345-7) 96 mg/dL 65-99 BUN (test code = 3094-0) 15 mg/dL 6-24 Creatinine (test code = 0.97 mg/dL 0.76-1.27 2160-0) eGFR If NonAfricn Am (test 88 mL/min/1.73 >59 code = 61027-1) eGFR If Africn Am (test code 101 mL/min/1.73 >59 = 28780-6) BUN/Creatinine Ratio (test 15 - code = 3097-3) Sodium (test code = 2951-2) 136 mmol/L 134-144 Potassium (test code = 4.4 mmol/L 3.5-5.2 2823-3) Chloride (test code = 2075-0) 96 mmol/L 96-106 Carbon Dioxide, Total (test 25 mmol/L 20-29 code = 8-9) Calcium (test code = 66102-0) 10.0 mg/dL 8.7-10.2 Protein, Total (test code = 8.1 g/dL 6.0-8.5 2885-2) Albumin (test code = 1751-7) 4.8 g/dL 3.8-4.9 Globulin, Total (test code = 3.3 g/dL 1.5-4.5 87853-6) A/G Ratio (test code = 1.5 1.2-2.2 1759-0) Bilirubin, Total (test code = 0.5 mg/dL 0.0-1.2 1974-03) Alkaline Phosphatase (test 79 IU/L 39-117 code = 6768-6) AST (SGOT) (test code = 27 IU/L 0-40 0-8) ALT (SGPT) (test code = 42 IU/L 0-44 1742-6) [facility] Description: Comp. Metabolic Panel (14)2020-02-08 06:31:00 Test Item Value Reference Range Interpretation Comments Glucose (test code = 2345-7) 96 mg/dL 65-99 BUN (test code = 3094-0) 15 mg/dL 6-24 Creatinine (test code = 0.97 mg/dL 0.76-1.27 2160-0) eGFR If NonAfricn Am (test 88 mL/min/1.73 >59 code = 34638-9) eGFR If Africn Am (test code 101 mL/min/1.73 >59 = 93346-4) BUN/Creatinine Ratio (test 15 - code = 3097-3) Sodium (test code = 2951-2) 136 mmol/L 134-144 Potassium (test code = 4.4 mmol/L 3.5-5.2 2823-3) Chloride (test code = 2075-0) 96 mmol/L 96-106 Carbon Dioxide, Total (test 25 mmol/L 20-29 code = 8-9) Calcium (test code = 17234-8) 10.0 mg/dL 8.7-10.2 Protein, Total (test code = 8.1 g/dL 6.0-8.5 2885-2) Albumin (test code = 1751-7) 4.8 g/dL 3.8-4.9 Globulin, Total (test code = 3.3 g/dL 1.5-4.5 02751-1) A/G Ratio (test code = 1.5 1.2-2.2 1759-0) Bilirubin, Total (test code = 0.5 mg/dL 0.0-1.2 1975-2) Alkaline Phosphatase (test 79 IU/L 39-117 code = 6768-6) AST (SGOT) (test code = 27 IU/L 0-40 1920-8) ALT (SGPT) (test code = 42 IU/L 0-44 1742-6) [facility] Description: Comp. Metabolic Panel (14)2020-02-08 06:31:00 Test Item Value Reference Range Interpretation Comments Glucose (test code = 2345-7) 96 mg/dL 65-99 BUN (test code = 3094-0) 15 mg/dL 6-24 Creatinine (test code = 0.97 mg/dL 0.76-1.27 2160-0) eGFR If NonAfricn Am (test 88 mL/min/1.73 >59 code = 58045-5) eGFR If Africn Am (test code 101 mL/min/1.73 >59 = 52406-7) BUN/Creatinine Ratio (test 15 9-20 code = 3097-3) Sodium (test code = 2951-2) 136 mmol/L 134-144 Potassium (test code = 4.4 mmol/L 3.5-5.2 2823-3) Chloride (test code = 2075-0) 96 mmol/L 96-106 Carbon Dioxide, Total (test 25 mmol/L 20-29 code = 8-9) Calcium (test code = 23000-3) 10.0 mg/dL 8.7-10.2 Protein, Total (test code = 8.1 g/dL 6.0-8.5 2885-2) Albumin (test code = 1751-7) 4.8 g/dL 3.8-4.9 Globulin, Total (test code = 3.3 g/dL 1.5-4.5 93177-7) A/G Ratio (test code = 1.5 1.2-2.2 1759-0) Bilirubin, Total (test code = 0.5 mg/dL 0.0-1.2 1975-2) Alkaline Phosphatase (test 79 IU/L 39-117 code = 6768-6) AST (SGOT) (test code = 27 IU/L 0-40 1920-8) ALT (SGPT) (test code = 42 IU/L 0-44 1742-6) [facility] Description: Comp. Metabolic Panel (14)2020-02-08 06:31:00 Test Item Value Reference Range Interpretation Comments Glucose (test code = 2345-7) 96 mg/dL 65-99 BUN (test code = 3094-0) 15 mg/dL 6-24 Creatinine (test code = 0.97 mg/dL 0.76-1.27 2160-0) eGFR If NonAfricn Am (test 88 mL/min/1.73 >59 code = 78845-9) eGFR If Africn Am (test code 101 mL/min/1.73 >59 = 98997-3) BUN/Creatinine Ratio (test 11-13 code = 3097-3) Sodium (test code = 2951-2) 136 mmol/L 134-144 Potassium (test code = 4.4 mmol/L 3.5-5.2 2823-3) Chloride (test code = 2075-0) 96 mmol/L 96-106 Carbon Dioxide, Total (test 25 mmol/L 20-29 code = 8-9) Calcium (test code = 31778-9) 10.0 mg/dL 8.7-10.2 Protein, Total (test code = 8.1 g/dL 6.0-8.5 2885-2) Albumin (test code = 1751-7) 4.8 g/dL 3.8-4.9 Globulin, Total (test code = 3.3 g/dL 1.5-4.5 02501-6) A/G Ratio (test code = 1.5 1.2-2.2 1759-0) Bilirubin, Total (test code = 0.5 mg/dL 0.0-1.2 1975-2) Alkaline Phosphatase (test 79 IU/L 39-117 code = 6768-6) AST (SGOT) (test code = 27 IU/L 0-40 1920-8) ALT (SGPT) (test code = 42 IU/L 0-44 1742-6) [facility] Description: Comp. Metabolic Panel (14)2020-02-08 06:31:00 Test Item Value Reference Range Interpretation Comments Glucose (test code = 2345-7) 96 mg/dL 65-99 BUN (test code = 3094-0) 15 mg/dL 6-24 Creatinine (test code = 0.97 mg/dL 0.76-1.27 2160-0) eGFR If NonAfricn Am (test 88 mL/min/1.73 >59 code = 36492-8) eGFR If Africn Am (test code 101 mL/min/1.73 >59 = 73895-0) BUN/Creatinine Ratio (test 11-13 code = 3097-3) Sodium (test code = 2951-2) 136 mmol/L 134-144 Potassium (test code = 4.4 mmol/L 3.5-5.2 2823-3) Chloride (test code = 2075-0) 96 mmol/L 96-106 Carbon Dioxide, Total (test 25 mmol/L - code = 2027-) Calcium (test code = 26825-9) 10.0 mg/dL 8.7-10.2 Protein, Total (test code = 8.1 g/dL 6.0-8.5 2885-2) Albumin (test code = 1751-7) 4.8 g/dL 3.8-4.9 Globulin, Total (test code = 3.3 g/dL 1.5-4.5 85093-2) A/G Ratio (test code = 1.5 1.2-2.2 1759-0) Bilirubin, Total (test code = 0.5 mg/dL 0.0-1.2 1975-2) Alkaline Phosphatase (test 79 IU/L 39-117 code = 6768-6) AST (SGOT) (test code = 27 IU/L 0-40 1920-8) ALT (SGPT) (test code = 42 IU/L 0-44 1742-6) [facility] Description: Comp. Metabolic Panel (14)2020-02-08 06:31:00 Test Item Value Reference Range Interpretation Comments Glucose (test code = 2345-7) 96 mg/dL 65-99 BUN (test code = 3094-0) 15 mg/dL 6-24 Creatinine (test code = 0.97 mg/dL 0.76-1.27 2160-0) eGFR If NonAfricn Am (test 88 mL/min/1.73 >59 code = 65066-2) eGFR If Africn Am (test code 101 mL/min/1.73 >59 = 50782-4) BUN/Creatinine Ratio (test 15 11-13 code = 3097-3) Sodium (test code = 2951-2) 136 mmol/L 134-144 Potassium (test code = 4.4 mmol/L 3.5-5.2 2823-3) Chloride (test code = 2075-0) 96 mmol/L 96-106 Carbon Dioxide, Total (test 25 mmol/L -29 code = 2027-) Calcium (test code = 00277-8) 10.0 mg/dL 8.7-10.2 Protein, Total (test code = 8.1 g/dL 6.0-8.5 2885-2) Albumin (test code = 1751-7) 4.8 g/dL 3.8-4.9 Globulin, Total (test code = 3.3 g/dL 1.5-4.5 60057-1) A/G Ratio (test code = 1.5 1.2-2.2 1759-0) Bilirubin, Total (test code = 0.5 mg/dL 0.0-1.2 1975-2) Alkaline Phosphatase (test 79 IU/L 39-117 code = 6768-6) AST (SGOT) (test code = 27 IU/L 0-40 1920-8) ALT (SGPT) (test code = 42 IU/L 0-44 1742-6) [facility] Description: Chlamydia/GC Rxvsvknwukzha6272-52-30 12:24:00 Test Item Value Reference Range Interpretation Comments Chlamydia trachomatis, MASSIMO (test Negative Negative code = 85309-3) Neisseria gonorrhoeae, MASSIMO (test Negative Negative code = 31565-1) [facility] Description: Chlamydia/GC Fnxewntfdcuwv9557-17-22 12:24:00 Test Item Value Reference Range Interpretation Comments Chlamydia trachomatis, MASSIMO (test Negative Negative code = 68429-6) Neisseria gonorrhoeae, MASSIMO (test Negative Negative code = 34110-5) [facility] Description: Chlamydia/GC Dioimyhbxnshc0629-21-79 12:24:00 Test Item Value Reference Range Interpretation Comments Chlamydia trachomatis, MASSIMO (test Negative Negative code = 35597-7) Neisseria gonorrhoeae, MASSIMO (test Negative Negative code = 70140-6) [facility] Description: Chlamydia/GC Qbifnqthkkbqn6384-01-00 12:24:00 Test Item Value Reference Range Interpretation Comments Chlamydia trachomatis, MASSIMO (test Negative Negative code = 28547-9) Neisseria gonorrhoeae, MASSIMO (test Negative Negative code = 01513-5) [facility] Description: Chlamydia/GC Behvaatkbmhbz5170-56-66 12:24:00 Test Item Value Reference Range Interpretation Comments Chlamydia trachomatis, MASSIMO (test Negative Negative code = 40418-3) Neisseria gonorrhoeae, MASSIMO (test Negative Negative code = 93071-0) [facility] Description: Chlamydia/GC Lipaokedttoou2416-60-83 12:24:00 Test Item Value Reference Range Interpretation Comments Chlamydia trachomatis, MASSIMO (test Negative Negative code = 13132-2) Neisseria gonorrhoeae, MASSIMO (test Negative Negative code = 60728-3) [facility] Description: Chlamydia/GC Stwidiwpbsfln9055-02-23 12:24:00 Test Item Value Reference Range Interpretation Comments Chlamydia trachomatis, MASSIMO (test Negative Negative code = 12688-1) Neisseria gonorrhoeae, MASSIMO (test Negative Negative code = 31079-2) [facility] Description: Chlamydia/GC Nwaincxdxzdtt3486-95-96 12:24:00 Test Item Value Reference Range Interpretation Comments Chlamydia trachomatis, MASSIMO (test Negative Negative code = 33244-9) Neisseria gonorrhoeae, MASSIMO (test Negative Negative code = 93183-0) [facility] Description: Chlamydia/GC Dyofsrswvadbr3265-71-55 12:24:00 Test Item Value Reference Range Interpretation Comments Chlamydia trachomatis, MASSIMO (test Negative Negative code = 02669-2) Neisseria gonorrhoeae, MASSIMO (test Negative Negative code = 01933-8) [facility] Description: Chlamydia/GC Rclotpagodklp2340-09-12 12:24:00 Test Item Value Reference Range Interpretation Comments Chlamydia trachomatis, MASSIMO (test Negative Negative code = 91364-2) Neisseria gonorrhoeae, MASSIMO (test Negative Negative code = 67670-8) [facility] Description: Chlamydia/GC Weoxdsvykqiyk3174-08-62 12:24:00 Test Item Value Reference Range Interpretation Comments Chlamydia trachomatis, MASSIMO (test Negative Negative code = 27920-1) Neisseria gonorrhoeae, MASSIMO (test Negative Negative code = 49754-1) [facility] Description: Chlamydia/GC Nfahvzqjahzly6912-80-32 12:24:00 Test Item Value Reference Range Interpretation Comments Chlamydia trachomatis, MASSIMO (test Negative Negative code = 65934-5) Neisseria gonorrhoeae, MASSIMO (test Negative Negative code = 40689-2) [facility] Description: HIV 1+2 Ab+HIV1 p24 Ag [Presence] in Serum or Plasma by Corrqtohjad4972-65-90 07:26:00 Test Item Value Reference Range Interpretation Comments HIV Screen 4th Generation wRfx Non Reactive Non Reactive (test code = 39538-4) [facility]: [facility]+2 Ab+HIV1 p24 Ag [Presence] in Serum or Plasma by Qcspzsbeaza4679-56-95 07:26:00 Test Item Value Reference Range Interpretation Comments HIV Screen 4th Generation wRfx Non Reactive Non Reactive (test code = 54242-6) [facility] Description: HIV 1+2 Ab+HIV1 p24 Ag [Presence] in Serum or Plasma by Bvvgikgfqno3141-18-37 07:26:00 Test Item Value Reference Range Interpretation Comments HIV Screen 4th Generation wRfx Non Reactive Non Reactive (test code = 20282-2) [facility] Description: HIV 1+2 Ab+HIV1 p24 Ag [Presence] in Serum or Plasma by Ieesmjufzon8786-67-19 07:26:00 Test Item Value Reference Range Interpretation Comments HIV Screen 4th Generation wRfx Non Reactive Non Reactive (test code = 01054-5) [facility] Description: HIV 1+2 Ab+HIV1 p24 Ag [Presence] in Serum or Plasma by Vyqxehubrcp9440-34-72 07:26:00 Test Item Value Reference Range Interpretation Comments HIV Screen 4th Generation wRfx Non Reactive Non Reactive (test code = 01518-6) [facility] Description: HIV 1+2 Ab+HIV1 p24 Ag [Presence] in Serum or Plasma by Euvumvmrgxd1692-45-39 07:26:00 Test Item Value Reference Range Interpretation Comments HIV Screen 4th Generation wRfx Non Reactive Non Reactive (test code = 73158-6) [facility] Description: HIV 1+2 Ab+HIV1 p24 Ag [Presence] in Serum or Plasma by Tfcwrthkwoc9792-38-78 07:26:00 Test Item Value Reference Range Interpretation Comments HIV Screen 4th Generation wRfx Non Reactive Non Reactive (test code = 40749-6) [facility] Description: HIV 1+2 Ab+HIV1 p24 Ag [Presence] in Serum or Plasma by Fbbyqdhkzsn4318-80-87 07:26:00 Test Item Value Reference Range Interpretation Comments HIV Screen 4th Generation wRfx Non Reactive Non Reactive (test code = 46093-0) [facility] Description: HIV 1+2 Ab+HIV1 p24 Ag [Presence] in Serum or Plasma by Auiwjczlrsi1177-30-77 07:26:00 Test Item Value Reference Range Interpretation Comments HIV Screen 4th Generation wRfx Non Reactive Non Reactive (test code = 89716-3) [facility] Description: HIV 1+2 Ab+HIV1 p24 Ag [Presence] in Serum or Plasma by Plrfdikxwsz2226-83-17 07:26:00 Test Item Value Reference Range Interpretation Comments HIV Screen 4th Generation wRfx Non Reactive Non Reactive (test code = 16616-5) [facility] Description: HIV 1+2 Ab+HIV1 p24 Ag [Presence] in Serum or Plasma by Tefjsueueyo8660-15-46 07:26:00 Test Item Value Reference Range Interpretation Comments HIV Screen 4th Generation wRfx Non Reactive Non Reactive (test code = 07683-0) [facility] Description: HIV 1+2 Ab+HIV1 p24 Ag [Presence] in Serum or Plasma by Auisoefhfsw8680-11-47 07:26:00 Test Item Value Reference Range Interpretation Comments HIV Screen 4th Generation wRfx Non Reactive Non Reactive (test code = 05701-4) [facility] Description: 25-hydroxyvitamin D3 [Mass/volume] in Serum or Niyolp6233-02-42 06:20:00 Test Item Value Reference Range Interpretation Comments Vitamin D, 13.0 ng/mL 30.0-100.0 L Vitamin D defic iency has 25-Hydroxy (test been define d by the code = 10043-1) [place] [employer] and an Endocrine [facility] guidel ine as alevel of serum 25-OH vitamin D less than 20 ng/mL (1,2).The Endocrine Society went on to further define vitamin Dinsufficiency as a level between 21 and 29 ng/mL (2).1. IOM (Ins titute of Medicine). 2010 . Dietary reference int akes for calcium and D. [place]: [employer] .2. Marguerite MF, Armand NC, Sarai cantu SALINAS, et al. Evaluatio n, treatment, and prevention of vitamin D deficiency: an Endocrine Society clinica l practice guideline. CLARA EM. 2010; 96(2):1911-30.< br/>
P erformed by:
[facility] ()

[facility] Description: 25-hydroxyvitamin D3 [Mass/volume] in Serum or Uldbcp8426-24-32 06:20:00 Test Item Value Reference Range Interpretation Comments Vitamin D, 13.0 ng/mL 30.0-100.0 L Vitamin D defic iency has 25-Hydroxy (test been define d by the code = 86017-6) [place] [employer] and an Endocrine So ciety practice guidel ine as alevel of serum 25-OH vitamin D less than 20 ng/mL (1,2).The Endocrine Society went on to further define vitamin Dinsufficiency as a level between 21 and 29 ng/mL (2).1. IOM (Ins titute of Medicine). 2010 . Dietary reference int akes for calcium and D. [facility]: The [employer] .2. Armand Chanel, Sarai SALINAS, et al. Evaluatio n, treatment, and prevention of vitamin D deficiency: an Endocrine Society clinica l practice guideline. EM. 2010; 96(7):191-.< br/>
P erformed by:
[facility] ([place])

[facility] Description: 25-hydroxyvitamin D3 [Mass/volume] in Serum or Goozyb7464-13-91 06:20:00 Test Item Value Reference Range Interpretation Comments Vitamin D, 13.0 ng/mL 30.0-100.0 L Vitamin D defic iency has 25-Hydroxy (test been define d by the code = 74891-5) [place] [employer] and an Endocrine [facility] guidel ine as alevel of serum 25-OH vitamin D less than 20 ng/mL (1,2).The Endocrine Society went on to further define vitamin Dinsufficiency as a level between 21 and 29 ng/mL (2).1. IOM (Ins titute of Medicine). 2010 . Dietary reference int akes for calcium and D. [facility]: [employer] .2. Armand Chanel, Sarai SALINAS, et al. Evaluatio n, treatment, and prevention of vitamin D deficiency: an Endocrine Society clinica l practice guideline. EM. 2010; 96(7):191-.< br/>
P erformed by:
[facility] ([place])

[facility] Description: 25-hydroxyvitamin D3 [Mass/volume] in Serum or Nuqvli2529-39-87 06:20:00 Test Item Value Reference Range Interpretation Comments Vitamin D, 13.0 ng/mL 30.0-100.0 L Vitamin D defic iency has 25-Hydroxy (test been define d by the code = 12634-0) [place] [employer] and an Endocrine [facility] guidel ine as alevel of serum 25-OH vitamin D less than 20 ng/mL (1,2).The Endocrine Society went on to further define vitamin Dinsufficiency as a level between 21 and 29 ng/mL (2).1. IOM (Ins titute of Medicine). 2010 . Dietary reference int akes for calcium and D. [place]: [employer] .2. Armand Chanel, Sarai SALINAS, et al. Evaluatio n, treatment, and prevention of vitamin D deficiency: an Endocrine Society clinica l practice guideline. EM. 2010; 96(7):1911-30.< br/>
P [facility]formed by:
[facility] ()

[facility] Description: 25-hydroxyvitamin D3 [Mass/volume] in Serum or Vgbrky7439-46-33 06:20:00 Test Item Value Reference Range Interpretation Comments Vitamin D, 13.0 ng/mL 30.0-100.0 L Vitamin D defic iency has 25-Hydroxy (test been define d by the code = 53425-9) [place] [employer] and [employer] Endocrine [facility] guidel ine as alevel of serum 25-OH vitamin D less than 20 ng/mL (1,2).The Endocrine Society went on to further define vitamin Dinsufficiency as a level between 21 and 29 ng/mL (2).1. IOM (Ins titute of Medicine). 2010 . Dietary reference int akes for calcium and D. [place]: The [employer] .2. Armand Chanel, Sarai SALINAS, et al. Evaluatio n, treatment, and prevention of vitamin D deficiency: an Endocrine Society clinica l practice guideline. EM. 2010; 96(7):1911-30.< br/>
P erformed by:
[facility] ([place])

[facility] Description: 25-hydroxyvitamin D3 [Mass/volume] in Serum or Vbxcmv8820-33-16 06:20:00 Test Item Value Reference Range Interpretation Comments Vitamin D, 13.0 ng/mL 30.0-100.0 L Vitamin D defic iency has 25-Hydroxy (test been define d by the code = 97398-0) [place] [employer] and an Endocrine So [facility] practice guidel ine as alevel of serum 25-OH vitamin D less than 20 ng/mL (1,2).The Endocrine Society went on to further define vitamin Dinsufficiency as a level between 21 and 29 ng/mL (2).1. IOM (Ins titute of Medicine). 2010 . Dietary reference int akes for calcium and D. [place]: [employer] .2. Armand Chanel, Sarai SALINAS, et al. Evaluatio n, treatment, and prevention of vitamin D deficiency: an Endocrine Society clinica l practice guideline. EM. 2010; 96(7):1911-30.< br/>
P erformed by:
[facility] ([place])

[facility] Description: 25-hydroxyvitamin D3 [Mass/volume] in Serum or Zcwgzs2388-99-77 06:20:00 Test Item Value Reference Range Interpretation Comments Vitamin D, 13.0 ng/mL 30.0-100.0 L Vitamin D defic iency has 25-Hydroxy (test been define d by the code = 91961-2) [place] [employer] and an Endocrine [facility] guidel ine as alevel of serum 25-OH vitamin D less than 20 ng/mL (1,2).The Endocrine Society went on to further define vitamin Dinsufficiency as a level between 21 and 29 ng/mL (2).1. IOM (Ins titute of Medicine). 2010 . Dietary reference int akes for calcium and D. [place]: [employer] .2. Armand Chanel, Sarai SALINAS, et al. Evaluatio n, treatment, and prevention of vitamin D deficiency: an Endocrine Society clinica l practice guideline. EM. 2010; 96(7):1911-30.< br/>
P erformed by:
[facility] ([place])

[facility]: 25-hydroxyvitamin D3 [Mass/volume] in Serum or Zgyisl3551-91-05 06:20:00 Test Item Value Reference Range Interpretation Comments Vitamin D, 13.0 ng/mL 30.0-100.0 L Vitamin D defic iency has 25-Hydroxy (test been define d by the code = 80392-9) [place] [employer] and an Endocrine [facility] guidel ine as alevel of serum 25-OH vitamin D less than 20 ng/mL (1,2).The Endocrine Society went on to further define vitamin Dinsufficiency as a level between 21 and 29 ng/mL (2).1. IOM (Ins titute of Medicine). 2010 . Dietary reference int akes for calcium and D. [place]: [employer] .2. Marguerite MF, Armand BOB, Sarai cantu SALINAS, et al. Evaluatio n, treatment, and prevention of vitamin D deficiency: an Endocrine Society clinica l practice guideline. EM. 2010; 96(7):1911-30.< br/>
P erformed by:
[facility] ([place])

[facility]: 25-hydroxyvitamin D3 [Mass/volume] in Serum or Tgolwk2942-49-80 06:20:00 Test Item Value Reference Range Interpretation Comments Vitamin D, 13.0 ng/mL 30.0-100.0 L Vitamin D defic iency has 25-Hydroxy (test been define d by the code = 69401-0) [place] [employer] and an Endocrine [facility] guidel ine as alevel of serum 25-OH vitamin D less than 20 ng/mL (1,2).The Endocrine Society went on to further define vitamin Dinsufficiency as a level between 21 and 29 ng/mL (2).1. IOM (Ins titute of Medicine). 2010 . Dietary reference int akes for calcium and D. [place]: [employer] .2. Marguerite ROBERTO, Armand BOB, Sarai SALINAS, et al. Evaluatio n, treatment, and prevention of vitamin D deficiency: an Endocrine Society clinica l practice guideline. EM. 2010; 96(7):1911-30.< br/>
P erformed by:
[facility] ([place])

[facility] Description: 25-hydroxyvitamin D3 [Mass/volume] in Serum or Edamlh3098-46-17 06:20:00 Test Item Value Reference Range Interpretation Comments Vitamin D, 13.0 ng/mL 30.0-100.0 L Vitamin D defic iency has 25-Hydroxy (test been define d by the code = 10256-8) [place] [employer] and [employer] Endocrine [facility] guidel ine as alevel of serum 25-OH vitamin D less than 20 ng/mL (1,2).The Endocrine Society went on to further define vitamin Dinsufficiency as a level between 21 and 29 ng/mL (2).1. IOM (Ins titute of Medicine). 2010 . Dietary reference int akes for calcium and D. [facility]: The [employer] .2. Marguerite ROBERTO, Armand BOB, Sarai SALINAS, et al. Evaluatio n, treatment, and prevention of vitamin D deficiency: an Endocrine Society clinica l practice guideline. EM. 2010; 96(7):1911-30.< br/>
P erformed by:
[facility] ([place])

[facility] Description: 25-hydroxyvitamin D3 [Mass/volume] in Serum or Nuavpk4503-46-38 06:20:00 Test Item Value Reference Range Interpretation Comments Vitamin D, 13.0 ng/mL 30.0-100.0 L Vitamin D defic iency has 25-Hydroxy (test been define d by the code = 73259-3) [place] [employer] and an Endocrine [facility] guidel ine as alevel of serum 25-OH vitamin D less than 20 ng/mL (1,2).The Endocrine Society went on to further define vitamin Dinsufficiency as a level between 21 and 29 ng/mL (2).1. IOM (Ins titute of Medicine). 2010 . Dietary reference int akes for calcium and D. [facility]: [employer] .2. Armand Chanel, Sarai SALINAS, et al. Evaluatio n, treatment, and prevention of vitamin D deficiency: an Endocrine Society clinica l practice guideline. EM. 2010; 96(7):1911-30.< br/>
P erformed by:
[facility] ([place])

[facility] Description: 25-hydroxyvitamin D3 [Mass/volume] in Serum or Sbgnhi8294-94-57 06:20:00 Test Item Value Reference Range Interpretation Comments Vitamin D, 13.0 ng/mL 30.0-100.0 L Vitamin D defic iency has 25-Hydroxy (test been define d by the code = 23628-7) [place] [employer] and an Endocrine [facility] guidel ine as alevel of serum 25-OH vitamin D less than 20 ng/mL (1,2).The Endocrine Society went on to further define vitamin Dinsufficiency as a level between 21 and 29 ng/mL (2).1. IOM (Ins titute of Medicine). 2010 . Dietary reference int akes for calcium and D. [facility]: [employer] .2. Armand Chanel, Sarai SALINAS, et al. Evaluatio n, treatment, and prevention of vitamin D deficiency: an Endocrine Society clinica l practice guideline. EM. 2010; 96(7):1911-30.< br/>
P erformed by:
[facility] ()

[facility] Description: RPR, Rfx Qn RPR/Confirm [id number] 05:52:00 Test Item Value Reference Range Interpretation Comments RPR (test code = 29473-8) Non Reactive Non Reactive [facility] Description: RPR, Rfx Qn RPR/Confirm [id number] 05:52:00 Test Item Value Reference Range Interpretation Comments RPR (test code = 64709-8) Non Reactive Non Reactive [facility] Description: RPR, Rfx Qn RPR/Confirm [id number] 05:52:00 Test Item Value Reference Range Interpretation Comments RPR (test code = 26191-5) Non Reactive Non Reactive [facility] Description: RPR, Rfx Qn RPR/Confirm [id number] 05:52:00 Test Item Value Reference Range Interpretation Comments RPR (test code = 77478-2) Non Reactive Non Reactive [facility] Description: RPR, Rfx Qn RPR/Confirm [id number] 05:52:00 Test Item Value Reference Range Interpretation Comments RPR (test code = 62426-6) Non Reactive Non Reactive [facility] Description: RPR, Rfx Qn RPR/Confirm [id number] 05:52:00 Test Item Value Reference Range Interpretation Comments RPR (test code = 33624-6) Non Reactive Non Reactive [facility] Description: RPR, Rfx Qn RPR/Confirm [id number] 05:52:00 Test Item Value Reference Range Interpretation Comments RPR (test code = 62684-1) Non Reactive Non Reactive [facility] Description: RPR, Rfx Qn RPR/Confirm [id number] 05:52:00 Test Item Value Reference Range Interpretation Comments RPR (test code = 28543-4) Non Reactive Non Reactive [facility] Description: RPR, Rfx Qn RPR/Confirm [id number] 05:52:00 Test Item Value Reference Range Interpretation Comments RPR (test code = 83693-6) Non Reactive Non Reactive [facility] Description: RPR, Rfx Qn RPR/Confirm [id number] 05:52:00 Test Item Value Reference Range Interpretation Comments RPR (test code = 82710-2) Non Reactive Non Reactive [facility] Description: RPR, Rfx Qn RPR/Confirm [id number] 05:52:00 Test Item Value Reference Range Interpretation Comments RPR (test code = 91850-0) Non Reactive Non Reactive [facility] Description: RPR, Rfx Qn RPR/Confirm [id number] 05:52:00 Test Item Value Reference Range Interpretation Comments RPR (test code = 62190-2) Non Reactive Non Reactive [facility] Description: Hepatitis C virus Ab Signal/Cutoff in Serum or Plasma by Ugtmakgwhxi0714-43-28 05:50:00 Test Item Value Reference Range Interpretation Comments Hep C Virus Ab (test code = 67871-2) <0.1 0.0-0.9 [facility] Description: Hepatitis C virus Ab Signal/Cutoff in Serum or Plasma by Czmpbvfpwyr1920-05-90 05:50:00 Test Item Value Reference Range Interpretation Comments Hep C Virus Ab (test code = 78027-0) <0.1 0.0-0.9 [facility] Description: Hepatitis C virus Ab Signal/Cutoff in Serum or Plasma by Pengrqoddnz9144-22-20 05:50:00 Test Item Value Reference Range Interpretation Comments Hep C Virus Ab (test code = 58098-4) <0.1 0.0-0.9 [facility] Description: Hepatitis C virus Ab Signal/Cutoff in Serum or Plasma by Ikyxvggayru8294-59-93 05:50:00 Test Item Value Reference Range Interpretation Comments Hep C Virus Ab (test code = 61426-4) <0.1 0.0-0.9 [facility] Description: Hepatitis C virus Ab Signal/Cutoff in Serum or Plasma by Oiwegpuxncd4940-09-81 05:50:00 Test Item Value Reference Range Interpretation Comments Hep C Virus Ab (test code = 41171-9) <0.1 0.0-0.9 [facility] Description: Hepatitis C virus Ab Signal/Cutoff in Serum or Plasma by Nrxzksieafw1665-32-52 05:50:00 Test Item Value Reference Range Interpretation Comments Hep C Virus Ab (test code = 92496-1) <0.1 0.0-0.9 [facility] Description: Hepatitis C virus Ab Signal/Cutoff in Serum or Plasma by Jiyranqzvbh3793-46-61 05:50:00 Test Item Value Reference Range Interpretation Comments Hep C Virus Ab (test code = 34918-1) <0.1 0.0-0.9 [facility] Description: Hepatitis C virus Ab Signal/Cutoff in Serum or Plasma by Qtoogejypwj1524-63-89 05:50:00 Test Item Value Reference Range Interpretation Comments Hep C Virus Ab (test code = 50174-4) <0.1 0.0-0.9 [facility] Description: Hepatitis C virus Ab Signal/Cutoff in Serum or Plasma by Bqnvshsbeia2741-04-19 05:50:00 Test Item Value Reference Range Interpretation Comments Hep C Virus Ab (test code = 90240-8) <0.1 0.0-0.9 [facility] Description: Hepatitis C virus Ab Signal/Cutoff in Serum or Plasma by Hgcobuocvwk4288-00-36 05:50:00 Test Item Value Reference Range Interpretation Comments Hep C Virus Ab (test code = 44246-6) <0.1 0.0-0.9 [facility] Description: Hepatitis C virus Ab Signal/Cutoff in Serum or Plasma by Jdwaczqujvb8505-54-63 05:50:00 Test Item Value Reference Range Interpretation Comments Hep C Virus Ab (test code = 45267-6) <0.1 0.0-0.9 [facility] Description: Hepatitis C virus Ab Signal/Cutoff in Serum or Plasma by Gfhpbflmepq4597-87-79 05:50:00 Test Item Value Reference Range Interpretation Comments Hep C Virus Ab (test code = 11301-2) <0.1 0.0-0.9 [facility] Description: Thyrotropin [Units/volume] in Serum or Plasma by Detection limit <= 0.05 mIU/[id number] 03:47:00 Test Item Value Reference Range Interpretation Comments TSH (test code = 62716-6) 2.020 uIU/mL 0.450-4.500 [facility] Description: Thyrotropin [Units/volume] in Serum or Plasma by Detection limit <= 0.05 mIU/[id number] 03:47:00 Test Item Value Reference Range Interpretation Comments TSH (test code = 06759-6) 2.020 uIU/mL 0.450-4.500 [facility] Description: Thyrotropin [Units/volume] in Serum or Plasma by Detection limit <= 0.05 mIU/[id number] 03:47:00 Test Item Value Reference Range Interpretation Comments TSH (test code = 74749-1) 2.020 uIU/mL 0.450-4.500 [facility] Description: Thyrotropin [Units/volume] in Serum or Plasma by Detection limit <= 0.05 mIU/[id number] 03:47:00 Test Item Value Reference Range Interpretation Comments TSH (test code = 39589-7) 2.020 uIU/mL 0.450-4.500 [facility]: Thyrotropin [Units/volume] in Serum or Plasma by Detection limit <= 0.05 mIU/[id number] 03:47:00 Test Item Value Reference Range Interpretation Comments TSH (test code = 13083-1) 2.020 uIU/mL 0.450-4.500 [facility] Thyrotropin [Units/volume] in Serum or Plasma by Detection limit <= 0.05 mIU/[id number] 03:47:00 Test Item Value Reference Range Interpretation Comments TSH (test code = 84665-8) 2.020 uIU/mL 0.450-4.500 [facility]: Thyrotropin [Units/volume] in Serum or Plasma by Detection limit <= 0.05 mIU/[id number] 03:47:00 Test Item Value Reference Range Interpretation Comments TSH (test code = 30530-5) 2.020 uIU/mL 0.450-4.500 [facility]: Thyrotropin [Units/volume] in Serum or Plasma by Detection limit <= 0.05 mIU/[id number] 03:47:00 Test Item Value Reference Range Interpretation Comments TSH (test code = 89013-1) 2.020 uIU/mL 0.450-4.500 [facility]: Thyrotropin [Units/volume] in Serum or Plasma by Detection limit <= 0.05 mIU/[id number] 03:47:00 Test Item Value Reference Range Interpretation Comments TSH (test code = 45806-6) 2.020 uIU/mL 0.450-4.500 [facility]: Thyrotropin [Units/volume] in Serum or Plasma by Detection limit <= 0.05 mIU/[id number] 03:47:00 Test Item Value Reference Range Interpretation Comments TSH (test code = 47736-4) 2.020 uIU/mL 0.450-4.500 [facility]: Thyrotropin [Units/volume] in Serum or Plasma by Detection limit <= 0.05 mIU/[id number] 03:47:00 Test Item Value Reference Range Interpretation Comments TSH (test code = 28775-1) 2.020 uIU/mL 0.450-4.500 [facility] Description: Thyrotropin [Units/volume] in Serum or Plasma by Detection limit <= 0.05 mIU/[id number] 03:47:00 Test Item Value Reference Range Interpretation Comments TSH (test code = 44363-4) 2.020 uIU/mL 0.450-4.500 [facility] Description: Hemoglobin A1c/Hemoglobin.total in Blood 2019-10-26 02:46:00 Test Item Value Reference Range Interpretation Comments Hemoglobin A1c (test code 6.3 % 4.8-5.6 H = 4548-4) . Prediabetes: 5. 7 - 6.4 Diabetes : >6.4 Glycemic control for adults with diabetes: <7.0

P erformed by:
[facility] ()

[facility] Description: Hemoglobin A1c/Hemoglobin.total in Blood 2019-10-26 02:46:00 Test Item Value Reference Range Interpretation Comments Hemoglobin A1c (test code 6.3 % 4.8-5.6 H = 4548-4) . Prediabetes: 5. 7 - 6.4 Diabetes : >6.4 Glycemic control for adults with diabetes: <7.0

P erformed by:
[facility] ()

[facility] Description: Hemoglobin A1c/Hemoglobin.total in Blood 2019-10-26 02:46:00 Test Item Value Reference Range Interpretation Comments Hemoglobin A1c (test code 6.3 % 4.8-5.6 H = 4548-4) . Prediabetes: 5. 7 - 6.4 Diabetes : >6.4 Glycemic control for adults with diabetes: <7.0

P erformed by:
[facility] ()

[facility] Description: Hemoglobin A1c/Hemoglobin.total in Blood 2019-10-26 02:46:00 [...] with diabetes: <7.0

P erformed by:
[facility] ([place])

[facility] Description: Hemoglobin A1c/Hemoglobin.total in [...] <7.0

P erformed by:
[facility] ([place])

[facility] Description: Comp. Metabolic Panel (14)2019-10-26 02:18:00 Test Item Value Reference Range Interpretation Comments Glucose (test code = 2345-7) 96 mg/dL 65-99 BUN (test code = 3094-0) 14 mg/dL 6-24 Creatinine (test code = 1.00 mg/dL 0.76-1.27 2160-0) eGFR If NonAfricn Am (test 84 mL/min/1.73 >59 code = 55830-6) eGFR If Africn Am (test code = 98 mL/min/1.73 >59 60797-2) BUN/Creatinine Ratio (test 14 9-20 code = 3097-3) Sodium (test code = 2951-2) 137 mmol/L 134-144 Potassium (test code = 2823-3) 4.3 mmol/L 3.5-5.2 Chloride (test code = 2075-0) 97 mmol/L 96-106 Carbon Dioxide, Total (test 23 mmol/L 20-29 code = 8-9) Calcium (test code = 90952-7) 9.5 mg/dL 8.7-10.2 Protein, Total (test code = 7.5 g/dL 6.0-8.5 2885-2) Albumin (test code = 1751-7) 4.2 g/dL 3.8-4.9 Globulin, Total (test code = 3.3 g/dL 1.5-4.5 16752-7) A/G Ratio (test code = 1759-0) 1.3 1.2-2.2 Bilirubin, Total (test code = 0.3 mg/dL 0.0-1.2 1975-2) Alkaline Phosphatase (test 68 IU/L 39-117 code = 6768-6) AST (SGOT) (test code = 26 IU/L 0-40 1920-8) ALT (SGPT) (test code = 36 IU/L 0-44 2-6) [facility] Description: Lipid [id number] 02:18:00 Test Item Value Reference Range Interpretation Comments Cholesterol, Total (test 228 mg/dL 100-199 H code = 3-3) Triglycerides (test code 483 mg/dL 0-149 H = 2571-8) HDL Cholesterol (test 34 mg/dL >39 L code = 2085-9) VLDL Cholesterol Andrea 84 mg/dL 5-40 H (test code = 74506-2) LDL Chol Calc (NIH) (test 110 mg/dL 0-99 H code = 30438-4) Comment: (test code = [place] [address]-5) performed
< br/> Performed by:
[facility] ([place])

[facility] Description: Comp. Metabolic Panel (14)2019-10-26 02:18:00 Test Item Value Reference Range Interpretation Comments Glucose (test code = 2345-7) 96 mg/dL 65-99 BUN (test code = 3094-0) 14 mg/dL 6-24 Creatinine (test code = 1.00 mg/dL 0.76-1.27 2160-0) eGFR If NonAfricn Am (test 84 mL/min/1.73 >59 code = 51414-9) eGFR If Africn Am (test code = 98 mL/min/1.73 >59 66420-0) BUN/Creatinine Ratio (test 14 9-20 code = 3097-3) Sodium (test code = 2951-2) 137 mmol/L 134-144 Potassium (test code = 2823-3) 4.3 mmol/L 3.5-5.2 Chloride (test code = 2075-0) 97 mmol/L 96-106 Carbon Dioxide, Total (test 23 mmol/L 20-29 code = 8-9) Calcium (test code = 61599-2) 9.5 mg/dL 8.7-10.2 Protein, Total (test code = 7.5 g/dL 6.0-8.5 2885-2) Albumin (test code = 1751-7) 4.2 g/dL 3.8-4.9 Globulin, Total (test code = 3.3 g/dL 1.5-4.5 49139-1) A/G Ratio (test code = 1759-0) 1.3 1.2-2.2 Bilirubin, Total (test code = 0.3 mg/dL 0.0-1.2 1975-2) Alkaline Phosphatase (test 68 IU/L 39-117 code = 6768-6) AST (SGOT) (test code = 26 IU/L 0-40 1920-8) ALT (SGPT) (test code = 36 IU/L 0-44 1742-6) [facility] Description: Lipid [id number] 02:18:00 Test Item Value Reference Range Interpretation Comments Cholesterol, Total (test 228 mg/dL 100-199 H code = 2093-3) Triglycerides (test code 483 mg/dL 0-149 H = 2571-8) HDL Cholesterol (test 34 mg/dL >39 L code = 2085-9) VLDL Cholesterol Andrea 84 mg/dL 5-40 H (test code = 12171-7) LDL Chol Calc (NIH) (test 110 mg/dL 0-99 H code = 97361-1) Comment: (test code = [place] [address]-6) performed
< br/> Performed by:
[facility] ([place])

[facility] Description: Comp. Metabolic Panel (14)2019-10-26 02:18:00 Test Item Value Reference Range Interpretation Comments Glucose (test code = 2345-7) 96 mg/dL 65-99 BUN (test code = 3094-0) 14 mg/dL 6-24 Creatinine (test code = 1.00 mg/dL 0.76-1.27 2160-0) eGFR If NonAfricn Am (test 84 mL/min/1.73 >59 code = 79507-7) eGFR If Africn Am (test code = 98 mL/min/1.73 >59 10948-6) BUN/Creatinine Ratio (test 14 - code = 3097-3) Sodium (test code = 2951-2) 137 mmol/L 134-144 Potassium (test code = 2823-3) 4.3 mmol/L 3.5-5.2 Chloride (test code = 2075-0) 97 mmol/L 96-106 Carbon Dioxide, Total (test 23 mmol/L 20-29 code = 8-9) Calcium (test code = 03573-2) 9.5 mg/dL 8.7-10.2 Protein, Total (test code = 7.5 g/dL 6.0-8.5 2885-2) Albumin (test code = 1751-7) 4.2 g/dL 3.8-4.9 Globulin, Total (test code = 3.3 g/dL 1.5-4.5 39500-2) A/G Ratio (test code = 1759-0) 1.3 1.2-2.2 Bilirubin, Total (test code = 0.3 mg/dL 0.0-1.2 1975-2) Alkaline Phosphatase (test 68 IU/L 39-117 code = 6768-6) AST (SGOT) (test code = 26 IU/L 0-40 1920-8) ALT (SGPT) (test code = 36 IU/L 0-44 1742-6) [facility] Description: Lipid [id number] 02:18:00 Test Item Value Reference Range Interpretation Comments Cholesterol, Total (test 228 mg/dL 100-199 H code = 2093-3) Triglycerides (test code 483 mg/dL 0-149 H = 2571-8) HDL Cholesterol (test 34 mg/dL >39 L code = 2085-9) VLDL Cholesterol Andrea 84 mg/dL 5-40 H (test code = 74537-6) LDL Chol Calc (NIH) (test 110 mg/dL 0-99 H code = 20731-5) Comment: (test code = [place] [address]-4) performed
< br/> Performed by:
[facility] ()

[facility] Description: Comp. Metabolic Panel (14)2019-10-26 02:18:00 Test Item Value Reference Range Interpretation Comments Glucose (test code = 2345-7) 96 mg/dL 65-99 BUN (test code = 3094-0) 14 mg/dL 6-24 Creatinine (test code = 1.00 mg/dL 0.76-1.27 2160-0) eGFR If NonAfricn Am (test 84 mL/min/1.73 >59 code = 84341-3) eGFR If Africn Am (test code = 98 mL/min/1.73 >59 62097-3) BUN/Creatinine Ratio (test 14 9-20 code = 3097-3) Sodium (test code = 2951-2) 137 mmol/L 134-144 Potassium (test code = 2823-3) 4.3 mmol/L 3.5-5.2 Chloride (test code = 2075-0) 97 mmol/L 96-106 Carbon Dioxide, Total (test 23 mmol/L 20-29 code = 8-9) Calcium (test code = 50077-0) 9.5 mg/dL 8.7-10.2 Protein, Total (test code = 7.5 g/dL 6.0-8.5 2885-2) Albumin (test code = 1751-7) 4.2 g/dL 3.8-4.9 Globulin, Total (test code = 3.3 g/dL 1.5-4.5 67804-3) A/G Ratio (test code = 1759-0) 1.3 1.2-2.2 Bilirubin, Total (test code = 0.3 mg/dL 0.0-1.2 1975-2) Alkaline Phosphatase (test 68 IU/L 39-117 code = 6768-6) AST (SGOT) (test code = 26 IU/L 0-40 1920-8) ALT (SGPT) (test code = 36 IU/L 0-44 1742-6) [facility] Description: Lipid [id number] 02:18:00 Test Item Value Reference Range Interpretation Comments Cholesterol, Total (test 228 mg/dL 100-199 H code = 3-3) Triglycerides (test code 483 mg/dL 0-149 H = 2571-8) HDL Cholesterol (test 34 mg/dL >39 L code = 5-9) VLDL Cholesterol Andrea 84 mg/dL 5-40 H (test code = 49153-2) LDL Chol Calc (NIH) (test 110 mg/dL 0-99 H code = 15018-1) Comment: (test code = [place] [address]-5) performed
< br/> Performed by:
[facility] ()

[facility] (14)2019-10-26 02:18:00 Test Item Value Reference Range Interpretation Comments Glucose (test code = 2345-7) 96 mg/dL 65-99 BUN (test code = 3094-0) 14 mg/dL 6-24 Creatinine (test code = 1.00 mg/dL 0.76-1.27 2160-0) eGFR If NonAfricn Am (test 84 mL/min/1.73 >59 code = 94765-8) eGFR If Africn Am (test code = 98 mL/min/1.73 >59 95316-5) BUN/Creatinine Ratio (test 14 9-20 code = 3097-3) Sodium (test code = 2951-2) 137 mmol/L 134-144 Potassium (test code = 2823-3) 4.3 mmol/L 3.5-5.2 Chloride (test code = 2075-0) 97 mmol/L 96-106 Carbon Dioxide, Total (test 23 mmol/L 20-29 code = 8-9) Calcium (test code = 63490-5) 9.5 mg/dL 8.7-10.2 Protein, Total (test code = 7.5 g/dL 6.0-8.5 2885-2) Albumin (test code = 1751-7) 4.2 g/dL 3.8-4.9 Globulin, Total (test code = 3.3 g/dL 1.5-4.5 07415-7) A/G Ratio (test code = 1759-0) 1.3 1.2-2.2 Bilirubin, Total (test code = 0.3 mg/dL 0.0-1.2 1975-2) Alkaline Phosphatase (test 68 IU/L 39-117 code = 6768-6) AST (SGOT) (test code = 26 IU/L 0-40 1920-8) ALT (SGPT) (test code = 36 IU/L 0-44 1742-6) [facility] Description: Lipid [id number] 02:18:00 Test Item Value Reference Range Interpretation Comments Cholesterol, Total (test 228 mg/dL 100-199 H code = 3-3) Triglycerides (test code 483 mg/dL 0-149 H = 2571-8) HDL Cholesterol (test 34 mg/dL >39 L code = 5-9) VLDL Cholesterol Andrea 84 mg/dL 5-40 H (test code = 87574-2) LDL Chol Calc (NIH) (test 110 mg/dL 0-99 H code = 84616-8) Comment: (test code = [place] [address]-1) performed
< br/> Performed by:
[facility] ([place])

[facility]: Comp[facility] Metabolic Panel (14)2019-10-26 02:18:00 Test Item Value Reference Range Interpretation Comments Glucose (test code = 2345-7) 96 mg/dL 65-99 BUN (test code = 3094-0) 14 mg/dL 6-24 Creatinine (test code = 1.00 mg/dL 0.76-1.27 2160-0) eGFR If NonAfricn Am (test 84 mL/min/1.73 >59 code = 16467-7) eGFR If Africn Am (test code = 98 mL/min/1.73 >59 45484-9) BUN/Creatinine Ratio (test 14 - code = 3097-3) Sodium (test code = 2951-2) 137 mmol/L 134-144 Potassium (test code = 2823-3) 4.3 mmol/L 3.5-5.2 Chloride (test code = 2075-0) 97 mmol/L 96-106 Carbon Dioxide, Total (test 23 mmol/L 20-29 code = 2028-9) Calcium (test code = 91468-1) 9.5 mg/dL 8.7-10.2 Protein, Total (test code = 7.5 g/dL 6.0-8.5 2885-2) Albumin (test code = 1751-7) 4.2 g/dL 3.8-4.9 Globulin, Total (test code = 3.3 g/dL 1.5-4.5 47220-4) A/G Ratio (test code = 1759-0) 1.3 1.2-2.2 Bilirubin, Total (test code = 0.3 mg/dL 0.0-1.2 1975-2) Alkaline Phosphatase (test 68 IU/L 39-117 code = 6768-6) AST (SGOT) (test code = 26 IU/L 0-40 1920-8) ALT (SGPT) (test code = 36 IU/L 0-44 1742-6) [facility] Description: Lipid [id number] 02:18:00 Test Item Value Reference Range Interpretation Comments Cholesterol, Total (test 228 mg/dL 100-199 H code = 3-3) Triglycerides (test code 483 mg/dL 0-149 H = 2571-8) HDL Cholesterol (test 34 mg/dL >39 L code = 5-9) VLDL Cholesterol Andrea 84 mg/dL 5-40 H (test code = 84992-4) LDL Chol Calc (NIH) (test 110 mg/dL 0-99 H code = 56143-0) Comment: (test code = [place] [address]-2) performed
< br/> Performed by:
[facility] ([place])

[facility]: [facility] Met[facility] Panel (14)2019-10-26 02:18:00 Test Item Value Reference Range Interpretation Comments Glucose (test code = 2345-7) 96 mg/dL 65-99 BUN (test code = 3094-0) 14 mg/dL 6-24 Creatinine (test code = 1.00 mg/dL 0.76-1.27 2160-0) eGFR If NonAfricn Am (test 84 mL/min/1.73 >59 code = 64944-5) eGFR If Africn Am (test code = 98 mL/min/1.73 >59 92976-4) BUN/Creatinine Ratio (test 14 9-20 code = 3097-3) Sodium (test code = 2951-2) 137 mmol/L 134-144 Potassium (test code = 2823-3) 4.3 mmol/L 3.5-5.2 Chloride (test code = 5-0) 97 mmol/L 96-106 Carbon Dioxide, Total (test 23 mmol/L 20-29 code = 2027-9) Calcium (test code = 05459-5) 9.5 mg/dL 8.7-10.2 Protein, Total (test code = 7.5 g/dL 6.0-8.5 2885-2) Albumin (test code = 1751-7) 4.2 g/dL 3.8-4.9 Globulin, Total (test code = 3.3 g/dL 1.5-4.5 95774-0) A/G Ratio (test code = 1759-0) 1.3 1.2-2.2 Bilirubin, Total (test code = 0.3 mg/dL 0.0-1.2 1974-2) Alkaline Phosphatase (test 68 IU/L 39-117 code = 6768-6) AST (SGOT) (test code = 26 IU/L 0-40 1920-8) ALT (SGPT) (test code = 36 IU/L 0-44 1742-6) [facility] Description: Lipid [id number] 02:18:00 Test Item Value Reference Range Interpretation Comments Cholesterol, Total (test 228 mg/dL 100-199 H code = 2093-3) Triglycerides (test code 483 mg/dL 0-149 H = 2571-8) HDL Cholesterol (test 34 mg/dL >39 L code = 5-9) VLDL Cholesterol Andrea 84 mg/dL 5-40 H (test code = 66321-3) LDL Chol Calc (NIH) (test 110 mg/dL 0-99 H code = 84163-6) Comment: (test code = [place] [address]-8) performed
< br/> Performed by:
[facility] ()

[facility] Description: Comp. Metabolic Panel (14)2019-10-26 02:18:00 Test Item Value Reference Range Interpretation Comments Glucose (test code = 2345-7) 96 mg/dL 65-99 BUN (test code = 3094-0) 14 mg/dL 6-24 Creatinine (test code = 1.00 mg/dL 0.76-1.27 2160-0) eGFR If NonAfricn Am (test 84 mL/min/1.73 >59 code = 61062-2) eGFR If Africn Am (test code = 98 mL/min/1.73 >59 34538-8) BUN/Creatinine Ratio (test 14 9-20 code = 3097-3) Sodium (test code = 2951-2) 137 mmol/L 134-144 Potassium (test code = 2823-3) 4.3 mmol/L 3.5-5.2 Chloride (test code = 2075-0) 97 mmol/L 96-106 Carbon Dioxide, Total (test 23 mmol/L 20-29 code = 2027-9) Calcium (test code = 27239-1) 9.5 mg/dL 8.7-10.2 Protein, Total (test code = 7.5 g/dL 6.0-8.5 2885-2) Albumin (test code = 1751-7) 4.2 g/dL 3.8-4.9 Globulin, Total (test code = 3.3 g/dL 1.5-4.5 50982-1) A/G Ratio (test code = 1759-0) 1.3 1.2-2.2 Bilirubin, Total (test code = 0.3 mg/dL 0.0-1.2 1975-2) Alkaline Phosphatase (test 68 IU/L 39-117 code = 6768-6) AST (SGOT) (test code = 26 IU/L 0-40 1920-8) ALT (SGPT) (test code = 36 IU/L 0-44 1742-6) [facility] Description: Lipid [id number] 02:18:00 Test Item Value Reference Range Interpretation Comments Cholesterol, Total (test 228 mg/dL 100-199 H code = 2093-3) Triglycerides (test code 483 mg/dL 0-149 H = 2571-8) HDL Cholesterol (test 34 mg/dL >39 L code = 2085-9) VLDL Cholesterol Andrea 84 mg/dL 5-40 H (test code = 87344-8) LDL Chol Calc (NIH) (test 110 mg/dL 0-99 H code = 76229-7) Comment: (test code = [place] [address]-6) performed
< br/> Performed by:
[facility] ()

[facility]: Comp. Metabolic Panel (14)2019-10-26 02:18:00 Test Item Value Reference Range Interpretation Comments Glucose (test code = 2345-7) 96 mg/dL 65-99 BUN (test code = 3094-0) 14 mg/dL 6-24 Creatinine (test code = 1.00 mg/dL 0.76-1.27 2160-0) eGFR If NonAfricn Am (test 84 mL/min/1.73 >59 code = 82291-5) eGFR If Africn Am (test code = 98 mL/min/1.73 >59 87864-6) BUN/Creatinine Ratio (test 14 9-20 code = 3097-3) Sodium (test code = 2951-2) 137 mmol/L 134-144 Potassium (test code = 2823-3) 4.3 mmol/L 3.5-5.2 Chloride (test code = 2075-0) 97 mmol/L 96-106 Carbon Dioxide, Total (test 23 mmol/L 20-29 code = 2028-9) Calcium (test code = 40519-5) 9.5 mg/dL 8.7-10.2 Protein, Total (test code = 7.5 g/dL 6.0-8.5 2885-2) Albumin (test code = 1751-7) 4.2 g/dL 3.8-4.9 Globulin, Total (test code = 3.3 g/dL 1.5-4.5 27263-3) A/G Ratio (test code = 1759-0) 1.3 1.2-2.2 Bilirubin, Total (test code = 0.3 mg/dL 0.0-1.2 1975-2) Alkaline Phosphatase (test 68 IU/L 39-117 code = 6768-6) AST (SGOT) (test code = 26 IU/L 0-40 1920-8) ALT (SGPT) (test code = 36 IU/L 0-44 1742-6) [facility] Description: Lipid [id number] 02:18:00 Test Item Value Reference Range Interpretation Comments Cholesterol, Total (test 228 mg/dL 100-199 H code = 3-3) Triglycerides (test code 483 mg/dL 0-149 H = 2571-8) HDL Cholesterol (test 34 mg/dL >39 L code = 5-9) VLDL Cholesterol Andrea 84 mg/dL 5-40 H (test code = 25712-1) LDL Chol Calc (NIH) (test 110 mg/dL 0-99 H code = 52860-1) Comment: (test code = [place] [address]-1) performed
< br/> Performed by:
[facility] ()

[facility] Description: Comp. Metabolic Panel (14)2019-10-26 02:18:00 Test Item Value Reference Range Interpretation Comments Glucose (test code = 2345-7) 96 mg/dL 65-99 BUN (test code = 3094-0) 14 mg/dL 6-24 Creatinine (test code = 1.00 mg/dL 0.76-1.27 2160-0) eGFR If NonAfricn Am (test 84 mL/min/1.73 >59 code = 32866-2) eGFR If Africn Am (test code = 98 mL/min/1.73 >59 72800-3) BUN/Creatinine Ratio (test 14 9-20 code = 3097-3) Sodium (test code = 2951-2) 137 mmol/L 134-144 Potassium (test code = 2823-3) 4.3 mmol/L 3.5-5.2 Chloride (test code = 2075-0) 97 mmol/L 96-106 Carbon Dioxide, Total (test 23 mmol/L 20-29 code = 2028-9) Calcium (test code = 44018-6) 9.5 mg/dL 8.7-10.2 Protein, Total (test code = 7.5 g/dL 6.0-8.5 2885-2) Albumin (test code = 1751-7) 4.2 g/dL 3.8-4.9 Globulin, Total (test code = 3.3 g/dL 1.5-4.5 33509-1) A/G Ratio (test code = 1759-0) 1.3 1.2-2.2 Bilirubin, Total (test code = 0.3 mg/dL 0.0-1.2 1975-2) Alkaline Phosphatase (test 68 IU/L 39-117 code = 6768-6) AST (SGOT) (test code = 26 IU/L 0-40 1920-8) ALT (SGPT) (test code = 36 IU/L 0-44 1742-6) [facility] Description: Lipid [id number] 02:18:00 Test Item Value Reference Range Interpretation Comments Cholesterol, Total (test 228 mg/dL 100-199 H code = 3-3) Triglycerides (test code 483 mg/dL 0-149 H = 2571-8) HDL Cholesterol (test 34 mg/dL >39 L code = 5-9) VLDL Cholesterol Andrea 84 mg/dL 5-40 H (test code = 21269-5) LDL Chol Calc (NIH) (test 110 mg/dL 0-99 H code = 52704-5) Comment: (test code = [place] [address]-8) performed
< br/> Performed by:
[facility] (HD)

[facility] Description: Comp. Metabolic Panel (14)2019-10-26 02:18:00 Test Item Value Reference Range Interpretation Comments Glucose (test code = 2345-7) 96 mg/dL 65-99 BUN (test code = 3094-0) 14 mg/dL 6-24 Creatinine (test code = 1.00 mg/dL 0.76-1.27 2160-0) eGFR If NonAfricn Am (test 84 mL/min/1.73 >59 code = 61114-2) eGFR If Africn Am (test code = 98 mL/min/1.73 >59 53261-3) BUN/Creatinine Ratio (test 14 9-20 code = 3097-3) Sodium (test code = 2951-2) 137 mmol/L 134-144 Potassium (test code = 2823-3) 4.3 mmol/L 3.5-5.2 Chloride (test code = 2075-0) 97 mmol/L 96-106 Carbon Dioxide, Total (test 23 mmol/L 20-29 code = 8-9) Calcium (test code = 47465-7) 9.5 mg/dL 8.7-10.2 Protein, Total (test code = 7.5 g/dL 6.0-8.5 2885-2) Albumin (test code = 1751-7) 4.2 g/dL 3.8-4.9 Globulin, Total (test code = 3.3 g/dL 1.5-4.5 84400-3) A/G Ratio (test code = 1759-0) 1.3 1.2-2.2 Bilirubin, Total (test code = 0.3 mg/dL 0.0-1.2 1974-2) Alkaline Phosphatase (test 68 IU/L 39-117 code = 6768-6) AST (SGOT) (test code = 26 IU/L 0-40 1920-8) ALT (SGPT) (test code = 36 IU/L 0-44 1742-6) [facility] Description: Lipid [id number] 02:18:00 Test Item Value Reference Range Interpretation Comments Cholesterol, Total (test 228 mg/dL 100-199 H code = 2093-3) Triglycerides (test code 483 mg/dL 0-149 H = 2571-8) HDL Cholesterol (test 34 mg/dL >39 L code = 2085-9) VLDL Cholesterol Andrea 84 mg/dL 5-40 H (test code = 95836-4) LDL Chol Calc (NIH) (test 110 mg/dL 0-99 H code = 03005-0) Comment: (test code = [place] [address]-0) performed
< br/> Performed by:
[facility] (HD)

[facility] Description: Comp. Metabolic Panel (14)2019-10-26 02:18:00 Test Item Value Reference Range Interpretation Comments Glucose (test code = 2345-7) 96 mg/dL 65-99 BUN (test code = 3094-0) 14 mg/dL 6-24 Creatinine (test code = 1.00 mg/dL 0.76-1.27 2160-0) eGFR If NonAfricn Am (test 84 mL/min/1.73 >59 code = 41179-1) eGFR If Africn Am (test code = 98 mL/min/1.73 >59 16473-6) BUN/Creatinine Ratio (test 14 9-20 code = 3097-3) Sodium (test code = 2951-2) 137 mmol/L 134-144 Potassium (test code = 2823-3) 4.3 mmol/L 3.5-5.2 Chloride (test code = 2075-0) 97 mmol/L 96-106 Carbon Dioxide, Total (test 23 mmol/L 20-29 code = 8-9) Calcium (test code = 89565-9) 9.5 mg/dL 8.7-10.2 Protein, Total (test code = 7.5 g/dL 6.0-8.5 2885-2) Albumin (test code = 1751-7) 4.2 g/dL 3.8-4.9 Globulin, Total (test code = 3.3 g/dL 1.5-4.5 58711-0) A/G Ratio (test code = 1759-0) 1.3 1.2-2.2 Bilirubin, Total (test code = 0.3 mg/dL 0.0-1.2 1975-2) Alkaline Phosphatase (test 68 IU/L 39-117 code = 6768-6) AST (SGOT) (test code = 26 IU/L 0-40 1920-8) ALT (SGPT) (test code = 36 IU/L 0-44 1742-6) [facility] Description: Lipid [id number] 02:18:00 Test Item Value Reference Range Interpretation Comments Cholesterol, Total (test 228 mg/dL 100-199 H code = 2093-3) Triglycerides (test code 483 mg/dL 0-149 H = 2571-8) HDL Cholesterol (test 34 mg/dL >39 L code = 2085-9) VLDL Cholesterol Andrea 84 mg/dL 5-40 H (test code = 24190-9) LDL Chol Calc (NIH) (test 110 mg/dL 0-99 H code = 32653-8) Comment: (test code = [place] [address]-7) performed
< br/> Performed by:
[facility] ()

[facility] Description: CBC With Differential/[id number] 00:15:00 Test Item Value Reference Range Interpretation [...] (test 1 % Not Estab. code = 06479-7) Immature Grans (Abs) (test code 0.1 x10E3/uL 0.0-0.1 = 66494-0) NRBC (test code = 45371-9) Hematology Comments: (test code = 17771-8) [facility] Description: CBC With Differential/[id number] 00:15:00 Test Item Value Reference Range Interpretation [...] (test 1 % Not Estab. code = 02719-7) Immature Grans (Abs) (test code 0.1 x10E3/uL 0.0-0.1 = 11679-9) NRBC (test code = 83802-3) Hematology Comments: (test code = 28882-5) [facility] Description: CBC With Differential/[id number] 00:15:00 Test Item Value Reference Range Interpretation [...] (test 1 % Not Estab. code = 00030-5) Immature Grans (Abs) (test code 0.1 x10E3/uL 0.0-0.1 = 96648-8) NRBC (test code = 24783-3) Hematology Comments: (test code = 34285-9) [facility] Description: CBC With Differential/[id number] 00:15:00 Test Item Value Reference Range Interpretation [...] (test 1 % Not Estab. code = 40504-0) Immature Grans (Abs) (test code 0.1 x10E3/uL 0.0-0.1 = 40580-4) NRBC (test code = 47657-3) Hematology Comments: (test code = 29320-0) [facility] Description: CBC With Differential/[id number] 00:15:00 Test Item Value Reference Range Interpretation [...] (test 1 % Not Estab. code = 66519-3) Immature Grans (Abs) (test code 0.1 x10E3/uL 0.0-0.1 = 51483-4) NRBC (test code = 73005-3) Hematology Comments: (test code = 28239-1) [facility] Description: CBC With Differential/[id number] 00:15:00 Test Item Value Reference Range Interpretation [...] (test 1 % Not Estab. code = 11853-9) Immature Grans (Abs) (test code 0.1 x10E3/uL 0.0-0.1 = 45922-9) NRBC (test code = 35304-6) Hematology Comments: (test code = 43594-2) [facility] With Differential/[id number] 00:15:00 Test Item Value Reference Range Interpretation [...] (test 1 % Not Estab. code = 62991-0) Immature Grans (Abs) (test code 0.1 x10E3/uL 0.0-0.1 = 44071-6) NRBC (test code = 04698-0) Hematology Comments: (test code = 64540-1) [facility]: [facility] With Differential/[id number] 00:15:00 Test Item Value Reference Range Interpretation [...] (test 1 % Not Estab. code = 13363-4) Immature Grans (Abs) (test code 0.1 x10E3/uL 0.0-0.1 = 68623-9) NRBC (test code = 91230-1) Hematology Comments: (test code = 47500-8) [facility] Description: CBC With Differential/[id number] 00:15:00 Test Item Value Reference Range Interpretation [...] (test 1 % Not Estab. code = 31950-3) Immature Grans (Abs) (test code 0.1 x10E3/uL 0.0-0.1 = 95712-5) NRBC (test code = 11311-0) Hematology Comments: (test code = 91407-2) [facility] Description: CBC With Differential/[id number] 00:15:00 Test Item Value Reference Range Interpretation [...] (test 1 % Not Estab. code = 16574-3) Immature Grans (Abs) (test code 0.1 x10E3/uL 0.0-0.1 = 18335-0) NRBC (test code = 91838-6) Hematology Comments: (test code = 47285-8) [facility] Description: CBC With Differential/[id number] 00:15:00 Test Item Value Reference Range Interpretation [...] (test 1 % Not Estab. code = 55765-7) Immature Grans (Abs) (test code 0.1 x10E3/uL 0.0-0.1 = 17241-0) NRBC (test code = 62272-9) Hematology Comments: (test code = 45905-2) [facility]: [facility] With Differential/[id number] 00:15:00 Test Item Value Reference Range Interpretation [...] (test 1 % Not Estab. code = 39713-4) Immature Grans (Abs) (test code 0.1 x10E3/uL 0.0-0.1 = 40705-6) NRBC (test code = 75727-9) Hematology Comments: (test code = 01118-8) [employer]"
--- NOTE | 2021-03-05 09:44 | RAD REPORT ---
EXAM DESCRIPTION: Jerrell Single View03/05/2021 9:35 am CLINICAL HISTORY: Cough COMPARISON: none FINDINGS: The lungs appear clear of acute infiltrate. The heart is normal size IMPRESSION: No acute abnormalities displayed
[2021-03-05] MEDS ORDERED: HYDROCODONE/CHLORPHEN 5 ML/OSYR ONE (09:57)
[2021-03-05] MEDS ORDERED: METHYLPREDNISOLONE 125 MG INJ ONE (09:57)
[2021-03-05] MEDS ORDERED: ALBUTEROL 2.5 MG/3 ML NEB SOL ONE (09:57)
[2021-03-05 10:40] LABS: SARS-COV-2 RT PCR NEGATIVE (NEGATIVE)
--- NOTE | 2021-03-05 11:14 | ER ---
Nurse's Notes [facility] Name: Sean Starks Age: 56 yrs Sex: Male : 1965 Arrival Date: 03/05/2021 Time: 08:42 Bed 24 Private MD: Diagnosis: Acute bronchitis, unspecified Presentation: 03/05 08:44 Chief complaint: Patient states: Cough, headache, SOB, chest pain, congestion, runny ll3 nose, sore throat, sumptoms have occurred for three days. Coronavirus screen: congestion, cough unrelated to allergies, difficulty breathing, fever, headache, runny nose, shortness of breath, sore throat, loss of taste or smell. Ebola Screen: No symptoms or risks identified at this time. Initial Sepsis Screen: Does the patient meet any 2 criteria? No. Patient's initial sepsis screen is negative. Does the patient have a suspected source of infection? Yes:. Initial Sepsis Screen: Does the patient have a suspected source of infection? Yes: Productive cough/pneumonia. Risk Assessment: Do you want to hurt yourself or someone else?. Onset of symptoms was March 02, 2020. 08:44 Method Of Arrival: Ambulatory ll3 08:44 Acuity: DOMINGA 3 ll3 Triage Assessment: 08:48 General: Appears in no apparent distress. uncomfortable, Behavior is calm, cooperative. ll3 Pain: Complains of pain in H/A, CP Pain currently is 8 out of 10 on a pain scale. Historical: - Allergies: 08:48 Nuts; ll3 08:48 [place] And Derivatives; ll3 - PMHx: 08:48 Hypertensive disorder; Diabetes mellitus; Anxiety; Hypercholesterolemia; ll3 - PSHx: 08:48 None; ll3 - Immunization history:: Client reports having NOT received the Covid vaccine. - Social history:: Smoking status: Patient denies any tobacco usage or history of. Screenin:07 Abuse screen: Denies threats or abuse. Denies injuries from another. Nutritional ic1 screening: No deficits noted. Tuberculosis screening: No symptoms or risk factors identified. Fall Risk None identified. Exposure risk/Travel Screening: None identified. Assessment: 08:55 Reassessment: Pt also reports he may have experienced a fever x 2 days ago. Went to [facility] urgent care where he was tested for covid, but results were neg. General: Appears in no apparent distress. uncomfortable, Behavior is calm, cooperative. Pain: Complains of pain in chest Aggravated by when he coughs Also complains of cough that is productive. Pt reports a yellowish color in sputum. Neuro: No deficits noted. Cardiovascular: Rhythm is sinus rhythm Chest pain. Respiratory: Reports cough that is pain with cough since 2 days ago. GI: No deficits noted. : No deficits noted. EENT: No deficits noted. Derm: No deficits noted. Musculoskeletal: No deficits noted. 09:07 Reassessment: technology strategist performing EKG. Pt tolerating. ic1 09:28 Reassessment: xray at pt's bedside. ic1 Vital Signs: 08:44 BP 145 / 101; Pulse 87; Resp 18; Temp 98.4(TE); Pulse Ox 96% on R/A; Weight 89.81 kg ll3 (R); Height 5 ft. 3 in. (160.02 cm) (R); Pain 8/10; 08:58 BP 102 / 86; Pulse 89; Resp 22; Pulse Ox 98% on R/A; ic1 11:13 BP 126 / 62; Pulse 73; Resp 17; Pulse Ox 99% on R/A; Pain 0/10; ab2 08:44 Body Mass Index 35.07 (89.81 kg, 160.02 cm) ll3 ED Course: 08:42 Patient arrived in ED. mr 08:48 Triage completed. ll3 08:48 Arm band placed on. ll3 08:52 [facility] jr8 08:52 Jermaine Munoz MD is Attending Physician. jr8 09:06 COVID-19/FLU A+B (Document "Date of Onset" if Symptomatic) Sent. ic1 09:07 Patient has correct armband on for positive identification. Bed in low position. Call ic1 light in reach. Side rails up X2. 09:10 EKG done, by ED staff, reviewed by Colby DUMONT. mb7 09:28 Door closed. Noise minimized. Head of bed lowered. Turned to right side. ic1 09:36 XRAY Chest (1 view) In Process Unspecified. EDMS 11:40 No provider procedures requiring assistance completed. Patient did not have IV access ab2 during this emergency room visit. Administered Medications: 10:05 Drug: SOLU-Medrol (methylPREDNISolone sodium succinate) 125 mg Route: IM; Site: right ab2 ventrogluteal; 10:05 Drug: Albuterol HFA Inhaler 3 puffs Route: Inhalation; ab2 10:05 Drug: Tussionex Pennkinetic ER (chlorpheniramine-hydrocodone) Suspension 5 ml Route: PO;ab2 Outcome: 11:13 Discharge ordered by MD. vogel 11:40 Discharged to home ambulatory. ab2 11:40 Condition: good 11:40 Discharge instructions given to patient. 11:40 Patient left the ED. ab2 Signatures: Dispatcher [employer] Ruth Ann Duran mr Colby Hollingsworth PA PA jr8 Loubet, Lynsea RN RN ll3 Ruth Ann Blackwell Iesha, RN RN ic1 James Zheng ab2
--- NOTE | 2021-03-05 11:15 | EDPHYS ---
Physician Documentation [facility] Name: Sean Starks Age: 56 yrs Sex: Male : 1965 Arrival Date: 03/05/2021 Time: 08:42 Bed 24 Private MD: ED Physician Jermaine Munoz HPI: 03/05 09:58 This 56 yrs old Male presents to ER via Ambulatory with complaints of Flu jr8 Symptoms. 09:58 The patient or guardian reports cough, that is intermittent, described as moderate, jr8 with productive sputum, that is yellow. Onset: The symptoms/episode began/occurred suddenly, 2 day(s) ago. Severity of symptoms: At their worst the symptoms were mild, in the emergency department the symptoms are unchanged. Modifying factors: The symptoms are alleviated by nothing, the symptoms are aggravated by nothing. Associated signs and symptoms: Pertinent positives: chest pain, shortness of breath. The patient has not experienced similar symptoms in the past. It is unknown whether or not the patient has recently seen a physician. Historical: - Allergies: 08:48 Nuts; ll3 08:48 [place] And Derivatives; ll3 - PMHx: 08:48 Hypertensive disorder; Diabetes mellitus; Anxiety; Hypercholesterolemia; ll3 - PSHx: 08:48 None; ll3 - Immunization history:: Client reports having NOT received the Covid vaccine. - Social history:: Smoking status: Patient denies any tobacco usage or history of. ROS: 09:58 ENT: Positive for rhinorrhea, sinus congestion. jr8 09:58 Cardiovascular: Positive for chest pain, Negative for edema, orthopnea, palpitations, paroxysmal nocturnal dyspnea. 09:58 Respiratory: Positive for cough, shortness of breath, wheezing. 09:58 All other systems are negative. Exam: 09:58 Constitutional: This is a well developed, well nourished patient who is awake, alert, jr8 and in no acute distress. ENT: Nares patent. No nasal discharge, no septal abnormalities noted. Tympanic membranes are normal and external auditory canals are clear. Oropharynx with no redness, swelling, or masses, exudates, or evidence of obstruction, uvula midline. Mucous membranes moist. Neck: Trachea midline, no thyromegaly or masses palpated, and no cervical lymphadenopathy. Supple, full range of motion without nuchal rigidity, or vertebral point tenderness. No Meningismus. Chest/axilla: Normal chest wall appearance and motion. Nontender with no deformity. No lesions are appreciated. Cardiovascular: Regular rate and rhythm with a normal S1 and S2. No gallops, murmurs, or rubs. Normal PMI, no JVD. No pulse deficits. Respiratory: Lungs have equal breath sounds bilaterally, clear to auscultation and percussion. No rales, rhonchi or wheezes noted. No increased work of breathing, no retractions or nasal flaring. Abdomen/GI: Soft, non-tender, with normal bowel sounds. No distension or tympany. No guarding or rebound. No evidence of tenderness throughout. Back: No spinal tenderness. No costovertebral tenderness. Full range of motion. Skin: Warm, dry with normal turgor. Normal color with no rashes, no lesions, and no evidence of cellulitis. MS/ Extremity: Pulses equal, no cyanosis. Neurovascular intact. Full, normal range of motion. Neuro: Awake and alert, GCS 15, oriented to person, place, time, and situation. Cranial nerves II-XII grossly intact. Motor strength 5/5 in all extremities. Sensory grossly intact. Vital Signs: 08:44 BP 145 / 101; Pulse 87; Resp 18; Temp 98.4(TE); Pulse Ox 96% on R/A; Weight 89.81 kg ll3 (R); Height 5 ft. 3 in. (160.02 cm) (R); Pain 8/10; 08:58 BP 102 / 86; Pulse 89; Resp 22; Pulse Ox 98% on R/A; ic1 11:13 BP 126 / 62; Pulse 73; Resp 17; Pulse Ox 99% on R/A; Pain 0/10; ab2 08:44 Body Mass Index 35.07 (89.81 kg, 160.02 cm) ll3 MDM: 08:52 Patient medically screened. jr8 09:58 Data reviewed: vital signs, nurses notes, lab test result(s), radiologic studies, plain jr8 films. Data interpreted: Pulse oximetry: on room air is 98 %. Interpretation: normal. Counseling: I had a detailed discussion with the patient and/or guardian regarding: the historical points, exam findings, and any diagnostic results supporting the discharge/admit diagnosis, lab results, radiology results, the need for outpatient follow up, a family practitioner, to return to the emergency department if symptoms worsen or persist or if there are any questions or concerns that arise at home. 03/05 08:57 Order name: COVID-19/FLU A+B (Document "Date of Onset" if Symptomatic); Complete Time: jr8 10:41 03/05 08:57 Order name: XRAY Chest (1 view); Complete Time: 09:55 8 03/05 08:58 Order name: EKG; Complete Time: 08:58 8 03/05 08:58 Order name: EKG - Nurse/Tech; Complete Time: 09:10 jr8 Administered Medications: 10:05 Drug: SOLU-Medrol (methylPREDNISolone sodium succinate) 125 mg Route: IM; Site: right ab2 ventrogluteal; 10:05 Drug: Albuterol HFA Inhaler 3 puffs Route: Inhalation; ab2 10:05 Drug: Tussionex Pennkinetic ER (chlorpheniramine-hydrocodone) Suspension 5 ml Route: PO;ab2 Disposition: 13:13 Co-signature as Attending Physician, Jermaine Munoz MD I agree with the assessment and rn plan of care. Attestation: The patient's history, exam findings, diagnostics, and a summary of any interventions or procedures was reviewed in detail with Colby DUMONT. Disposition Summary: 03/05/21 11:13 Discharge Ordered Location: Home jr8 Problem: new jr8 Symptoms: have improved jr8 Condition: Stable jr8 Diagnosis - Acute bronchitis, unspecified jr8 Followup: jr8 - With: Private Physician - When: 5 - 6 days - Reason: Recheck today's complaints, Continuance of care, Re-evaluation by your physician Discharge Instructions: - Discharge Summary Sheet jr8 - Acute Bronchitis, Adult jr8 Forms: - Medication Reconciliation Form jr8 - Thank You Letter jr8 - Antibiotic Education jr8 - Prescription Opioid Use jr8 - Work release form ab2 Prescriptions: - promethazine-DM 6.25-15 mg/5 mL Oral syrup - take 5 milliliter by ORAL route every 4 hours as needed, not to exceed 30 mL in jr8 24 hours; 100 milliliter; Refills: 0, Product Selection Permitted - Medrol (Mike) 4 mg Oral Tablets, Dose Pack - take 1 tablet by ORAL route as directed - follow package instructions; 1 jr8 packet; Refills: 0, Product Selection Permitted - albuterol sulfate 90 mcg/actuation Inhalation HFA aerosol inhaler - inhale 2 puff by INHALATION route every 4 hours; 1 Inhaler; Refills: 0, Product jr8 Selection Permitted Signatures: Dispatcher [employer] Jermaine Angeles MD MD rn Roszak, Josh, PA PA jr8 Dyan Purvis RN RN ll3 James Zheng2
[2021-03-05] MEDS ORDERED: ALBUTEROL INHALER 60 PUFF/8 GM IH ONE (11:34)
[2021-03-05 11:45] VITALS: TEMP 98.4
[2021-03-05 11:49] VITALS: BP 126/62; O2SAT 99
--- NOTE | 2021-03-07 07:54 | EKG ---
Test Date: 2021-03-05 Test Time: 09:09:37 Design/Animation Instructor: MELODIE MEASUREMENT RESULTS: Intervals: Rate: 82 MN: 122 QRSD: 88 QT: 340 QTc: 397 [place]: P: 14 MN: 122 QRS: 106 T: 25 INTERPRETIVE STATEMENTS: Normal sinus rhythm Rightward axis Borderline ECG No previous ECG available for comparison Electronically Signed On 03-07-21 07:46:22 CASTING MACHINE SET UP OPERATOR by Thierno Argueta
== END 2021-03-05 11:40 | disposition home or self-care (01) ==
LOC: ER 08:39
DX: J20.9 Acute bronchitis, unspecified (principal); I10 Essential (primary) hypertension; E11.9 Type 2 diabetes mellitus without complications; Z20.822 Contact with and (suspected) exposure to COVID-19
CPT/HCPCS: 0240U; 71045; 93005; 96372; 99285; J2930

== ENCOUNTER 2021-07-27 08:00 | Inpatient (IN) | payer OTHER ==
--- OUTSIDE RECORDS SUMMARY | 2021-07-27 08:15 | XMS REPORT | Continuity of Care Document ---
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 9-23 capsule by ity of capsule 00:00: mouth 3 [place] 00 (three) Medical times Branch daily as needed for Cough for up to 20 doses. ondansetron 2020-0 Yes [id number] 4mg Take 1 [facility] (ZOFRAN 9-23 tablet by ity of ODT) 4 mg 00:00: mouth [place] disintegrat 00 every 8 Medic al ing tablet (eight) Branch hours as needed for Nausea and Vomiting (N/V). albuterol 2020-0 Yes [id number] 2{puff} Inhale 2 [facility] 90 9-23 Puffs ity of mcg/actuati 00:00: every 4 [place] on inhaler 00 (four) Medical hours as Branch needed for Wheezing or Shortness of Breath. ibuprofen 2020-0 Yes [id number] 600mg Take 1 [facility] 600 mg 9-23 tablet by ity of tablet 00:00: mouth [place] 00 every 6 Medical (six) Branch hours as needed for Pain (scale 4-6). benzonatate 2020-0 Yes [id number] 200mg Take 1 [facility] 200 mg 9-23 capsule by ity of capsule 00:00: mouth 3 [place] 00 (three) Medical times Branch daily as needed for Cough for up to 20 doses. ondansetron 0 Yes [id number] 4mg Take 1 [facility] (ZOFRAN 9-23 tablet by ity of ODT) 4 mg 00:00: mouth [place] disintegrat 00 every 8 Medic al ing tablet (eight) Branch hours as needed for Nausea and Vomiting (N/V). ibuprofen 0 Yes [id number] 600mg Take 1 [facility] 600 mg 9-23 tablet by ity of tablet 00:00: mouth [place] 00 every 6 Medical (six) Branch hours as needed for Pain (scale 4-6). ibuprofen 0 Yes [id number] 600mg Take 1 [facility] 600 mg 9-23 tablet by ity of tablet 00:00: mouth [place] 00 every 6 Medical (six) Branch hours as needed for Pain (scale 4-6). ibuprofen 0 Yes [id number] 600mg Take 1 [facility] 600 mg 9-23 tablet by ity of tablet 00:00: mouth [place] 00 every 6 Medical (six) Branch hours as needed for Pain (scale 4-6). ibuprofen 0 Yes [id number] 600mg Take 1 [facility] 600 mg 9-23 tablet by ity of tablet 00:00: mouth [place] 00 every 6 Medical (six) Branch hours as needed for Pain (scale 4-6). ibuprofen 0 Yes [id number] 600mg Take 1 [facility] 600 mg 9-23 tablet by ity of tablet 00:00: mouth [place] 00 every 6 Medical (six) Branch hours as needed for Pain (scale 4-6). albuterol 0 2020- No [id number] 2{puff} Inhale 2 [facility] 90 9-23 12-22 Puffs ity of mcg/actuati 00:00: 00:00 every 4 [place] on inhaler 00 :00 (four) Medical hours as Branch needed for Wheezing or Shortness of Breath. benzonatate 2020-0 2020- No [id number] 200mg Take 1 [facility] 200 mg 9-23 12-22 capsule by ity of capsule 00:00: 00:00 mouth 3 [place] 00 :00 (three) Medical times Branch daily as needed for Cough for up to 20 doses. ondansetron 2021- No [id number] 4mg Take 1 [facility] (ZOFRAN 9-23 12-22 tablet by ity of ODT) 4 mg 00:00: 00:00 mouth [place] disintegrat 00 :00 every 8 Medic al ing tablet (eight) Branch hours as needed for Nausea and Vomiting (N/V). dicyclomine Yes [id number] 10mg Take 1 [facility] 10 mg 8-18 capsule by ity of capsule 00:00: mouth [place] 00 every 8 Medical (eight) Branch hours as needed for Abdominal pain. ondansetron Yes [id number] 4mg Take 1 [facility] 4 mg 8-18 tablet by ity of disintegrat 00:00: mouth [place] ing tablet 00 every 8 Medica l (eight) Branch hours as needed for Nausea and Vomiting (N/V). dicyclomine Yes [id number] 10mg Take 1 [facility] 10 mg 8-18 capsule by ity of capsule 00:00: mouth [place] 00 every 8 Medical (eight) Branch hours as needed for Abdominal pain. ondansetron Yes [id number] 4mg Take 1 [facility] 4 mg 8-18 tablet by ity of disintegrat 00:00: mouth [place] ing tablet 00 every 8 Medica l (eight) Branch hours as needed for Nausea and Vomiting (N/V). dicyclomine Yes [id number] 10mg Take 1 [facility] 10 mg 8-18 capsule by ity of capsule 00:00: mouth [place] 00 every 8 Medical (eight) Branch hours as needed for Abdominal pain. ondansetron Yes [id number] 4mg Take 1 [facility] 4 mg 8-18 tablet by ity of disintegrat 00:00: mouth [place] ing tablet 00 every 8 Medica l (eight) Branch hours as needed for Nausea and Vomiting (N/V). dicyclomine 0 Yes [id number] 10mg Take 1 [facility] 10 mg 8-18 capsule by ity of capsule 00:00: mouth [place] 00 every 8 Medical (eight) Branch hours as needed for Abdominal pain. ondansetron Yes [id number] 4mg Take 1 [facility] 4 mg 8-18 tablet by ity of disintegrat 00:00: mouth [place] ing tablet 00 every 8 Medica l (eight) Branch hours as needed for Nausea and Vomiting (N/V). dicyclomine 0 Yes [id number] 10mg Take 1 [facility] 10 mg 8-18 capsule by ity of capsule 00:00: mouth [place] 00 every 8 Medical (eight) Branch hours as needed for Abdominal pain. ondansetron 0 Yes [id number] 4mg Take 1 [facility] 4 mg 8-18 tablet by ity of disintegrat 00:00: mouth [place] ing tablet 00 every 8 Medica l (eight) Branch hours as needed for Nausea and Vomiting (N/V). dicyclomine Yes [id number] 10mg Take 1 [facility] 10 mg 8-18 capsule by ity of capsule 00:00: mouth [place] 00 every 8 Medical (eight) Branch hours as needed for Abdominal pain. ondansetron Yes [id number] 4mg Take 1 [facility] 4 mg 8-18 tablet by ity of disintegrat 00:00: mouth [place] ing tablet 00 every 8 Medica l (eight) Branch hours as needed for Nausea and Vomiting (N/V). dicyclomine 2020- No [id number] 10mg Take 1 [facility] 10 mg 8-18 12-22 capsule by ity of capsule 00:00: 00:00 mouth [place] 00 :00 every 8 Medical (eight) Branch hours as needed for Abdominal pain. ondansetron 2020- No [id number] 4mg Take 1 [facility] 4 mg 8-18 [...] by mouth ity of tablet 20:20: daily. [place] 49 Medical Branch cholecalcif 0 Yes 1000U Take 1,000 [facility] sofia, 7-19 Units by ity of vitamin D3, 15:20: mouth [place] (VITAMIN 49 daily. Medical D3) 25 mcg Branch (1,000 unit) tablet aspirin 81 202-0 Yes 81mg Take 81 mg U nivers mg chewable 7-19 by mouth ity of tablet 15:20: daily. [place] [address] Medical Branch cholecalcif 2020-0 Yes 1000U Take 1,000 [facility] sofia, 7-19 Units by ity of vitamin D3, 15:20: mouth [place] (VITAMIN 49 daily. Medical D3) 25 mcg Branch (1,000 unit) tablet aspirin 81 2020-0 Yes 81mg Take 81 mg U nivers mg chewable 7-19 by mouth ity of tablet 15:20: daily. [place] [address] Medical Branch cholecalcif 2020-0 Yes 1000U Take 1,000 [facility] sofia, 7-19 Units by ity of vitamin D3, 15:20: mouth [place] (VITAMIN 49 daily. Medical D3) 25 mcg Branch (1,000 unit) tablet aspirin 81 2020-0 Yes 81mg Take 81 mg U nivers mg chewable 7-19 by mouth ity of tablet 15:20: daily. [place] [address] Medical Branch cholecalcif 2020-0 Yes 1000U Take 1,000 [facility] sofia, 7-19 Units by ity of vitamin D3, 15:20: mouth [place] (VITAMIN 49 daily. Medical D3) 25 mcg Branch (1,000 unit) tablet aspirin 81 2020-0 Yes 81mg Take 81 mg U nivers mg chewable 7-19 by mouth ity of tablet 15:20: daily. [place] [address] Medical Branch cholecalcif 2021-0 Yes 1000U Take 1,000 [facility] sofia, 7-19 Units by ity of vitamin D3, 15:20: mouth [place] (VITAMIN 49 daily. Medical D3) 25 mcg Branch (1,000 unit) tablet aspirin 81 2020-0 Yes 81mg Take 81 mg U nivers mg chewable 7-19 by mouth ity of tablet 15:20: daily. [place] [address] Medical Branch cholecalcif 2021-0 Yes 1000U Take 1,000 [facility] sofia, 7-19 Units by ity of vitamin D3, 15:20: mouth [place] (VITAMIN 49 daily. Medical D3) 25 mcg Branch (1,000 unit) tablet aspirin 81 2021-0 Yes 81mg Take 81 mg U nivers mg chewable 7-19 by mouth ity of tablet 15:20: daily. [place] 49 Medical Branch nitroglycer 2020-[id number] 1 [facility] in 0.4 mg 6-12 tablet ity of sublingual 00:00: under the [place] tablet 00 tongue Medical every 5 Branch (five) minutes as needed for Chest pain. nitroglycer 2020-[id number] 1 [facility] in 0.4 mg 6-12 tablet ity of sublingual 00:00: under the [place] tablet 00 tongue Medical every 5 Branch (five) minutes as needed for Chest pain. nitroglycer 2020-[id number] 1 [facility] in 0.4 mg 6-12 tablet ity of sublingual 00:00: under the [place] tablet 00 tongue Medical every 5 Branch (five) minutes as needed for Chest pain. nitroglycer 2020-[id number] 1 [facility] in 0.4 mg 6-12 tablet ity of sublingual 00:00: under the [place] tablet 00 tongue Medical every 5 Branch (five) minutes as needed for Chest pain. nitroglycer 2020-[id number] 1 [facility] in 0.4 mg 6-12 tablet ity of sublingual 00:00: under the [place] tablet 00 tongue Medical every 5 Branch (five) minutes as needed for Chest pain. nitroglycer 2020-[id number] 1 [facility] in 0.4 mg 6-12 tablet ity of sublingual 00:00: under the [place] tablet 00 tongue Medical every 5 Branch (five) minutes as needed for Chest pain. nitroglycer 2020-[id number] 1 [facility] in 0.4 mg 6-12 tablet ity of sublingual 00:00: under the [place] tablet 00 tongue Medical every 5 Branch (five) minutes as needed for Chest pain. nitroglycer 2020-0 2021- No [id number] .4mg Place 1 [facility] in 0.4 mg 6-12 12-22 tablet ity of sublingual 00:00: 00:00 under the [place] tablet 00 :00 tongue Medical every 5 Branch (five) minutes as needed for Chest pain. cloNIDine 2020-0 Yes Take 1 [place] HCL 2-19 tablet(s) [facility] (CATAPRES) 00:00: by mouth 0.1 mg 00 Twice a tablet day for anxiety as needed OLANZapine Yes Take 1 [facility] [facility] (ZYPREXA) 2-19 tablet(s) Healt h 10 mg 00:00: by mouth tablet 00 Twice a day cloNIDine Yes Take 1 [place] HCL 2-19 tablet(s) [facility] (CATAPRES) 00:00: by mouth 0.1 mg 00 Twice a tablet day for anxiety as needed OLANZapine Yes Take 1 [place] [facility] (ZYPREXA) 2-19 tablet(s) Healt h 10 mg 00:00: by mouth tablet 00 Twice a day cloNIDine Yes Take 1 [place] HCL 2-19 tablet(s) [facility] (CATAPRES) 00:00: by mouth 0.1 mg 00 Twice a tablet day for anxiety as needed OLANZapine Yes Take 1 [facility] [facility] (ZYPREXA) 2-19 tablet(s) Healt h 10 mg 00:00: by mouth tablet 00 Twice a day cloNIDine Yes Take 1 [place] HCL 2-19 tablet(s) [facility] (CATAPRCrowdPlat) 00:00: by mouth 0.1 mg 00 Twice a tablet day for anxiety as needed OLANZapine Yes Take 1 [place] [facility] (ZYPREXA) 2-19 tablet(s) Healt h 10 mg 00:00: by mouth tablet 00 Twice a day cloNIDine 2021- No TAKE ONE [place] HCL 2-19 -[address] [facility] (CATAPRES) 00:00: 23:59 MOUTH 0.1 mg 00 :00 TWICE A tablet DAY FOR ANXIETY NEEDED OLANZapine 2021- No TAKE ONE [place] (ZYPREXA) 2-19 -19 TABLET BY Heal th 10 mg 00:00: 23:59 MOUTH tablet 00 :00 TWICE A DAY cloNIDine 2021- No TAKE ONE [place] HCL 2-19 02-[address] [facility] (CATAPRES) 00:00: 23:59 MOUTH 0.1 mg 00 :00 TWICE A tablet DAY FOR ANXIETY NEEDED OLANZapine 2021- No TAKE ONE [place] (ZYPREXA) 2-19 -19 TABLET BY Heal th 10 mg 00:00: 23:59 MOUTH tablet 00 :00 TWICE A DAY cloNIDine 2021- No TAKE ONE [place] HCL 2-19 -[address] [facility] (CATAPRES) 00:00: 23:59 MOUTH 0.1 mg 00 :00 TWICE A tablet DAY FOR ANXIETY NEEDED OLANZapine 2021- No TAKE ONE [place] (ZYPREXA) 04-14 TABLET BY Heal 10 mg 00:00: 23:59 MOUTH tablet 00 :00 TWICE A DAY cloNIDine 2021- No TAKE ONE [place] HCL 04-[address] [facility] (CATAPRES) 00:00: 23:59 MOUTH 0.1 mg 00 :00 TWICE A tablet DAY FOR ANXIETY NEEDED OLANZapine 2021- No TAKE ONE [place] (ZYPREXA) 04-14 TABLET BY Heal th 10 mg 00:00: 23:59 MOUTH tablet 00 :00 TWICE A DAY rosuvastati 2020-0 No 1{table Q1D take 1 A ccessH n 20 mg 1-16 t} tablet by ealth tablet 00:00: oral route 00 every day rosuvastati 0 No 1{table Q1D take 1 A ccessH n 20 mg 1-16 t} tablet by ealth tablet 00:00: oral route 00 every day rosuvastati 2020-0 No 1{table Q1D take 1 A ccess[facility] n 20 mg 1-16 t} tablet by ealth tablet 00:00: oral route 00 every day rosuvastati 2020-0 No 1{table Q1D take 1 A [facility]cess[facility] n 20 mg 1-16 t} tablet by ealth tablet 00:00: oral route 00 every day rosuvastati 2020-0 No 1{table Q1D take 1 A ccess[facility] n 20 mg 1-16 t} tablet by ealth tablet 00:00: oral route 00 every day rosuvastati 2020-0 No 1{table Q1D take 1 A [facility]cess[facility] n 20 mg 1-16 t} tablet by ealth tablet 00:00: oral route 00 every day amlodipine 2020-0 No 1{table Q1D take 1 [facility] cess[facility] 10 mg 1-14 t} tablet by ealth tablet 00:00: oral route 00 every day olanzapine 2020-0 No 1{table Q1D take 1 [facility] cess[facility] 10 mg 1-14 t} tablet by ealth tablet 00:00: oral route 00 every day naproxen 2020-0 No 1{table Q12H take 1 [facility] ss[facility] 500 mg 1-14 t} tablet by ealth tablet 00:00: oral route 00 2 times every day with food lisinopril 2020-0 No 1{table Q1D take 1 [facility] cess[facility] 40 mg 1-14 t} tablet by ealth tablet 00:00: oral route 00 every day metoprolol 2020-0 No 1{table Q12H take 1 [facility] cessH tartrate 25 1-14 t} tablet by eal th mg tablet 00:00: oral route 00 2 times every day amlodipine 2020-0 No 1{table Q1D take 1 [facility] cess[facility] 10 mg 1-14 t} tablet by ealth tablet 00:00: oral route 00 every day olanzapine 2020-0 No 1{table Q1D take 1 [facility] cess[facility] 10 mg 1-14 t} tablet by ealth tablet 00:00: oral route 00 every day naproxen 2020-0 No 1{table Q12H take 1 [facility] ss[facility] 500 mg 1-14 t} tablet by ealth tablet 00:00: oral route 00 2 times every day with food lisinopril 2020-0 No 1{table Q1D take 1 [facility] cess[facility] 40 mg 1-14 t} tablet by ealth tablet 00:00: oral route 00 every day metoprolol 2020-0 No 1{table Q12H take 1 Ac cessH tartrate 25 1-14 t} tablet by eal th mg tablet 00:00: oral route 00 2 times every day amlodipine 2020-0 No 1{table Q1D take 1 [facility] cess[facility] 10 mg 1-14 t} tablet by ealth tablet 00:00: oral route 00 every day olanzapine 2020-0 No 1{table Q1D take 1 [facility] cess[facility] 10 mg 1-14 t} tablet by ealth tablet 00:00: oral route 00 every day naproxen 2020-0 No 1{table Q12H take 1 [facility] ss[facility] 500 mg 1-14 t} tablet by ealth tablet 00:00: oral route 00 2 times every day with food lisinopril 2020-0 No 1{table Q1D take 1 [facility] cess[facility] 40 mg 1-14 t} tablet by ealth tablet 00:00: oral route 00 every day metoprolol 2020-0 No 1{table Q12H take 1 Ac cessH tartrate 25 1-14 t} tablet by eal th mg tablet 00:00: oral route 00 2 times every day amlodipine 2020-0 No 1{table Q1D take 1 [facility] cess[facility] 10 mg 1-14 t} tablet by ealth tablet 00:00: oral route 00 every day olanzapine 2020-0 No 1{table Q1D take 1 [facility] cess[facility] 10 mg 1-14 t} tablet by ealth tablet 00:00: oral route 00 every day naproxen 2020-0 No 1{table Q12H take 1 [facility] ss[facility] 500 mg 1-14 t} tablet by ealth tablet 00:00: oral route 00 2 times every day with food lisinopril 2020-0 No 1{table Q1D take 1 [facility] cess[facility] 40 mg 1-14 t} tablet by ealth tablet 00:00: oral route 00 every day metoprolol 2020-0 No 1{table Q12H take 1 Ac cessH tartrate 25 1-14 t} tablet by eal th mg tablet 00:00: oral route 00 2 times every day amlodipine 2020-0 No 1{table Q1D take 1 [facility] cess[facility] 10 mg 1-14 t} tablet by ealth tablet 00:00: oral route 00 every day olanzapine 2020-0 No 1{table Q1D take 1 [facility] cess[facility] 10 mg 1-14 t} tablet by ealth tablet 00:00: oral route 00 every day naproxen 2020-0 No 1{table Q12H take 1 [facility] ss[facility] 500 mg 1-14 t} tablet by ealth tablet 00:00: oral route 00 2 times every day with food lisinopril 2020-0 No 1{table Q1D take 1 [facility] cess[facility] 40 mg 1-14 t} tablet by ealth tablet 00:00: oral route 00 every day metoprolol 2020-0 No 1{table Q12H take 1 [facility] cessH tartrate 25 1-14 t} tablet by eal th mg tablet 00:00: oral route 00 2 times every day amlodipine 2020-0 No 1{table Q1D take 1 [facility] cess[facility] 10 mg 1-14 t} tablet by ealth tablet 00:00: oral route 00 every day olanzapine No 1{table Q1D take 1 [facility] cess[facility] 10 mg 1-14 t} tablet by ealth tablet 00:00: oral route 00 every day naproxen No 1{table Q12H take 1 [facility] 500 mg 1-14 t} tablet by ealth tablet 00:00: oral route 00 2 times every day with food lisinopril No 1{table Q1D take 1 [facility] cess[facility] 40 mg 1-14 t} tablet by ealth tablet 00:00: oral route 00 every day metoprolol No 1{table Q12H take 1 [facility] cess[facility] tartrate 25 1-14 t} tablet by eal th mg tablet 00:00: oral route 00 2 times every day rosuvastati 2019-02 No 1{table Q1D take 1 A ccess[facility] n 20 mg 2-15 t} tablet by ealth tablet 00:00: oral route 00 every day Vitamin D2 2019-02 No take 1 [facility] 1,250 mcg 2-15 capsule by ealt h (50,000 00:00: oral route unit) 00 every capsule week metformin 2019-02 No 1{table Q12H take 1 [facility] ess[facility] 500 mg 2-15 t} tablet by ealth tablet 00:00: oral route 00 2 times every day with morning and evening meals True Metrix 2019-02 No 1{strip Q12H use 1 [facility] cess[facility] Glucose 2-15 } strip by ealth Test Strip 00:00: subcutaneo 00 us route 2 times every day lancets 2019-02 No Use twice [facility] 2-15 daily as ealth 00:00: directed. 00 rosuvastati 2019-02 No 1{table Q1D take 1 A ccess[facility] n 20 mg 2-15 t} tablet by ealth tablet 00:00: oral route 00 every day Vitamin D2 2019-02 No take 1 [facility] 1,250 mcg 2-15 capsule by ealt h (50,000 00:00: oral route unit) 00 every capsule week metformin 2019-02 No 1{table Q12H take 1 [facility] ess[facility] 500 mg 2-15 t} tablet by ealth tablet 00:00: oral route 00 2 times every day with morning and evening meals True Metrix 2019-02 No 1{strip Q12H use 1 Ac cessH Glucose 2-15 } strip by ealth Test Strip 00:00: subcutaneo 00 us route 2 times every day lancets 2019-02 No Use twice [facility]es s[facility] 2-15 daily as ealth 00:00: directed. 00 rosuvastati 2019-02 No 1{table Q1D take 1 A ccess[facility] n 20 mg 2-15 t} tablet by ealth tablet 00:00: oral route 00 every day Vitamin D2 2019-02 No take 1 [facility] 1,250 mcg 2-15 capsule by ealt h (50,000 00:00: oral route unit) 00 every capsule week metformin 2019-02 No 1{table Q12H take 1 [facility] 500 mg 2-15 t} tablet by ealth tablet 00:00: oral route 00 2 times every day with morning and evening meals True Metrix 2019-02 No 1{strip Q12H use 1 Ac cess[facility] Glucose 2-15 } strip by ealth Test Strip 00:00: subcutaneo 00 us route 2 times every day lancets 2019-02 No Use twice [facility]es s[facility] 2-15 daily as ealth 00:00: directed. 00 Vitamin D2 2019-02 No take 1 [facility] 1,250 mcg 2-15 capsule by ealt h (50,000 00:00: oral route unit) 00 every capsule week True Metrix 2019-02 No 1{strip Q12H use 1 [facility] cess[facility] Glucose 2-15 } strip by ealth Test Strip 00:00: subcutaneo 00 us route 2 times every day lancets 2019-02 No Use twice [facility] 2-15 daily as ealth 00:00: directed. 00 Vitamin D2 2019-02 No take 1 [facility] 1,250 mcg 2-15 capsule by ealt h (50,000 00:00: oral route unit) 00 every capsule week True Metrix 2019-02 No 1{strip Q12H use 1 [facility] cess[facility] Glucose 2-15 } strip by ealth Test Strip 00:00: subcutaneo 00 us route 2 times every day lancets 2019-02 No Use twice [facility]es s[facility] 2-15 daily as ealth 00:00: directed. 00 Vitamin D2 2019-02 No take 1 [facility] 1,250 mcg 2-15 capsule by ealt h (50,000 00:00: oral route unit) 00 every capsule week True Metrix 2019-02 No 1{strip Q12H use 1 [facility] cess[facility] Glucose 2-15 } strip by ealth Test Strip 00:00: subcutaneo 00 us route 2 times every day lancets 2019-02 No Use twice [facility]es s[facility] 2-15 daily as ealth 00:00: directed. 00 Vitamin D2 2019-02 No take 1 [facility] 1,250 mcg 2-15 capsule by ealt h (50,000 00:00: oral route unit) 00 every capsule week True Metrix 2019-02 No 1{strip Q12H use 1 [facility] cess[facility] Glucose 2-15 } strip by ealth Test Strip 00:00: subcutaneo 00 us route 2 times every day lancets 2019-02 No Use twice [facility]es s[facility] 2-15 daily as ealth 00:00: directed. 00 Vitamin D2 2019-02 No take 1 [facility] 1,250 mcg 2-15 capsule by ealt h (50,000 00:00: oral route unit) 00 every capsule week True Metrix 2019-02 No 1{strip Q12H use 1 [facility] cess[facility] Glucose 2-15 } strip by ealth Test Strip 00:00: subcutaneo 00 us route 2 times every day lancets 2019-02 No Use twice [facility] 2-15 daily as ealth 00:00: directed. Vitamin D2 2019-02 No take 1 [facility] 1,250 mcg 2-15 capsule by ealt h (50,000 00:00: oral route unit) 00 every capsule week True Metrix 2019-02 No 1{strip Q12H use 1 [facility] cess[facility] Glucose 2-15 } strip by ealth Test Strip 00:00: subcutaneo 00 us route 2 times every day lancets 2019-02 No Use twice [facility] 2-15 daily as ealth 00:00: directed. 00 rosuvastati 2019-02- No 1{table Q1D take 1 [facility] n 20 mg 2-15 01-16 t} tablet by ealth tablet 00:00: 00:00 oral route 00 :00 every day rosuvastati 2019-02- No 1{table Q1D take 1 [facility] n 20 mg 2-15 -16 t} tablet by ealth tablet 00:00: 00:00 oral route 00 :00 every day rosuvastati 2019-02- No 1{table Q1D take 1 [facility] n 20 mg 2-15 -16 t} tablet by ealth tablet 00:00: 00:00 oral route 00 :00 every day rosuvastati 2019-02- No 1{table Q1D take 1 [facility] n 20 mg 2-15 -16 t} tablet by ealth tablet 00:00: 00:00 oral route 00 :00 every day rosuvastati 2019-02- No 1{table Q1D take 1 [facility] n 20 mg 2-15 -16 t} tablet by ealth tablet 00:00: 00:00 oral route 00 :00 every day rosuvastati 2019-02- No 1{table Q1D take 1 [facility] n 20 mg 2-15 -16 t} tablet by ealth tablet 00:00: 00:00 oral route 00 :00 every day metformin 2019-02- No 1{table Q12H take 1 [facility] cess[facility] 500 mg 2-15 -14 t} tablet by ealth tablet 00:00: 00:00 oral route 00 :00 2 times every day with morning and evening meals metformin 2019-02- No 1{table Q12H take 1 [facility] cess[facility] 500 mg 2-15 -14 t} tablet by ealth tablet 00:00: 00:00 oral route 00 :00 2 times every day with morning and evening meals metformin 2019-02- No 1{table Q12H take 1 [facility] cess[facility] 500 mg 2-15 -14 t} tablet by ealth tablet 00:00: 00:00 oral route 00 :00 2 times every day with morning and evening meals metformin 2019-02- No 1{table Q12H take 1 [facility] 500 mg 2-15 -14 t} tablet by ealth tablet 00:00: 00:00 oral route 00 :00 2 times every day with morning and evening meals metformin 2019-02- No 1{table Q12H take 1 [facility] cess[facility] 500 mg 2-15 01-14 t} tablet by ealth tablet 00:00: 00:00 oral route 00 :00 2 times every day with morning and evening meals metformin 2019-02- No 1{table Q12H take 1 [facility] 500 mg 2-15 01-14 t} tablet by ealth tablet 00:00: 00:00 oral route 00 :00 2 times every day with morning and evening meals omeprazole 2019-02 No take 1 [facility] 20 mg 2-14 capsule by ealth capsule,del 00:00: oral route ayed 00 twice release daily 30 minute before meals. metoprolol 2019-02 No 1{table Q12H take 1 [facility] cess[facility] tartrate 25 2-14 t} tablet by eal th mg tablet 00:00: oral route 00 2 times every day lisinopril 2019-02 No 1{table Q1D take 1 [facility] 40 mg 2-14 t} tablet by ealth tablet 00:00: oral route 00 every day hydroxyzine 2019-02 No 1{table BID take 1 A [facility]cess[facility] HCl 25 mg 2-14 t} tablet by ealth tablet 00:00: oral route 00 2 times every day as needed as needed for anxiety, insomnia aspirin 81 2019-02 No 1{table Q1D chew 1 [facility] mg chewable 2-14 t} tablet by eal th tablet 00:00: oral route 00 every day cyclobenzap 2019-02 No take 1 [facility] rine 10 mg 2-14 tablet by ealt h tablet 00:00: oral route 00 every day at bedtime as needed for muscle spasm amlodipine 2019-02 No 1{table Q1D take 1 [facility] 10 mg 2-14 t} tablet by ealth tablet 00:00: oral route 00 every day naproxen 2019-02 No 1{table Q12H take 1 [facility] 500 mg 2-14 t} tablet by ealth tablet 00:00: oral route 00 2 times every day with food omeprazole 2019-02 No take 1 [facility] 20 mg 2-14 capsule by ealth capsule,del 00:00: oral route ayed 00 twice release daily 30 minute before meals. metoprolol 2019-02 No 1{table Q12H take 1 [facility] tartrate 25 2-14 t} tablet by eal th mg tablet 00:00: oral route 00 2 times every day lisinopril 2019-02 No 1{table Q1D take 1 [facility] 40 mg 2-14 t} tablet by ealth tablet 00:00: oral route 00 every day hydroxyzine 2019- No 1{table BID take 1 A ccess[facility] HCl 25 mg 2-14 t} tablet by ealth tablet 00:00: oral route 00 2 times every day as needed as needed for anxiety, insomnia aspirin 81 2019-02 No 1{table Q1D chew 1 [facility] mg chewable 2-14 t} tablet by eal th tablet 00:00: oral route 00 every day cyclobenzap 2019-02 No take 1 [facility] rine 10 mg 2-14 tablet by ealt h tablet 00:00: oral route 00 every day at bedtime as needed for muscle spasm amlodipine 2019-02 No 1{table Q1D take 1 [facility] 10 mg 2-14 t} tablet by ealth tablet 00:00: oral route 00 every day naproxen 2019-02 No 1{table Q12H take 1 [facility] 500 mg 2-14 t} tablet by [facility] tablet 00:00: oral route 00 2 times every day with food omeprazole 2019-02 No take 1 [facility] 20 mg 2-14 capsule by [facility] capsule,del 00:00: oral route ayed 00 twice release daily 30 minute before meals. metoprolol 2019-02 No 1{table Q12H take 1 [facility] tartrate 25 2-14 t} tablet by [facility] tablet 00:00: oral route 00 2 times every day lisinopril 2019-02 No 1{table Q1D take 1 [facility] 40 mg 2-14 t} tablet by [facility] tablet 00:00: oral route 00 every day hydroxyzine 2019-02 No 1{table BID take 1 [facility] HCl 25 mg 2-14 t} tablet by [facility] tablet 00:00: oral route 00 2 times every day as needed as needed for anxiety, insomnia aspirin 81 2019-02 No 1{table Q1D chew 1 [facility] mg chewable 2-14 t} tablet by [facility] tablet 00:00: oral route 00 every day cyclobenzap 2020-1 No take 1 [facility] rine 10 mg 2-14 tablet by [facility] tablet 00:00: oral route 00 every day at bedtime as needed for muscle spasm amlodipine 2019-02 No 1{table Q1D take 1 [facility] 10 mg 2-14 t} tablet by [facility] tablet 00:00: oral route 00 every day naproxen 2019- No 1{table Q12H take 1 [facility] 500 mg 2-14 t} tablet by [facility] tablet 00:00: oral route 00 2 times every day with food omeprazole 2019-02 No take 1 [facility] 20 mg 2-14 capsule by [facility] capsule,del 00:00: oral route ayed 00 twice release daily 30 minute before meals. hydroxyzine 2019-02 No 1{table BID take 1 [facility] HCl 25 mg 2-14 t} tablet by [facility] tablet 00:00: oral route 00 2 times every day as needed as needed for anxiety, insomnia aspirin 81 2019-02 No 1{table Q1D chew 1 [facility] mg chewable 2-14 t} tablet by [facility] tablet 00:00: oral route 00 every day omeprazole 2019-02 No take 1 [facility] 20 mg 2-14 capsule by [facility] capsule,del 00:00: oral route ayed 00 twice release daily 30 minute before meals. hydroxyzine 2019-02 No 1{table BID take 1 [facility] HCl 25 mg 2-14 t} tablet by [facility] tablet 00:00: oral route 00 2 times every day as needed as needed for anxiety, insomnia aspirin 81 2019-02 No 1{table Q1D chew 1 [facility] mg chewable 2-14 t} tablet by [facility] tablet 00:00: oral route 00 every day omeprazole 2019-02 No take 1 [facility] 20 mg 2-14 capsule by [facility] capsule,del 00:00: oral route ayed 00 twice release daily 30 minute before meals. hydroxyzine 2019-02 No 1{table BID take 1 [facility] HCl 25 mg 2-14 t} tablet by [facility] tablet 00:00: oral route 00 2 times every day as needed as needed for anxiety, insomnia aspirin 81 2019-02 No 1{table Q1D chew 1 [facility] mg chewable 2-14 t} tablet by [facility] tablet 00:00: oral route 00 every day omeprazole 2019-02 No take 1 [facility] 20 mg 2-14 capsule by [facility] capsule,del 00:00: oral route ayed 00 twice release daily 30 minute before meals. hydroxyzine 2019-02 No 1{table BID take 1 [facility] HCl 25 mg 2-14 t} tablet by [facility] tablet 00:00: oral route 00 2 times every day as needed as needed for anxiety, insomnia aspirin 81 2019-02 No 1{table Q1D chew 1 [facility] mg chewable 2-14 t} tablet by [facility] tablet 00:00: oral route 00 every day omeprazole 2019-02 No take 1 [facility] 20 mg 2-14 capsule by [facility] capsule,del 00:00: oral route ayed 00 twice release daily 30 minute before meals. hydroxyzine 2019-02 No 1{table BID take 1 [facility] HCl 25 mg 2-14 t} tablet by [facility] tablet 00:00: oral route 00 2 times every day as needed as needed for anxiety, insomnia aspirin 81 2019-02 No 1{table Q1D chew 1 [facility] mg chewable 2-14 t} tablet by [facility] tablet 00:00: oral route 00 every day omeprazole 2019-02 No take 1 [facility] 20 mg 2-14 capsule by [facility] capsule,del 00:00: oral route ayed 00 twice release daily 30 minute before meals. hydroxyzine 2019-02 No 1{table BID take 1 [facility] HCl 25 mg 2-14 t} tablet by [facility] tablet 00:00: oral route 00 2 times every day as needed as needed for anxiety, insomnia aspirin 81 2019-02 No 1{table Q1D chew 1 [facility] mg chewable 2-14 t} tablet by [facility] tablet 00:00: oral route 00 every day metoprolol 2019-02- No 1{table Q12H take 1 [facility] tartrate 25 2-14 01-14 t} tablet by [facility] tablet 00:00: 00:00 oral route 00 :00 2 times every day lisinopril 2019-02- No 1{table Q1D take 1 [facility] 40 mg 2-14 01-14 t} tablet by [facility] tablet 00:00: 00:00 oral route 00 :00 every day cyclobenzap 2019-02- No take 1 [facility] rine 10 mg 2-14 -14 tablet by [facility] tablet 00:00: 00:00 oral route 00 :00 every day at bedtime as needed for muscle spasm amlodipine 2019-02- No 1{table Q1D take 1 [facility] 10 mg 2-14 -14 t} tablet by [facility] tablet 00:00: 00:00 oral route 00 :00 every day naproxen 2019-02- No 1{table Q12H take 1 [facility] 500 mg 2-14 03-09 t} tablet by [facility] tablet 00:00: 00:00 oral route 00 :00 2 times every day with food metoprolol 2019-02- No 1{table Q12H take 1 [facility] tartrate 25 -14 03-09 t} tablet by [facility] tablet 00:00: 00:00 oral route 00 :00 2 times every day lisinopril 2019-02- No 1{table Q1D take 1 [facility] 40 mg 2-14 03-09 t} tablet by [facility] tablet 00:00: 00:00 oral route 00 :00 every day cyclobenzap 2019-02- No take 1 [facility] rine 10 mg 2-14 03-09 tablet by [facility] tablet 00:00: 00:00 oral route 00 :00 every day at bedtime as needed for muscle spasm amlodipine 2019-02- No 1{table Q1D take 1 [facility] 10 mg 2-14 - t} tablet by [facility] tablet 00:00: 00:00 oral route 00 :00 every day naproxen 2019-02- No 1{table Q12H take 1 [facility] 500 mg 2-14 03-09 t} tablet by [facility] tablet 00:00: 00:00 oral route 00 :00 2 times every day with food metoprolol 2019-02- No 1{table Q12H take 1 [facility] tartrate 25 2-14 03-09 t} tablet by [facility] tablet 00:00: 00:00 oral route 00 :00 2 times every day lisinopril 2019-02- No 1{table Q1D take 1 [facility] 40 mg 2-14 -14 t} tablet by [facility] tablet 00:00: 00:00 oral route 00 :00 every day cyclobenzap 2019-02- No take 1 [facility] rine 10 mg 2-14 -14 tablet by [facility] tablet 00:00: 00:00 oral route 00 :00 every day at bedtime as needed for muscle spasm amlodipine 2019-02- No 1{table Q1D take 1 [facility] 10 mg 2-14 -14 t} tablet by [facility] tablet 00:00: 00:00 oral route 00 :00 every day naproxen 2019-02- No 1{table Q12H take 1 [facility] 500 mg 2-14 -14 t} tablet by [facility] tablet 00:00: 00:00 oral route 00 :00 2 times every day with food metoprolol 2019-02- No 1{table Q12H take 1 [facility] tartrate 25 2-14 -14 t} tablet by [facility] tablet 00:00: 00:00 oral route 00 :00 2 times every day lisinopril 2019-02- No 1{table Q1D take 1 [facility] 40 mg 2-14 -14 t} tablet by [facility] tablet 00:00: 00:00 oral route 00 :00 every day cyclobenzap 2019-02- No take 1 [facility] rine 10 mg 2-14 -14 tablet by [facility] tablet 00:00: 00:00 oral route 00 :00 every day at bedtime as needed for muscle spasm amlodipine 2019-02- No 1{table Q1D take 1 [facility] 10 mg 2-14 -14 t} tablet by [facility] tablet 00:00: 00:00 oral route 00 :00 every day naproxen 2019-02- No 1{table Q12H take 1 [facility] 500 mg 2-14 -14 t} tablet by [facility] tablet 00:00: 00:00 oral route 00 :00 2 times every day with food metoprolol 2019-02- No 1{table Q12H take 1 [facility] tartrate 25 2-14 -14 t} tablet by [facility] tablet 00:00: 00:00 oral route 00 :00 2 times every day lisinopril 2019-02- No 1{table Q1D take 1 [facility] 40 mg 2-14 -14 t} tablet by [facility] tablet 00:00: 00:00 oral route 00 :00 every day cyclobenzap 2019-02- No take 1 [facility] rine 10 mg 2-14 -14 tablet by [facility] tablet 00:00: 00:00 oral route 00 :00 every day at bedtime as needed for muscle spasm amlodipine 2019-02- No 1{table Q1D take 1 [facility] 10 mg 2-14 -14 t} tablet by [facility] tablet 00:00: 00:00 oral route 00 :00 every day naproxen 2019-02- No 1{table Q12H take 1 [facility] 500 mg 2-14 - t} tablet by [facility] tablet 00:00: 00:00 oral route 00 :00 2 times every day with food metoprolol 2019-02- No 1{table Q12H take 1 [facility] tartrate 25 -14 03-09 t} tablet by [facility] tablet 00:00: 00:00 oral route 00 :00 2 times every day lisinopril 2019-02- No 1{table Q1D take 1 [facility] 40 mg 2-14 -14 t} tablet by [facility] tablet 00:00: 00:00 oral route 00 :00 every day cyclobenzap 2019-02- No take 1 [facility] rine 10 mg 2-14 -14 tablet by [facility] tablet 00:00: 00:00 oral route 00 :00 every day at bedtime as needed for muscle spasm amlodipine 2019-02- No 1{table Q1D take 1 [facility] 10 mg 2-14 -14 t} tablet by [facility] tablet 00:00: 00:00 oral route 00 :00 every day naproxen 2019-02- No 1{table Q12H take 1 [facility] 500 mg 2-14 -14 t} tablet by [facility] tablet 00:00: 00:00 oral route 00 :00 2 times every day with food venlafaxine 2020-0 No 1{capsu Q12H take 1 A [facility]cess[facility] ER 75 mg 9-14 le} capsule by [facility] capsule,ext 00:00: oral route ended 00 2 times release 24 every day hr with food Augmentin 2020-0 No 1{table Q12H take 1 [facility] 875 mg-125 9-14 t} tablet by [facility] mg tablet 00:00: oral route 00 every 12 hours Tylenol-Cod 2020-0 No 1{table QID take 1 [facility] eine #3 300 9-14 t} tablet by [facility] mg-30 mg 00:00: oral route tablet 00 every 6 hours as needed as needed for tooth pain Augmentin 2020-0 2020- No 1{table Q12H take 1 [facility] 875 mg-125 9-14 12-14 t} tablet by [facility] tablet 00:00: 00:00 oral route 00 :00 every 12 hours Tylenol-Cod 2020-0 2020- No take 1 [facility] eine #3 300 9-14 12-14 tablet by [facility] mg-30 mg 00:00: 00:00 oral route tablet 00 :00 every 6 hours as needed as needed for tooth pain venlafaxine 2020-0 2020- No 1{capsu Q12H take 1 [facility] ER 75 mg 9-14 12-14 le} capsule by [facility] capsule,ext 00:00: 00:00 oral route ended 00 :00 2 times release 24 every day hr with food Augmentin 2020-0 2020- No 1{table Q12H take 1 [facility] 875 mg-125 9-14 12-14 t} tablet by [facility] tablet 00:00: 00:00 oral route 00 :00 every 12 hours Tylenol-Cod 2020-0 2020- No take 1 [facility] eine #3 300 9-14 12-14 tablet by [facility] mg-30 mg 00:00: 00:00 oral route tablet 00 :00 every 6 hours as needed as needed for tooth pain venlafaxine 2020-0 2020- No 1{capsu Q12H take 1 [facility] ER 75 mg 9-14 12-14 le} capsule by [facility] capsule,ext 00:00: 00:00 oral route ended 00 :00 2 times release 24 every day hr with food Augmentin 2020-0 2020- No 1{table Q12H take 1 [facility] 875 mg-125 9-14 12-14 t} tablet by [facility] tablet 00:00: 00:00 oral route 00 :00 every 12 hours Tylenol-Cod 2020-0 2020- No take 1 [facility] eine #3 300 9-14 12-14 tablet by [facility] mg-30 mg 00:00: 00:00 oral route tablet 00 :00 every 6 hours as needed as needed for tooth pain venlafaxine 2020-0 2020- No 1{capsu Q12H take 1 [facility] ER 75 mg 9-14 12-14 le} capsule by [facility] capsule,ext 00:00: 00:00 oral route ended 00 :00 2 times release 24 every day hr with food Augmentin 2020-0 2020- No 1{table Q12H take 1 [facility] 875 mg-125 9-14 12-14 t} tablet by [facility] mg tablet 00:00: 00:00 oral route 00 :00 every 12 hours Tylenol-Cod 2020-0 2020- No take 1 [facility] eine #3 300 - 12-14 tablet by [facility] mg-30 mg 00:00: 00:00 oral route tablet 00 :00 every 6 hours as needed as needed for tooth pain venlafaxine 2020-0 2020- No 1{capsu Q12H take 1 [facility] ER 75 mg 9-14 12-14 le} capsule by [facility] capsule,ext 00:00: 00:00 oral route ended 00 :00 2 times release 24 every day hr with food Augmentin 2020-0 2020- No 1{table Q12H take 1 [facility] 875 mg-125 9-14 12-14 t} tablet by [facility] mg tablet 00:00: 00:00 oral route 00 :00 every 12 hours Tylenol-Cod 2020-0 2020- No take 1 [facility] eine #3 300 9-14 12-14 tablet by [facility] mg-30 mg 00:00: 00:00 oral route tablet 00 :00 every 6 hours as needed as needed for tooth pain venlafaxine 2020-0 2020- No 1{capsu Q12H take 1 [facility] ER 75 mg 9-14 12-14 le} capsule by [facility] capsule,ext 00:00: 00:00 oral route ended 00 :00 2 times release 24 every day hr with food Augmentin 2020-0 2020- No 1{table Q12H take 1 [facility] 875 mg-125 9-14 12-14 t} tablet by [facility] mg tablet 00:00: 00:00 oral route 00 :00 every 12 hours Tylenol-Cod 2020-0 2020- No take 1 [facility] eine #3 300 9-14 12-14 tablet by [facility] mg-30 mg 00:00: 00:00 oral route tablet 00 :00 every 6 hours as needed as needed for tooth pain venlafaxine 2020-0 2020- No 1{capsu Q12H take 1 [facility] ER 75 mg 9-14 12-14 le} capsule by [facility] capsule,ext 00:00: 00:00 oral route ended 00 :00 2 times release 24 every day hr with food Augmentin 2020-0 2020- No 1{table Q12H take 1 [facility] 875 mg-125 9-14 12-14 t} tablet by [facility] mg tablet 00:00: 00:00 oral route 00 :00 every 12 hours Tylenol-Cod 2020-0 2020- No take 1 [facility] eine #3 300 9-14 12-14 tablet by [facility] mg-30 mg 00:00: 00:00 oral route tablet 00 :00 every 6 hours as needed as needed for tooth pain venlafaxine 2020-0 2020- No 1{capsu Q12H take 1 [facility] ER 75 mg 9-14 12-14 le} capsule by [facility] capsule,ext 00:00: 00:00 oral route ended 00 :00 2 times release 24 every day hr with food Augmentin 2020-0 2020- No 1{table Q12H take 1 [facility] 875 mg-125 9-14 12-14 t} tablet by [facility] mg tablet 00:00: 00:00 oral route 00 :00 every 12 hours Tylenol-Cod 2020-0 2020- No take 1 [facility] eine #3 300 9-14 12-14 tablet by [facility] mg-30 mg 00:00: 00:00 oral route tablet 00 :00 every 6 hours as needed as needed for tooth pain venlafaxine 2020-0 2020- No 1{capsu Q12H take 1 [facility] ER 75 mg 9-14 12-14 le} capsule by [facility] capsule,ext 00:00: 00:00 oral route ended 00 :00 2 times release 24 every day hr with food Augmentin 2019-0 2020- No 1{table Q12H take 1 [facility] 875 mg-125 11-07-14 t} tablet by [facility] mg tablet 00:00: 00:00 oral route 00 :00 every 12 hours Tylenol-Cod 2019-0 2020- No take 1 [facility] eine #3 300 11-07 tablet by [facility] mg-30 mg 00:00: 00:00 oral route tablet 00 :00 every 6 hours as needed as needed for tooth pain venlafaxine 0 2020- No 1{capsu Q12H take 1 [facility] ER 75 mg 11-07 le} capsule by [facility] capsule,ext 00:00: 00:00 oral route ended 00 :00 2 times release 24 every day hr with food Vitamin D2 2020-0 No take 1 [facility] 1,250 mcg 9-03 capsule by [facility] (50,000 00:00: oral route unit) 00 every capsule week atorvastati 2020-0 No 1{table take 1 A [facility] n 40 mg 9-03 t} tablet by [facility] tablet 00:00: oral route 00 every bedtime at bedtime Vitamin D2 2020-0 No take 1 [facility] 1,250 mcg 9-03 capsule by [facility] (50,000 00:00: oral route unit) 00 every capsule week atorvastati 2020-0 No 1{table take 1 A [facility] n 40 mg 9-03 t} tablet by [facility] tablet 00:00: oral route 00 every bedtime at bedtime Vitamin D2 2020-0 No take 1 [facility] 1,250 mcg 9-03 capsule by [facility] (50,000 00:00: oral route unit) 00 every capsule week atorvastati 2020-0 No 1{table take 1 A [facility] n 40 mg 9-03 t} tablet by [facility] tablet 00:00: oral route 00 every bedtime at bedtime atorvastati 2020-0 2020- No 1{table take 1 [facility] n 40 mg 9-03 12-15 t} tablet by [facility] tablet 00:00: 00:00 oral route 00 :00 every bedtime at bedtime atorvastati 2020-0 2020- No 1{table take 1 [facility] n 40 mg 9-03 12-15 t} tablet by [facility] tablet 00:00: 00:00 oral route 00 :00 every bedtime at bedtime atorvastati 2020-0 2020- No 1{table take 1 [facility] n 40 mg 9-03 12-15 t} tablet by [facility] tablet 00:00: 00:00 oral route 00 :00 every bedtime at bedtime atorvastati 2020-0 2020- No 1{table take 1 [facility] n 40 mg 9-03 12-15 t} tablet by [facility] tablet 00:00: 00:00 oral route 00 :00 every bedtime at bedtime atorvastati 2020-0 2020- No 1{table take 1 [facility] n 40 mg 9-03 12-15 t} tablet by [facility] tablet 00:00: 00:00 oral route 00 :00 every bedtime at bedtime atorvastati 2020-0 2020- No 1{table take 1 [facility] n 40 mg 9-03 12-15 t} tablet by [facility] tablet 00:00: 00:00 oral route 00 :00 every bedtime at bedtime atorvastati 2020-0 2020- No 1{table take 1 [facility] n 40 mg 9-03 12-15 t} tablet by [facility] tablet 00:00: 00:00 oral route 00 :00 every bedtime at bedtime atorvastati 2020-0 2020- No 1{table take 1 [facility] n 40 mg 9-03 12-15 t} tablet by [facility] tablet 00:00: 00:00 oral route 00 :00 every bedtime at bedtime atorvastati 2020-0 2020- No 1{table take 1 [facility] n 40 mg 9-03 12-15 t} tablet by [facility] tablet 00:00: 00:00 oral route 00 :00 every bedtime at bedtime Vitamin D2 2020-0 2020- No take 1 [facility] 1,250 mcg 9- 12-14 capsule by [facility] (50,000 00:00: 00:00 oral route unit) 00 :00 every capsule week Vitamin D2 2020-0 2020- No take 1 [facility] 1,250 mcg 9- 12-14 [facility] ([facility] 00:00: 00:00 oral route unit) 00 :00 every capsule week Vitamin D2 2020-0 2020- No take 1 [facility] 1,250 mcg 9-03 12-14 [facility] ([facility],000 00:00: 00:00 oral route unit) 00 :00 every capsule week Vitamin D2 2020-0 2020- No take 1 [facility] 1,250 mcg 9-03 12-14 capsule by [facility] (50,000 00:00: 00:00 oral route unit) 00 :00 every capsule week Vitamin D2 2019-0 2020- No take 1 [facility] 1,250 mcg 9-03 12-14 capsule by [facility] (50,000 00:00: 00:00 oral route unit) 00 :00 every capsule week Vitamin D2 2019-0 2020- No take 1 [facility] 1,250 mcg 9-03 12-14 capsule by [facility] (50,000 00:00: 00:00 oral route unit) 00 :00 every capsule week Vitamin D2 2019-0 2020- No take 1 [facility] 1,250 mcg 9-03 12-14 capsule by [facility] (50,000 00:00: 00:00 oral route unit) 00 :00 every capsule week Vitamin D2 2020-0 2020- No take 1 [facility] 1,250 mcg 9-03 12-14 capsule by [facility] (50,000 00:00: 00:00 oral route unit) 00 :00 every capsule week Vitamin D2 2019-0 2020- No take 1 [facility] 1,250 mcg 9-03 12-14 capsule by [facility] (50,000 00:00: 00:00 oral route unit) 00 :00 every capsule week Aspir-81 mg 2020-0 No 1{table Q1D take 1 A ccess[facility] tablet,ramon 8-31 t} tablet by [facility] y[facility] release 00:00: oral route 00 every day hydrochloro 2020-0 No 1{table Q1D take 1 A [facility]cess[facility] thiazide 25 8-31 t} tablet by [facility] tablet 00:00: oral route 00 every day hydroxyzine 2020-0 No 1{table BID take 1 A ccess[facility] HCl 25 mg 8-31 t} tablet by [facility] tablet 00:00: oral route 00 2 times every day as needed as needed for anxiety, insomnia lisinopril 2020-0 No 1{table Q1D take 1 Ac cess[facility] 40 mg 8-31 t} tablet by [facility] tablet 00:00: oral route 00 every day metoprolol 2020-0 No 1{table Q12H take 1 Ac cess[facility] tartrate 25 8-31 t} tablet by [facility] mg tablet 00:00: oral route 00 2 times every day omeprazole 2020-0 No take 1 [facility]es [facility] 20 mg 8-31 capsule by [facility] capsule,del 00:00: oral route ayed 00 twice release daily 30 minute before meals. Aspir-81 mg 2020-0 No 1{table Q1D take 1 A ccess[facility] tablet,ramon 8-31 t} tablet by [facility] yed release 00:00: oral route 00 every day hydrochloro 2020-0 No 1{table Q1D take 1 A ccess[facility] thiazide 25 8-31 t} tablet by [facility] mg tablet 00:00: oral route 00 every day hydroxyzine 2020-0 No 1{table BID take 1 A ccess[facility] HCl 25 mg 8-31 t} tablet by [facility] tablet 00:00: oral route 00 2 times every day as needed as needed for anxiety, insomnia lisinopril 2020-0 No 1{table Q1D take 1 Ac cess[facility] 40 mg 8-31 t} tablet by [facility] tablet 00:00: oral route 00 every day metoprolol 2020-0 No 1{table Q12H take 1 Ac cess[facility] tartrate 25 8-31 t} tablet by [facility] mg tablet 00:00: oral route 00 2 times every day omeprazole 2020-0 No take 1 [facility]es [facility] 20 mg 8-31 capsule by [facility] capsule,del 00:00: oral route ayed 00 twice release daily 30 minute before meals. Aspir-81 mg 2020-0 No 1{table Q1D take 1 A ccess[facility] tablet,ramon 8-31 t} tablet by [facility] yed release 00:00: oral route 00 every day hydrochloro 2020-0 No 1{table Q1D take 1 A ccess[facility] thiazide 25 8-31 t} tablet by [facility] mg tablet 00:00: oral route 00 every day hydroxyzine 2020-0 No 1{table BID take 1 A ccess[facility] HCl 25 mg 8-31 t} tablet by [facility] tablet 00:00: oral route 00 2 times every day as needed as needed for anxiety, insomnia lisinopril 2020-0 No 1{table Q1D take 1 Ac cess[facility] 40 mg 8-31 t} tablet by [facility] tablet 00:00: oral route 00 every day metoprolol 2020-0 No 1{table Q12H take 1 Ac cess[facility] tartrate 25 8-31 t} tablet by [facility] mg tablet 00:00: oral route 00 2 times every day omeprazole 2020-0 No take 1 [facility]es [facility] 20 mg 8-31 capsule by [facility] capsule,del 00:00: oral route ayed 00 twice release daily 30 minute before meals. Aspir-81 mg 2020-0 2020- No take 1 [facility] tablet,ramon 8-31 12-14 tablet by [facility] yed release 00:00: 00:00 oral route 00 :00 every day hydrochloro 2020-0 2020- No 1{table Q1D take 1 [facility] thiazide 25 8-31 12-14 t} tablet by [facility] mg tablet 00:00: 00:00 oral route 00 :00 every day hydroxyzine 2020-0 2020- No 1{table BID take 1 [facility] HCl 25 mg 8-31 12-14 t} tablet by [facility] tablet 00:00: 00:00 oral route 00 :00 2 times every day as needed as needed for anxiety, insomnia lisinopril 2020-0 2020- No 1{table Q1D take 1 A ccess[facility] 40 mg 8-31 12-14 t} tablet by [facility] tablet 00:00: 00:00 oral route 00 :00 every day metoprolol 2020-0 2020- No 1{table Q12H take 1 A ccess[facility] tartrate 25 8-31 12-14 t} tablet by [facility] mg tablet 00:00: 00:00 oral route 00 :00 2 times every day omeprazole 2020-0 2020- No take 1 [facility] ss[facility] 20 mg 8-31 12-14 capsule by [facility] capsule,del 00:00: 00:00 oral route ayed 00 :00 twice release daily 30 minute before meals. Aspir-81 mg 2020-0 2020- No take 1 [facility] tablet,ramon 8-31 12-14 tablet by [facility] yed release 00:00: 00:00 oral route 00 :00 every day hydrochloro 2020-0 2020- No 1{table Q1D take 1 [facility] thiazide 25 8-31 12-14 t} tablet by [facility] mg tablet 00:00: 00:00 oral route 00 :00 every day hydroxyzine 2020-0 2020- No 1{table BID take 1 [facility] HCl 25 mg 8-31 12-14 t} tablet by [facility] tablet 00:00: 00:00 oral route 00 :00 2 times every day as needed as needed for anxiety, insomnia lisinopril 2019-0 2020- No 1{table Q1D take 1 A ccess[facility] 40 mg 8-31 12-14 t} tablet by [facility] tablet 00:00: 00:00 oral route 00 :00 every day metoprolol 2020-0 2020- No 1{table Q12H take 1 A ccess[facility] tartrate 25 8-31 12-14 t} tablet by [facility] mg tablet 00:00: 00:00 oral route 00 :00 2 times every day omeprazole 2019-0 2020- No take 1 [facility] ss[facility] 20 mg 8-31 12-14 capsule by [facility] capsule,del 00:00: 00:00 oral route ayed 00 :00 twice release daily 30 minute before meals. Aspir-81 mg 2019-0 2020- No take 1 [facility] tablet,ramon 8-31 12-14 tablet by [facility] yed release 00:00: 00:00 oral route 00 :00 every day hydrochloro 2020-0 2020- No 1{table Q1D take 1 [facility] thiazide 25 8-31 12-14 t} tablet by [facility] mg tablet 00:00: 00:00 oral route 00 :00 every day hydroxyzine 2020-0 2020- No 1{table BID take 1 [facility] HCl 25 mg 8-31 12-14 t} tablet by [facility] tablet 00:00: 00:00 oral route 00 :00 2 times every day as needed as needed for anxiety, insomnia lisinopril 2020-0 2020- No 1{table Q1D take 1 A ccess[facility] 40 mg 8-31 12-14 t} tablet by [facility] tablet 00:00: 00:00 oral route 00 :00 every day metoprolol 2020-0 2020- No 1{table Q12H take 1 A ccess[facility] tartrate 25 8-31 12-14 t} tablet by [facility] mg tablet 00:00: 00:00 oral route 00 :00 2 times every day omeprazole 2019-0 2020- No take 1 Ac[facility] ss[facility] 20 mg 8-31 12-14 capsule by [facility] capsule,del 00:00: 00:00 oral route ayed 00 :00 twice release daily 30 minute before meals. Aspir-81 mg 2019-0 2020- No take 1 [facility] tablet,ramon 8-31 12-14 tablet by [facility] yed release 00:00: 00:00 oral route 00 :00 every day hydrochloro 2019-0 2020- No 1{table Q1D take 1 [facility] thiazide 25 8-31 12-14 t} tablet by [facility] mg tablet 00:00: 00:00 oral route 00 :00 every day hydroxyzine 2019- 2020- No 1{table BID take 1 [facility] HCl 25 mg 8-31 12-14 t} tablet by [facility] tablet 00:00: 00:00 oral route 00 :00 2 times every day as needed as needed for anxiety, insomnia lisinopril 2019-0 2020- No 1{table Q1D take 1 A ccess[facility] 40 mg 8-31 12-14 t} tablet by [facility] tablet 00:00: 00:00 oral route 00 :00 every day metoprolol 2019-0 2020- No 1{table Q12H take 1 A ccess[facility] tartrate 25 8-31 12-14 t} tablet by [facility] mg tablet 00:00: 00:00 oral route 00 :00 2 times every day omeprazole 2019-0 2020- No take 1 [facility] ss[facility] 20 mg 8-31 12-14 capsule by [facility] capsule,del 00:00: 00:00 oral route ayed 00 :00 twice release daily 30 minute before meals. Aspir-81 mg 2019-0 2020- No take 1 [facility] tablet,ramon 8-31 12-14 tablet by [facility] yed release 00:00: 00:00 oral route 00 :00 every day hydrochloro 2019-0 2020- No 1{table Q1D take 1 [facility] thiazide 25 8-31 12-14 t} tablet by [facility] mg tablet 00:00: 00:00 oral route 00 :00 every day hydroxyzine 2020-0 2020- No 1{table BID take 1 [facility] HCl 25 mg 8-31 12-14 t} tablet by [facility] tablet 00:00: 00:00 oral route 00 :00 2 times every day as needed as needed for anxiety, insomnia lisinopril 2019-0 2020- No 1{table Q1D take 1 A ccess[facility] 40 mg 8-31 12-14 t} tablet by [facility] tablet 00:00: 00:00 oral route 00 :00 every day metoprolol 2019-0 2020- No 1{table Q12H take 1 A [facility] tartrate 25 8-31 12-14 t} tablet by [facility] mg tablet 00:00: 00:00 oral route 00 :00 2 times every day omeprazole 2019-0 2020- No take 1 [facility] 20 mg 8-31 12-14 capsule by [facility] capsule,del 00:00: 00:00 oral route ayed 00 :00 twice release daily 30 minute before meals. Aspir-81 mg 2019-0 2020- No take 1 [facility] tablet,ramon 8-31 12-14 tablet by e[facility] yed release 00:00: 00:00 oral route 00 :00 every day hydrochloro 2019-0 2020- No 1{table Q1D take 1 [facility] thiazide 25 8-31 12-14 t} tablet by [facility] mg tablet 00:00: 00:00 oral route 00 :00 every day hydroxyzine 2019-0 2020- No 1{table BID take 1 [facility] HCl 25 mg 8-31 12-14 t} tablet by [facility] tablet 00:00: 00:00 oral route 00 :00 2 times every day as needed as needed for anxiety, insomnia lisinopril 2019-0 2020- No 1{table Q1D take 1 A ccess[facility] 40 mg 8-31 12-14 t} tablet by [facility] tablet 00:00: 00:00 oral route 00 :00 every day metoprolol 2020-0 2020- No 1{table Q12H take 1 A [facility] tartrate 25 8-31 12-14 t} tablet by [facility] mg tablet 00:00: 00:00 oral route 00 :00 2 times every day omeprazole 2020-0 2020- No take 1 [facility] 20 mg 8-31 12-14 capsule by [facility] capsule,del 00:00: 00:00 oral route ayed 00 :00 twice release daily 30 minute before meals. Aspir-81 mg 2019-0 2020- No take 1 [facility] tablet,ramon 8-31 12-14 tablet by [facility] yed release 00:00: 00:00 oral route 00 :00 every day hydrochloro 2020-0 2020- No 1{table Q1D take 1 [facility] thiazide 25 8-31 12-14 t} tablet by [facility] mg tablet 00:00: 00:00 oral route 00 :00 every day hydroxyzine 2019-0 2020- No 1{table BID take 1 [facility] HCl 25 mg 8-31 12-14 t} tablet by [facility] tablet 00:00: 00:00 oral route 00 :00 2 times every day as needed as needed for anxiety, insomnia lisinopril 2019-0 2020- No 1{table Q1D take 1 A ccess[facility] 40 mg 8-31 12-14 t} tablet by [facility] tablet 00:00: 00:00 oral route 00 :00 every day metoprolol 2019-0 2020- No 1{table Q12H take 1 A [facility] tartrate 25 8-31 12-14 t} tablet by [facility] mg tablet 00:00: 00:00 oral route 00 :00 2 times every day omeprazole 2019-0 2020- No take 1 [facility] 20 mg 8-31 12-14 capsule by [facility] capsule,del 00:00: 00:00 oral route ayed 00 :00 twice release daily 30 minute before meals. Aspir-81 mg 2019-0 2020- No take 1 [facility] tablet,ramon 8-31 12-14 tablet by [facility] yed release 00:00: 00:00 oral route 00 :00 every day hydrochloro 2019-0 2020- No 1{table Q1D take 1 [facility] thiazide 25 8-31 12-14 t} tablet by [facility] mg tablet 00:00: 00:00 oral route 00 :00 every day hydroxyzine 2019-0 2020- No 1{table BID take 1 [facility] HCl 25 mg 8-31 12-14 t} tablet by [facility] tablet 00:00: 00:00 oral route 00 :00 2 times every day as needed as needed for anxiety, insomnia lisinopril 2020-0 2020- No 1{table Q1D take 1 A [facility] 40 mg 8-31 12-14 t} tablet by [facility] tablet 00:00: 00:00 oral route 00 :00 every day metoprolol 2019-0 2020- No 1{table Q12H take 1 A [facility] tartrate 25 8-31 12-14 t} tablet by [facility] mg tablet 00:00: 00:00 oral route 00 :00 2 times every day omeprazole 2019- No take 1 [facility] 20 mg 8-31 12-14 capsule by [facility] capsule,del 00:00: 00:00 oral route ayed 00 :00 twice release daily 30 minute before meals. Aspir-81 mg 2019- No take 1 [facility] tablet,ramon 8-31 12-14 tablet by [facility] yed release 00:00: 00:00 oral route 00 :00 every day hydrochloro 2020- No 1{table Q1D take 1 [facility] thiazide 25 8-31 12-14 t} tablet by [facility] mg tablet 00:00: 00:00 oral route 00 :00 every day hydroxyzine 2020- No 1{table BID take 1 [facility] HCl 25 mg 8-31 12-14 t} tablet by [facility] tablet 00:00: 00:00 oral route 00 :00 2 times every day as needed as needed for anxiety, insomnia lisinopril 2020- No 1{table Q1D take 1 A [facility] 40 mg 8-31 12-14 t} tablet by [facility] tablet 00:00: 00:00 oral route 00 :00 every day metoprolol 2019-0 2020- No 1{table Q12H take 1 A [facility] tartrate 25 8-31 12-14 t} tablet by [facility] mg tablet 00:00: 00:00 oral route 00 :00 2 times every day omeprazole 2019- No take 1 [facility] 20 mg 8-31 12-14 capsule by [facility] capsule,del 00:00: 00:00 oral route ayed 00 :00 twice release daily 30 minute before meals. lisinopril 2019- No take 1 [facility] 10 4-26 08-31 tablet by [facility] mg-hydrochl 00:00: 00:00 oral route orothiazide 00 :00 once daily 12.5 mg tablet lisinopril 2019- No take 1 [facility] 10 06-19- tablet by [facility] mg-hydrochl 00:00: 00:00 oral route orothiazide 00 :00 once daily 12.5 mg tablet lisinopril 2019- No take 1 [facility] 10 06-19- tablet by [facility] mg-hydrochl 00:00: 00:00 oral route orothiazide 00 :00 once daily 12.5 mg tablet lisinopril 2019- No take 1 [facility] 10 06-19- tablet by [facility] mg-hydrochl 00:00: 00:00 oral route orothiazide 00 :00 once daily 12.5 mg tablet lisinopril 2019- No take 1 [facility] 10 06-19- tablet by [facility] mg-hydrochl 00:00: 00:00 oral route orothiazide 00 :00 once daily 12.5 mg tablet lisinopril 2019- No take 1 [facility] 10 06-19- tablet by [facility] mg-hydrochl 00:00: 00:00 oral route orothiazide 00 :00 once daily 12.5 mg tablet lisinopril 2019- No take 1 [facility] 10 06-19- tablet by [facility] mg-hydrochl 00:00: 00:00 oral route orothiazide 00 :00 once daily 12.5 mg tablet lisinopril 2019- No take 1 [facility] 10 06-19- tablet by ealth mg-hydrochl 00:00: 00:00 oral route orothiazide 00 :00 once daily 12.5 mg tablet lisinopril 2019- No take 1 [facility] 10 06-19-31 tablet by [facility] mg-hydrochl 00:00: 00:00 oral route orothiazide 00 :00 once daily 12.5 mg tablet lisinopril 2019- No take 1 [facility] 10 06-19- tablet by [facility] mg-hydrochl 00:00: 00:00 oral route orothiazide 00 :00 once daily 12.5 mg tablet lisinopril 2020- No take 1 [facility] 10 06-19 tablet by [facility] mg-hydrochl 00:00: 00:00 oral route orothiazide 00 :00 once daily 12.5 mg tablet lisinopril 2019- No take 1 [facility] 10 06-19 tablet by [facility]alth mg-hydrochl 00:00: 00:00 oral route orothiazide 00 :00 once daily 12.5 mg tablet tiZANidine Yes Knee pain, take 1 [place] (ZANAFLEX) 7-30 right tablet by [facility] 4 mg tablet 00:00: mouth 6 00 hours as needed for muscle spasms lisinopril Yes HTN 20mg Q.5D Take 1 [facility] (PRINIVIL, 7-30 (hypertensi tablet by [facility] ZESTRI) 20 00:00: on) mouth 2 mg tablet 00 times daily. simvastatin Yes HLD 40mg Take 1 [facility] is (ZOCOR) 40 7-30 (hyperlipid tablet by [facility] mg tablet 00:00: emia) mouth at 00 bedtime nightly. hydrochloro Yes HTN 25mg QD Take 1 [place] [facility] thiazide 7-30 (hypertensi tablet by [facility] (HYDRODIURI 00:00: on) mouth L) 25 mg 00 daily. tablet naproxen Yes Knee pain, 500mg Take 1 [place] (NAPROSYN) 7-30 right tablet by [facility] lt 500 mg 00:00: mouth 2 tablet 00 times daily (with meals). HYDROcodone Yes Knee pain, 1{tbl} Take 1 [place] -acetaminop 7-30 right tablet by [facility] (NORCO) 00:00: mouth 5-325 mg 00 every 6 tablet hours as needed for Pain (only for break thru pain). tiZANidine Yes Knee pain, take 1 [place] (ZANAFLEX) 7-30 right tablet by [facility] 4 mg tablet 00:00: mouth 6 00 hours as needed for muscle spasms lisinopril Yes HTN 20mg Q.5D Take 1 [facility] (PRINIVIL, 7-30 (hypertensi tablet by [facility] ZESTRIL) 20 00:00: on) mouth 2 mg tablet 00 times daily. simvastatin 0 Yes HLD 40mg Take 1 [facility] (ZOCOR) 40 7-30 (hyperlipid tablet by [facility] mg tablet 00:00: emia) mouth at 00 bedtime nightly. hydrochloro Yes HTN 25mg QD Take 1 [place] [facility] thiazide 7-30 (hypertensi tablet by [facility] (HYDRODIURI 00:00: on) mouth L) 25 mg 00 daily. tablet naproxen 0 Yes Knee pain, 500mg Take 1 [place] (NAPROSYN) 7-30 right tablet by [facility] lt 500 mg 00:00: mouth 2 tablet 00 times daily (with meals). HYDROcodone Yes Knee pain, 1{tbl} Take 1 [place] -acetaminop 7-30 right tablet by [facility] (NORCO) 00:00: mouth 5-325 mg 00 every 6 tablet hours as needed for Pain (only for break thru pain). tiZANidine Yes Knee pain, take 1 [place] (ZANAFLEX) 7-30 right tablet by [facility] 4 mg tablet 00:00: mouth 6 00 hours as needed for muscle spasms lisinopril Yes HTN 20mg Q.5D Take 1 [facility] (PRINIVIL, 7-30 (hypertensi tablet by [facility] ZESTRI) 20 00:00: on) mouth 2 mg tablet 00 times daily. simvastatin Yes HLD 40mg Take 1 [facility] [facility] (ZOCOR) 40 7-30 (hyperlipid tablet by [facility] mg tablet 00:00: emia) mouth at 00 bedtime nightly. hydrochloro Yes HTN 25mg QD Take 1 [place] [facility] thiazide 7-30 (hypertensi tablet by [facility] (HYDRODIURI 00:00: on) mouth L) 25 mg 00 daily. tablet naproxen 0 Yes Knee pain, 500mg Take 1 [place] (NAPROSYN) 7-30 right tablet by a lt 500 mg 00:00: mouth 2 tablet 00 times daily (with meals). HYDROcodone 0 Yes Knee pain, 1{tbl} Take 1 [place] -acetaminop 7-30 right tablet by [facility] (NORCO) 00:00: mouth 5-325 mg 00 every 6 tablet hours as needed for Pain (only for break thru pain). tiZANidine Yes Knee pain, take 1 [place] (ZANAFLEX) 7-30 right tablet by [facility] 4 mg tablet 00:00: mouth 6 00 hours as needed for muscle spasms lisinopril Yes HTN 20mg Q.5D Take 1 [facility] (PRINIVIL, 7-30 (hypertensi tablet by [facility] ZESTRIL) 20 00:00: on) mouth 2 mg tablet 00 times daily. simvastatin Yes HLD 40mg Take 1 [place] [facility] (ZOCOR) 40 7-30 (hyperlipid tablet by [facility] mg tablet 00:00: emia) mouth at 00 bedtime nightly. hydrochloro Yes HTN 25mg QD Take 1 [place] [facility] thiazide 7-30 (hypertensi tablet by [facility] (HYDRODIURI 00:00: on) mouth L) 25 mg 00 daily. tablet naproxen Yes Knee pain, 500mg Take 1 [place] (NAPROSYN) 7-30 right tablet by [facility] 500 mg 00:00: mouth 2 tablet 00 times daily (with meals). HYDROcodone Yes Knee pain, 1{tbl} Take 1 [place] -acetaminop 7-30 right tablet by [facility] (NORCO) 00:00: mouth 5-325 mg 00 every 6 tablet hours as needed for Pain (only for break thru pain). albuterol Yes Asthma 2{puff} Inhale 2 [place] (VENTOLIN 7-[address] [facility] HFA,PROVENT 00:00: mouth 4 [place] 00 times HFA,PROAIR daily as HFA) 90 needed for mcg/actuati Wheezing. on inhaler albuterol Yes Asthma 2{puff} Inhale 2 [place] (VENTOLIN 7-[address] [facility] HFA,PROVENT 00:00: mouth 4 [place] 00 times HFA,PROAIR daily as HFA) 90 needed for mcg/actuati Wheezing. on inhaler albuterol Yes Asthma 2{puff} Inhale 2 [place] (VENTOLIN 7-[address] [facility] HFA,PROVENT 00:00: mouth 4 [place] 00 times HFA,PROAIR daily as HFA) 90 needed for mcg/actuati Wheezing. on inhaler albuterol Yes Asthma 2{puff} Inhale 2 [place] (VENTOLIN 7-17 Puffs by [facility] HFA,PROVENT 00:00: mouth 4 [place] 00 times HFA,PROAIR daily as HFA) 90 needed for mcg/actuati Wheezing. on inhaler fenofibrate Yes Take 2 [place] [facility] nanocrystal 5-29 tablets by [facility] l[facility] 00:00: mouth (TRICOR) 48 00 daily (at mg tablet night). Automactic substituti on for Fenofibrat e 54mg per P&T. fenofibrate Yes Take 2 [place] [facility] nanocrystal 5-29 tablets by [facility] lized 00:00: mouth (TRICOR) 48 00 daily (at mg tablet night). Automactic substituti on for Fenofibrat e 54mg per P&T. fenofibrate Yes Take 2 [place] nanocrystal 5-29 tablets by [facility] lized 00:00: mouth (TRICOR) 48 00 daily (at mg tablet night). Automactic substituti on for Fenofibrat e 54mg per P&T. fenofibrate Yes Take 2 [place] nanocrystal 5-29 tablets by [facility] lized 00:00: mouth (TRICOR) 48 00 daily (at mg tablet night). Automactic substituti on for Fenofibrat e 54mg per P&T. loratadine Yes Sinus 10mg QD Take 1 [place] [facility] (CLARITIN) 5-[address] [facility] 10 mg 00:00: mouth tablet 00 daily. beclomethas Yes Sinus 2{spray Q.5D Use 2 [facility] one 5-28 congestion } Sprays in [facility] (BECONASE 00:00: each AQ) 42 mcg 00 nostril 2 (0.042 %) times nasal spray daily Dose is for each nostril.. HYDROcodone Yes Pain in 1{tbl} Take 1 [place] -acetaminop 5-28 joint, tablet by [facility] (NORCO) 00:00: shoulder mouth 5-325 mg 00 region every 6 tablet hours as needed for Pain. loratadine Yes Sinus 10mg QD Take 1 [place] (CLARITIN) 5-[address] [facility] 10 mg 00:00: mouth tablet 00 daily. beclomethas Yes Sinus 2{spray Q.5D Use 2 [facility] one 5-28 congestion } Sprays in [facility] (BECONASE 00:00: each AQ) 42 mcg 00 [...] arris one 5-28 congestion } Sprays in [facility] (BECONASE 00:00: each AQ) 42 mcg 00 nostril 2 (0.042 %) times nasal spray daily Dose is for each nostril.. HYDROcodone Yes Pain in 1{tbl} Take 1 [place] -acetaminop 5-28 joint, tablet by [facility] (NORNetrada) 00:00: shoulder mouth 5-325 mg 00 region every 6 tablet hours as needed for Pain. loratadine Yes Sinus 10mg QD Take 1 [place] [facility] (CLARITIN) 5-28 congestion tablet by [facility] 10 mg 00:00: mouth tablet 00 daily. beclomethas Yes Sinus 2{spray Q.5D Use 2 [facility] one 5-28 congestion } Sprays in [facility] (BECONASE 00:00: each AQ) 42 mcg 00 [...] mg H arris (ZOFRAN-ODT 3-28 by mouth [facility] ) 4 mg 15:30: every 8 disintegrat 27 hours as ing tablet needed for Nausea. ondansetron 2013-0 Yes 4mg Take 4 mg [facility] (ZOFRAN-ODT 3-28 by mouth [facility] ) 4 mg 15:30: every 8 disintegrat 27 hours as ing tablet needed for Nausea. ondansetron 2014-0 Yes 4mg Take 4 mg [facility] (ZOFRAN-ODT 3-28 by mouth [facility] ) 4 mg 15:30: every 8 disintegrat 27 hours as ing tablet needed for Nausea. ondansetron 2014-0 Yes 4mg Take 4 mg [facility] (ZOFRAN-ODT 3-28 by mouth [facility] ) 4 mg 15:30: every 8 disintegrat [...] [facility] (FLOMAX) 2-17 stone capsule by [facility] th 0.4 mg 00:00: mouth extended 00 daily. release capsule tamsulosin 2012-02 Yes Kidney .4mg QD Take 1 [place] [facility] (FLOMAX) 2-17 stone capsule by [facility] th 0.4 mg 00:00: mouth extended 00 daily. release capsule tamsulosin 2012-02 Yes Kidney .4mg QD Take 1 [place] (FLOMAX) 2-17 stone capsule by [facility] 0.4 mg 00:00: mouth extended 00 daily. release capsule tamsulosin 2012-02 Yes Kidney .4mg QD Take 1 [place] (FLOMAX) 2-17 stone capsule by [facility] 0.4 mg 00:00: mouth extended 00 daily. release capsule triamcinolo Yes Dry skin Apply to [facility] 9 dermatitis affected [facility] (KENALOG) 00:00: area 3 0.1 % 00 times ointment daily. triamcinolo 2013-0 Yes Dry skin Apply to [facility] 9-23 dermatitis affected [facility]alt [facility] (KENALOG) 00:00: area 3 0.1 % 00 times ointment daily. triamcinolo Yes Dry skin Apply to [place] 9-23 dermatitis affected [facility] (KENALOG) 00:00: area 3 0.1 % 00 times ointment daily. triamcinolo Yes Dry skin Apply to [place] ne 9-23 dermatitis affected [facility] (KENALOG) 00:00: area 3 0.1 % 00 times ointment daily. omeprazole Yes GERD 20mg QD Take 1 [facility] (PRILOSEC) 7- (gastroesop capsule by [facility] 20 mg 00:00: hageal mouth delayed 00 reflux daily. release disease) capsule omeprazole Yes GERD 20mg QD Take 1 [facility] (PRILOSEC) 7-02 (gastroesop capsule by [facility] 20 mg 00:00: hageal mouth delayed 00 reflux daily. release disease) capsule omeprazole Yes GERD 20mg QD Take 1 [facility] (PRILOSEC) 7- (gastroesop capsule by [facility] 20 mg 00:00: [...] olanzapine No 1{table Q1D take 1 [facility] 10 mg t} tablet by [facility] tablet oral route every day venlafaxine No 1{capsu Q1D take 1 [facility] ER 75 mg le} capsule by [facility] capsule,ext oral route ended every day release 24 with food hr venlafaxine No 1{capsu Q1D take 1 [facility] ER 150 mg le} capsule by [facility] capsule,ext oral route ended every day release 24 hr olanzapine No 1{table Q1D take 1 [facility] 10 mg t} tablet by ealth tablet oral route every day venlafaxine No 1{capsu Q1D take 1 [facility] ER 75 mg le} capsule by [facility] capsule,ext oral route ended every day release 24 with food hr venlafaxine No 1{capsu Q1D take 1 [facility] ER 150 mg le} capsule by [facility] capsule,ext oral route ended every day release 24 hr clonidine No 1{table Q12H take 1 [facility]es [facility] HCl 0.1 mg t} tablet by [facility] tablet oral route 2 times every day for restless leg syndrome olanzapine No 1{table Q1D take 1 [facility] 10 mg t} tablet by ealth tablet oral route every day Zyprexa 10 No 1{table Q1D take 1 [facility] mg tablet t} tablet by ealth oral route every day venlafaxine No 1{capsu Q12H take 1 [facility] ER 75 mg le} capsule by [facility] capsule,ext oral route ended 2 times release 24 every day hr with food clonidine No 1{table Q12H take 1 [facility] HCl 0.1 mg t} tablet by [facility]alt [facility] tablet oral route 2 times every day for restless leg syndrome olanzapine No 1{table Q1D take 1 [facility] 10 mg t} tablet by ealth tablet oral route every day Zyprexa 10 No 1{table Q1D take 1 [facility] mg tablet t} tablet by ealth oral route every day venlafaxine No 1{capsu Q12H take 1 [facility] ER 75 mg le} capsule by ealth capsule,ext oral route ended 2 times release 24 every day hr with food clonidine No 1{table Q12H take 1 [facility] HCl 0.1 mg t} tablet by [facility]alt [facility] tablet oral route 2 times every day for restless leg syndrome olanzapine No 1{table Q1D take 1 [facility] 10 mg t} tablet by ealth tablet oral route every day Zyprexa 10 No 1{table Q1D take 1 [facility] mg tablet t} tablet by ealth oral route every day venlafaxine No 1{capsu Q12H take 1 [facility] ER 75 mg le} capsule by ealth capsule,ext oral route ended 2 times release 24 every day hr with food clonidine No 1{table Q12H take 1 [facility] HCl 0.1 mg t} tablet by [facility] tablet oral route 2 times every day for restless leg syndrome olanzapine No 1{table Q1D take 1 [facility] 10 mg t} tablet by ealth tablet oral route every day Zyprexa 10 No 1{table Q1D take 1 [facility] mg tablet t} tablet by ealth oral route every day venlafaxine No 1{capsu Q12H take 1 [facility] ER 75 mg le} capsule by ealth capsule,ext oral route ended 2 times release 24 every day hr with food clonidine No 1{table Q12H take 1 [facility]es [facility] HCl 0.1 mg t} tablet by [facility] tablet oral route 2 times every day for restless leg syndrome Zyprexa 10 No 1{table Q1D take 1 [facility] mg tablet t} tablet by ealth oral route every day venlafaxine No 1{capsu Q12H take 1 [facility] ER 75 mg le} capsule by ealth capsule,ext oral route ended 2 times release 24 every day hr with food clonidine No 1{table Q12H take 1 [facility]es [facility] HCl 0.1 mg t} tablet by [facility]alt [facility] tablet oral route 2 times every day for restless leg syndrome Zyprexa 10 No 1{table Q1D take 1 [facility] mg tablet t} tablet by ealth oral route every day venlafaxine No 1{capsu Q12H take 1 [facility] ER 75 mg le} capsule by ealth capsule,ext oral route ended 2 times release 24 every day hr with food clonidine No 1{table Q12H take 1 [facility]es [facility] HCl 0.1 mg t} tablet by [facility] tablet oral route 2 times every day for restless leg syndrome Zyprexa 10 No 1{table Q1D take 1 [facility] mg tablet t} tablet by ealth oral route every day venlafaxine No 1{capsu Q12H take 1 [facility] ER 75 mg le} capsule by ealth capsule,ext oral route ended 2 times release 24 every day hr with food clonidine No 1{table Q12H take 1 [facility]es [facility] HCl 0.1 mg t} tablet by [facility] tablet oral route 2 times every day for restless leg syndrome Zyprexa 10 No 1{table Q1D take 1 [facility] mg tablet t} tablet by ealth oral route every day venlafaxine No 1{capsu Q12H take 1 [facility] ER 75 mg le} capsule by ealth capsule,ext oral route ended 2 times release 24 every day hr with food clonidine No 1{table Q12H take 1 [facility] HCl 0.1 mg t} tablet by [facility] tablet oral route 2 times every day for restless leg syndrome Zyprexa 10 No 1{table Q1D take 1 [facility] mg tablet t} tablet by ealth oral route every day venlafaxine No 1{capsu Q12H take 1 [facility] ER 75 mg le} capsule by ealth capsule,ext oral route ended 2 times release 24 every day hr with food clonidine No 1{table Q12H take 1 [facility]es [facility] HCl 0.1 mg t} tablet by [facility]alt [facility] tablet oral route 2 times every day for restless leg syndrome olanzapine 2020- No 1{table Q1D take 1 [facility] 10 mg 01-14 t} tablet by ealth tablet 00:00 oral route :00 every day olanzapine 2020- No 1{table Q1D take 1 [facility] 10 mg 01-14 t} tablet by ealth tablet 00:00 oral route :00 every day olanzapine 2020- No 1{table Q1D take 1 [facility] 10 mg 01-14 t} tablet by ealth tablet 00:00 oral route :00 every day olanzapine 2020- No 1{table Q1D take 1 [facility] 10 mg 01-14 t} tablet by ealth tablet 00:00 oral route :00 every day olanzapine 2020- No 1{table Q1D take 1 [facility] 10 mg 01-14 t} tablet by ealth tablet 00:00 oral route :00 every day olanzapine 2020- No 1{table Q1D take 1 [facility] 10 mg 03-09 t} tablet by ealth tablet 00:00 oral route :00 every day venlafaxine 2020- No 1{capsu Q1D take 1 Ac cess[facility] ER 75 mg -14 le} capsule by [facility] capsule,ext 00:00 oral route ended :00 every day release 24 with food hr venlafaxine 2020- No 1{capsu Q1D take 1 Ac cess[facility] ER 150 mg -14 le} capsule by eal th capsule,ext 00:00 oral route ended :00 every day release 24 hr venlafaxine 2020- No 1{capsu Q1D take 1 Ac cess[facility] ER 75 mg -14 le} capsule by [facility] capsule,ext 00:00 oral route ended :00 every day release 24 with food hr venlafaxine 2020- No 1{capsu Q1D take 1 Ac cess[facility] ER 150 mg -14 le} capsule by eal th capsule,ext 00:00 oral route ended :00 every day release 24 hr venlafaxine 2020- No 1{capsu Q1D take 1 Ac cess[facility] ER 75 mg -14 le} capsule by [facility]alt [facility] capsule,ext 00:00 oral route ended :00 every day release 24 with food hr venlafaxine 2020- No 1{capsu Q1D take 1 Ac cess[facility] ER 150 mg -14 le} capsule by eal th capsule,ext 00:00 oral route ended :00 every day release 24 hr venlafaxine 2020- No 1{capsu Q1D take 1 Ac cess[facility] ER 75 mg -14 le} capsule by [facility] capsule,ext 00:00 oral route ended :00 every day release 24 with food hr venlafaxine 2020- No 1{capsu Q1D take 1 Ac cess[facility] ER 150 mg 09-14 le} capsule by eal th capsule,ext 00:00 oral route ended :00 every day release 24 hr venlafaxine 2020- No 1{capsu Q1D take 1 Ac cess[facility] ER 75 mg 09-14 le} capsule by [facility] capsule,ext 00:00 oral route ended :00 every day release 24 with food hr venlafaxine 2020- No 1{capsu Q1D take 1 Ac cess[facility] ER 150 mg 09-14 le} capsule by eal th capsule,ext 00:00 oral route ended :00 every day release 24 hr venlafaxine 2020- No 1{capsu Q1D take 1 Ac cess[facility] ER 75 mg 09-14 le} capsule by [facility] capsule,ext 00:00 oral route ended :00 every day release 24 with food hr venlafaxine 2020- No 1{capsu Q1D take 1 Ac cess[facility] ER 150 mg 09-14 le} capsule by eal th capsule,ext 00:00 oral route ended :00 every day release 24 hr venlafaxine 2020- No 1{capsu Q1D take 1 Ac cess[facility] ER 75 mg 09-14 le} capsule by [facility] capsule,ext 00:00 oral route ended :00 every day release 24 with food hr venlafaxine 2020- No 1{capsu Q1D take 1 Ac cess[facility] ER 150 mg 09-14 le} capsule by eal th capsule,ext 00:00 oral route ended :00 every day release 24 hr venlafaxine 2020- No 1{capsu Q1D take 1 Ac cess[facility] ER 75 mg 09-14 le} capsule by [facility] capsule,ext 00:00 oral route ended :00 every day release 24 with food hr venlafaxine 2020- No 1{capsu Q1D take 1 Ac cessH ER 150 mg 09-14 le} capsule by eal th capsule,ext 00:00 oral route ended :00 every day release 24 hr venlafaxine 2020- No 1{capsu Q1D take 1 Ac cessH ER 75 mg 09-14 le} capsule by [facility] capsule,ext 00:00 oral route ended :00 every day release 24 with food hr venlafaxine 2020- No 1{capsu Q1D take 1 Ac cessH ER 150 mg 09-14 le} capsule by eal th capsule,ext 00:00 oral route ended :00 every day release 24 hr venlafaxine 2020- No 1{capsu Q1D take 1 Ac cessH ER 75 mg 09-14 le} capsule by [facility] capsule,ext 00:00 oral route ended :00 every day release 24 with food hr venlafaxine 2020- No 1{capsu Q1D take 1 Ac cessH ER 150 mg 09-14 le} capsule by eal th capsule,ext 00:00 oral route ended :00 every day release 24 hr clonidine 2020- No 1{table Q12H take 1 [facility] ss[facility] HCl 0.1 mg 08-31 t} tablet by eal th tablet 00:00 oral route :00 2 times every day clonidine 2020- No 1{table Q12H take 1 [facility] ss[facility] HCl 0.1 mg 08-31 t} tablet by eal th tablet 00:00 oral route :00 2 times every day clonidine 2020- No 1{table Q12H take 1 [facility] ss[facility] HCl 0.1 mg 08-31 t} tablet by eal th tablet 00:00 oral route :00 2 times every day clonidine 2020- No 1{table Q12H take 1 [facility] ss[facility] HCl 0.1 mg 08-31 t} tablet by eal th tablet 00:00 oral route :00 2 times every day clonidine 2020- No 1{table Q12H take 1 Ac[facility] ssH HCl 0.1 mg 08-31 t} tablet by eal th tablet 00:00 oral route :00 2 times every day clonidine 2020- No 1{table Q12H take 1 [facility] ss[facility] HCl 0.1 mg 08-31 t} tablet by eal th tablet 00:00 oral route :00 2 times every day clonidine 2020- No 1{table Q12H take 1 [facility] ssH HCl 0.1 mg 08-31 t} tablet by eal th tablet 00:00 oral route :00 2 times every day clonidine 2020- No 1{table Q12H take 1 [facility] ss[facility] HCl 0.1 mg 08-31 t} tablet by eal th tablet 00:00 oral route :00 2 times every day clonidine 2020- No 1{table Q12H take 1 Ac[facility] ssH HCl 0.1 mg 08-31 t} tablet by eal th tablet 00:00 oral route :00 2 times every day clonidine 2020- No 1{table Q12H take 1 [facility] ss[facility] HCl 0.1 mg 08-31 t} tablet by eal th tablet 00:00 oral route :00 2 times every day clonidine 2020- No 1{table Q12H take 1 [facility] ss[facility] HCl 0.1 mg 08-31 t} tablet by eal th tablet 00:00 oral route :00 2 times every day clonidine 2020- No 1{table Q12H take 1 [facility] ss[facility] HCl 0.1 mg 08-31 t} tablet by eal th tablet 00:00 oral route :00 2 times every day Immunizations Ordered Immunization Filled Immunization Date Status Commen ts Source Name Name Influenza Vaccine 2011-02-12 Completed [facility] 00:00:00 PPV 23 Pneumococcal 2011-02-12 Completed [facility] 00:00:00 Influenza Vaccine 2011-02-12 Completed [facility] 00:00:00 PPV 23 Pneumococcal 2011-02-12 [facility]:00:00 Influenza Vaccine 2011-02-12 Completed [facility] 00:00:00 PPV 23 Pneumococcal 2011-02-12 [facility] Polys[facility]aride 00:00:00 Influenza Vaccine 2011-02-12 Completed [facility] 00:00:00 PPV 23 Pneumococcal 2011-02-12 [facility] Polysaccaride 00:00:00 Influenza Virus 2011-02-12 Completed Universit [facility] Vaccine 00:00:00 [facility] Pneumococcal 2011-02-12 Completed University o f Polysaccharide, 00:00:00 [place] [facility] PPSV23 (PNEUMOVAX) Branch Influenza Virus 2011-02-12 Completed Universit y of Vaccine 00:00:00 [facility] Pneumococcal 2011-02-12 Completed University o f Polysaccharide, 00:00:00 [place] [facility] PPSV23 (PNEUMOVAX) Branch Influenza Virus 2011-02-12 Completed Universit y of Vaccine 00:00:00 [facility] Pneumococcal 2011-02-12 Completed University o f Polysaccharide, 00:00:00 [place] [facility] PPSV23 (PNEUMOVAX) Branch Influenza Virus 2011-02-12 Completed Universit y of Vaccine 00:00:00 [facility] Pneumococcal 2011-02-12 Completed University o f Polysaccharide, 00:00:00 [place] [facility] PPSV23 (PNEUMOVAX) Branch Influenza Virus 2011-02-12 Completed Universit y of Vaccine 00:00:00 [facility] Pneumococcal 2011-02-12 Completed University o f Polysaccharide, 00:00:00 [facility] ical PPSV23 (PNEUMOVAX) Branch Vital Signs Vital Name Observation Time Observation Value Comments Source Systolic blood 2021-05-23 159 mm[Hg] [facility] pressure 16:58:00 Medical Branch Diastolic blood 2021-05-23 96 mm[Hg] [facility] f [place] pressure 16:58:00 [facility] Heart rate 2021-05-23 60 /min [facility] 16:58:00 Medical Branch Body temperature 2021-05-23 36.67 Lindsay [facility] 16:58:00 Medical Branch Respiratory rate 2021-05-23 14 /min [facility] 16:58:00 Medical Branch Oxygen saturation in 2021-05-23 98 /min Univers [facility]y [facility] [place] Arterial blood by 16:58:00 Medical Br anch Pulse oximetry Body height 2021-05-23 160 cm [facility] 15:04:00 Medical Branch Body weight 2021-05-23 90.719 kg [facility] 15:04:00 Medical Branch BMI 2021-05-23 35.43 kg/m2 [facility] 15:04:00 Medical Branch Systolic blood 2021-03-04 132 mm[Hg] [facility] pressure 01:38:35 Medical Branch Diastolic blood 2021-03-04 78 mm[Hg] [facility] o [facility] [place] pressure 01:38:35 Medical Branch Heart rate 2021-03-04 76 /min [facility] 01:38:35 Medical Branch Respiratory rate 2021-03-04 20 /min [facility] 01:38:35 Medical Branch Oxygen saturation in 2021-03-04 97 /min Univers ity [facility] Arterial blood by 01:38:35 Medical Br anch Pulse oximetry Body temperature 2021-03-03 36.5 Lindsay [facility] 23:00:00 Medical Branch Body height 2021-03-03 160 cm [facility] 23:00:00 Medical Branch Body weight 2021-03-03 89.812 kg [facility] 23:00:00 Medical Branch BMI 2021-03-03 35.07 kg/m2 [facility] 23:00:00 Medical Branch Systolic blood 2021-02-16 150 mm[Hg] [facility] pressure 15:01:00 Medical Branch Diastolic blood 2021-02-16 89 mm[Hg] [facility] [place] pressure 15:01:00 Medical Branch Heart rate 2021-02-16 74 /min [facility] 15:01:00 Medical Branch Body temperature 2021-02-16 36.11 Lindsay [facility] 15:01:00 Medical Branch Respiratory rate 2021-02-16 18 /min [facility] 15:01:00 Medical Branch Oxygen saturation in 2021-02-16 99 /min [facility] [place] Arterial blood by 15:01:00 Medical Br anch Pulse oximetry Systolic blood 2021-02-14 128 mm[Hg] [facility] pressure 10:10:00 Medical Branch Diastolic blood 2021-02-14 73 mm[Hg] [facility] o [facility] [place] pressure 10:10:00 Medical Branch Heart rate 2021-02-14 50 /min [facility] 10:10:00 Medical Branch Body temperature 2021-02-14 36.11 Lindsay [facility] 10:10:00 Medical Branch Respiratory rate 2021-02-14 20 /min [facility] 10:10:00 Medical Branch Body weight 2021-02-14 89.444 kg [facility] 10:10:00 Medical Branch BMI 2021-02-14 34.93 kg/m2 [facility] 10:10:00 Medical Branch Oxygen saturation in 2021-02-14 98 /min Univers ity [facility] Arterial blood by 10:10:00 Medical Br anch Pulse oximetry Body height 2021-02-13 160 cm [facility] 23:17:00 Medical Branch Systolic blood 2020-11-25 161 mm[Hg] [facility] pressure 14:48:00 Medical Branch Diastolic blood 2020-11-25 89 mm[Hg] [place] [facility] pressure 14:48:00 Medical Branch Heart rate 2020-11-25 67 /min [facility] 14:48:00 Medical Branch Body temperature 2020-11-25 36.72 Lindsay [facility] 14:48:00 Medical Branch Respiratory rate 2020-11-25 17 /min [facility] 14:48:00 Medical Branch Body weight 2020-11-25 90.719 kg [facility] 14:48:00 Medical Branch BMI 2020-11-25 35.43 kg/m2 [facility] 14:48:00 Medical Branch Oxygen saturation in 2020-11-25 99 /min Univers ity [facility] Arterial blood by 14:48:00 Medical Br anch Pulse oximetry Systolic blood 2020-11-21 131 mm[Hg] University [facility] pressure 21:10:00 Medical Branch Diastolic blood 2020-11-21 75 mm[Hg] [facility] [place] pressure 21:10:00 Medical Branch Heart rate 2020-11-21 61 /min [facility] 21:10:00 Medical Branch Body temperature 2020-11-21 36.89 Lindsay [facility] 21:10:00 Medical Branch Respiratory rate 2020-11-21 22 /min [facility] 21:10:00 Medical Branch Oxygen saturation in 2020-11-21 97 /min [facility] Arterial blood by 21:10:00 Medical Br anch Pulse oximetry Body height 2020-11-21 160 cm [facility] 20:19:00 Medical Branch Body weight 2020-11-21 90.719 kg [facility] 20:19:00 Medical Branch BMI 2020-11-21 35.43 kg/m2 [facility] 20:19:00 Medical Branch Systolic blood 2020-11-16 114 mm[Hg] [facility] pressure 19:32:00 Medical Branch Diastolic blood 2020-11-16 64 mm[Hg] [facility] pressure 19:32:00 Medical Branch Heart rate 2020-11-16 88 /min [facility] 19:32:00 Medical Branch Body temperature 2020-11-16 37.67 Lindsay [facility] 19:32:00 Medical Branch Respiratory rate 2020-11-16 18 /min [facility] 19:32:00 Medical Branch Body weight 2020-11-16 90.719 kg [facility] 19:32:00 Medical Branch BMI 2020-11-16 35.43 kg/m2 [facility] 19:32:00 Medical Branch Oxygen saturation in 2020-11-16 99 /min [facility] Arterial blood by 19:32:00 Medical Br anch Pulse oximetry Body height 2020-03-09 157.48 cm [facility] 09:26:00 Patient Body Weight 2020-03-09 97.159 [facility] 09:26:00 [facility] 2020-03-09 134 mm[Hg] [facility] Systolic 09:26:00 Intravascular 2020-03-09 86 mm[Hg] [facility] Diastolic 09:26:00 Heart Beat 2020-03-09 68 /min [facility] 09:26:00 Body Temperature 2020-03-09 36.61 Lindsay [facility] 09:26:00 Respiratory Rate 2020-03-09 18 /min [facility] 09:26:00 Body mass index 2020-03-09 39.18 kg/m2 [facility] 09:26:00 Int[facility]ascular 2020-02-07 143 mm[Hg] [facility] Systolic 16:51:00 Intravascular 2020-02-07 84 mm[Hg] [facility] Diastolic 16:51:00 Heart Beat 2020-02-07 64 /min [facility] 16:51:00 Body height 2020-02-07 157.48 cm [facility] 10:37:00 Patient Body Weight 2020-02-07 97.250 kg [facility] 10:37:00 [facility] 2020-02-07 150 mm[Hg] [facility] Systolic 10:37:00 Intravascular 2020-02-07 85 mm[Hg] [facility] Diastolic 10:37:00 Heart Beat 2020-02-07 65 /min [facility] 10:37:00 Body Temperature 2020-02-07 36.78 Lindsay [facility] 10:37:00 Respiratory Rate 2020-02-07 18 /min [facility] 10:37:00 Body mass index 2020-02-07 39.21 kg/m2 [facility] 10:37:00 O2 % BldC Oximetry 2020-02-07 96 % [facility] 10:37:00 [facility] 2019-11-08 129 mm[Hg] [facility] Systolic 13:41:00 Intravascular 2019-11-08 87 mm[Hg] [facility] Diastolic 13:41:00 Heart Beat 2019-11-08 72 /min [facility] 13:41:00 Body height 2019-11-08 157.48 cm [facility] 10:41:00 Patient Body Weight 2019-11-08 99.881 kg [facility] 10:41:00 Int[facility]ascular 2019-11-08 145 mm[Hg] [facility] Systolic 10:41:00 Intravascular 2019-11-08 75 mm[Hg] [facility] Diastolic 10:41:00 Heart Beat 2019-11-08 75 /min [facility] 10:41:00 Body Temperature 2019-11-08 36.50 Lindsay [facility] 10:41:00 Respiratory Rate 2019-11-08 18 /min [facility] 10:41:00 Body mass index 2019-11-08 40.27 kg/m2 [facility] 10:41:00 O2 % BldC Oximetry 2019-11-08 98 % [facility] 10:41:00 Body height 2019-10-25 157.48 cm [facility] 11:31:00 Patient Body Weight 2019-10-25 100.244 kg [facility] 11:31:00 Int[facility]ascular 2019-10-25 174 mm[Hg] [facility] Systolic 11:31:00 Intravascular 2019-10-25 75 mm[Hg] [facility] Diastolic 11:31:00 Heart Beat 2019-10-25 81 /min [facility] 11:31:00 Body Temperature 2019-10-25 36.78 Lindsay [facility] 11:31:00 Respiratory Rate 2019-10-25 20 /min [facility] 11:31:00 Body mass index 2019-10-25 40.42 kg/m2 [facility] 11:31:00 Systolic blood 2019-10-22 162 mm[Hg] [facility] pressure 09:04:08 Diastolic blood 2019-10-22 111 mm[Hg] [facility] h pressure 09:04:08 Heart rate 2019-10-22 76 /min [facility] 09:04:08 Body temperature 2019-10-22 36.94 Lindsay [facility] th 09:04:08 Respiratory rate 2019-10-22 18 /min [facility] th 09:04:08 Body height 2019-10-22 160 cm [facility] 09:04:08 Body weight 2019-10-22 99.791 kg [facility] 09:04:08 BMI 2019-10-22 38.97 kg/m2 [facility] 09:04:08 Body height 2015-06-20 62.00 [in_us] [facility] 14:49:00 Patient Body Weight 2015-06-20 197.20 [lb_av] [facility] 14:49:00 [facility] 2015-06-20 152 mm[facility]Hg[facility] Sy[facility] 14[facility]49[facility]00 Int[facility]ascular 2015-06-20 95 mm[Hg] [facility] Diastolic 14:49:00 Heart Beat 2015-06-20 65 /min [facility] 14:49:00 Body Temperature 2015-06-20 98.30 [degF] [facility] 14:49:00 Respiratory Rate 2015-06-20 18 /min [facility] 14:49:00 Body mass index 2015-06-20 36.10 kg/m2 [facility] 14:49:00 Procedures Procedure Date / Time Performing Clinician Source Performed XR FOOT 3+ VW RIGHT 2021-05-23 16:07:20 Steffen Weber [facility] XR CHEST 1 VW 2021-05-23 16:06:52 Steffen Weber [place] [facility] TROPONIN I 2021-05-23 15:40:00 Steffen Weber [facility] COMP. METABOLIC PANEL 2021-05-23 15:40:00 Steffen Weber [facility] ([id number]) Medical Branch CBC WITH DIFF 2021-05-23 15:40:00 Steffen Weber [facility] PROTHROMBIN TIME / INR 2021-05-23 15:40:00 Steffen Weber [facility] ACTIVATED PARTIAL 2021-05-23 15:40:00 Steffen Weber [facility]MIN[facility] PRO-BNP 2021-05-23 15:40:00 Steffen Weber [facility] CONSENT/REFUSAL FOR 2021-05-23 15:00:10 Doctor Yaneth, [facility] CONSENT/REFUSAL FOR 2021-03-03 22:48:57 Doctor Yaneth [facility] NOTICE OF PRIVACY 2021-03-03 22:48:12 Doctor Yaneth, [facility] PRACTICES [facility] CONSENT/REFUSAL FOR 2021-02-16 14:56:52 Doctor Yaneth, [facility] DI[facility] MAGNESIUM 2021-02-14 09:19:00 Anna [facility] TROPONIN I 2021-02-14 09:19:00 Anna [facility] BASIC METABOLIC PANEL 2021-02-14 09:19:00 Anna [facility] (NA, K, CL, CO2, Medical Branch GLUCOSE, BUN, CREATININE, CA) LIPID PANEL 2021-02-14 09:19:00 Anna [facility] ([id number])(TOTAL Medical Branch CHOLESTEROL, TRIGLYCERIDES, HDL) TROPONIN I 2021-02-14 03:14:00 Anna [facility] POCT GLUCOSE (AUTOMATED) 2021-02-14 03:12:00 Alex Castillo [facility] COVID-19 (ID NOW RAPID 2021-02-13 20:39:00 [facility]) Medical Branch CT ANGIOGRAM CHEST 2021-02-13 20:01:48 Venancio Milligan [facility] Medical Branch CT ANGIOGRAM 2021-02-13 20:01:48 Singer [facility] ABDOMEN/PELVIS Medical Branch LIPASE 2021-02-13 19:30:00 Singer [facility] Medical Branch MAGNESIUM 2021-02-13 19:30:00 Singer [facility] TROPONIN I 2021-02-13 19:30:00 Singer [facility] THYROID STIMULATING 2021-02-13 19:30:00 [facility] Branch COMP. METABOLIC PANEL 2021-02-13 19:30:00 [facility] ([id number]) Medical Branch CBC WITH DIFF 2021-02-13 19:30:00 Singer [facility] GLYCOSYLATED HEMOGLOBIN 2021-02-13 19:30:00 Anna [facility] (A1C) Medical Branch N-TERMINAL PRO-BNP 2021-02-13 19:30:00 Venancio Milligan [facility] Medical Branch HB ECG ROUTINE & RHYTHM 2021-02-13 19:20:07 Venancio Milligan [facility] STRIP Medical Branch CONSENT/REFUSAL FOR 2021-02-13 19:10:13 Doctor Yaneth [facility] DIAGNOSIS AND TREATMENT [place] [facility] CONSENT/REFUSAL FOR 2020-11-25 14:43:08 Doctor Yaneth [facility] DIAGNOSIS AND TREATMENT [place] [facility] CONSENT/REFUSAL FOR 2020-11-21 05:01:00 Doctor Wolfe [facility] DIAGNOSIS AND TREATMENT [place] [facility] CONSENT/REFUSAL FOR 2020-11-16 19:22:48 Doctor Yaneth [facility] DIAGNOSIS AND TREATMENT [place] [facility] MEDICAL LEGAL PROGRAM 2020-10-09 00:00:00 [facility] PHONE CALL TO 2020-10-09 00:00:00 [facility] AUTHORIZATION FOR 2020-09-20 05:01:00 Doctor Yaneth [facility] RELEASE OF PHI [place] [facility] GLUCOSE BLOOD TEST 2020-03-09 [facility] 2020-03-09 00:00[facility]00 [facility] EST LIPID PANEL 2020-03-09 [facility] 2020-02-07 00:00:00 [facility] EST COMPLETE CBC W/AUTO DIFF 2020-02-07 00:00:00 [facility] WBC COMPREHEN METABOLIC 2020-02-07 00:00:00 [facility] PANEL LIPID PANEL 2020-02-07 00:00:00 [facility] PROTHROMBIN TIME 2020-02-07 00:00:00 [facility] GLYCOSYLATED HEMOGLOBIN 2020-02-07 00:00:00 [facility] TEST THROMBOPLASTIN TIME 2020-02-07 00:00:00 Access [facility] PARTIAL VITAMIN D 25 HYDROXY 2020-02-07 00:00:00 [facility] OFFICE/OUTPATIENT VISIT 2019-11-08 00:00:00 [facility] EST PREV VISIT NEW AGE 40-64 2019-10-25 00:00:00 [facility] COMPLETE CBC W/AUTO DIFF 2019-10-25 00:00:00 [facility] WBC COMPREHEN METABOLIC 2019-10-25 00:00:00 [facility] PANEL LIPID PANEL 2019-10-25 [facility] CHYLMD TRACH DNA AMP 2019-10-25 00:00:00 [facility] PROBE GLYCOSYLATED HEMOGLOBIN 2019-10-25 00:00:00 [facility] TEST ASSAY THYROID STIM 2019-10-25 00:00:00 [facility] HORMONE SYPHILIS TEST NON-TREP 2019-10-25 00:00:[facility] QUAL VITAMIN D 25 HYDROXY 2019-10-25 00:00:00 Access [facility] HIV-1 AG W/HIV-1 & HIV-2 2019-10-25 00:00:00 [facility] AB HEPATITIS C AB TEST 2019-10-25 00:00:00 [facility] Planned Activity Planned Date Details Comments Source Future Scheduled Test 2014-02-19 00:00:00 Screening for [facility] malignant neoplasm of colon (procedure) [code = 770455072] Future Scheduled Test 2014-02-19 00:00:00 Screening for [facility] malignant neoplasm of colon (procedure) [code = 529341572] Future Scheduled Test 2014-02-19 00:00:00 Screening for [facility] malignant neoplasm of colon (procedure) [code = 845120343] Future Scheduled Test 2014-02-19 00:00:00 Screening for [facility] malignant neoplasm of colon (procedure) [code = 532227043] Future Scheduled Test 1976 00:00:00 COVID-19 Vaccine (1) [facility] [code = COVID-19 Vaccine (1)] Future Scheduled Test 1976 00:00:00 COVID-19 Vaccine (1) [facility] [code = COVID-19 Vaccine (1)] Future Scheduled Test 1969-02-19 00:00:00 COVID-19 Vaccine (1) [facility] [code = COVID-19 Vaccine (1)] Future Scheduled Test 1969-02-19 00:00:00 COVID-19 Vaccine (1) [facility] [code = COVID-19 Vaccine (1)] Encounters Start End Encounter Admission Attending Care Care Encounter Source Date/Time Date/Time Type Type Clinicians Facility Department ID 2020-12-26 Emergency [facility] [id number] Univers 00:56:46 ity of [facility] 2020-12-25 Emergency [facility] [id number] Univers 16:20:27 ity of [facility] 2020-12-25 [facility] [id number] Univers 08:52:45 ity of [facility] 2020-12-25 Emergency [facility] [id number] Univers 03:19:02 ity of [facility] 2020-12-25 [facility] [id number] Univers 01:43:58 ity of [facility] 2020-12-25 [facility] [id number] Univers 00:35:24 ity of [facility] 2020-12-24 Emergency [facility] [id number] Univers 14:35:26 ity of [facility] 2021-05-23 2021-05-23 [facility] [id number] Univers 10:06:00 12:12:00 STEFFEN ity of [facility] 2021-05-23 2021-05-23 [facility] [id number] Univers 10:06:00 12:12:00 Steffen R [place] [id number] i ty of [place] [id number] [facility] [id number] [address] 2021-03-04 2021-03-04 No BRANDI Perez [id number] Univers 00:00:00 00:00:00 (Out) Lisa Jhaveri [place] [id number] it y of [facility] [id number] [place] [id number] [place] [address] Branch 2021-03-03 2021-03-03 Emergency X [facility] ERT [id number] Univers 17:01:00 20:38:00 ZAY [facility] 2021-03-03 2021-03-03 Emergency [facility] [id number] Univers 17:01:00 20:38:00 Zay FALCON [id number] ity [facility] [id number] [place] [phone] 2021-02-16 2021-02-16 Emergency [facility] [id number] Univers 09:02:00 09:54:00 MIRIAM westfall [facility] 2021-02-16 2021-02-16 [facility] [id number] Univers 09:02:00 09:54:00 Miriam FALCON [id number] ity [facility] [id number] [facility] [id number] [address] 2021-02-13 2021-02-14 Outpatient X ANNA [facility] PANCHO [id number] Univers 13:20:00 11:50:00 ALEX [facility] 2021-02-13 2021-02-14 Emergency Venancio Milligan [facility] [id number] Univers 13:20:00 11:50:00 Alex Castillo [id number] ity [facility] [id number] [facility] [id number] [place] [address] Branch 2020-12-21 2020-12-21 Outpatient INGRID SON [facility] [id number] [facility] 08:26:00 [facility]:26:[facility] 2020-12-21 2020-12-21 Outpatient DESHAWN QUINTERO [facility] [id number] [facility] 08:26:00 08:26:00 [id number] 2020-11-29 2020-11-29 Outpatient INGRID SON [facility] [id number] [facility] 10:33:00 10:33:00 [facility] 2020-11-29 2020-11-29 Outpatient DESHAWN QUINTERO [facility] [id number] [facility] 10:33:00 10:33:00 [id number] [facility] [id number] 2020-11-25 2020-11-25 Emergency Yusra [facility] [id number] Univers 09:49:00 10:11:00 Miriam Falcon [id number] [facility] [id number] [facility] [id number] [place] [address] Branch 2020-11-25 2020-11-25 Emergency X YUSRA [facility] ERT [id number] Univers 09:49:00 10:11:00 MIRIAM ity [facility] 2020-11-24 2020-11-24 Outpatient [facility] [id number] Univers 00:00:00 00:00:00 ity [facility] 2020-11-21 2020-11-21 Nurse Therapy, Adc Covid Infusion [facility] [id number] Univers 15:05:10 16:05:10 Visit Ariane Santa [id number] ity [facility] [id number] [id number] [facility] 053 Branch 2020-11-21 2020-11-21 Outpatient [facility] [id number] Univers 16:00:00 16:00:00 [id number] ity [facility] 2020-11-21 2020-11-21 Outpatient Adalberto SANTA, [facility] [id number] Univers 16:00:00 16:00:00 ARIANE ity [facility] 2020-11-21 2020-11-21 Orders Doctor PAZ [id number] Univers 00:00:00 00:00:00 Only Unassigned, ZELALEM [id number] ity of [place] [facility] [id number] [place] [phone] [facility] 009 Branch 2020-11-18 2020-11-18 Telephone Alexandra Abreu [id number] Univers 00:00:00 00:00:00 ZELALEM [id number] it y of HOSPITAL [id number] [place] [phone] [facility] 019 Branch 2020-11-16 2020-11-16 Emergency Jose Allen [facility] [id number] Univers 14:37:00 16:06:00 Sherry [place] [id number] i ty [id number] [phone] [facility] 084 Branch 2020-11-16 2020-11-16 Orders Doctor PAZ [id number] Univers 00:00:00 00:00:00 Only Unassigned, ZELAL[place] [id number] ity [facility] [place] [facility] [id number] [place] [phone] [facility] 009 Branch 2020-10-11 2020-10-11 Emergency , [facility] [id number] 08:53:00 10:25:00 Venancio Falcon [id number] [place] [id number] [place] [id number] 2020-10-09 2020-10-09 Outpatient ALEXIS [facility]ELAEZ [facility] [facility] [id number] Access 16:35:00 16:35:00 [facility] 2020-10-09 2020-10-09 Outpatient ALEXIS PELAEZ [facility] [id number] [id number]-6 AccessH 16:35:00 16:35:00 e2-2uf6-85h 4cd-43bd-b [facility] [id number]-gn4uad388 261-aa3eb5 0f4 6b8eb2 2020-09-25 2020-09-25 Outpatient R ENRRIQUE [facility] [id number] -20 Univers 10:00:00 10:00:00 SENDIL [id number] ity [facility] 2020-09-20 2020-09-20 Orders Doctor BRANDI 1.2.840.114 [id number] Univers 00:00:00 00:00:00 Only Unassigned, [place] 350.1.13.10 [facility] 4.2.7.2.686 [facility] [id number] [address] 2020-09-09 2020-09-11 Emergency William Sanchez [facility] 1.2.840. 114 [id number] 16:49:00 15:15:00 Gaudencio Villaseñor 350.1.13.10 [place] 4.2.7.2.686 [place] [id number] 081 2020-08-16 2020-08-16 [facility] 1.2.768.311 [id number] 14:24:00 16:48:00 William Falcon 350.1.13.10 [place] 4.2.7.2.686 [place] [id number] 084 2020-08-09 2020-08-09 [facility] 1.2.002.427 [id number] 17:02:00 21:20:00 William Falcon 350.1.13.10 [place] 4.2.7.2.686 [place] [id number] 084 2020-08-04 2020-08-05 Emergency Venancio Milligan [facility] 1.2.840. 114 [id number] 08:19:00 13:32:00 Alex Castillo Efrain 350.1.13.10 [place] 4.2.7.2.686 [place] [id number] 081 2020-06-16 2020-06-16 Telephone BRANDI Lowe 1.2.381.387 [id number] 00:00:00 00:00:00 Mala Marcano [place] 350.1.13.[address]686 [id number] 019 2020-06-15 2020-06-15 Emergency Jose Allen [facility] 1.2.840.114 [id number] 10:08:00 15:00:00 Sherry Lobatoton 350.1.13.10 [place] 4.2.7.2.686 [place] [id number] 084 2020-06-15 2020-06-15 Orders Doctor PAZ 1.2.840.114 [id number] 00:00:00 00:00:00 Only Unassigned, [place] 350.1.13.10 [place] [address]686 [id number] 009 2020-06-05 2020-06-05 Outpatient DESHAWN QUINTERO [facility] [id number] AccessH 08:18:00 08:18:00 [facility] 2020-06-05 2020-06-05 Outpatient DESHAWN QUINTERO [facility] 5bm7h3t4-6c [id number]-n AccessH 08:18:00 08:18:00 e2-0wf7-27q 369-4a1b-9 [facility] 0-tc8cok360 cac-5616dd 0f4 2c8a6d 2020-05-29 2020-05-29 Outpatient PATTI [facility] [id number] AccessH 10:33:00 10:33:00 NUNO [facility] 2020-05-29 2020-05-29 Outpatient PATTI [facility] qld341ms-5q be6 8t33r-h AccessH 10:33:00 10:33:00 NUNO 22-4926-a4f 788-4e9b-8 ealt f-[id number] 8z4-j3415l raoul 00e4fe 2020-05-26 2020-05-26 Outpatient R [facility] [id number] Univers 18:00:00 18:00:00 ity [facility] 2020-04-24 2020-04-24 Outpatient ARMSTRONG, [facility] [id number] AccessH 14:02:00 14:02:00 NUNO ealth 2020-04-24 2020-04-24 Outpatient ARMSTRONG, [facility] [id number]-9m 6b4 7rye6-q AccessH 14:02:00 14:02:00 NUNO 22-4926-a4f e7v-85on-u ealth f-[id number] de8-d1b830 raoul 3v8836 2020-03-30 2020-03-30 Outpatient ARMSTRONG, [facility] 7kz4w4g1-8q d99 7rt67-3 AccessH 13:07:00 13:07:00 NUNO e2-0yp8-30x 373-4f89-b ealth 0-oc5nug875 a67-dyj214 0f4 9b12d6 2020-03-13 2020-03-13 Outpatient ARMSTRONG, [facility] [id number] AccessH 13:32:00 13:32:00 NUNO ealt 2020-03-13 2020-03-13 Outpatient ARMSTRONG, [facility] nfs644ad-9w 747 065o1-6 AccessH 13:32:00 13:32:00 NUNO 22-4926-a4f josiane-4e0f-a ealth f-[id number] p3x-wx7j1z raoul 5aab79 2020-03-13 2020-03-13 Outpatient ARMSTRONG, [facility] [id number] AccessH 09:58:00 09:58:00 NUNO ealt 2020-03-13 2020-03-13 Outpatient ARMSTRONG, [facility] oxh140eb-5q 678 ijo5c-o AccessH 09:58:00 09:58:00 NUNO 22-4926-a4f 251-4193-8 ealth f-[id number] [id number] raoul 78730u 2020-03-11 2020-03-11 Outpatient WILLSON, [facility] [id number] AccessH 11:28:00 11:28:00 MIRIAM [facility] 2020-03-11 2020-03-11 Outpatient DEMETRIS, [facility] [id number]-gc 7af 81453-p Access 11:28:00 11:28:00 MIRIAM 89-477f-ac7 460-4271-a [facility] 5-d06b2y9e8 205-6688e9 de3 05ea2b 2020-03-09 2020-03-09 Outpatient WILLSON, [facility] [id number] Access 09:30:00 09:30:00 MIRIAM [facility] 2020-03-09 2020-03-09 OFFICE/OUT WILLSON, [facility] [id number] 21b [id number] Access 09:30:00 09:30:00 PATIENT MIRIAM 89-477f-ac7 582-4825-9 [facility] VISIT EST 5-v57u3b5v9 p97-623e91 de3 01e2f7 2020-02-08 2020-02-08 Outpatient ARMSTRONG, [facility] [id number] Access 16:20:00 16:20:00 NUNO [facility] 2020-02-08 2020-02-08 Outpatient ARMSTRONG, [facility] 7zr1o0j8-5t fe9 adfc9-d Access 16:20:00 16:20:00 NUNO e2-4sd6-38u fef-453b-b ealt 0-db5imu387 3ef-bd5c56 0f4 3ebba6 2020-02-08 2020-02-08 Outpatient ARMSTRONG, [facility] [id number] Access 14:14:00 14:14:00 NUNO ealt 2020-02-08 2020-02-08 Outpatient ARMSTRONG, [facility] 9lx3y8t8-6a 1cd 620r1-0 Access 14:14:00 14:14:00 NUNO e2-1co9-40m 547-4744-b ealt 0-ai0vjr794 0c7-x46f6n 0f4 3eb9cd 2020-02-08 2020-02-08 Outpatient DEMETRIS, [facility] [id number] Access 09:25:00 09:25:00 MIRIAM [facility] 2020-02-08 2020-02-08 Outpatient WILLSON, [facility] [id number]-ga 23f 49688-5 AccessH 09:25:00 09:25:00 MIRIAM Simon477f-ac7 582-4dd9-8 ealt 5-n32p4p5p8 [id number]-q11173 de3 9d4bf4 2020-02-07 2020-02-07 Outpatient WILLSON, [facility] [id number] AccessH 10:30:00 10:30:00 MIRIAM [facility] 2020-02-07 2020-02-07 OFFICE/OUT WILLSON, [facility] [id number]-yc 8de p44f5-4 AccessH 10:30:00 10:30:00 PATIENT MIRIAM 89Brooks477f-ac7 4o1-702c-5 ealt VISIT EST 5-w69n9y2o9 2fe-2949b4 de3 11q264 2019-11-08 2019-11-08 Outpatient WILLSON, [facility] [id number] AccessH 11:00:00 11:00:00 MIRIAM [facility] 2019-11-08 2019-11-08 OFFICE/OUT [facility] [id number]-pb a7f 7v66c-0 Access 11:00:00 11:00:00 PATIENT MIRIAM 89-477f-ac7 v5e-6u76-9 ealt VISIT EST 5-s26y3w1i7 813-4069c6 de3 [id number] 2019-10-28 2019-10-28 Outpatient WILLSON, [facility] [id number] Access 14:37:00 14:37:00 MIRIAM [facility] 2019-10-28 2019-10-28 Outpatient WILLSON, [facility] [id number]-yh 83f ead58-8 AccessH 14:37:00 14:37:00 MIRIAM 89-477f-ac7 440-4d67-a ealt 5-n25f9v4q9 09c-3ba5a2 de3 9d32ec 2019-10-26 2019-10-26 Outpatient WILLSON, [facility] [id number] AccessH 10:09:00 10:09:00 MIRIAM [facility] 2019-10-26 2019-10-26 Outpatient WILLSON, [facility] [id number] f35 dda41-b AccessH 10:09:00 10:09:00 MIRIAM 89-477f-ac7 816-4035-8 [facility] 5-f59y9w0f9 [id number] de3 [id number] 2019-10-25 2019-10-25 Outpatient DEMETRIS [facility] [id number] Access 12:00:00 12:00:00 MIRIAM [facility] 2019-10-25 2019-10-25 PREV VISIT DEMETRIS [facility] [id number]-wx e3e 7x34z-e AccessH 12:00:00 12:00:00 NEW AGE MIRIAM 89-477f-ac7 36b-45e4-b [facility] 40-64 5-r16f9p6i6 802-adfeee de3 17d2e4 2016-10-08 2016-10-08 Emergency [facility] MED [id number] [place] 14:27:44 14:27:44 Health 2015-06-22 2015-06-22 Outpatient [facility] [id number] Access 00:00:00 00:00:00 H, PROVIDER [facility] 2015-06-22 2015-06-22 Outpatient [facility] 3in4c4p7-2l [id number] AccessH 00:00:00 00:00:00 H, PROVIDER e2-1ot2-09d bcf-49 9b-a [facility] 0-no7lsp947 1c0-52fbav 0f4 026a74 2015-06-22 2015-06-22 [facility] yim001af-4c 7 d302t84-2 AccessH 00:00:00 00:00:00 DIANELA 22-4926-a4f 553-49d1-9 [facility] f-00034489t ebf-n4831v raoul 39035t 2015-06-20 2015-06-20 Outpatient [facility] [id number] AccessH 00:00:00 00:00:00 H, PROVIDER [facility] 2015-06-20 2015-06-20 Outpatient [facility] 8wj7r3m3-3i [id number]-7 AccessH 00:00:00 00:00:00 H, PROVIDER e2-9wk8-88f ac0-41 7b-a [facility] 0-lp5hzi235 1ba-278b86 0f4 68fa3d 2015-06-20 2015-06-[address] [facility] 6pt0m5m6-2u 310 65u16-k AccessH 00:00:00 00:00:00 ALO e2-8rj8-03y u44-8z00- 9 [facility] 0-lg0dgq127 4ec-39375j 0f4 4158c6 2015-06-20 2015-06-[address] [facility] roh446iy-3f 9e7 7485e-1 AccessH 00:00:00 00:00:00 ALO 22-4926-a4f afe-456b- 9 [facility] f-[id number] 3r7-zf6hp2 raoul kn0997 Results Test Description Test Time Test Comments Results Result Comments Source TROPONIN I 2021-05-23 16:23:22 Test Item Value Reference Range Interpretation Comme nts TROPONIN I (test code = 0.002 ng/mL See_Comment [Au tomated message] The 4173799857) system which ge nerated this result tra [...] biotin. Lab Interpretation Normal (test code = 34058-4) [id number] 16:20:19 Test Item Value Reference Range Interpretation Comments NT-proBNP (test code 52 pg/mL See_Comment [Autom ated = 7666373075) message] The system which generated this result transmitted reference range : <=125. The reference range was not used to interpret this result as normal/abnormal . GAVIN (test code = GAVIN) Biotin has been reported to cause a negative bias, interpret results relative to patient's use of biotin. Lab Interpretation Normal (test code = 78782-9) [facility]. METABOLIC PANEL (46754)2021-05-23 16:13:16 Test Item Value Reference Range Interpretation Comments NA (test code = 141 mmol/L 135-145 7369202971) K (test code = 4.7 mmol/L 3.5-5.0 6954227904) CL (test code = 105 mmol/L 98-108 7128520518) CO2 TOTAL (test code 25 mmol/L 23-31 = 2085296749) AGAP (test code = 2-16 6350650544) BUN (test code = 13 mg/dL 7-23 4654424917) GLUCOSE (test code = 104 mg/dL 70-110 6680967571) CREATININE (test code 0.97 mg/dL 0.60-1.25 = 3813541422) TOTAL BILI (test code 0.9 mg/dL 0.1-1.1 = 1941476388) CALCIUM (test code = 9.5 mg/dL 8.6-10.6 9847682724) T PROTEIN (test code 7.9 g/dL 6.3-8.2 = 6514301420) ALBUMIN (test code = 4.6 g/dL 3.5-5.0 8918455195) ALK PHOS (test code = 65 U/L 34-122 7721153746) ALTv (test code = 23 U/L 5-50 1742-6) AST(SGOT) (test code 23 U/L 13-40 = 5517754944) eGFR (test code = mL/min/1.73m2 4821129701) GAVIN (test code = GAVIN) Association of [...] or urine or abnormalities in imaging tests). [facility] [id number] 16:12:56 Test Item Value Reference Range Interpretation Comments APTT Patient (test See_Comment [Automat ed code = 3173-2) message] The system which generated this result transmitted reference range : 23 - 38 Seconds . The reference range was not used to interpr et this result as normal/abnormal . GAVIN (test code = GAVIN) The [facility] patient population mean normal value for aPTT is 30 seconds. Lab Interpretation Normal (test code = 98021-8) [facility]PROTHROMBIN TIME / [id number] 16:10:35 Test Item Value Reference Range Interpretation Comments PROTIME PATIENT (test See_Comment [Auto mated message] code = 5964-2) The system wh ich generated this result transmitted ref erence range: 12.0 - 1 4.7 Seconds. The re ference range was not u sed to interpret this result as normal/abnor mal. INR (test code = 6301-6) Nor mal INR <1.1; Warfarin Therap eutic range 2.0 to 3. 0 or 2.5 to 3.5, dep ending upon the indica tions. Lab Interpretation (test Normal code = 14478-6) [facility] WITH [id number] 15:59:15 Test Item Value Reference Range Interpretation Comments WBC (test code = See_Comment [Automated message] 6690-2) The system [employer] generated this result transmitted ref erence range: 4.20 - 1 0.70 10*3/?L. The re ference range was not u sed to interpret this result as normal/abnor mal. RBC (test code = See_Comment [Automated message] 789-8) The system [employer] generated this result transmitted ref erence range: 4.26 - 5 .52 10*6/?L. The re ference range was not u sed to interpret this result as normal/abnor mal. HGB (test code = 14.5 g/dL 12.2-16.4 718-7) HCT (test code = 44.4 % 38.4-49.3 4544-3) MCV (test code = 87.2 fL 81.7-95.6 787-2) MCH (test code = 28.5 pg 26.1-32.7 785-6) MCHC (test code = 32.7 g/dL 31.2-35.0 786-4) RDW-SD (test code 42.8 fL 38.5-51.6 = 97757-3) RDW-CV (test code 13.3 % 12.1-15.4 = 788-0) PLT (test code = See_Comment [Automated message] 777-3) The system [employer] generated this result transmitted ref erence range: 150 - 32 8 10*3/?L. The re ference range was not u sed to interpret this result as normal/abnor mal. MPV (test code = 11.5 fL 9.8-13.0 96161-9) NRBC/100 WBC (test See_Comment [Automat ed message] code = 7831507943) The syste [employer] which generated this result transmitted ref erence range: 0.0 - 10 .0 /100 WBCs. The refer ence range was not u sed to interpret this result as normal/abnor mal. NRBC x10^3 (test <0.01 See_Comment [Automated message] code = 3632743485) The syste m which generated this result transmitted ref erence range: 10*3/?L. The reference range was not used to interpr et this result as normal/abnormal . GRAN MAT (NEUT) % 69.0 % (test code = 770-8) IMM GRAN % (test 0.40 % code = 6332558883) LYMPH % (test code 22.6 % = 736-9) MONO % (test code 6.5 % = 5905-5) EOS % (test code = 0.9 % 713-8) BASO % (test code 0.6 % = 706-2) GRAN MAT 6.94 10*3/uL 1.99-6.95 x10^3(ANC) (test code = 1000820589) IMM GRAN x10^3 0.04 10*3/uL 0.00-0.06 (test code = 4039313062) LYMPH x10^3 (test 2.27 10*3/uL 1.09-3.23 code = 731-0) MONO x10^3 (test 0.65 10*3/uL 0.36-1.02 code = 742-7) EOS x10^3 (test 0.09 10*3/uL 0.06-0.53 code = 711-2) BASO x10^3 (test 0.06 10*3/uL 0.01-0.09 code = 704-7) [facility] [id number] 11:24:35 Test Item Value Reference Interpretation Comments Range TROPONIN I (test 0.002 ng/mL See_Comment [Automated code = 2412359848) message] The system which generated this result [...] biotin. Lab Interpretation Normal (test code = 46500-3) [facility] (Total Cholesterol, Triglycerides, HDL)2021-02-14 11:13:54 Test Item Value Reference Range Interpretation Comments CHOL (test code = 206 mg/dL 120-200 H 7967625863) HDL (test code = 26 mg/dL >40 L 7620564321) HDLC RATIO (test code = See_Comment H [Au tomated message] 5654668215) The system [employer] generated this result transmit sherman reference range : <=5.0. The refe rence range was not u sed to interpret th is result as normal/abnormal . TRIG (test code = 247 mg/dL 30-170 H 2089429701) LDL CHOL (test code = 131 mg/dL See_Comment [Auto mated message] 16112-0) The system [employer] generated this result transmit sherman reference range : <=160. The refe rence range was not u sed to interpret th is result as normal/abnormal . VLDL (test code = 49 mg/dL 5-60 6854505092) Lab Interpretation (test Abnormal code = 99194-3) [facility] Metabolic Panel (NA, K, CL, CO2, GLUCOSE, BUN, CREATININE, CA)2021-02-14 11:13:34 Test Item Value Reference Range Interpretation Comments NA (test code = 137 mmol/L 135-145 8780379882) K (test code = 3.8 mmol/L 3.5-5.0 9975781950) CL (test code = 104 mmol/L 98-108 0007528255) CO2 TOTAL (test code = 27 mmol/L 23-31 7220401567) AGAP (test code = 2-16 9692176878) BUN (test code = 15 mg/dL 7-23 1924915293) GLUCOSE (test code = 118 mg/dL 70-110 H 3076237340) CREATININE (test code = 0.89 mg/dL 0.60-1.25 6467219478) CALCIUM (test code = 9.2 mg/dL 8.6-10.6 0418996359) eGFR (test code = mL/min/1.73m2 8153701572) GAVIN (test code = GAVIN) Association of [...] tests). Lab Interpretation Abnormal (test code = 33271-3) [facility] WestMagnesium [id number] 11:13:34 Test Item Value Reference Range Interpretation Comments MAGNESIUM (test code = 8856008074) 2.1 mg/dL 1.7-2.4 Lab Interpretation (test code = Normal 71229-8) [facility] WestTroponin [id number] 04:12:39 Test Item Value Reference Interpretation Comments Range TROPONIN I (test 0.003 ng/mL See_Comment [Automated code = 3256727806) message] The system which generated this result [...] biotin. Lab Interpretation Normal (test code = 92756-4) [facility]CT GLUCOSE (AUTOMATED)2021-02-14 03:17:31 Test Item Value Reference Range Interpretation Comments POCT GLU (test code = 7812553286) 104 mg/dL 70-110 Lab Interpretation (test code = Normal 50596-0) [facility] WestThyroid Stimulating Hormone (TSH)2021-02-14 00:23:29 Test Item Value Reference Range Interpretation Comments TSH (test code = See_Comment [Automated message] 8839928111) The system [employer] generated this result transmitted ref erence range: 0.45 - 4 .70 mIU/L. The refe rence range was not u sed to interpret this result as normal/abnor mal. Lab Interpretation (test Normal code = 20153-7) [facility] WestGlycosylated Hemoglobin (A1C)2021-02-13 23:39:13 Test Item Value Reference Range Interpretation Comments HGB A1C (test code = 5.9 % 4.0-5.7 H 4548-4) GAVIN (test code = GAVIN) Reference RangesNormal: <5.7%Prediabetes: 5.7 - 6.4%Diabetes: > 6.5% Lab Interpretation (test Abnormal code = 43906-2) [facility]COMP. METABOLIC PANEL (93138)2021-02-13 20:14:02 Test Item Value Reference Range Interpretation Comments NA (test code = 137 mmol/L 135-145 3616264578) K (test code = 4.3 mmol/L 3.5-5.0 2122246795) CL (test code = 103 mmol/L 98-108 8429118227) CO2 TOTAL (test code 25 mmol/L -31 = 7414058640) AGAP (test code = 2-16 4424816486) BUN (test code = 12 mg/dL 7-23 2135035663) GLUCOSE (test code = 100 mg/dL 70-110 1563145928) CREATININE (test code 1.01 mg/dL 0.60-1.25 = 1227676128) TOTAL BILI (test code 0.7 mg/dL 0.1-1.1 = 8762008100) CALCIUM (test code = 9.9 mg/dL 8.6-10.6 7335839418) T PROTEIN (test code 8.0 g/dL 6.3-8.2 = 3773912502) ALBUMIN (test code = 4.5 g/dL 3.5-5.0 6295478466) ALK PHOS (test code = 70 U/L 34-122 2821014465) ALTv (test code = 24 U/L 5-50 2-6) AST(SGOT) (test code 25 U/L 13-40 = 5568701674) eGFR (test code = mL/min/1.73m2 3072408159) GAVIN (test code = GAVIN) Association of [...] or urine or abnormalities in imaging tests). [facility] WestTROPONIN [id number] 20:10:29 Test Item Value Reference Interpretation Comments Range TROPONIN I (test 0.003 ng/mL See_Comment [Automated code = 4290618028) message] The system which generated this result [...] biotin. Lab Interpretation Normal (test code = 99714-7) [facility] WestN-TERMINAL [id number] 20:07:27 Test Item Value Reference Range Interpretation Comments NT-proBNP (test code 48 pg/mL See_Comment [Autom ated = 1916826237) message] The system which generated this result transmitted reference range : <=125. The reference range was not used to interpret this result as normal/abnormal . GAVIN (test code = GAVIN) Biotin has been reported to cause a negative bias, interpret results relative to patient's use of biotin. Lab Interpretation Normal (test code = 91937-6) [facility]NESIUM2021-12-21 19:58:47 Test Item Value Reference Range Interpretation Comments MAGNESIUM (test code = 4075582032) 1.9 mg/dL 1.7-2.4 Lab Interpretation (test code = Normal 63990-9) [facility] WestLIPASE2021-12-21 19:58:27 Test Item Value Reference Range Interpretation Comments LIPASE (test code = 4453374635) 55 U/L 0-220 Lab Interpretation (test code = Normal 98254-0) [facility] WITH [id number] 19:42:44 Test Item Value Reference Range Interpretation [...] RDW-SD (test code = 42.7 fL 38.5-51.6 36285-2) RDW-CV (test code = 13.5 % 12.1-15.4 788-0) PLT (test code = See_Comment [Automated 777-3) message] The sy stem which generated this result transmitted reference range : 150 - 328 10*3/ ?L. The reference r tomas was not used to interpret this result as normal/abnormal . MPV (test code = 11.3 fL 9.8-13.0 78671-1) NRBC/100 WBC (test See_Comment [Automat ed code = 5426397655) message] The system which generated this result transmitted reference range : 0.0 - 10.0 /100 WBCs. The refer ence range was not u sed to interpret th is result as normal/abnormal . NRBC x10^3 (test code <0.01 See_Comment [Auto mated = 4391309061) message] The s ystem which generated this result transmitted reference range : 10*3/?L. The reference range was not used to interpret this result as normal/abnormal . GRAN MAT (NEUT) % 62.4 % (test code = 770-8) IMM GRAN % (test code 0.40 % = 1051328210) LYMPH % (test code = 29.8 % 736-9) MONO % (test code = 6.7 % 5905-5) EOS % (test code = 0.1 % 713-8) BASO % (test code = 0.6 % 706-2) GRAN MAT x10^3(ANC) 5.64 10*3/uL 1.99-6.95 (test code = 9646676699) IMM GRAN x10^3 (test 0.04 10*3/uL 0.00-0.06 code = 3293085824) LYMPH x10^3 (test code 2.70 10*3/uL 1.09-3.23 = 731-0) MONO x10^3 (test code 0.61 10*3/uL 0.36-1.02 = 742-7) EOS x10^3 (test code = <0.03 0.06-0.53 L 711-2) BASO x10^3 (test code 0.05 10*3/uL 0.01-0.09 = 704-7) Lab Interpretation Abnormal (test code = 77811-3) [facility] Description: Lipid [id number] 01:06:00 Test Item Value Reference Range Interpretation Comments Cholesterol, Total (test code = 120 mg/dL 463-697 9922-3) Triglycerides (test code = 2571-8) 109 mg/dL 0-149 HDL Cholesterol (test code = 33 mg/dL >39 L 5-9) VLDL Cholesterol Andrea (test code = 20 mg/dL 5-40 16463-1) LDL Chol Calc ([facility]) (test code = 67 mg/dL 0-99 45358-0) Comment: (test code = 89239-6) [facility] Description: Lipid [id number] 01:06:00 Test Item Value Reference Range Interpretation Comments Cholesterol, Total (test code = 120 mg/dL 985-028 7974-3) Triglycerides (test code = 2571-8) 109 mg/dL 0-149 HDL Cholesterol (test code = 33 mg/dL >39 L 2085-9) VLDL Cholesterol Andrea (test code = 20 mg/dL 5-40 56639-2) LDL Chol Calc ([facility]) (test code = 67 mg/dL 0-99 04035-0) Comment: (test code = 56104-2) [facility] [employer] Description: Lipid [id number] 01:06:00 Test Item Value Reference Range Interpretation Comments Cholesterol, Total (test code = 120 mg/dL 841-266 5539-3) Triglycerides (test code = 2571-8) 109 mg/dL 0-149 HDL Cholesterol (test code = 33 mg/dL >39 L 2085-9) VLDL Cholesterol Andrea (test code = 20 mg/dL 5-40 03266-3) LDL Chol Calc ([facility]) (test code = 67 mg/dL 0-99 11339-1) Comment: (test code = 54339-3) [employer] Description: Lipid [id number] 01:06:00 Test Item Value Reference Range Interpretation Comments Cholesterol, Total (test code = 120 mg/dL 640-689 1579-3) Triglycerides (test code = 2571-8) 109 mg/dL 0-149 HDL Cholesterol (test code = 33 mg/dL >39 L 2085-9) VLDL Cholesterol Andrea (test code = 20 mg/dL 5-40 98162-9) LDL Chol Calc ([facility]) (test code = 67 mg/dL 0-99 85262-9) Comment: (test code = 40410-8) [employer] Description: Lipid [id number] 01:06:00 Test Item Value Reference Range Interpretation Comments Cholesterol, Total (test code = 120 mg/dL 963-391 4841-3) Triglycerides (test code = 2571-8) 109 mg/dL 0-149 HDL Cholesterol (test code = 33 mg/dL >39 L 2085-9) VLDL Cholesterol Andrea (test code = 20 mg/dL 5-40 62049-1) LDL Chol Calc ([facility]) (test code = 67 mg/dL 0-99 91568-8) Comment: (test code = 59874-0) [employer] Description: Lipid [id number] 01:06:00 Test Item Value Reference Range Interpretation Comments Cholesterol, Total (test code = 120 mg/dL 895-511 6380-3) Triglycerides (test code = 2571-8) 109 mg/dL 0-149 HDL Cholesterol (test code = 33 mg/dL >39 L 5-9) VLDL Cholesterol Andrea (test code = 20 mg/dL 5-40 13613-4) LDL Chol Calc ([facility]) (test code = 67 mg/dL 0-99 29019-2) Comment: (test code = 66445-8) [facility] Description: Prothrombin Time (PT)2020-02-08 09:53:00 Test Item Value Reference Range Interpretation Comments INR (test code = 1.0 0.9-1.2 6301-6) Reference inter gosia is for non-anticoa gulated patients. . Suggested INR therapeutic ran ge for Vitamin K antagonist the rapy: Standard Dose (moderate inten sity therapeut ic range): 2 .0 - 3.0 Higher intensit y therapeutic ran ge 2.5 - 3.5

Pe rformed by:
[facility] ()
<br/&g t; Prothrombin Time (test 10.5 sec 9.1-12.0 code = 5902-2) [facility] Description: aPTT in Platelet poor plasma by Coagulation assay 2020-02-08 09:53:00 Test Item Value Reference Range Interpretation Comments aPTT (test code = 31 sec 24-33 [place] test has not been 69426-1) validated for m onitoring unfractionated heparintherapy. aPTT-based therapeutic ran ges for unfractionated heparintherapy have not been established. Fo r general guidelines onHe alice monitoring, ref er to the [facility] ry of Services.
< br/>Performed by:
[facility] ()

[facility] Description: Prothrombin Time (PT)2020-02-08 09:53:00 Test Item Value Reference Range Interpretation Comments INR (test code = 1.0 0.9-1.2 6301-6) Reference inter gosia is for non-anticoa gulated patients. . Suggested INR therapeutic ran ge for Vitamin K antagonist the rapy: Standard Dose (moderate inten sity therapeut ic range): 2 .0 - 3.0 Higher intensit y therapeutic ran ge 2.5 - 3.5

Pe [facility]formed by:
[facility]
<br/&g t; Prothrombin Time (test 10.5 sec 9.1-12.0 code = 5902-2) [facility] Description: aPTT in Platelet poor plasma by Coagulation assay 2020-02-08 09:53:00 Test Item Value Reference Range Interpretation Comments aPTT (test code = 31 sec 24-33 This test has not been 39741-1) validated for m onitoring unfractionated heparintherapy. aPTT-based therapeutic ran ges for unfractionated heparintherapy have not been established. Fo r general guidelines onHe alice monitoring, ref er to the [facility].
< br/>Performed by:
[facility] ()

[facility] Description: Prothrombin Time (PT)2020-02-08 09:53:00 Test Item Value Reference Range Interpretation Comments INR (test code = 1.0 0.9-1.2 6301-6) Reference inter gosia is for non-anticoa gulated patients. . Suggested INR therapeutic ran ge for Vitamin K antagonist the rapy: Standard Dose (moderate inten sity therapeut ic range): 2 .0 - 3.0 Higher intensit y therapeutic ran ge 2.5 - 3.5

Pe rformed by:
[facility]
<br/&g t; Prothrombin Time (test 10.5 sec 9.1-12.0 code = 5902-2) [facility] Description: aPTT in Platelet poor plasma by Coagulation assay 2020-02-08 09:53:00 Test Item Value Reference Range Interpretation Comments aPTT (test code = 31 sec 24-33 This test has not been 12890-3) validated for m onitoring unfractionated heparintherapy. aPTT-based therapeutic ran ges for unfractionated heparintherapy have not been established. Fo r general guidelines onHe alice monitoring, ref er [facility] the [facility].
< br/>Performed by:
[facility] ()

[facility] Description: Prothrombin Time (PT)2020-02-08 09:53:00 Test Item Value Reference Range Interpretation Comments INR (test code = 1.0 0.9-1.2 6301-6) Reference inter gosia is for non-anticoa gulated patients. . Suggested INR therapeutic ran ge for Vitamin K antagonist the rapy: Standard Dose (moderate inten sity therapeut ic range): 2 .0 - 3.0 Higher intensit y therapeutic ran ge 2.5 - 3.5

Pe rformed by:
[facility] ()
<br/&g t; Prothrombin Time (test 10.5 sec 9.1-12.0 code = 5902-2) [facility] Description: aPTT in Platelet poor plasma by Coagulation assay 2020-02-08 09:53:00 Test Item Value Reference Range Interpretation Comments aPTT (test code = 31 sec 24-33 This test has not been 32837-8) validated for m onitoring unfractionated heparintherapy. aPTT-based therapeutic ran ges for unfractionated heparintherapy have not been established. Fo r general guidelines onHe alice monitoring, ref er to the [facility] ry of Services.
< br/>Performed by:
[facility] ()

[facility] Description: Prothrombin Time (PT)2020-02-08 09:53:00 Test Item Value Reference Range Interpretation Comments INR (test code = 1.0 0.9-1.2 6301-6) Reference inter gosia is for non-anticoa gulated patients. . Suggested INR therapeutic ran ge for Vitamin K antagonist the rapy: Standard Dose (moderate inten sity therapeut ic range): 2 .0 - 3.0 Higher intensit y therapeutic ran ge 2.5 - 3.5

Pe rformed by:
[facility] ()
<br/&g t; Prothrombin Time (test 10.5 sec 9.1-12.0 code = 5902-2) [facility] Description: aPTT in Platelet poor plasma by Coagulation assay 2020-02-08 09:53:00 Test Item Value Reference Range Interpretation Comments aPTT (test code = 31 sec 24-33 This test has not been 06914-3) validated for m onitoring unfractionated heparintherapy. aPTT-based therapeutic ran ges for unfractionated heparintherapy have not been established. Fo r general guidelines onHe alice monitoring, ref er [facility] the [facility].
< br/>Performed by:
[facility] ([place])

[facility] Description: Prothrombin Time (PT)2020-02-08 09:53:00 Test Item Value Reference Range Interpretation Comments INR (test code = 1.0 0.9-1.2 6301-6) Reference inter gosia is for non-anticoa gulated patients. . Suggested INR therapeutic ran ge for Vitamin K antagonist the rapy: Standard Dose (moderate inten sity therapeut ic range): 2 .0 - 3.0 Higher intensit y therapeutic ran ge 2.5 - 3.5

Pe rformed by:
[facility] ()
<br/&g t; Prothrombin Time (test 10.5 sec 9.1-12.0 code = 5902-2) [facility] Description: aPTT in Platelet poor plasma by Coagulation assay 2020-02-08 09:53:00 Test Item Value Reference Range Interpretation Comments aPTT (test code = 31 sec 24-33 This test has not been 47391-0) validated for m onitoring unfractionated heparintherapy. aPTT-based therapeutic ran ges for unfractionated heparintherapy have not been established. Fo r general guidelines onHe alice monitoring, ref er [facility] the [facility].
< br/>Performed by:
[facility] ()

[facility] Description: Prothrombin Time (PT)2020-02-08 09:53:00 Test Item Value Reference Range Interpretation Comments INR (test code = 1.0 0.9-1.2 6301-6) Reference inter gosia is for non-anticoa gulated patients. . Suggested INR therapeutic ran ge for Vitamin K antagonist the rapy: Standard Dose (moderate inten sity therapeut ic range): 2 .0 - 3.0 Higher intensit y therapeutic ran ge 2.5 - 3.5

Pe rformed by:
[facility] ([place])
<br/&g t; Prothrombin Time (test 10.5 sec 9.1-12.0 code = 5902-2) [facility] Description: aPTT in Platelet poor plasma by Coagulation assay 2020-02-08 09:53:00 Test Item Value Reference Range Interpretation Comments aPTT (test code = 31 sec 24-33 This test has not been 92076-2) validated for m onitoring unfractionated heparintherapy. aPTT-based therapeutic ran ges for unfractionated heparintherapy have not been established. Fo r general guidelines onHe alice monitoring, ref er to the [facility] of Services.
< br/>Performed by:
[facility] ()

[facility] Description: Prothrombin Time (PT)2020-02-08 09:53:00 Test Item Value Reference Range Interpretation Comments INR (test code = 1.0 0.9-1.2 6301-6) Reference inter gosia is for non-anticoa gulated patients. . Suggested INR therapeutic ran ge for Vitamin K antagonist the rapy: Standard Dose (moderate inten sity therapeut ic range): 2 .0 - 3.0 Higher intensit y therapeutic ran ge 2.5 - 3.5

Pe rformed by:
[facility] ([place])
<br/&g t; Prothrombin Time (test 10.5 sec 9.1-12.0 code = 5902-2) [facility] Description: aPTT in Platelet poor plasma by Coagulation assay 2020-02-08 09:53:00 Test Item Value Reference Range Interpretation Comments aPTT (test code = 31 sec 24-33 This test has not been 74489-2) validated for m onitoring unfractionated heparintherapy. aPTT-based therapeutic ran ges for unfractionated heparintherapy have not been established. Fo r general guidelines onHe alice monitoring, ref er to the [employer] [facility] ry of Services.
< br/>Performed by:
[facility] ()

[facility] Description: Prothrombin Time (PT)2020-02-08 09:53:00 Test Item Value Reference Range Interpretation Comments INR (test code = 1.0 0.9-1.2 6301-6) Reference inter gosia is for non-anticoa gulated patients. . Suggested INR therapeutic ran ge for Vitamin K antagonist the rapy: Standard Dose (moderate inten sity therapeut ic range): 2 .0 - 3.0 Higher intensit y therapeutic ran ge 2.5 - 3.5

Pe rformed by:
[facility] ()
<br/&g t; Prothrombin Time (test 10.5 sec 9.1-12.0 code = 5902-2) [facility] Description: aPTT in Platelet poor plasma by Coagulation assay 2020-02-08 09:53:00 Test Item Value Reference Range Interpretation Comments aPTT (test code = 31 sec 24-33 This test has not been 40806-3) validated for m onitoring unfractionated heparintherapy. aPTT-based therapeutic ran ges for unfractionated heparintherapy have not been established. Fo r general guidelines onHe alice monitoring, ref [facility] the [facility].
< br/>Performed by:
[facility] ()

[facility] Description: Hemoglobin A1c/Hemoglobin.total in Blood 2020-02-08 09:36:00 Test Item Value Reference Range Interpretation Comments Hemoglobin A1c (test code 6.5 % 4.8-5.6 H = 4548-4) . Prediabetes: 5. 7 - 6.4 Diabetes : >6.4 Glycemic control for adults with diabetes: <7.0

P erformed by:
[facility] ()

[facility] Description: Hemoglobin A1c/Hemoglobin.total in Blood 2020-02-08 09:36:00 Test Item Value Reference Range Interpretation Comments Hemoglobin A1c (test code 6.5 % 4.8-5.6 H = 4548-4) . Prediabetes: 5. 7 - 6.4 Diabetes : >6.4 Glycemic control for adults with diabetes: <7.0

P erformed by:
[facility] ([place])

[facility] Description: Hemoglobin A1c/Hemoglobin.total in Blood 2020-02-08 09:36:00 Test Item Value Reference Range Interpretation Comments Hemoglobin A1c (test code 6.5 % 4.8-5.6 H = 4548-4) . Prediabetes: 5. 7 - 6.4 Diabetes : >6.4 Glycemic control for adults with diabetes: <7.0

P erformed by:
[facility] ([place])

[facility] Description: Hemoglobin A1c/Hemoglobin.total in Blood 2020-02-08 09:36:00 Test Item Value Reference Range Interpretation Comments Hemoglobin A1c (test code 6.5 % 4.8-5.6 H = 4548-4) . Prediabetes: 5. 7 - 6.4 Diabetes : >6.4 Glycemic control for adults with diabetes: <7.0

P erformed by:
[facility] ([place])

[facility] Description: Hemoglobin A1c/Hemoglobin.total in Blood 2020-02-08 09:36:00 Test Item Value Reference Range Interpretation Comments Hemoglobin A1c (test code 6.5 % 4.8-5.6 H = 4548-4) . Prediabetes: 5. 7 - 6.4 Diabetes : >6.4 Glycemic control for adults with diabetes: <7.0

P erformed by:
[facility] ([place])

[facility] Description: Hemoglobin A1c/Hemoglobin.total in Blood 2020-02-08 09:36:00 Test Item Value Reference Range Interpretation Comments Hemoglobin A1c (test code 6.5 % 4.8-5.6 H = 4548-4) . Prediabetes: 5. 7 - 6.4 Diabetes : >6.4 Glycemic control for adults with diabetes: <7.0

P erformed by:
[facility] ([place])

[facility] Description: Hemoglobin A1c/Hemoglobin.total in Blood 2020-02-08 09:36:00 Test Item Value Reference Range Interpretation Comments Hemoglobin A1c (test code 6.5 % 4.8-5.6 H = 4548-4) . Prediabetes: 5. 7 - 6.4 Diabetes : >6.4 Glycemic control for adults with diabetes: <7.0

P erformed by:
[facility] [place] ([place])

[facility] Description: Hemoglobin A1c/Hemoglobin.total in Blood 2020-02-08 09:36:00 Test Item Value Reference Range Interpretation Comments Hemoglobin A1c (test code 6.5 % 4.8-5.6 H = 4548-4) . Prediabetes: 5. 7 - 6.4 Diabetes : >6.4 Glycemic control for adults with diabetes: <7.0

P erformed by:
[facility] [place] ([place])

[facility] Description: Hemoglobin A1c/Hemoglobin.total in Blood 2020-02-08 09:36:00 Test Item Value Reference Range Interpretation Comments Hemoglobin A1c (test code 6.5 % 4.8-5.6 H = 4548-4) . Prediabetes: 5. 7 - 6.4 Diabetes : >6.4 Glycemic control for adults with diabetes: <7.0

P erformed by:
[facility] [place] ([place])

[facility] Description: CBC With Differential/[id number] 07:35:00 Test Item Value Reference Range Interpretation [...] (test 1 % Not Estab. code = 92658-1) Immature Grans (Abs) (test code 0.1 x10E3/uL 0.0-0.1 = 27532-4) NRBC (test code = 51818-8) Hematology Comments: (test code = 73662-0) [facility] Description: CBC With Differential/Atrdwksz3716-98-39 07:35:00 Test Item Value Reference Range Interpretation [...] (test 1 % Not Estab. code = 61695-9) Immature Grans (Abs) (test code 0.1 x10E3/uL 0.0-0.1 = 31440-3) NRBC (test code = 92663-2) Hematology Comments: (test code = 07847-9) [facility] Description: CBC With Differential/[id number] 07:35:00 Test Item Value Reference Range Interpretation [...] (test 1 % Not Estab. code = 61207-0) Immature Grans (Abs) (test code 0.1 x10E3/uL 0.0-0.1 = 60831-0) NRBC (test code = 51707-3) Hematology Comments: (test code = 45299-5) [facility] Description: CBC With Differential/[id number] 07:35:00 Test Item Value Reference Range Interpretation [...] (test 1 % Not Estab. code = 87915-9) Immature Grans (Abs) (test code 0.1 x10E3/uL 0.0-0.1 = 40941-8) NRBC (test code = 98956-2) Hematology Comments: (test code = 88684-5) [facility] Description: CBC With Differential/Skabupyi6968-50-67 07:35:00 Test Item Value Reference Range Interpretation [...] (test 1 % Not Estab. code = 57992-4) Immature Grans (Abs) (test code 0.1 x10E3/uL 0.0-0.1 = 95374-7) NRBC (test code = 75692-9) Hematology Comments: (test code = 58144-8) [facility] Description: CBC With Differential/Opevkwct9278-45-48 07:35:00 Test Item Value Reference Range Interpretation [...] (test 1 % Not Estab. code = 22496-3) Immature Grans (Abs) (test code 0.1 x10E3/uL 0.0-0.1 = 38566-9) NRBC (test code = 46571-5) Hematology Comments: (test code = 46431-8) [facility] Description: CBC With Differential/Nphrpcup0558-14-73 07:35:00 Test Item Value Reference Range Interpretation [...] (test 1 % Not Estab. code = 11922-3) Immature Grans (Abs) (test code 0.1 x10E3/uL 0.0-0.1 = 51205-9) NRBC (test code = 37831-6) Hematology Comments: (test code = 89797-9) [facility] Description: CBC With Differential/Kydmvenp2109-64-52 07:35:00 Test Item Value Reference Range Interpretation [...] (test 1 % Not Estab. code = 70006-6) Immature Grans (Abs) (test code 0.1 x10E3/uL 0.0-0.1 = 22399-5) NRBC (test code = 94162-5) Hematology Comments: (test code = 15625-3) [facility] Description: CBC With Differential/[id number] 07:35:00 Test Item Value Reference Range Interpretation [...] (test 1 % Not Estab. code = 93273-5) Immature Grans (Abs) (test code 0.1 x10E3/uL 0.0-0.1 = 56441-3) NRBC (test code = 56781-8) Hematology Comments: (test code = 62027-4) [facility] Description: 25-hydroxyvitamin D3 [Mass/volume] in Serum or [id number] 07:19:00 Test Item Value Reference Range Interpretation Comments Vitamin D, 24.2 ng/mL 30.0-100.0 L Vitamin D defic iency has 25-Hydroxy (test been define d by the code = 93150-4) [place] [facility] [employer] and an Endocrine [facility] practice guidel ine as alevel of serum 25-OH vitamin D less than 20 ng/mL (1,2).The Endocrine Society went on to further define vitamin Dinsufficiency as a level between 21 and 29 ng/mL (2).1. IOM (Ins titute of Medicine). 2010 . Dietary reference int akes for calcium and D. [place]: [employer] .2. Armand Chanel, Sarai SALINAS, et al. Evaluatio n, treatment, and prevention of vitamin D deficiency: an Endocrine Society clinica l practice guideline. EM. 2010; 96(7):1911-30.< br/>
P [facility]formed [facility]:
[facility] ()

[facility] Description: 25-hydroxyvitamin D3 [Mass/volume] in Serum or [id number] 07:19:00 Test Item Value Reference Range Interpretation Comments Vitamin D, 24.2 ng/mL 30.0-100.0 L Vitamin D defic iency has 25-Hydroxy (test been define d by the code = 79474-2) [place] [facility] [employer] and an Endocrine [facility] practice guidel ine as alevel of serum 25-OH vitamin D less than 20 ng/mL (1,2).The Endocrine Society went on to further define vitamin Dinsufficiency as a level between 21 and 29 ng/mL (2).1. IOM (Ins titute of Medicine). 2010 . Dietary reference int akes for calcium and D. [place]: [employer] .2. Armand Chanel, Sarai SALINAS, et al. Evaluatio n, treatment, and prevention of vitamin D deficiency: an Endocrine Society clinica l practice guideline. EM. 2010; 96(7):191-30.< br/>
P erformed by:
[facility] ([place])

[facility] Description: 25-hydroxyvitamin D3 [Mass/volume] in Serum or [id number] 07:19:00 Test Item Value Reference Range Interpretation Comments Vitamin D, 24.2 ng/mL 30.0-100.0 L Vitamin D defic iency has 25-Hydroxy (test been define d by the code = 00821-4) [place] [facility] [employer] and an Endocrine [facility] practice guidel ine as alevel of serum 25-OH vitamin D less than 20 ng/mL (1,2).The Endocrine Society went on to further define vitamin Dinsufficiency as a level between 21 and 29 ng/mL (2).1. IOM (Ins titute of Medicine). 2010 . Dietary reference int akes for calcium and D. [place]: [employer] .2. Armand Chanel, Sarai SALINAS, et al. Evaluatio n, treatment, and prevention of vitamin D deficiency: an Endocrine Society clinica l practice guideline. EM. 2010; 96(7):1911-30.< br/>
P erformed by:
[facility] ([place])

[facility] Description: 25-hydroxyvitamin D3 [Mass/volume] in Serum or [id number] 07:19:00 Test Item Value Reference Range Interpretation Comments Vitamin D, 24.2 ng/mL 30.0-100.0 L Vitamin D defic iency has 25-Hydroxy (test been define d by the code = 24193-2) [place] [facility] [employer] and an Endocrine [facility] practice guidel ine as alevel of serum 25-OH vitamin D less than 20 ng/mL (1,2).The Endocrine Society went on to further define vitamin Dinsufficiency as a level between 21 and 29 ng/mL (2).1. IOM (Ins titute of Medicine). 2010 . Dietary reference int akes for calcium and D. [place]: [employer] .2. Armand Chanel, Sarai SALINAS, et al. Evaluatio n, treatment, and prevention of vitamin D deficiency: an Endocrine Society clinica l practice guideline. CLARA EM. 2010; 96(7):1911-30.< br/>
P erformed by:
[facility] ([place])

[facility] Description: 25-hydroxyvitamin D3 [Mass/volume] in Serum or [id number] 07:19:00 Test Item Value Reference Range Interpretation Comments Vitamin D, 24.2 ng/mL 30.0-100.0 L Vitamin D defic iency has 25-Hydroxy (test been define d by the code = 93713-9) [place] [facility] [employer] and an Endocrine [facility] practice guidel ine as alevel of serum 25-OH vitamin D less than 20 ng/mL (1,2).The Endocrine Society went on to further define vitamin Dinsufficiency as a level between 21 and 29 ng/mL (2).1. IOM (Ins titute of Medicine). 2010 . Dietary reference int akes for calcium and D. [place]: [employer] .2. Marguerite ROBERTO, Armand BOB, Sarai SALINAS, et al. Evaluatio n, treatment, and prevention of vitamin D deficiency: an Endocrine Society clinica l practice guideline. EM. 2010; 96(7):1911-30.< br/>
P erformed by:
[facility] [place] ([place])

[facility] Description: 25-hydroxyvitamin D3 [Mass/volume] in Serum or [id number] 07:19:00 Test Item Value Reference Range Interpretation Comments Vitamin D, 24.2 ng/mL 30.0-100.0 L Vitamin D defic iency has 25-Hydroxy (test been define d by the code = 95258-4) [place] [facility] [employer] and an Endocrine [facility] practice guidel ine as alevel of serum 25-OH vitamin D less than 20 ng/mL (1,2).The Endocrine Society went on to further define vitamin Dinsufficiency as a level between 21 and 29 ng/mL (2).1. IOM (Ins titute of Medicine). 2010 . Dietary reference int akes for calcium and D. [facility]: [employer] .2. Armand Chanel, Sarai SALINAS, et al. Evaluatio n, treatment, and prevention of vitamin D deficiency: an Endocrine Society clinica l practice guideline. EM. 2010; 96(7):191-.< br/>
P erformed by:
[facility] [place] ([place])

[facility] Description: 25-hydroxyvitamin D3 [Mass/volume] in Serum or [id number] 07:19:00 Test Item Value Reference Range Interpretation Comments Vitamin D, 24.2 ng/mL 30.0-100.0 L Vitamin D defic iency has 25-Hydroxy (test been define d by the code = 06976-0) [place] [facility] [employer] and an Endocrine [facility] practice guidel ine as alevel of serum 25-OH vitamin D less than 20 ng/mL (1,2).The Endocrine Society went on to further define vitamin Dinsufficiency as a level between 21 and 29 ng/mL (2).1. IOM (Ins [facility]). 2010 . Dietary reference int akes for calcium and D. [facility]: [employer] .2. Armand Chanel, Sarai SALINAS, et al. Evaluatio n, treatment, and prevention of vitamin D deficiency: an Endocrine Society clinica l practice guideline. EM. 2010; 96(7):191-.< br/>
P erformed by:
[facility] [place] ([place])

[facility] Description: 25-hydroxyvitamin D3 [Mass/volume] in Serum or [id number] 07:19:00 Test Item Value Reference Range Interpretation Comments Vitamin D, 24.2 ng/mL 30.0-100.0 L Vitamin D defic iency has 25-Hydroxy (test been define d by the code = 51524-7) [place] [facility] [employer] and an Endocrine So ciety practice guidel ine as alevel of serum 25-OH vitamin D less than 20 ng/mL (1,2).The Endocrine Society went on to further define vitamin Dinsufficiency as a level between 21 and 29 ng/mL (2).1. IOM (Ins titute of Medicine). 2010 . Dietary reference int akes for calcium and D. [facility]: [employer] .2. Armand Chanel, Sarai SALINAS, et al. Evaluatio n, treatment, and prevention of vitamin D deficiency: an Endocrine Society clinica l practice guideline. CLARA EM. 2010; 96(7):1911-30.< br/>
P erformed by:
[facility] ([place])

[facility] Description: 25-hydroxyvitamin D3 [Mass/volume] in Serum or [id number] 07:19:00 Test Item Value Reference Range Interpretation Comments Vitamin D, 24.2 ng/mL 30.0-100.0 L Vitamin D defic iency has 25-Hydroxy (test been define d by the code = 71907-4) [place] [facility] [employer] and an Endocrine [facility] practice guidel ine as alevel of serum 25-OH vitamin D less than 20 ng/mL (1,2).The Endocrine Society went on to further define vitamin Dinsufficiency as a level between 21 and 29 ng/mL (2).1. IOM (Ins titute of Medicine). 2010 . Dietary reference int akes for calcium and D. [facility]: [employer] .2. Armand Chanel, Sarai SALINAS, et al. Evaluatio n, treatment, and prevention of vitamin D deficiency: an Endocrine Society clinica l practice guideline. CLARA EM. 2010; 96(7):1911-30.< br/>
P erformed by:
[facility] ([place])

[facility] Description: Lipid [id number] 06:52:00 Test Item Value Reference Range Interpretation Comments Cholesterol, Total (test code = 249 mg/dL 100-199 H 2092-3) Triglycerides (test code = 2571-8) 226 mg/dL 0-149 H HDL Cholesterol (test code = 35 mg/dL >39 L 2085-9) VLDL Cholesterol Andrea (test code = 43 mg/dL 5-40 H 21847-4) LDL Chol Calc (NIH) (test code = 171 mg/dL 0-99 H 32468-7) Comment: (test code = 14321-0) [employer] Description: Lipid [id number] 06:52:00 Test Item Value Reference Range Interpretation Comments Cholesterol, Total (test code = 249 mg/dL 100-199 H 2093-3) Triglycerides (test code = 2571-8) 226 mg/dL 0-149 H HDL Cholesterol (test code = 35 mg/dL >39 L 2085-9) VLDL Cholesterol Andrea (test code = 43 mg/dL 5-40 H 26035-3) LDL Chol Calc (NIH) (test code = 171 mg/dL 0-99 H 96158-0) Comment: (test code = 38941-0) [employer] Description: Lipid [id number] 06:52:00 Test Item Value Reference Range Interpretation Comments Cholesterol, Total (test code = 249 mg/dL 100-199 H 2093-3) Triglycerides (test code = 2571-8) 226 mg/dL 0-149 H HDL Cholesterol (test code = 35 mg/dL >39 L 2085-9) VLDL Cholesterol Andrea (test code = 43 mg/dL 5-40 H 32047-0) LDL Chol Calc (NIH) (test code = 171 mg/dL 0-99 H 10589-4) Comment: (test code = 75477-9) [employer] Description: Lipid [id number] 06:52:00 Test Item Value Reference Range Interpretation Comments Cholesterol, Total (test code = 249 mg/dL 100-199 H 2093-3) Triglycerides (test code = 2571-8) 226 mg/dL 0-149 H HDL Cholesterol (test code = 35 mg/dL >39 L 2085-9) VLDL Cholesterol Andrea (test code = 43 mg/dL 5-40 H 65987-1) LDL Chol Calc (NIH) (test code = 171 mg/dL 0-99 H 32489-8) Comment: (test code = 96529-6) [employer] Description: Lipid Ukknc0003-73-97 06:52:00 Test Item Value Reference Range Interpretation Comments Cholesterol, Total (test code = 249 mg/dL 100-199 H 2093-3) Triglycerides (test code = 2571-8) 226 mg/dL 0-149 H HDL Cholesterol (test code = 35 mg/dL >39 L 5-9) VLDL Cholesterol Andrea (test code = 43 mg/dL 5-40 H 50553-0) LDL Chol Calc (NIH) (test code = 171 mg/dL 0-99 H 89668-5) Comment: (test code = 72265-3) [employer] Description: Lipid [id number] 06:52:00 Test Item Value Reference Range Interpretation Comments Cholesterol, Total (test code = 249 mg/dL 100-199 H 3-3) Triglycerides (test code = 2571-8) 226 mg/dL 0-149 H HDL Cholesterol (test code = 35 mg/dL >39 L 5-9) VLDL Cholesterol Andrea (test code = 43 mg/dL 5-40 H 09693-3) LDL Chol Calc (NIH) (test code = 171 mg/dL 0-99 H 02178-7) Comment: (test code = 25986-2) [employer] Description: Lipid Ysrea2329-94-49 06:52:00 Test Item Value Reference Range Interpretation Comments Cholesterol, Total (test code = 249 mg/dL 100-199 H 3-3) Triglycerides (test code = 2571-8) 226 mg/dL 0-149 H HDL Cholesterol (test code = 35 mg/dL >39 L 5-9) VLDL Cholesterol Andrea (test code = 43 mg/dL 5-40 H 36306-9) LDL Chol Calc (NIH) (test code = 171 mg/dL 0-99 H 68700-9) Comment: (test code = 43969-1) [employer] Description: Lipid Gvbsi2700-87-77 06:52:00 Test Item Value Reference Range Interpretation Comments Cholesterol, Total (test code = 249 mg/dL 100-199 H 3-3) Triglycerides (test code = 2571-8) 226 mg/dL 0-149 H HDL Cholesterol (test code = 35 mg/dL >39 L 2085-9) VLDL Cholesterol Andrea (test code = 43 mg/dL 5-40 H 75777-5) LDL Chol Calc (NIH) (test code = 171 mg/dL 0-99 H 28117-2) Comment: (test code = 14616-4) [employer] Description: Lipid Dsgtl1157-48-40 06:52:00 Test Item Value Reference Range Interpretation Comments Cholesterol, Total (test code = 249 mg/dL 100-199 H 2093-3) Triglycerides (test code = 2571-8) 226 mg/dL 0-149 H HDL Cholesterol (test code = 35 mg/dL >39 L 5-9) VLDL Cholesterol Andrea (test code = 43 mg/dL 5-40 H 94246-4) LDL Chol Calc (NIH) (test code = 171 mg/dL 0-99 H 61487-7) Comment: (test code = 65801-4) [employer] Description: Comp. Metabolic Panel (14)2020-02-08 06:31:00 Test Item Value Reference Range Interpretation Comments Glucose (test code = 2345-7) 96 mg/dL 65-99 BUN (test code = 3094-0) 15 mg/dL 6-24 Creatinine (test code = 0.97 mg/dL 0.76-1.27 2160-0) eGFR If NonAfricn Am (test 88 mL/min/1.73 >59 code = 08089-2) eGFR If Africn Am (test code 101 mL/min/1.73 >59 = 17471-7) BUN/Creatinine Ratio (test 15 - code = 3097-3) Sodium (test code = 2951-2) 136 mmol/L 134-144 Potassium (test code = 4.4 mmol/L 3.5-5.2 2823-3) Chloride (test code = 2075-0) 96 mmol/L 96-106 Carbon Dioxide, Total (test 25 mmol/L 20-29 code = 2027-9) Calcium (test code = 84599-4) 10.0 mg/dL 8.7-10.2 Protein, Total (test code = 8.1 g/dL 6.0-8.5 2885-2) Albumin (test code = 1751-7) 4.8 g/dL 3.8-4.9 Globulin, Total (test code = 3.3 g/dL 1.5-4.5 53569-4) A/G Ratio (test code = 1.5 1.2-2.2 1759-0) Bilirubin, Total (test code = 0.5 mg/dL 0.0-1.2 1974-03) Alkaline Phosphatase (test 79 IU/L 39-117 code = 6768-6) AST (SGOT) (test code = 27 IU/L 0-40 0-8) ALT (SGPT) (test code = 42 IU/L 0-44 1742-6) [facility] Description: Comp. Metabolic Panel (2020-02-08 06:31:00 Test Item Value Reference Range Interpretation Comments Glucose (test code = 2345-7) 96 mg/dL 65-99 BUN (test code = 3094-0) 15 mg/dL 6-24 Creatinine (test code = 0.97 mg/dL 0.76-1.27 2160-0) eGFR If NonAfricn Am (test 88 mL/min/1.73 >59 code = 62569-0) eGFR If Africn Am (test code 101 mL/min/1.73 >59 = 75092-8) BUN/Creatinine Ratio (test 15 - code = 3097-3) Sodium (test code = 2951-2) 136 mmol/L 134-144 Potassium (test code = 4.4 mmol/L 3.5-5.2 2823-3) Chloride (test code = 2075-0) 96 mmol/L 96-106 Carbon Dioxide, Total (test 25 mmol/L 20-29 code = 8-9) Calcium (test code = 91329-8) 10.0 mg/dL 8.7-10.2 Protein, Total (test code = 8.1 g/dL 6.0-8.5 2885-2) Albumin (test code = 1751-7) 4.8 g/dL 3.8-4.9 Globulin, Total (test code = 3.3 g/dL 1.5-4.5 27213-0) A/G Ratio (test code = 1.5 1.2-2.2 1758-0) Bilirubin, Total (test code = 0.5 mg/dL 0.0-1.2 1974-03) Alkaline Phosphatase (test 79 IU/L 39-117 code = 6768-6) AST (SGOT) (test code = 27 IU/L 0-40 1920-8) ALT (SGPT) (test code = 42 IU/L 0-44 1742-6) [facility]: [facility] (14)2020-02-08 06:31:00 Test Item Value Reference Range Interpretation Comments Glucose (test code = 2345-7) 96 mg/dL 65-99 BUN (test code = 3094-0) 15 mg/dL 6-24 Creatinine (test code = 0.97 mg/dL 0.76-1.27 2160-0) eGFR If NonAfricn Am (test 88 mL/min/1.73 >59 code = 33429-4) eGFR If Africn Am (test code 101 mL/min/1.73 >59 = 85205-6) BUN/Creatinine Ratio (test 15 11-13 code = 3097-3) Sodium (test code = 2951-2) 136 mmol/L 134-144 Potassium (test code = 4.4 mmol/L 3.5-5.2 2823-3) Chloride (test code = 2075-0) 96 mmol/L 96-106 Carbon Dioxide, Total (test 25 mmol/L 20-29 code = 8-9) Calcium (test code = 33453-5) 10.0 mg/dL 8.7-10.2 Protein, Total (test code = 8.1 g/dL 6.0-8.5 2885-2) Albumin (test code = 1751-7) 4.8 g/dL 3.8-4.9 Globulin, Total (test code = 3.3 g/dL 1.5-4.5 16976-1) A/G Ratio (test code = 1.5 1.2-2.2 1759-0) Bilirubin, Total (test code = 0.5 mg/dL 0.0-1.2 1975-2) Alkaline Phosphatase (test 79 IU/L 39-117 code = 6768-6) AST (SGOT) (test code = 27 IU/L 0-40 1920-8) ALT (SGPT) (test code = 42 IU/L 0-44 1742-6) [facility] Description: Comp. Metabolic Panel (14)2020-02-08 06:31:00 Test Item Value Reference Range Interpretation Comments Glucose (test code = 2345-7) 96 mg/dL 65-99 BUN (test code = 3094-0) 15 mg/dL 6-24 Creatinine (test code = 0.97 mg/dL 0.76-1.27 2160-0) eGFR If NonAfricn Am (test 88 mL/min/1.73 >59 code = 18934-2) eGFR If Africn Am (test code 101 mL/min/1.73 >59 = 54717-2) BUN/Creatinine Ratio (test 15 9-20 code = 3097-3) Sodium (test code = 2951-2) 136 mmol/L 134-144 Potassium (test code = 4.4 mmol/L 3.5-5.2 2823-3) Chloride (test code = 2075-0) 96 mmol/L 96-106 Carbon Dioxide, Total (test 25 mmol/L 20-29 code = 2028-9) Calcium (test code = 07167-2) 10.0 mg/dL 8.7-10.2 Protein, Total (test code = 8.1 g/dL 6.0-8.5 2885-2) Albumin (test code = 1751-7) 4.8 g/dL 3.8-4.9 Globulin, Total (test code = 3.3 g/dL 1.5-4.5 74908-0) A/G Ratio (test code = 1.5 1.2-2.2 1759-0) Bilirubin, Total (test code = 0.5 mg/dL 0.0-1.2 1975-2) Alkaline Phosphatase (test 79 IU/L 39-117 code = 6768-6) AST (SGOT) (test code = 27 IU/L 0-40 1920-8) ALT (SGPT) (test code = 42 IU/L 0-44 1742-6) [facility] Description: Comp. Metabolic Panel (142020-02-08 06:31:00 Test Item Value Reference Range Interpretation Comments Glucose (test code = 2345-7) 96 mg/dL 65-99 BUN (test code = 3094-0) 15 mg/dL 6-24 Creatinine (test code = 0.97 mg/dL 0.76-1.27 2160-0) eGFR If NonAfricn Am (test 88 mL/min/1.73 >59 code = 30236-6) eGFR If Africn Am (test code 101 mL/min/1.73 >59 = 25011-3) BUN/Creatinine Ratio (test 11-13 code = 3097-3) Sodium (test code = 2951-2) 136 mmol/L 134-144 Potassium (test code = 4.4 mmol/L 3.5-5.2 2823-3) Chloride (test code = 2075-0) 96 mmol/L 96-106 Carbon Dioxide, Total (test 25 mmol/L 20-29 code = 8-9) Calcium (test code = 66998-8) 10.0 mg/dL 8.7-10.2 Protein, Total (test code = 8.1 g/dL 6.0-8.5 2885-2) Albumin (test code = 1751-7) 4.8 g/dL 3.8-4.9 Globulin, Total (test code = 3.3 g/dL 1.5-4.5 98442-3) A/G Ratio (test code = 1.5 1.2-2.2 1759-0) Bilirubin, Total (test code = 0.5 mg/dL 0.0-1.2 1975-2) Alkaline Phosphatase (test 79 IU/L 39-117 code = 6768-6) AST (SGOT) (test code = 27 IU/L 0-40 1920-8) ALT (SGPT) (test code = 42 IU/L 0-44 1742-6) [facility] Description: Comp. Metabolic Panel (14)2020-02-08 06:31:00 Test Item Value Reference Range Interpretation Comments Glucose (test code = 2345-7) 96 mg/dL 65-99 BUN (test code = 3094-0) 15 mg/dL 6-24 Creatinine (test code = 0.97 mg/dL 0.76-1.27 2160-0) eGFR If NonAfricn Am (test 88 mL/min/1.73 >59 code = 15404-3) eGFR If Africn Am (test code 101 mL/min/1.73 >59 = 03181-4) BUN/Creatinine Ratio (test 11-13 code = 3097-3) Sodium (test code = 2951-2) 136 mmol/L 134-144 Potassium (test code = 4.4 mmol/L 3.5-5.2 2823-3) Chloride (test code = 2075-0) 96 mmol/L 96-106 Carbon Dioxide, Total (test 25 mmol/L code = 2027-) Calcium (test code = 45264-5) 10.0 mg/dL 8.7-10.2 Protein, Total (test code = 8.1 g/dL 6.0-8.5 2885-2) Albumin (test code = 1751-7) 4.8 g/dL 3.8-4.9 Globulin, Total (test code = 3.3 g/dL 1.5-4.5 84694-7) A/G Ratio (test code = 1.5 1.2-2.2 1759-0) Bilirubin, Total (test code = 0.5 mg/dL 0.0-1.2 1975-2) Alkaline Phosphatase (test 79 IU/L 39-117 code = 6768-6) AST (SGOT) (test code = 27 IU/L 0-40 1920-8) ALT (SGPT) (test code = 42 IU/L 0-44 1742-6) [facility] Description: Comp. Metabolic Panel (14)2020-02-08 06:31:00 Test Item Value Reference Range Interpretation Comments Glucose (test code = 2345-7) 96 mg/dL 65-99 BUN (test code = 3094-0) 15 mg/dL 6-24 Creatinine (test code = 0.97 mg/dL 0.76-1.27 2160-0) eGFR If NonAfricn Am (test 88 mL/min/1.73 >59 code = 71657-5) eGFR If Africn Am (test code 101 mL/min/1.73 >59 = 81869-3) BUN/Creatinine Ratio (test 15 11-13 code = 3097-3) Sodium (test code = 2951-2) 136 mmol/L 134-144 Potassium (test code = 4.4 mmol/L 3.5-5.2 2823-3) Chloride (test code = 2075-0) 96 mmol/L 96-106 Carbon Dioxide, Total (test 25 mmol/L code = 2027-) Calcium (test code = 54994-1) 10.0 mg/dL 8.7-10.2 Protein, Total (test code = 8.1 g/dL 6.0-8.5 2885-2) Albumin (test code = 1751-7) 4.8 g/dL 3.8-4.9 Globulin, Total (test code = 3.3 g/dL 1.5-4.5 80639-6) A/G Ratio (test code = 1.5 1.2-2.2 1759-0) Bilirubin, Total (test code = 0.5 mg/dL 0.0-1.2 1975-2) Alkaline Phosphatase (test 79 IU/L 39-117 code = 6768-6) AST (SGOT) (test code = 27 IU/L 0-40 1920-8) ALT (SGPT) (test code = 42 IU/L 0-44 1742-6) [facility] Description: Comp. Metabolic Panel (14)2020-02-08 06:31:00 Test Item Value Reference Range Interpretation Comments Glucose (test code = 2345-7) 96 mg/dL 65-99 BUN (test code = 3094-0) 15 mg/dL 6-24 Creatinine (test code = 0.97 mg/dL 0.76-1.27 2160-0) eGFR If NonAfricn Am (test 88 mL/min/1.73 >59 code = 26522-1) eGFR If Africn Am (test code 101 mL/min/1.73 >59 = 99773-9) BUN/Creatinine Ratio (test 15 9-20 code = 3097-3) Sodium (test code = 2951-2) 136 mmol/L 134-144 Potassium (test code = 4.4 mmol/L 3.5-5.2 2823-3) Chloride (test code = 2075-0) 96 mmol/L 96-106 Carbon Dioxide, Total (test 25 mmol/L 20-29 code = 8-9) Calcium (test code = 86779-0) 10.0 mg/dL 8.7-10.2 Protein, Total (test code = 8.1 g/dL 6.0-8.5 2885-2) Albumin (test code = 1751-7) 4.8 g/dL 3.8-4.9 Globulin, Total (test code = 3.3 g/dL 1.5-4.5 73070-6) A/G Ratio (test code = 1.5 1.2-2.2 175-0) Bilirubin, Total (test code = 0.5 mg/dL 0.0-1.2 1974-03) Alkaline Phosphatase (test 79 IU/L 39-117 code = 6768-6) AST (SGOT) (test code = 27 IU/L 0-40 1920-8) ALT (SGPT) (test code = 42 IU/L 0-44 1742-6) [facility]: [facility] (2020-02-08 06:31:00 Test Item Value Reference Range Interpretation Comments Glucose (test code = 2345-7) 96 mg/dL 65-99 BUN (test code = 3094-0) 15 mg/dL 6-24 Creatinine (test code = 0.97 mg/dL 0.76-1.27 2160-0) eGFR If NonAfricn Am (test 88 mL/min/1.73 >59 code = 22092-1) eGFR If Africn Am (test code 101 mL/min/1.73 >59 = 94728-7) BUN/Creatinine Ratio (test 15 9-20 code = 3097-3) Sodium (test code = 2951-2) 136 mmol/L 134-144 Potassium (test code = 4.4 mmol/L 3.5-5.2 2823-3) Chloride (test code = 2075-0) 96 mmol/L 96-106 Carbon Dioxide, Total (test 25 mmol/L 20-29 code = 2027-9) Calcium (test code = 10554-3) 10.0 mg/dL 8.7-10.2 Protein, Total (test code = 8.1 g/dL 6.0-8.5 2885-2) Albumin (test code = 1751-7) 4.8 g/dL 3.8-4.9 Globulin, Total (test code = 3.3 g/dL 1.5-4.5 91688-5) A/G Ratio (test code = 1.5 1.2-2.2 1759-0) Bilirubin, Total (test code = 0.5 mg/dL 0.0-1.2 1974-03) Alkaline Phosphatase (test 79 IU/L 39-117 code = 6768-6) AST (SGOT) (test code = 27 IU/L 0-40 1920-8) ALT (SGPT) (test code = 42 IU/L 0-44 1742-6) [facility] Description: Chlamydia/GC Nkfzwxqhrdnsn5202-61-05 12:24:00 Test Item Value Reference Range Interpretation Comments Chlamydia trachomatis, MASSIMO (test Negative Negative code = 41906-8) Neisseria gonorrhoeae, MASSIMO (test Negative Negative code = 98649-4) [facility] Description: Chlamydia/GC Owavbqcqodgph3496-72-91 12:24:00 Test Item Value Reference Range Interpretation Comments Chlamydia trachomatis, MASSIMO (test Negative Negative code = 24486-7) Neisseria gonorrhoeae, MASSIMO (test Negative Negative code = 57361-8) [facility] Description: Chlamydia/GC Tgjaouioilwhz5540-25-05 12:24:00 Test Item Value Reference Range Interpretation Comments Chlamydia trachomatis, MASSIMO (test Negative Negative code = 92691-4) Neisseria gonorrhoeae, MASSIMO (test Negative Negative code = 98300-9) [facility] Description: Chlamydia/GC Cjwsqyzuxakfd0300-48-91 12:24:00 Test Item Value Reference Range Interpretation Comments Chlamydia trachomatis, MASSIMO (test Negative Negative code = 44597-7) Neisseria gonorrhoeae, MASSIMO (test Negative Negative code = 68020-5) [facility] Description: Chlamydia/GC Yicuzadzpzaja8586-63-29 12:24:00 Test Item Value Reference Range Interpretation Comments Chlamydia trachomatis, MASSIMO (test Negative Negative code = 51204-4) Neisseria gonorrhoeae, MASSIMO (test Negative Negative code = 12288-6) [facility] Description: Chlamydia/GC Ivnuisqrhkase1771-50-92 12:24:00 Test Item Value Reference Range Interpretation Comments Chlamydia trachomatis, MASSIMO (test Negative Negative code = 89136-2) Neisseria gonorrhoeae, MASSIMO (test Negative Negative code = 62847-5) [facility] Description: Chlamydia/GC Hxobsxbmqbiuv4476-50-60 12:24:00 Test Item Value Reference Range Interpretation Comments Chlamydia trachomatis, MASSIMO (test Negative Negative code = 40467-0) Neisseria gonorrhoeae, MASSIMO (test Negative Negative code = 90045-0) [facility] Description: Chlamydia/GC Mjusducxemzep5917-12-37 12:24:00 Test Item Value Reference Range Interpretation Comments Chlamydia trachomatis, MASSIMO (test Negative Negative code = 19946-5) Neisseria gonorrhoeae, MASSIMO (test Negative Negative code = 35372-1) [facility] Description: Chlamydia/GC Shmtjawbpxcuf4104-46-79 12:24:00 Test Item Value Reference Range Interpretation Comments Chlamydia trachomatis, MASSIMO (test Negative Negative code = 26143-8) Neisseria gonorrhoeae, MASSIMO (test Negative Negative code = 40114-4) [facility] Description: Chlamydia/GC Fzzquldpvoopa6560-11-82 12:24:00 Test Item Value Reference Range Interpretation Comments Chlamydia trachomatis, MASSIMO (test Negative Negative code = 48778-0) Neisseria gonorrhoeae, MASSIMO (test Negative Negative code = 06266-5) [facility] Description: Chlamydia/GC Aeuoaecnldpos0934-63-85 12:24:00 Test Item Value Reference Range Interpretation Comments Chlamydia trachomatis, MASSIMO (test Negative Negative code = 20615-0) Neisseria gonorrhoeae, MASSIMO (test Negative Negative code = 10674-1) [facility] Description: Chlamydia/GC Ynsgagnzopsyy8622-76-88 12:24:00 Test Item Value Reference Range Interpretation Comments Chlamydia trachomatis, MASSIMO (test Negative Negative code = 15639-2) Neisseria gonorrhoeae, MASSIMO (test Negative Negative code = 00417-3) [facility] Description: HIV 1+2 Ab+HIV1 p24 Ag [Presence] in Serum or Plasma by Ntklslpwspc2130-80-27 07:26:00 Test Item Value Reference Range Interpretation Comments HIV Screen 4th Generation wRfx Non Reactive Non Reactive (test code = 86599-6) [facility] Description: HIV 1+2 Ab+HIV1 p24 Ag [Presence] in Serum or Plasma by Iqzyftzfvfh9779-49-95 07:26:00 Test Item Value Reference Range Interpretation Comments HIV Screen 4th Generation wRfx Non Reactive Non Reactive (test code = 49683-1) [facility] Description: HIV 1+2 Ab+HIV1 p24 Ag [Presence] in Serum or Plasma by Faioqrdtkzb2936-45-43 07:26:00 Test Item Value Reference Range Interpretation Comments HIV Screen 4th Generation wRfx Non Reactive Non Reactive (test code = 29777-2) [facility] Description: HIV 1+2 Ab+HIV1 p24 Ag [Presence] in Serum or Plasma by Hfgqeyrscmj7986-18-82 07:26:00 Test Item Value Reference Range Interpretation Comments HIV Screen 4th Generation wRfx Non Reactive Non Reactive (test code = 06438-1) [facility] Description: HIV 1+2 Ab+HIV1 p24 Ag [Presence] in Serum or Plasma by Qbuiwvfpfva1796-64-62 07:26:00 Test Item Value Reference Range Interpretation Comments HIV Screen 4th Generation wRfx Non Reactive Non Reactive (test code = 33814-3) [facility] Description: HIV 1+2 Ab+HIV1 p24 Ag [Presence] in Serum or Plasma by Zbhtgmzszoi7328-26-75 07:26:00 Test Item Value Reference Range Interpretation Comments HIV Screen 4th Generation wRfx Non Reactive Non Reactive (test code = 07027-4) [facility] Description: HIV 1+2 Ab+HIV1 p24 Ag [Presence] in Serum or Plasma by Sxgaazmlotc9740-96-96 07:26:00 Test Item Value Reference Range Interpretation Comments HIV Screen 4th Generation wRfx Non Reactive Non Reactive (test code = 10956-5) [facility] Description: HIV 1+2 Ab+HIV1 p24 Ag [Presence] in Serum or Plasma by Wohkgzdwiwo2582-69-05 07:26:00 Test Item Value Reference Range Interpretation Comments HIV Screen 4th Generation wRfx Non Reactive Non Reactive (test code = 31584-6) [facility] Description: HIV 1+2 Ab+HIV1 p24 Ag [Presence] in Serum or Plasma by Bpkrevgsppf5024-32-82 07:26:00 Test Item Value Reference Range Interpretation Comments HIV Screen 4th Generation wRfx Non Reactive Non Reactive (test code = 46671-3) [facility] Description: HIV 1+2 Ab+HIV1 p24 Ag [Presence] in Serum or Plasma by Kigwdewjinp5151-33-65 07:26:00 Test Item Value Reference Range Interpretation Comments HIV Screen 4th Generation wRfx Non Reactive Non Reactive (test code = 58922-7) [facility] Description: HIV 1+2 Ab+HIV1 p24 Ag [Presence] in Serum or Plasma by Ejochlgslcc6986-08-26 07:26:00 Test Item Value Reference Range Interpretation Comments HIV Screen 4th Generation wRfx Non Reactive Non Reactive (test code = 69682-6) [facility] Description: HIV 1+2 Ab+HIV1 p24 Ag [Presence] in Serum or Plasma by Yjoihmudobh0944-70-28 07:26:00 Test Item Value Reference Range Interpretation Comments HIV Screen 4th Generation wRfx Non Reactive Non Reactive (test code = 39525-1) [facility] Description: 25-hydroxyvitamin D3 [Mass/volume] in Serum or Yrhblw4683-75-04 06:20:00 Test Item Value Reference Range Interpretation Comments Vitamin D, 13.0 ng/mL 30.0-100.0 L Vitamin D defic iency has 25-Hydroxy (test been define d by the code = 65360-8) [place] [facility] guidel ine as alevel of serum 25-OH vitamin D less than 20 ng/mL (1,2).The Endocrine Society went on to further define vitamin Dinsufficiency as a level between 21 and 29 ng/mL (2).1. IOM (Ins titute of Medicine). 2010 . Dietary reference int akes for calcium and D. [place]: [employer] .2. Marguerite ROBERTO, Armand BOB, Sarai cantu SALINAS, et al. Evaluatio n, treatment, and prevention of vitamin D deficiency: an Endocrine Society clinica l practice guideline. [facility]. 2010; 96(7):1911-30.< br/>
P erformed by:
[facility] ()

[facility] Description: 25-hydroxyvitamin D3 [Mass/volume] in Serum or Ciwkin9940-93-33 06:20:00 Test Item Value Reference Range Interpretation Comments Vitamin D, 13.0 ng/mL 30.0-100.0 L Vitamin D defic iency has 25-Hydroxy (test been define d by the code = 94482-6) [place] [facility] as alevel of serum 25-OH vitamin D less than 20 ng/mL (1,2).The Endocrine Society went on to further define vitamin Dinsufficiency as a level between 21 and 29 ng/mL (2).1. IOM (Ins titute of Medicine). 2010 . Dietary reference int akes for calcium and D. [place]: [employer] .2. Armand Chanel, Sarai SALINAS, et al. Evaluatio n, treatment, and prevention of vitamin D deficiency: an Endocrine Society clinica l practice guideline. [facility]. 2010; 96(7):1911-30.< br/>
P erformed by:
[facility] ([place])

[facility] Description: 25-hydroxyvitamin D3 [Mass/volume] in Serum or Cjalmx1963-30-61 06:20:00 Test Item Value Reference Range Interpretation Comments Vitamin D, 13.0 ng/mL 30.0-100.0 L Vitamin D defic iency has 25-Hydroxy (test been define d by the code = 47159-8) [place] [facility] [employer] [facility] practice guidel ine as alevel of serum 25-OH vitamin D less than 20 ng/mL (1,2).The Endocrine Society went on to further define vitamin Dinsufficiency as a level between 21 and 29 ng/mL (2).1. IOM (Ins titute of Medicine). 2010 . Dietary reference int akes for calcium and D. [place]: [employer] .2. Marguerite ROBERTO, Armand BOB, Sarai SALINAS, et al. Evaluatio n, treatment, and prevention of vitamin D deficiency: an Endocrine Society clinica l practice guideline. [facility]. 2010; 96(7):1911-30.< br/>
P erformed by:
[facility] [place] ([place])

[facility] Description: 25-hydroxyvitamin D3 [Mass/volume] in Serum or Jtmkxx3886-91-19 06:20:00 Test Item Value Reference Range Interpretation Comments Vitamin D, 13.0 ng/mL 30.0-100.0 L Vitamin D defic iency has 25-Hydroxy (test been define d by the code = 12308-0) [place] [facility] [employer] [facility] practice guidel ine as alevel of serum 25-OH vitamin D less than 20 ng/mL (1,2).The Endocrine Society went on to further define vitamin Dinsufficiency as a level between 21 and 29 ng/mL (2).1. IOM (Ins titute of Medicine). 2010 . Dietary reference int akes for calcium and D. [facility]: [employer] .2. Armand Chanel, Sarai SALINAS, et al. Evaluatio n, treatment, and prevention of vitamin D deficiency: an Endocrine Society clinica l practice guideline. EM. 2010; 96(7):191-.< br/>
P erformed by:
[facility] Nguyen (HD)

[facility] Description: 25-hydroxyvitamin D3 [Mass/volume] in Serum or [id number] 06:20:00 Test Item Value Reference Range Interpretation Comments Vitamin D, 13.0 ng/mL 30.0-100.0 L Vitamin D defic iency has 25-Hydroxy (test been define d by the code = 80107-8) [place] [facility] [employer] and an Endocrine [facility] practice guidel ine as alevel of serum 25-OH vitamin D less than 20 ng/mL (1,2).The Endocrine Society went on to further define vitamin Dinsufficiency as a level between 21 and 29 ng/mL (2).1. IOM (Ins titute of Medicine). 2010 . Dietary reference int akes for calcium and D. [facility]: [employer] .2. Armand Chanel, Sarai SALINAS, et al. Evaluatio n, treatment, and prevention of vitamin D deficiency: an Endocrine Society clinica l practice guideline. EM. 2010; 96(7):191-30.< br/>
P erformed by:
[facility] Nguyen (HD)

[facility] Description: 25-hydroxyvitamin D3 [Mass/volume] in Serum or [id number] 06:20:00 Test Item Value Reference Range Interpretation Comments Vitamin D, 13.0 ng/mL 30.0-100.0 L Vitamin D defic iency has 25-Hydroxy (test been define d by the code = 34957-9) [place] [facility] and an Endocrine [facility] practice guidel ine as alevel of serum 25-OH vitamin D less than 20 ng/mL (1,2).The Endocrine Society went on to further define vitamin Dinsufficiency as a level between 21 and 29 ng/mL (2).1. IOM (Ins titute of Medicine). 2010 . Dietary reference int akes for calcium and D. [facility]: [employer] .2. Armand Chanel, Sarai SALINAS, et al. Evaluatio n, treatment, and prevention of vitamin D deficiency: an Endocrine Society clinica l practice guideline. CLARA EM. 2010; 96(7):1911-30.< br/>
P erformed by:
[facility] ([place])

[facility] Description: 25-hydroxyvitamin D3 [Mass/volume] in Serum or [id number] 06:20:00 Test Item Value Reference Range Interpretation Comments Vitamin D, 13.0 ng/mL 30.0-100.0 L Vitamin D defic iency has 25-Hydroxy (test been define d by the code = 82429-7) [facility] End[facility] practice guidel ine as alevel of serum 25-OH vitamin D less than 20 ng/mL (1,2).The Endocrine Society went on to further define vitamin Dinsufficiency as a level between 21 and 29 ng/mL (2).1. IOM (Ins titute of Medicine). 2010 . Dietary reference int akes for calcium and D. [place]: [employer] .2. Armand Chanel, Sarai SALINAS, et al. Evaluatio n, treatment, and prevention of vitamin D deficiency: an Endocrine Society clinica l practice guideline. CLARA EM. 2010; 96(7):1911-30.< br/>
P erformed by:
[facility] ([place])

[facility] Description: 25-hydroxyvitamin D3 [Mass/volume] in Serum or [id number] 06:20:00 Test Item Value Reference Range Interpretation Comments Vitamin D, 13.0 ng/mL 30.0-100.0 L Vitamin D defic iency has 25-Hydroxy (test been define d by the code = 79720-7) [facility] and an Endocrine So ety practice guidel ine as alevel of serum 25-OH vitamin D less than 20 ng/mL (1,2).The Endocrine Society went on to further define vitamin Dinsufficiency as a level between 21 and 29 ng/mL (2).1. IOM (Ins [facility]). 2010 . Dietary reference int akes for calcium and D. [facility]: [employer] .2. Armand Chanel, Sarai SALINAS, et al. Evaluatio n, treatment, and prevention of vitamin D deficiency: an Endocrine Society clinica l practice guideline. CLARA EM. 2010; 96(7):191-.< br/>
P erformed by:
[facility] ([place])

[facility] Description: 25-hydroxyvitamin D3 [Mass/volume] in Serum or [id number] 06:20:00 Test Item Value Reference Range Interpretation Comments Vitamin D, 13.0 ng/mL 30.0-100.0 L Vitamin D defic iency has 25-Hydroxy (test been define d by the code = 10119-5) [facility] practice guidel ine as alevel of serum 25-OH vitamin D less than 20 ng/mL (1,2).The Endocrine Society went on to further define vitamin Dinsufficiency as a level between 21 and 29 ng/mL (2).1. IOM (Ins [facility]). 2010 . Dietary reference int akes for calcium and D. [facility]: [employer] .2. Armand Chanel, Sarai SALINAS, et al. Evaluatio n, treatment, and prevention of vitamin D deficiency: an Endocrine Society clinica l practice guideline. CLARA EM. 2010; 96(7):191-.< br/>
P erformed by:
[facility] ([place])

[facility] Description: 25-hydroxyvitamin D3 [Mass/volume] in Serum or [id number] 06:20:00 Test Item Value Reference Range Interpretation Comments Vitamin D, 13.0 ng/mL 30.0-100.0 L Vitamin D defic iency has 25-Hydroxy (test been define d by the code = 09820-2) [facility] and an Endocrine So ciety practice guidel ine as alevel of serum 25-OH vitamin D less than 20 ng/mL (1,2).The Endocrine Society went on to further define vitamin Dinsufficiency as a level between 21 and 29 ng/mL (2).1. IOM (Ins titute of Medicine). 2010 . Dietary reference int akes for calcium and D. [place]: [employer] .2. Armand Chanel, Sarai SALINAS, et al. Evaluatio n, treatment, and prevention of vitamin D deficiency: an Endocrine Society clinica l practice guideline. EM. 2010; 96(7):191-.< br/>
P erformed by:
[facility] ([place])

[facility] Description: 25-hydroxyvitamin D3 [Mass/volume] in Serum or [id number] 06:20:00 Test Item Value Reference Range Interpretation Comments Vitamin D, 13.0 ng/mL 30.0-100.0 L Vitamin D defic iency has 25-Hydroxy (test been define d by the code = 97557-3) [facility]ocrine [facility] practice guidel ine as alevel of serum 25-OH vitamin D less than 20 ng/mL (1,2).The Endocrine Society went on to further define vitamin Dinsufficiency as a level between 21 and 29 ng/mL (2).1. IOM (Ins [facility]). 2010 . Dietary reference int akes for calcium and D. [place]: [employer] .2. Armand Chanel, Sarai SALINAS, et al. Evaluatio n, treatment, and prevention of vitamin D deficiency: an Endocrine Society clinica l practice guideline. EM. 2010; 96(7):191-.< br/>
P erformed by:
[facility] ([place])

[facility] Description: 25-hydroxyvitamin D3 [Mass/volume] in Serum or [id number] 06:20:00 Test Item Value Reference Range Interpretation Comments Vitamin D, 13.0 ng/mL 30.0-100.0 L Vitamin D defic iency has 25-Hydroxy (test been define d by the code = 41251-7) [facility] and an Endocrine So ciety practice guidel ine as alevel of serum 25-OH vitamin D less than 20 ng/mL (1,2).The Endocrine Society went on to further define vitamin Dinsufficiency as a level between 21 and 29 ng/mL (2).1. IOM (Ins titute of Medicine). 2010 . Dietary reference int akes for calcium and D. [place]: [employer] .2. Marguerite MF, Armand [place], Sarai cantu SALINAS, et al. Evaluatio n, treatment, and prevention of vitamin D deficiency: an Endocrine Society clinica l practice guideline. CLARA EM. 2010; 96(1):1911-30.< br/>
P erformed by:
[facility] [place] ([place])

[facility] Description: RPR, Rfx Qn RPR/Confirm [id number] 05:52:00 Test Item Value Reference Range Interpretation Comments RPR (test code = 83924-2) Non Reactive Non Reactive [facility] Description: RPR, Rfx Qn RPR/Confirm [id number] 05:52:00 Test Item Value Reference Range Interpretation Comments RPR (test code = 35706-4) Non Reactive Non Reactive [facility] Description: RPR, Rfx Qn RPR/Confirm [id number] 05:52:00 Test Item Value Reference Range Interpretation Comments RPR (test code = 08150-8) Non Reactive Non Reactive [facility] Description: RPR, Rfx Qn RPR/Confirm [id number] 05:52:00 Test Item Value Reference Range Interpretation Comments RPR (test code = 28048-2) Non Reactive Non Reactive [facility] Description: RPR, Rfx Qn RPR/Confirm [id number] 05:52:00 Test Item Value Reference Range Interpretation Comments RPR (test code = 41656-7) Non Reactive Non Reactive [facility] Description: RPR, Rfx Qn RPR/Confirm [id number] 05:52:00 Test Item Value Reference Range Interpretation Comments RPR (test code = 86227-6) Non Reactive Non Reactive [facility] Description: RPR, Rfx Qn RPR/Confirm [id number] 05:52:00 Test Item Value Reference Range Interpretation Comments RPR (test code = 88988-4) Non Reactive Non Reactive [facility] Description: RPR, Rfx Qn RPR/Confirm [id number] 05:52:00 Test Item Value Reference Range Interpretation Comments RPR (test code = 25989-7) Non Reactive Non Reactive [facility] Description: RPR, Rfx Qn RPR/Confirm [id number] 05:52:00 Test Item Value Reference Range Interpretation Comments RPR (test code = 44488-2) Non Reactive Non Reactive [facility] Description: RPR, Rfx Qn RPR/Confirm [id number] 05:52:00 Test Item Value Reference Range Interpretation Comments RPR (test code = 09679-0) Non Reactive Non Reactive [facility] Description: RPR, Rfx Qn RPR/Confirm [id number] 05:52:00 Test Item Value Reference Range Interpretation Comments RPR (test code = 22015-3) Non Reactive Non Reactive [facility] Description: RPR, Rfx Qn RPR/Confirm [id number] 05:52:00 Test Item Value Reference Range Interpretation Comments RPR (test code = 06865-6) Non Reactive Non Reactive [facility] Description: Hepatitis C virus Ab Signal/Cutoff in Serum or Plasma by [id number] 05:50:00 Test Item Value Reference Range Interpretation Comments Hep C Virus Ab (test code = 00029-2) <0.1 0.0-0.9 [facility] Description: Hepatitis C virus Ab Signal/Cutoff in Serum or Plasma by Ytzczonbcyw6080-87-10 05:50:00 Test Item Value Reference Range Interpretation Comments Hep C Virus Ab (test code = 94578-2) <0.1 0.0-0.9 [facility] Description: Hepatitis C virus Ab Signal/Cutoff in Serum or Plasma by [id number] 05:50:00 Test Item Value Reference Range Interpretation Comments Hep C Virus Ab (test code = 74444-3) <0.1 0.0-0.9 [facility] Description: Hepatitis C virus Ab Signal/Cutoff in Serum or Plasma by [id number] 05:50:00 Test Item Value Reference Range Interpretation Comments Hep C Virus Ab (test code = 19836-6) <0.1 0.0-0.9 [facility] Description: Hepatitis C virus Ab Signal/Cutoff in Serum or Plasma by Tydnyhdlbil3168-06-19 05:50:00 Test Item Value Reference Range Interpretation Comments Hep C Virus Ab (test code = 21268-0) <0.1 0.0-0.9 [facility] Description: Hepatitis C virus Ab Signal/Cutoff in Serum or Plasma by [id number] 05:50:00 Test Item Value Reference Range Interpretation Comments Hep C Virus Ab (test code = 30506-7) <0.1 0.0-0.9 [facility] Description: Hepatitis C virus Ab Signal/Cutoff in Serum or Plasma by [id number] 05:50:00 Test Item Value Reference Range Interpretation Comments Hep C Virus Ab (test code = 51671-5) <0.1 0.0-0.9 [facility] Description: Hepatitis C virus Ab Signal/Cutoff in Serum or Plasma by Ycfrwwatpqg2409-22-21 05:50:00 Test Item Value Reference Range Interpretation Comments Hep C Virus Ab (test code = 99782-5) <0.1 0.0-0.9 [facility] Description: Hepatitis C virus Ab Signal/Cutoff in Serum or Plasma by Qtmitnmtjea4286-64-05 05:50:00 Test Item Value Reference Range Interpretation Comments Hep C Virus Ab (test code = 30566-5) <0.1 0.0-0.9 [facility] Description: Hepatitis C virus Ab Signal/Cutoff in Serum or Plasma by Oeityexnfmz0528-28-80 05:50:00 Test Item Value Reference Range Interpretation Comments Hep C Virus Ab (test code = 47731-9) <0.1 0.0-0.9 [facility] Description: Hepatitis C virus Ab Signal/Cutoff in Serum or Plasma by Ncnpseneoed7889-92-24 05:50:00 Test Item Value Reference Range Interpretation Comments Hep C Virus Ab (test code = 16247-2) <0.1 0.0-0.9 [facility] Description: Hepatitis C virus Ab Signal/Cutoff in Serum or Plasma by Qesezotewdr8692-62-92 05:50:00 Test Item Value Reference Range Interpretation Comments Hep C Virus Ab (test code = 59148-4) <0.1 0.0-0.9 [facility] Description: Thyrotropin [Units/volume] in Serum or Plasma by Detection limit <= 0.05 mIU/[id number] 03:47:00 Test Item Value Reference Range Interpretation Comments TSH (test code = 47260-5) 2.020 uIU/mL 0.450-4.500 [facility] Description: Thyrotropin [Units/volume] in Serum or Plasma by Detection limit <= 0.05 mIU/[id number] 03:47:00 Test Item Value Reference Range Interpretation Comments TSH (test code = 16152-0) 2.020 uIU/mL 0.450-4.500 [facility] Description: Thyrotropin [Units/volume] in Serum or Plasma by Detection limit <= 0.05 mIU/[id number] 03:47:00 Test Item Value Reference Range Interpretation Comments TSH (test code = 09543-3) 2.020 uIU/mL 0.450-4.500 [facility] Description: Thyrotropin [Units/volume] in Serum or Plasma by Detection limit <= 0.05 mIU/[id number] 03:47:00 Test Item Value Reference Range Interpretation Comments TSH (test code = 66812-6) 2.020 uIU/mL 0.450-4.500 [facility] Description: Thyrotropin [Units/volume] in Serum or Plasma by Detection limit <= 0.05 mIU/[id number] 03:47:00 Test Item Value Reference Range Interpretation Comments TSH (test code = 27746-4) 2.020 uIU/mL 0.450-4.500 [facility] Description: Thyrotropin [Units/volume] in Serum or Plasma by Detection limit <= 0.05 mIU/[id number] 03:47:00 Test Item Value Reference Range Interpretation Comments TSH (test code = 99761-3) 2.020 uIU/mL 0.450-4.500 [facility] Description: Thyrotropin [Units/volume] in Serum or Plasma by Detection limit <= 0.05 mIU/[id number] 03:47:00 Test Item Value Reference Range Interpretation Comments TSH (test code = 84980-8) 2.020 uIU/mL 0.450-4.500 [facility] Description: Thyrotropin [Units/volume] in Serum or Plasma by Detection limit <= 0.05 mIU/[id number] 03:47:00 Test Item Value Reference Range Interpretation Comments TSH (test code = 59011-0) 2.020 uIU/mL 0.450-4.500 [facility] Description: Thyrotropin [Units/volume] in Serum or Plasma by Detection limit <= 0.05 mIU/[id number] 03:47:00 Test Item Value Reference Range Interpretation Comments TSH (test code = 65779-5) 2.020 uIU/mL 0.450-4.500 [facility] Description: Thyrotropin [Units/volume] in Serum or Plasma by Detection limit <= 0.05 mIU/[id number] 03:47:00 Test Item Value Reference Range Interpretation Comments TSH (test code = 80182-3) 2.020 uIU/mL 0.450-4.500 [facility] Description: Thyrotropin [Units/volume] in Serum or Plasma by Detection limit <= 0.05 mIU/[id number] 03:47:00 Test Item Value Reference Range Interpretation Comments TSH (test code = 71517-7) 2.020 uIU/mL 0.450-4.500 [facility] Description: Thyrotropin [Units/volume] in Serum or Plasma by Detection limit <= 0.05 mIU/[id number] 03:47:00 Test Item Value Reference Range Interpretation Comments TSH (test code = 34162-7) 2.020 uIU/mL 0.450-4.500 [facility] Description: Hemoglobin A1c/Hemoglobin.total in Blood 2019-10-26 02:46:00 Test Item Value Reference Range Interpretation Comments Hemoglobin A1c (test code 6.3 % 4.8-5.6 H = 4548-4) . Prediabetes: 5. 7 - 6.4 Diabetes : >6.4 Glycemic control for adults with diabetes: <7.0

P erformed by:
[facility] ([place])

[facility] Description: Hemoglobin A1c/Hemoglobin.total in Blood 2019-10-26 02:46:00 Test Item Value Reference Range Interpretation Comments Hemoglobin A1c (test code 6.3 % 4.8-5.6 H = 4548-4) . Prediabetes: 5. 7 - 6.4 Diabetes : >6.4 Glycemic control for adults with diabetes: <7.0

P erformed by:
[facility] ([place])

[facility] Description: Hemoglobin A1c/Hemoglobin.total in Blood 2019-10-26 02:46:00 Test Item Value Reference Range Interpretation Comments Hemoglobin A1c (test code 6.3 % 4.8-5.6 H = 4548-4) . Prediabetes: 5. 7 - 6.4 Diabetes : >6.4 Glycemic control for adults with diabetes: <7.0

P erformed by:
[facility] ([place])

[facility] Description: Hemoglobin A1c/Hemoglobin.total in Blood 2019-10-26 02:46:00 Test Item Value Reference Range Interpretation Comments Hemoglobin A1c (test code 6.3 % 4.8-5.6 H = 4548-4) . Prediabetes: 5. 7 - 6.4 Diabetes : >6.4 Glycemic control for adults with diabetes: <7.0

P erformed by:
[facility] ([place])

[facility] Description: Hemoglobin A1c/Hemoglobin.total in Blood 2019-10-26 02:46:00 Test Item Value Reference Range Interpretation Comments Hemoglobin A1c (test code 6.3 % 4.8-5.6 H = 4548-4) . Prediabetes: 5. 7 - 6.4 Diabetes : >6.4 Glycemic control for adults with diabetes: <7.0

P erformed by:
[facility] ([place])

[facility] Description: Hemoglobin A1c/Hemoglobin.total in Blood 2019-10-26 02:46:00 Test Item Value Reference Range Interpretation Comments Hemoglobin A1c (test code 6.3 % 4.8-5.6 H = 4548-4) . Prediabetes: 5. 7 - 6.4 Diabetes : >6.4 Glycemic control for adults with diabetes: <7.0

P erformed by:
[facility] ([place])

[facility] Description: Hemoglobin A1c/Hemoglobin.total in Blood 2019-10-26 02:46:00 Test Item Value Reference Range Interpretation Comments Hemoglobin A1c (test code 6.3 % 4.8-5.6 H = 4548-4) . Prediabetes: 5. 7 - 6.4 Diabetes : >6.4 Glycemic control for adults with diabetes: <7.0

P erformed by:
[facility] ([place])

[facility] Description: Hemoglobin A1c/Hemoglobin.total in Blood 2019-10-26 02:46:00 Test Item Value Reference Range Interpretation Comments Hemoglobin A1c (test code 6.3 % 4.8-5.6 H = 4548-4) . Prediabetes: 5. 7 - 6.4 Diabetes : >6.4 Glycemic control for adults with diabetes: <7.0

P erformed by:
[facility] ([place])

[facility] Description: Hemoglobin A1c/Hemoglobin.total in Blood 2019-10-26 02:46:00 Test Item Value Reference Range Interpretation Comments Hemoglobin A1c (test code 6.3 % 4.8-5.6 H = 4548-4) . Prediabetes: 5. 7 - 6.4 Diabetes : >6.4 Glycemic control for adults with diabetes: <7.0

P erformed by:
[facility] ([place])

[facility] Description: Hemoglobin A1c/Hemoglobin.total in Blood 2019-10-26 02:46:00 Test Item Value Reference Range Interpretation Comments Hemoglobin A1c (test code 6.3 % 4.8-5.6 H = 4548-4) . Prediabetes: 5. 7 - 6.4 Diabetes : >6.4 Glycemic control for adults with diabetes: <7.0

P erformed by:
[facility] ([place])

[facility] Description: Hemoglobin A1c/Hemoglobin.total in Blood 2019-10-26 02:46:00 Test Item Value Reference Range Interpretation Comments Hemoglobin A1c (test code 6.3 % 4.8-5.6 H = 4548-4) . Prediabetes: 5. 7 - 6.4 Diabetes : >6.4 Glycemic control for adults with diabetes: <7.0

P erformed by:
[facility] [place] ([place])

[facility] Description: Hemoglobin A1c/Hemoglobin.total in Blood 2019-10-26 02:46:00 Test Item Value Reference Range Interpretation Comments Hemoglobin A1c (test code 6.3 % 4.8-5.6 H = 4548-4) . Prediabetes: 5. 7 - 6.4 Diabetes : >6.4 Glycemic control for adults with diabetes: <7.0

P erformed by:
[facility] [place] ([place])

[facility] Description: Comp. Metabolic Panel (14)2019-10-26 02:18:00 Test Item Value Reference Range Interpretation Comments Glucose (test code = 2345-7) 96 mg/dL 65-99 BUN (test code = 3094-0) 14 mg/dL 6-24 Creatinine (test code = 1.00 mg/dL 0.76-1.27 2160-0) eGFR If NonAfricn Am (test 84 mL/min/1.73 >59 code = 62407-1) eGFR If Africn Am (test code = 98 mL/min/1.73 >59 99757-5) BUN/Creatinine Ratio (test 14 9-20 code = 3097-3) Sodium (test code = 2951-2) 137 mmol/L 134-144 Potassium (test code = 2823-3) 4.3 mmol/L 3.5-5.2 Chloride (test code = 2075-0) 97 mmol/L 96-106 Carbon Dioxide, Total (test 23 mmol/L 20-29 code = 8-9) Calcium (test code = 30830-1) 9.5 mg/dL 8.7-10.2 Protein, Total (test code = 7.5 g/dL 6.0-8.5 2885-2) Albumin (test code = 1751-7) 4.2 g/dL 3.8-4.9 Globulin, Total (test code = 3.3 g/dL 1.5-4.5 76657-2) A/G Ratio (test code = 1759-0) 1.3 1.2-2.2 Bilirubin, Total (test code = 0.3 mg/dL 0.0-1.2 1975-2) Alkaline Phosphatase (test 68 IU/L 39-117 code = 6768-6) AST (SGOT) (test code = 26 IU/L 0-40 1920-8) ALT (SGPT) (test code = 36 IU/L 0-44 1742-6) [facility] Description: Lipid [id number] 02:18:00 Test Item Value Reference Range Interpretation Comments Cholesterol, Total (test 228 mg/dL 100-199 H code = 3-3) Triglycerides (test code 483 mg/dL 0-149 H = 2571-8) HDL Cholesterol (test 34 mg/dL >39 L code = 5-9) VLDL Cholesterol Andrea 84 mg/dL 5-40 H (test code = 38010-2) LDL Chol Calc (NIH) (test 110 mg/dL 0-99 H code = 37492-1) Comment: (test code = [place] [address]-3) performed
< br/> Performed by:
[facility] ()

[facility] Description: Comp. Metabolic Panel (14)2019-10-26 02:18:00 Test Item Value Reference Range Interpretation Comments Glucose (test code = 2345-7) 96 mg/dL 65-99 BUN (test code = 3094-0) 14 mg/dL 6-24 Creatinine (test code = 1.00 mg/dL 0.76-1.27 2160-0) eGFR If NonAfricn Am (test 84 mL/min/1.73 >59 code = 84217-9) eGFR If Africn Am (test code = 98 mL/min/1.73 >59 36805-9) BUN/Creatinine Ratio (test 14 9-20 code = 3097-3) Sodium (test code = 2951-2) 137 mmol/L 134-144 Potassium (test code = 2823-3) 4.3 mmol/L 3.5-5.2 Chloride (test code = 2075-0) 97 mmol/L 96-106 Carbon Dioxide, Total (test 23 mmol/L 20-29 code = 8-9) Calcium (test code = 79982-8) 9.5 mg/dL 8.7-10.2 Protein, Total (test code = 7.5 g/dL 6.0-8.5 2885-2) Albumin (test code = 1751-7) 4.2 g/dL 3.8-4.9 Globulin, Total (test code = 3.3 g/dL 1.5-4.5 20049-3) A/G Ratio (test code = 1759-0) 1.3 1.2-2.2 Bilirubin, Total (test code = 0.3 mg/dL 0.0-1.2 1975-2) Alkaline Phosphatase (test 68 IU/L 39-117 code = 6768-6) AST (SGOT) (test code = 26 IU/L 0-40 1920-8) ALT (SGPT) (test code = 36 IU/L 0-44 1742-6) [facility] Description: Lipid [id number] 02:18:00 Test Item Value Reference Range Interpretation Comments Cholesterol, Total (test 228 mg/dL 100-199 H code = 3-3) Triglycerides (test code 483 mg/dL 0-149 H = 2571-8) HDL Cholesterol (test 34 mg/dL >39 L code = 2085-9) VLDL Cholesterol Andrea 84 mg/dL 5-40 H (test code = 40729-2) LDL Chol Calc (NIH) (test 110 mg/dL 0-99 H code = 41505-5) Comment: (test code = [place] [address]-5) performed
< br/> Performed by:
[facility] ([place])

[facility] Description: Comp. Metabolic Panel (14)2019-10-26 02:18:00 Test Item Value Reference Range Interpretation Comments Glucose (test code = 2345-7) 96 mg/dL 65-99 BUN (test code = 3094-0) 14 mg/dL 6-24 Creatinine (test code = 1.00 mg/dL 0.76-1.27 2160-0) eGFR If NonAfricn Am (test 84 mL/min/1.73 >59 code = 30081-7) eGFR If Africn Am (test code = 98 mL/min/1.73 >59 58793-9) BUN/Creatinine Ratio (test 14 9-20 code = 3097-3) Sodium (test code = 2951-2) 137 mmol/L 134-144 Potassium (test code = 2823-3) 4.3 mmol/L 3.5-5.2 Chloride (test code = 2075-0) 97 mmol/L 96-106 Carbon Dioxide, Total (test 23 mmol/L 20-29 code = 8-9) Calcium (test code = 46318-6) 9.5 mg/dL 8.7-10.2 Protein, Total (test code = 7.5 g/dL 6.0-8.5 2885-2) Albumin (test code = 1751-7) 4.2 g/dL 3.8-4.9 Globulin, Total (test code = 3.3 g/dL 1.5-4.5 13322-1) A/G Ratio (test code = 1759-0) 1.3 1.2-2.2 Bilirubin, Total (test code = 0.3 mg/dL 0.0-1.2 1975-2) Alkaline Phosphatase (test 68 IU/L 39-117 code = 6768-6) AST (SGOT) (test code = 26 IU/L 0-40 1920-8) ALT (SGPT) (test code = 36 IU/L 0-44 1742-6) [facility] Description: Lipid [id number] 02:18:00 Test Item Value Reference Range Interpretation Comments Cholesterol, Total (test 228 mg/dL 100-199 H code = 2093-3) Triglycerides (test code 483 mg/dL 0-149 H = 2571-8) HDL Cholesterol (test 34 mg/dL >39 L code = 5-9) VLDL Cholesterol Andrea 84 mg/dL 5-40 H (test code = 52879-0) LDL Chol Calc (NIH) (test 110 mg/dL 0-99 H code = 36886-4) Comment: (test code = [place] [address]-6) performed
< br/> Performed by:
[facility] [place] ([place])

[facility] Description: Comp. Metabolic Panel (14)2019-10-26 02:18:00 Test Item Value Reference Range Interpretation Comments Glucose (test code = 2345-7) 96 mg/dL 65-99 BUN (test code = 3094-0) 14 mg/dL 6-24 Creatinine (test code = 1.00 mg/dL 0.76-1.27 2160-0) eGFR If NonAfricn Am (test 84 mL/min/1.73 >59 code = 15209-4) eGFR If Africn Am (test code = 98 mL/min/1.73 >59 24626-3) BUN/Creatinine Ratio (test 14 - code = 3097-3) Sodium (test code = 2951-2) 137 mmol/L 134-144 Potassium (test code = 2823-3) 4.3 mmol/L 3.5-5.2 Chloride (test code = 2075-0) 97 mmol/L 96-106 Carbon Dioxide, Total (test 23 mmol/L 20-29 code = 2027-9) Calcium (test code = 82542-3) 9.5 mg/dL 8.7-10.2 Protein, Total (test code = 7.5 g/dL 6.0-8.5 2885-2) Albumin (test code = 1751-7) 4.2 g/dL 3.8-4.9 Globulin, Total (test code = 3.3 g/dL 1.5-4.5 32235-9) A/G Ratio (test code = 1759-0) 1.3 1.2-2.2 Bilirubin, Total (test code = 0.3 mg/dL 0.0-1.2 1975-2) Alkaline Phosphatase (test 68 IU/L 39-117 code = 6768-6) AST (SGOT) (test code = 26 IU/L 0-40 1920-8) ALT (SGPT) (test code = 36 IU/L 0-44 1742-6) [facility] Description: Lipid [id number] 02:18:00 Test Item Value Reference Range Interpretation Comments Cholesterol, Total (test 228 mg/dL 100-199 H code = 2093-3) Triglycerides (test code 483 mg/dL 0-149 H = 2571-8) HDL Cholesterol (test 34 mg/dL >39 L code = 2085-9) VLDL Cholesterol Andrea 84 mg/dL 5-40 H (test code = 74065-6) LDL Chol Calc (NIH) (test 110 mg/dL 0-99 H code = 30966-5) Comment: (test code = [place] [address]-5) performed
< br/> Performed by:
[facility] ()

[facility] Description: Comp. Metabolic Panel (14)2019-10-26 02:18:00 Test Item Value Reference Range Interpretation Comments Glucose (test code = 2345-7) 96 mg/dL 65-99 BUN (test code = 3094-0) 14 mg/dL 6-24 Creatinine (test code = 1.00 mg/dL 0.76-1.27 2160-0) eGFR If NonAfricn Am (test 84 mL/min/1.73 >59 code = 84107-4) eGFR If Africn Am (test code = 98 mL/min/1.73 >59 46158-0) BUN/Creatinine Ratio (test 14 9-20 code = 3097-3) Sodium (test code = 2951-2) 137 mmol/L 134-144 Potassium (test code = 2823-3) 4.3 mmol/L 3.5-5.2 Chloride (test code = 2075-0) 97 mmol/L 96-106 Carbon Dioxide, Total (test 23 mmol/L 20-29 code = 8-9) Calcium (test code = 81999-7) 9.5 mg/dL 8.7-10.2 Protein, Total (test code = 7.5 g/dL 6.0-8.5 2885-2) Albumin (test code = 1751-7) 4.2 g/dL 3.8-4.9 Globulin, Total (test code = 3.3 g/dL 1.5-4.5 43228-9) A/G Ratio (test code = 1759-0) 1.3 1.2-2.2 Bilirubin, Total (test code = 0.3 mg/dL 0.0-1.2 1975-2) Alkaline Phosphatase (test 68 IU/L 39-117 code = 6768-6) AST (SGOT) (test code = 26 IU/L 0-40 1920-8) ALT (SGPT) (test code = 36 IU/L 0-44 1742-6) [facility] Description: Lipid [id number] 02:18:00 Test Item Value Reference Range Interpretation Comments Cholesterol, Total (test 228 mg/dL 100-199 H code = 2093-3) Triglycerides (test code 483 mg/dL 0-149 H = 2571-8) HDL Cholesterol (test 34 mg/dL >39 L code = 5-9) VLDL Cholesterol Andrea 84 mg/dL 5-40 H (test code = 34638-4) LDL Chol Calc (NIH) (test 110 mg/dL 0-99 H code = 02584-6) Comment: (test code = [place] [address]-4) performed
< br/> Performed by:
[facility] [place] ()

[facility] (14)2019-10-26 02:18:00 Test Item Value Reference Range Interpretation Comments Glucose (test code = 2345-7) 96 mg/dL 65-99 BUN (test code = 3094-0) 14 mg/dL 6-24 Creatinine (test code = 1.00 mg/dL 0.76-1.27 2160-0) eGFR If NonAfricn Am (test 84 mL/min/1.73 >59 code = 58015-0) eGFR If Africn Am (test code = 98 mL/min/1.73 >59 14050-3) BUN/Creatinine Ratio (test 14 9-20 code = 3097-3) Sodium (test code = 2951-2) 137 mmol/L 134-144 Potassium (test code = 2823-3) 4.3 mmol/L 3.5-5.2 Chloride (test code = 2075-0) 97 mmol/L 96-106 Carbon Dioxide, Total (test 23 mmol/L 20-29 code = 2028-9) Calcium (test code = 80484-5) 9.5 mg/dL 8.7-10.2 Protein, Total (test code = 7.5 g/dL 6.0-8.5 2885-2) Albumin (test code = 1751-7) 4.2 g/dL 3.8-4.9 Globulin, Total (test code = 3.3 g/dL 1.5-4.5 04651-2) A/G Ratio (test code = 1759-0) 1.3 1.2-2.2 Bilirubin, Total (test code = 0.3 mg/dL 0.0-1.2 1975-2) Alkaline Phosphatase (test 68 IU/L 39-117 code = 6768-6) AST (SGOT) (test code = 26 IU/L 0-40 1920-8) ALT (SGPT) (test code = 36 IU/L 0-44 1742-6) [facility] Description: Lipid [id number] 02:18:00 Test Item Value Reference Range Interpretation Comments Cholesterol, Total (test 228 mg/dL 100-199 H code = 3-3) Triglycerides (test code 483 mg/dL 0-149 H = 2571-8) HDL Cholesterol (test 34 mg/dL >39 L code = 5-9) VLDL Cholesterol Andrea 84 mg/dL 5-40 H (test code = 52556-1) LDL Chol Calc (NIH) (test 110 mg/dL 0-99 H code = 43739-2) Comment: (test code = [place] [address]-0) performed
< br/> Performed by:
[facility] ([place])

[facility] Description: Comp. Metabolic Panel (14)2019-10-26 02:18:00 Test Item Value Reference Range Interpretation Comments Glucose (test code = 2345-7) 96 mg/dL 65-99 BUN (test code = 3094-0) 14 mg/dL 6-24 Creatinine (test code = 1.00 mg/dL 0.76-1.27 2160-0) eGFR If NonAfricn Am (test 84 mL/min/1.73 >59 code = 25433-7) eGFR If Africn Am (test code = 98 mL/min/1.73 >59 58061-5) BUN/Creatinine Ratio (test 14 11-13 code = 3097-3) Sodium (test code = 2951-2) 137 mmol/L 134-144 Potassium (test code = 2823-3) 4.3 mmol/L 3.5-5.2 Chloride (test code = 2075-0) 97 mmol/L 96-106 Carbon Dioxide, Total (test 23 mmol/L 20-29 code = 8-9) Calcium (test code = 72644-1) 9.5 mg/dL 8.7-10.2 Protein, Total (test code = 7.5 g/dL 6.0-8.5 2885-2) Albumin (test code = 1751-7) 4.2 g/dL 3.8-4.9 Globulin, Total (test code = 3.3 g/dL 1.5-4.5 86315-3) A/G Ratio (test code = 1759-0) 1.3 1.2-2.2 Bilirubin, Total (test code = 0.3 mg/dL 0.0-1.2 1975-2) Alkaline Phosphatase (test 68 IU/L 39-117 code = 6768-6) AST (SGOT) (test code = 26 IU/L 0-40 1920-8) ALT (SGPT) (test code = 36 IU/L 0-44 1742-6) [facility] Description: Lipid [id number] 02:18:00 Test Item Value Reference Range Interpretation Comments Cholesterol, Total (test 228 mg/dL 100-199 H code = 3-3) Triglycerides (test code 483 mg/dL 0-149 H = 2571-8) HDL Cholesterol (test 34 mg/dL >39 L code = 5-9) VLDL Cholesterol Andrea 84 mg/dL 5-40 H (test code = 54338-7) LDL Chol Calc (NIH) (test 110 mg/dL 0-99 H code = 54517-9) Comment: (test code = [place] [address]-1) performed
< br/> Performed by:
[facility] ([place])

[facility] Description: Comp. Metabolic Panel (14)2019-10-26 02:18:00 Test Item Value Reference Range Interpretation Comments Glucose (test code = 2345-7) 96 mg/dL 65-99 BUN (test code = 3094-0) 14 mg/dL 6-24 Creatinine (test code = 1.00 mg/dL 0.76-1.27 2160-0) eGFR If NonAfricn Am (test 84 mL/min/1.73 >59 code = 16808-7) eGFR If Africn Am (test code = 98 mL/min/1.73 >59 26180-4) BUN/Creatinine Ratio (test 14 9-20 code = 3097-3) Sodium (test code = 2951-2) 137 mmol/L 134-144 Potassium (test code = 2823-3) 4.3 mmol/L 3.5-5.2 Chloride (test code = 2075-0) 97 mmol/L 96-106 Carbon Dioxide, Total (test 23 mmol/L 20-29 code = 2027-9) Calcium (test code = 91819-2) 9.5 mg/dL 8.7-10.2 Protein, Total (test code = 7.5 g/dL 6.0-8.5 2885-2) Albumin (test code = 1751-7) 4.2 g/dL 3.8-4.9 Globulin, Total (test code = 3.3 g/dL 1.5-4.5 47863-2) A/G Ratio (test code = 1759-0) 1.3 1.2-2.2 Bilirubin, Total (test code = 0.3 mg/dL 0.0-1.2 1974-2) Alkaline Phosphatase (test 68 IU/L 39-117 code = 6768-6) AST (SGOT) (test code = 26 IU/L 0-40 1920-8) ALT (SGPT) (test code = 36 IU/L 0-44 1742-6) [facility] Description: Lipid [id number] 02:18:00 Test Item Value Reference Range Interpretation Comments Cholesterol, Total (test 228 mg/dL 100-199 H code = 2093-3) Triglycerides (test code 483 mg/dL 0-149 H = 2571-8) HDL Cholesterol (test 34 mg/dL >39 L code = 5-9) VLDL Cholesterol Andrea 84 mg/dL 5-40 H (test code = 87578-9) LDL Chol Calc (NIH) (test 110 mg/dL 0-99 H code = 49255-2) Comment: (test code = [place] [address]-3) performed
< br/> Performed by:
[facility] ([place])

[facility] Description: Comp. Metabolic Panel (14)2019-10-26 02:18:00 Test Item Value Reference Range Interpretation Comments Glucose (test code = 2345-7) 96 mg/dL 65-99 BUN (test code = 3094-0) 14 mg/dL 6-24 Creatinine (test code = 1.00 mg/dL 0.76-1.27 2160-0) eGFR If NonAfricn Am (test 84 mL/min/1.73 >59 code = 80592-8) eGFR If Africn Am (test code = 98 mL/min/1.73 >59 00005-4) BUN/Creatinine Ratio (test 14 9-20 code = 3097-3) Sodium (test code = 2951-2) 137 mmol/L 134-144 Potassium (test code = 2823-3) 4.3 mmol/L 3.5-5.2 Chloride (test code = 2075-0) 97 mmol/L 96-106 Carbon Dioxide, Total (test 23 mmol/L 20-29 code = 8-9) Calcium (test code = 93085-7) 9.5 mg/dL 8.7-10.2 Protein, Total (test code = 7.5 g/dL 6.0-8.5 2885-2) Albumin (test code = 1751-7) 4.2 g/dL 3.8-4.9 Globulin, Total (test code = 3.3 g/dL 1.5-4.5 60723-2) A/G Ratio (test code = 1759-0) 1.3 1.2-2.2 Bilirubin, Total (test code = 0.3 mg/dL 0.0-1.2 1975-2) Alkaline Phosphatase (test 68 IU/L 39-117 code = 6768-6) AST (SGOT) (test code = 26 IU/L 0-40 1920-8) ALT (SGPT) (test code = 36 IU/L 0-44 1742-6) [facility] Description: Lipid [id number] 02:18:00 Test Item Value Reference Range Interpretation Comments Cholesterol, Total (test 228 mg/dL 100-199 H code = 2093-3) Triglycerides (test code 483 mg/dL 0-149 H = 2571-8) HDL Cholesterol (test 34 mg/dL >39 L code = 2085-9) VLDL Cholesterol Andrea 84 mg/dL 5-40 H (test code = 29876-2) LDL Chol Calc (NIH) (test 110 mg/dL 0-99 H code = 72652-1) Comment: (test code = [place] [address]-8) performed
< br/> Performed by:
[facility] [place] ()

[facility] Description: Comp. Metabolic Panel (14)2019-10-26 02:18:00 Test Item Value Reference Range Interpretation Comments Glucose (test code = 2345-7) 96 mg/dL 65-99 BUN (test code = 3094-0) 14 mg/dL 6-24 Creatinine (test code = 1.00 mg/dL 0.76-1.27 2160-0) eGFR If NonAfricn Am (test 84 mL/min/1.73 >59 code = 28991-7) eGFR If Africn Am (test code = 98 mL/min/1.73 >59 35639-4) BUN/Creatinine Ratio (test 14 11-13 code = 3097-3) Sodium (test code = 2951-2) 137 mmol/L 134-144 Potassium (test code = 2823-3) 4.3 mmol/L 3.5-5.2 Chloride (test code = 2075-0) 97 mmol/L 96-106 Carbon Dioxide, Total (test 23 mmol/L 20-29 code = 8-9) Calcium (test code = 59923-4) 9.5 mg/dL 8.7-10.2 Protein, Total (test code = 7.5 g/dL 6.0-8.5 2885-2) Albumin (test code = 1751-7) 4.2 g/dL 3.8-4.9 Globulin, Total (test code = 3.3 g/dL 1.5-4.5 71576-5) A/G Ratio (test code = 1759-0) 1.3 1.2-2.2 Bilirubin, Total (test code = 0.3 mg/dL 0.0-1.2 1975-2) Alkaline Phosphatase (test 68 IU/L 39-117 code = 6768-6) AST (SGOT) (test code = 26 IU/L 0-40 1920-8) ALT (SGPT) (test code = 36 IU/L 0-44 1742-6) [facility] Description: Lipid [id number] 02:18:00 Test Item Value Reference Range Interpretation Comments Cholesterol, Total (test 228 mg/dL 100-199 H code = 3-3) Triglycerides (test code 483 mg/dL 0-149 H = 2571-8) HDL Cholesterol (test 34 mg/dL >39 L code = 5-9) VLDL Cholesterol Andrea 84 mg/dL 5-40 H (test code = 75309-1) LDL Chol Calc (NIH) (test 110 mg/dL 0-99 H code = 77356-8) Comment: (test code = [place] [address]-0) performed
< br/> Performed by:
[facility] ()

[facility] Description: Comp. Metabolic Panel (14)2019-10-26 02:18:00 Test Item Value Reference Range Interpretation Comments Glucose (test code = 2345-7) 96 mg/dL 65-99 BUN (test code = 3094-0) 14 mg/dL 6-24 Creatinine (test code = 1.00 mg/dL 0.76-1.27 2160-0) eGFR If NonAfricn Am (test 84 mL/min/1.73 >59 code = 73036-7) eGFR If Africn Am (test code = 98 mL/min/1.73 >59 41956-9) BUN/Creatinine Ratio (test 14 9-20 code = 3097-3) Sodium (test code = 2951-2) 137 mmol/L 134-144 Potassium (test code = 2823-3) 4.3 mmol/L 3.5-5.2 Chloride (test code = 2075-0) 97 mmol/L 96-106 Carbon Dioxide, Total (test 23 mmol/L 20-29 code = 8-9) Calcium (test code = 43506-0) 9.5 mg/dL 8.7-10.2 Protein, Total (test code = 7.5 g/dL 6.0-8.5 2885-2) Albumin (test code = 1751-7) 4.2 g/dL 3.8-4.9 Globulin, Total (test code = 3.3 g/dL 1.5-4.5 25469-0) A/G Ratio (test code = 1759-0) 1.3 1.2-2.2 Bilirubin, Total (test code = 0.3 mg/dL 0.0-1.2 1975-2) Alkaline Phosphatase (test 68 IU/L 39-117 code = 6768-6) AST (SGOT) (test code = 26 IU/L 0-40 1920-8) ALT (SGPT) (test code = 36 IU/L 0-44 1742-6) [facility] Description: Lipid [id number] 02:18:00 Test Item Value Reference Range Interpretation Comments Cholesterol, Total (test 228 mg/dL 100-199 H code = 3-3) Triglycerides (test code 483 mg/dL 0-149 H = 2571-8) HDL Cholesterol (test 34 mg/dL >39 L code = 5-9) VLDL Cholesterol Andrea 84 mg/dL 5-40 H (test code = 96544-2) LDL Chol Calc (NIH) (test 110 mg/dL 0-99 H code = 85075-2) Comment: (test code = [place] [address]-9) performed
< br/> Performed by:
[facility] ([place])

[facility] Description: Comp. Metabolic Panel (14)2019-10-26 02:18:00 Test Item Value Reference Range Interpretation Comments Glucose (test code = 2345-7) 96 mg/dL 65-99 BUN (test code = 3094-0) 14 mg/dL 6-24 Creatinine (test code = 1.00 mg/dL 0.76-1.27 2160-0) eGFR If NonAfricn Am (test 84 mL/min/1.73 >59 code = 67917-4) eGFR If Africn Am (test code = 98 mL/min/1.73 >59 90499-7) BUN/Creatinine Ratio (test 14 9-20 code = 3097-3) Sodium (test code = 2951-2) 137 mmol/L 134-144 Potassium (test code = 2823-3) 4.3 mmol/L 3.5-5.2 Chloride (test code = 2075-0) 97 mmol/L 96-106 Carbon Dioxide, Total (test 23 mmol/L 20-29 code = 8-9) Calcium (test code = 11412-9) 9.5 mg/dL 8.7-10.2 Protein, Total (test code = 7.5 g/dL 6.0-8.5 2885-2) Albumin (test code = 1751-7) 4.2 g/dL 3.8-4.9 Globulin, Total (test code = 3.3 g/dL 1.5-4.5 05283-2) A/G Ratio (test code = 1759-0) 1.3 1.2-2.2 Bilirubin, Total (test code = 0.3 mg/dL 0.0-1.2 1975-2) Alkaline Phosphatase (test 68 IU/L 39-117 code = 6768-6) AST (SGOT) (test code = 26 IU/L 0-40 1920-8) ALT (SGPT) (test code = 36 IU/L 0-44 1742-6) [facility] Description: Lipid [id number] 02:18:00 Test Item Value Reference Range Interpretation Comments Cholesterol, Total (test 228 mg/dL 100-199 H code = 2093-3) Triglycerides (test code 483 mg/dL 0-149 H = 2571-8) HDL Cholesterol (test 34 mg/dL >39 L code = 2085-9) VLDL Cholesterol Andrea 84 mg/dL 5-40 H (test code = 10401-5) LDL Chol Calc (NIH) (test 110 mg/dL 0-99 H code = 73356-0) Comment: (test code = [place] [address]-5) performed
< br/> Performed by:
[facility] ([place])

[facility] Description: CBC With Differential/Glzkyays7346-17-36 00:15:00 Test Item Value Reference Range Interpretation [...] (test 1 % Not Estab. code = 63586-6) Immature Grans (Abs) (test code 0.1 x10E3/uL 0.0-0.1 = 50801-7) NRBC (test code = 68374-9) Hematology Comments: (test code = 29152-5) [facility] Description: CBC With Differential/Vureghbz4372-77-20 00:15:00 Test Item Value Reference Range Interpretation [...] (test 1 % Not Estab. code = 14491-8) Immature Grans (Abs) (test code 0.1 x10E3/uL 0.0-0.1 = 11323-4) NRBC (test code = 15750-9) Hematology Comments: (test code = 50154-1) [facility] Description: CBC With Differential/Fhqxkbwq0982-49-95 00:15:00 Test Item Value Reference Range Interpretation [...] (test 1 % Not Estab. code = 34153-8) Immature Grans (Abs) (test code 0.1 x10E3/uL 0.0-0.1 = 79168-0) NRBC (test code = 99599-6) Hematology Comments: (test code = 51538-0) [facility] Description: CBC With Differential/Nzddscqx0737-91-44 00:15:00 Test Item Value Reference Range Interpretation [...] (test 1 % Not Estab. code = 06751-3) Immature Grans (Abs) (test code 0.1 x10E3/uL 0.0-0.1 = 59035-2) NRBC (test code = 50663-1) Hematology Comments: (test code = 90961-5) [facility] Description: CBC With Differential/Oeeqqsdk6451-07-96 00:15:00 Test Item Value Reference Range Interpretation [...] (test 1 % Not Estab. code = 42165-6) Immature Grans (Abs) (test code 0.1 x10E3/uL 0.0-0.1 = 28768-4) NRBC (test code = 43718-3) Hematology Comments: (test code = 02503-8) [facility] Description: CBC With Differential/Kxbilqby0375-80-00 00:15:00 Test Item Value Reference Range Interpretation [...] (test 1 % Not Estab. code = 49484-0) Immature Grans (Abs) (test code 0.1 x10E3/uL 0.0-0.1 = 86131-3) NRBC (test code = 12224-3) Hematology Comments: (test code = 36278-8) [facility] Description: CBC With Differential/Wovbkbdl3544-71-19 00:15:00 Test Item Value Reference Range Interpretation [...] (test 1 % Not Estab. code = 70946-7) Immature Grans (Abs) (test code 0.1 x10E3/uL 0.0-0.1 = 48671-5) NRBC (test code = 37800-6) Hematology Comments: (test code = 25106-7) [facility] Description: CBC With Differential/Ortydubu8279-15-47 00:15:00 Test Item Value Reference Range Interpretation [...] (test 1 % Not Estab. code = 81619-3) Immature Grans (Abs) (test code 0.1 x10E3/uL 0.0-0.1 = 52122-3) NRBC (test code = 99924-6) Hematology Comments: (test code = 92317-4) [facility] Description: CBC With Differential/Ogsdidmr6390-96-69 00:15:00 Test Item Value Reference Range Interpretation [...] (test 1 % Not Estab. code = 27421-0) Immature Grans (Abs) (test code 0.1 x10E3/uL 0.0-0.1 = 24517-0) NRBC (test code = 07811-1) Hematology Comments: (test code = 94507-6) [facility] Description: CBC With Differential/Zugnhlkd9723-93-57 00:15:00 Test Item Value Reference Range Interpretation [...] (test 1 % Not Estab. code = 61876-6) Immature Grans (Abs) (test code 0.1 x10E3/uL 0.0-0.1 = 80720-2) NRBC (test code = 60000-3) Hematology Comments: (test code = 36815-6) [facility] Description: CBC With Differential/Alnqgdyy6068-83-15 00:15:00 Test Item Value Reference Range Interpretation [...] (test 1 % Not Estab. code = 31519-1) Immature Grans (Abs) (test code 0.1 x10E3/uL 0.0-0.1 = 90264-9) NRBC (test code = 11108-0) Hematology Comments: (test code = 91088-8) [facility] Description: CBC With Differential/Mpxaudho4503-38-08 00:15:00 Test Item Value Reference Range Interpretation [...] (test 1 % Not Estab. code = 73276-7) Immature Grans (Abs) (test code 0.1 x10E3/uL 0.0-0.1 = 86987-0) NRBC (test code = 67447-4) Hematology Comments: (test code = 41361-2) [facility]"
[2021-07-27] MEDS ORDERED: METOPROLOL TAR 50 MG TAB ONE (08:34)
[2021-07-27] MEDS ORDERED: ASPIRIN 81 MG CHEWABLE TABLET ONE (08:34)
[2021-07-27] MEDS ORDERED: ONDANSETRON 4 MG/2 ML VIAL ONE (08:34)
[2021-07-27] MEDS ORDERED: MORPHINE 2 MG/ML SYR ONE (08:34)
[2021-07-27 08:35] LABS: Absolute Lymphocytes (CBC) 1.9 K/uL (0.7-4.9); Hematocrit 42.6 % (39.6-49.0); Lymphocytes % 24.7 % (15.3-44.8); MPV 9.5 fL (7.6-11.3); RBC Red Blood Cell Count 4.98 M/uL (4.33-5.43)
[2021-07-27] MEDS ORDERED: ENOXAPARIN 100 MG/ML SYR SQ ONE (08:35)
[2021-07-27 08:43] LABS: Protime INR 1.11
[2021-07-27 09:18] LABS: Albumin 3.8 g/dL (3.4-5.0); Bilirubin Direct 0.1 mg/dL (0-0.2); Bilirubin Total 0.6 mg/dL (0.2-1.0); Magnesium 2.2 mg/dL (1.8-2.4); Potassium 3.7 mmol/L (3.5-5.1); Protein, Total 7.7 g/dL (6.4-8.2); Troponin High Sensitivity 7.3 pg/mL (<58.9)
--- NOTE | 2021-07-27 09:52 | EDPHYS ---
Physician Documentation [facility] Name: Sean Starks Age: 56 yrs Sex: Male : 1965 Arrival Date: 07/27/2021 Time: 08:02 Bed 5 Private MD: ED Physician Javi Ang HPI: 07/27 08:22 This 56 yrs old Male presents to ER via Ambulatory with complaints of Chest kyree Pain, Headache, Diarrhea. Historical: - Allergies: 08:09 [place] And Derivatives; vg1 08:09 Nuts; vg1 - Home Meds: 08:09 Nitroglycerin SL [Active]; Metopirone oral [Active]; Metformin Oral [Active]; unknown vg1 phsych mediations [Active]; - PMHx: 08:09 Anxiety; diabetes mellitus; Hypercholesterolemia; Hypertensive disorder; Depressive vg1 disorder; PTSD; - Immunization history:: Client reports having NOT received the Covid vaccine. - Social history:: Smoking status: Patient denies any tobacco usage or history of. ROS: 08:23 Constitutional: Negative for fever, chills, and weight loss, Eyes: Negative for injury, kyree pain, redness, and discharge, ENT: Negative for injury, pain, and discharge, Neck: Negative for injury, pain, and swelling, Respiratory: Negative for shortness of breath, cough, wheezing, and pleuritic chest pain, Abdomen/GI: Negative for abdominal pain, nausea, vomiting, diarrhea, and constipation, Back: Negative for injury and pain, : Negative for injury, bleeding, discharge, and swelling, MS/Extremity: Negative for injury and deformity, Skin: Negative for injury, rash, and discoloration, Neuro: Negative for headache, weakness, numbness, tingling, and seizure, Psych: Negative for depression, anxiety, suicide ideation, homicidal ideation, and hallucinations, Allergy/Immunology: Negative for hives, rash, and allergies, Endocrine: Negative for neck swelling, polydipsia, polyuria, polyphagia, and marked weight changes, Hematologic/Lymphatic: Negative for swollen nodes, abnormal bleeding, and unusual bruising. 08:23 Cardiovascular: Positive for chest pain, of the chest. Exam: 08:23 Constitutional: This is a well developed, well nourished patient who is awake, alert, kyree and in no acute distress. Head/Face: Normocephalic, atraumatic. Eyes: Pupils equal round and reactive to light, extra-ocular motions intact. Lids and lashes normal. Conjunctiva and sclera are non-icteric and not injected. Cornea within normal limits. Periorbital areas with no swelling, redness, or edema. ENT: Nares patent. No nasal discharge, no septal abnormalities noted. Tympanic membranes are normal and external auditory canals are clear. Oropharynx with no redness, swelling, or masses, exudates, or evidence of obstruction, uvula midline. Mucous membranes moist. Neck: Trachea midline, no thyromegaly or masses palpated, and no cervical lymphadenopathy. Supple, full range of motion without nuchal rigidity, or vertebral point tenderness. No Meningismus. Chest/axilla: Normal chest wall appearance and motion. Nontender with no deformity. No lesions are appreciated. Cardiovascular: Regular rate and rhythm with a normal S1 and S2. No gallops, murmurs, or rubs. Normal PMI, no JVD. No pulse deficits. Respiratory: Lungs have equal breath sounds bilaterally, clear to auscultation and percussion. No rales, rhonchi or wheezes noted. No increased work of breathing, no retractions or nasal flaring. Abdomen/GI: Soft, non-tender, with normal bowel sounds. No distension or tympany. No guarding or rebound. No evidence of tenderness throughout. Back: No spinal tenderness. No costovertebral tenderness. Full range of motion. Male : Normal genitalia with no discharge or lesions. Skin: Warm, dry with normal turgor. Normal color with no rashes, no lesions, and no evidence of cellulitis. MS/ Extremity: Pulses equal, no cyanosis. Neurovascular intact. Full, normal range of motion. Neuro: Awake and alert, GCS 15, oriented to person, place, time, and situation. Cranial nerves II-XII grossly intact. Motor strength 5/5 in all extremities. Sensory grossly intact. Cerebellar exam normal. Normal gait. Psych: Awake, alert, with orientation to person, place and time. Behavior, mood, and affect are within normal limits. 09:52 ECG was reviewed by the Attending Physician. kyree 09:53 Musculoskeletal/extremity: DVT Exam: No signs of deep vein thrombosis. no pain, no kyree swelling, no tenderness, negative Homans' sign noted on exam, no appreciated bluish discoloration, no erythema, no increased warmth. Vital Signs: 08:11 BP 170 / 101; Pulse 71; Resp 18; Temp 98.4; Pulse Ox 100% ; Weight 90.72 kg; Height 5 vg1 ft. 3 in. (160.02 cm); Pain 7/10; 08:14 BP 152 / 91; jd3 09:03 BP 147 / 92; Pulse 67; Resp 15 S; Pulse Ox 97% on R/A; jd3 10:06 BP 149 / 87; Pulse 47; Resp 18 S; Pulse Ox 98% on R/A; jd3 12:44 BP 158 / 97; Pulse 58; Resp 18 S; Pulse Ox 98% on R/A; jd3 13:41 BP 135 / 63; Pulse 58; Resp 18 S; Pulse Ox 100% on R/A; jd3 08:11 Body Mass Index 35.43 (90.72 kg, 160.02 cm) vg1 MDM: 08:03 Patient medically screened. kyree 08:27 Differential diagnosis: abnormal EKG, acute myocardial infarction, acute pericarditis, kyree coronary artery disease costochondritis, herpes zoster, pancreatitis, pleurisy, pulmonary embolus, stable angina, unstable angina. HEART Score: History: Moderately Suspicious (1), ECG: Normal (0), Age: > 45 and < 65 years (1), Risk Factors: > or = 3 Risk factors for atherosclerotic disease (2), [Hypercholesterolemia] [Hypertension] [DM] [+ Family HX] [Obesity] Troponin: < or = 1 x Normal Limit (0). The patient was given aspirin in the Emergency Department. The patient's deep vein thrombosis risk score was calculated as follows: Total Score: 0. This patient was found to be at low risk for a deep vein thrombosis by using the Well's assessment criteria. The patient's pulmonary embolism risk score was calculated as follows: Total Score: 0-2 points. This patient was found to be at low risk for a pulmonary embolism by using the Well's assessment criteria. KECIA Risk Score: not applicable. Data reviewed: vital signs, nurses notes, lab test result(s), EKG, radiologic studies. Data interpreted: conveyor monitor: rate is 71 beats/min, rhythm is regular, Pulse oximetry: on room air is 100 %. Test interpretation: by ED physician or midlevel provider: ECG, plain radiologic studies. Counseling: I had a detailed discussion with the patient and/or guardian regarding: the historical points, exam findings, and any diagnostic results supporting the discharge/admit diagnosis, lab results, radiology results, the need for further work-up and treatment in the hospital. 07/27 08:22 Order name: Basic Metabolic Panel; Complete Time: 09:31 [facility] 07/27 08:22 Order name: CBC with Diff; Complete Time: 09:31 [facility] 07/27 08:22 Order name: LFT's; Complete Time: 09:31 [facility] 07/27 08:22 Order name: Magnesium; Complete Time: 09:31 [facility] 07/27 08:22 Order name: NT PRO-BNP; Complete Time: 09:31 [facility] 07/27 08:22 Order name: PT-INR; Complete Time: 09:31 [facility] 07/27 08:22 Order name: Troponin HS; Complete Time: 09:31 [facility] 07/27 08:22 Order name: XRAY Chest (1 view) [facility] 07/27 08:22 Order name: Lipase; Complete Time: 09:31 [facility] 07/27 08:23 Order name: SARS-COV-2 RT PCR (Document "Date of Onset" if Symptomatic) [facility] 07/27 10:22 Order name: Echo with Doppler [facility] 07/27 10:22 Order name: Lipid Profile [facility] 07/27 10:22 Order name: Lipid Profile [facility] 07/27 08:22 Order name: EKG; Complete Time: 08:23 [facility] 07/27 08:22 Order name: Cardiac monitoring; Complete Time: 08:37 [facility] 07/27 08:22 Order name: EKG - Nurse/Tech; Complete Time: 08:37 [facility] 07/27 08:22 Order name: IV Saline Lock; Complete Time: 08:37 [facility] 07/27 08:22 Order name: Labs collected and sent; Complete Time: 08:37 [facility] 07/27 08:22 Order name: O2 Per Protocol; Complete Time: 08:37 [facility] 07/27 08:22 Order name: O2 Sat Monitoring; Complete Time: 08:37 [facility] 07/27 08:22 Order name: Bilateral blood pressure; Complete Time: 08:37 [facility] 07/27 10:22 Order name: Heart Healthy [facility] 07/27 11:26 Order name: Diet Heart Healthy; Complete Time: 11:27 jd3 07/27 11:26 Order name: Diet Regular; Complete Time: : jd3 EC:52 Rate is 64 beats/min. Rhythm is regular. QRS [place] is Normal. RI interval is normal. QRS kyree interval is normal. QT interval is normal. No Q waves. T waves are Normal. No ST changes noted. Clinical impression: Normal ECG and No evidence of ischemia. Interpreted by me. Reviewed by me. Administered Medications: 08:38 Not Given (Physician Discretion): Aspirin Chewable Tablet 162 mg PO once jd3 08:38 Drug: Lopressor (metoprolol TARTRATE) 50 mg Route: PO; jd3 09:30 Follow up: Response: No adverse reaction jd3 08:38 Drug: Lovenox (enoxaparin) 1 mg/kg Route: Sub-Q; Site: abdomen; jd3 09:30 Follow up: Response: No adverse reaction jd3 08:38 Drug: Aspirin Chewable Tablet 324 mg Route: PO; jd3 09:30 Follow up: Response: No adverse reaction jd3 08:39 Drug: morphine 2 mg Route: IV; Rate: per protocol; Site: right wrist; jd3 09:30 Follow up: Response: No adverse reaction; RASS: Alert and Calm (0); IV Status: jd3 Completed infusion 08:39 Drug: Zofran (Ondansetron) 4 mg Route: IVP; Site: right wrist; jd3 09:30 Follow up: Response: No adverse reaction jd3 Disposition Summary: 07/27/21 09:51 Hospitalization Ordered Hospitalization Status: Observation kyree Location: Telemetry/MedSurg (observation) kyree Condition: Stable kyree Problem: new kyree Symptoms: have improved kyree Bed/Room Type: Standard kyree Provider: Keyur Anderson(07/27/21 10:08) kyree Room Assignment: [facility](07/27/21 19:01) Diagnosis - Chest pain, unspecified kyree - Essential (primary) hypertension kyree - Type 2 diabetes mellitus with hyperglycemia kyree Forms: - Medication Reconciliation Form kyree - SBAR form kyree Signatures: Dispatcher [employer] Ivon Cohen RN RN dw Anderson, Corey, MD MD cha Davies, Jonathon, RN RN jd3 Garcia, Victoria RN RN vg1 Corrections: (The following items were deleted from the chart) 10:08 09:51 Kiel Delgado cha, cha 19:01 09:51 kyree dw
--- NOTE | 2021-07-27 09:52 | ER ---
Nurse's Notes [facility] Name: Sean Starks Age: 56 yrs Sex: Male : 1965 Arrival Date: 07/27/2021 Time: 08:02 Bed 5 Private MD: Diagnosis: Chest pain, unspecified;Essential (primary) hypertension;Type 2 diabetes mellitus with hyperglycemia Presentation: 07/27 08:11 Chief complaint: Patient states: he started having chest pain yesterday which radiates vg1 to his left shoulder. patient also complains of shortness of breath, sore throat, coughing, runny nose and headache. Coronavirus screen: Client presents with at least one sign or symptom that may indicate coronavirus-19. Ebola Screen: No symptoms or risks identified at this time. Initial Sepsis Screen: Does the patient meet any 2 criteria? No. Patient's initial sepsis screen is negative. Does the patient have a suspected source of infection? No. Patient's initial sepsis screen is negative. Risk Assessment: Do you want to hurt yourself or someone else? Patient reports no desire to harm self or others. Onset of symptoms was July 26, 2021. 08:11 Method Of Arrival: Ambulatory vg1 08:14 Acuity: DOMINGA 3 vg1 Triage Assessment: 08:13 General: Appears in no apparent distress. Behavior is cooperative, anxious. Pain: vg1 Complains of pain in chest Pain radiates to back and left arm Pain currently is 7 out of 10 on a pain scale. Quality of pain is described as aching, throbbing. Neuro: Level of Consciousness is awake, alert, obeys commands, Oriented to person, place, time, situation, Gait is steady, Speech is normal, Facial symmetry appears normal. Cardiovascular: Reports chest pain, shortness of breath, Patient's skin is warm and dry. Respiratory: Airway is patent Respiratory effort is even, unlabored, Respiratory pattern is regular, symmetrical. Respiratory: Reports shortness of breath cough that is. GI: No signs and/or symptoms were reported involving the gastrointestinal system. Historical: - Allergies: 08:09 [place] And Derivatives; vg1 08:09 Nuts; vg1 - Home Meds: 08:09 Nitroglycerin SL [Active]; Metopirone oral [Active]; Metformin Oral [Active]; unknown vg1 phsych mediations [Active]; - PMHx: 08:09 Anxiety; diabetes mellitus; Hypercholesterolemia; Hypertensive disorder; Depressive vg1 disorder; PTSD; - Immunization history:: Client reports having NOT received the Covid vaccine. - Social history:: Smoking status: Patient denies any tobacco usage or history of. Screenin:14 Abuse screen: Denies threats or abuse. Nutritional screening: No deficits noted. vg1 Tuberculosis screening: No symptoms or risk factors identified. Fall Risk None identified. Assessment: 08:25 General: Appears in no apparent distress. uncomfortable, Behavior is calm, cooperative, jd3 appropriate for age. Pain: Complains of pain in chest Quality of pain is described as sharp, squeezing, Pain began 1 day ago. Neuro: [place] Agitation-Sedation Scale (RASS): 0 - Alert and Calm Level of Consciousness is awake, alert, obeys commands, Oriented to person, place, time, situation. Cardiovascular: Reports chest pain, Capillary refill < 3 seconds Patient's skin is warm and dry. Rhythm is regular. Respiratory: Reports shortness of breath at rest Airway is patent Respiratory effort is even, unlabored, Respiratory pattern is regular, symmetrical. GI: No signs and/or symptoms were reported involving the gastrointestinal system. : No signs and/or symptoms were reported regarding the genitourinary system. EENT: No signs and/or symptoms were reported regarding the EENT system. Derm: Skin is intact, Skin is dry, Skin is normal, Skin temperature is warm. Musculoskeletal: Circulation, motion, and sensation intact. Range of motion: intact in all extremities. 09:03 Reassessment: Patient appears in no apparent distress at this time. No changes from jd3 previously documented assessment. Patient and/or family updated on plan of care and expected duration. Pain level reassessed. Patient is alert, oriented x 3, equal unlabored respirations, skin warm/dry/pink. 10:06 Reassessment: Patient appears in no apparent distress at this time. Patient and/or jd3 family updated on plan of care and expected duration. Pain level reassessed. Patient is alert, oriented x 3, equal unlabored respirations, skin warm/dry/pink. provider at bedside discussing plan of care. 12:43 Reassessment: Patient appears in no apparent distress at this time. Patient and/or jd3 family updated on plan of care and expected duration. Pain level reassessed. Patient is alert, oriented x 3, equal unlabored respirations, skin warm/dry/pink. awaiting admission. 13:41 Reassessment: Patient and/or family updated on plan of care and expected duration. Pain jd3 level reassessed. Patient is alert, oriented x 3, equal unlabored respirations, skin warm/dry/pink. charting continued in [facility]. Vital Signs: 08:11 BP 170 / 101; Pulse 71; Resp 18; Temp 98.4; Pulse Ox 100% ; Weight 90.72 kg; Height 5 vg1 ft. 3 in. (160.02 cm); Pain 7/10; 08:14 BP 152 / 91; jd3 09:03 BP 147 / 92; Pulse 67; Resp 15 S; Pulse Ox 97% on R/A; jd3 10:06 BP 149 / 87; Pulse 47; Resp 18 S; Pulse Ox 98% on R/A; jd3 12:44 BP 158 / 97; Pulse 58; Resp 18 S; Pulse Ox 98% on R/A; jd3 13:41 BP 135 / 63; Pulse 58; Resp 18 S; Pulse Ox 100% on R/A; jd3 08:11 Body Mass Index 35.43 (90.72 kg, 160.02 cm) vg1 ED Course: 08:02 Patient arrived in ED. rg4 08:03 Javi Ang MD is Attending Physician. kyree 08:14 Triage completed. vg1 08:14 Charly Ogden, RN is Primary Nurse. jd3 08:15 Charly Ogden RN is Primary Nurse. jd3 08:39 Inserted saline lock: 18 gauge in right wrist, using aseptic technique. Blood jd3 collected. Patient maintains SpO2 saturation greater than 95% on room air. 08:40 Patient has correct armband on for positive identification. Placed in gown. Bed in low jd3 position. Call light in reach. Side rails up X 1. Client placed on continuous cardiac and pulse oximetry monitoring. NIBP monitoring applied. ekg monitor on. Pulse ox on. NIBP on. 08:41 Arm band placed on. jd3 09:46 XRAY Chest (1 view) In Process Unspecified. EDMS 09:50 Kiel Delgado is Hospitalizing Provider. kyree 10:08 Keyur Anderson MD is Hospitalizing Provider. kyree 12:44 No provider procedures requiring assistance completed. Patient admitted, IV remains in jd3 place. 19:04 Primary Nurse role handed off by Charly Ogden RN tw5 19:04 Maria E Becerra is Primary Nurse. tw5 Administered Medications: 08:38 Not Given (Physician Discretion): Aspirin Chewable Tablet 162 mg PO once jd3 08:38 Drug: Lopressor (metoprolol TARTRATE) 50 mg Route: PO; jd3 09:30 Follow up: Response: No adverse reaction jd3 08:38 Drug: Lovenox (enoxaparin) 1 mg/kg Route: Sub-Q; Site: abdomen; jd3 09:30 Follow up: Response: No adverse reaction jd3 08:38 Drug: Aspirin Chewable Tablet 324 mg Route: PO; jd3 09:30 Follow up: Response: No adverse reaction jd3 08:39 Drug: morphine 2 mg Route: IV; Rate: per protocol; Site: right wrist; jd3 09:30 Follow up: Response: No adverse reaction; RASS: Alert and Calm (0); IV Status: jd3 Completed infusion 08:39 Drug: Zofran (Ondansetron) 4 mg Route: IVP; Site: right wrist; jd3 09:30 Follow up: Response: No adverse reaction jd3 Medication: 08:40 VIS not applicable for this client. jd3 Outcome: 09:51 Decision to Hospitalize by Provider. kyree 12:45 Condition: stable jd3 13:41 Admitted to ER Hold. Please see [facility] for further documentation. jd3 13:41 Instructed on the need for admit. 19:53 Admitted to Med/surg Report called to Attempted to call report to 4th floor. No answer tw5 at this time 20:37 Admitted to Med/surg accompanied by nurse, via stretcher, with chart, Report called to tw5 called report to aggre RN 20:38 Patient left the ED. tw5 Signatures: Dispatcher [employer] EDMS Javi Ang MD MD cha Garcia, Rubi rg4 Charly Ogden RN RN jd3 Garcia, Victoria, RN RN vg1 Maria E Becerra tw5 Corrections: (The following items were deleted from the chart) 08:25 08:14 BP 152 / 19; vg1 jd3 10:07 10:06 Reassessment: Patient appears in no apparent distress at this time. No changes jd3 from previously documented assessment. Patient and/or family updated on plan of care and expected duration. Pain level reassessed. Patient is alert, oriented x 3, equal unlabored respirations, skin warm/dry/pink. jd3
--- NOTE | 2021-07-27 09:55 | RAD REPORT ---
EXAM DESCRIPTION: RAD - Chest Single View - 07/27/2021 9:44 am CLINICAL HISTORY: CHEST PAIN COMPARISON: Portable 03/05/2021 TECHNIQUE: AP portable chest image was obtained 07/27/2021 9:44 am . FINDINGS: Lungs are clear. Interstitial pattern matches comparison. Heart and vasculature are normal . No measurable pleural effusion and no pneumothorax. No acute bony abnormality seen. No acute aortic findings suspected. IMPRESSION: No acute cardiopulmonary process. No significant change from comparison study.
[2021-07-27] MEDS ORDERED: ACETAMINOPHEN 500 MG TAB PO PRN (10:19)
[2021-07-27] MEDS ORDERED: MORPHINE 4 MG/ML SYR IV PRN (10:19)
[2021-07-27 18:00] VITALS: BMI 35.4
[2021-07-27] MEDS: METOPROLOL TAR 25 MG TAB PO SCH (21:45)
[2021-07-28] MEDS ORDERED: ENOXAPARIN 40 MG/0.4 ML SQ SCH (09:00)
[2021-07-28] MEDS ORDERED: ASPIRIN EC 81 MG TAB PO SCH (09:00)
[2021-07-28] MEDS: METOPROLOL TAR 25 MG TAB PO SCH (09:00)
[2021-07-28 16:20] VITALS: O2SAT 96
[2021-07-28 16:21] VITALS: BP 164/81; TEMP 98.5
--- NOTE | 2021-07-29 12:54 | EKG ---
Test Date: 2021-07-27 Test Time: 08:15:26 Swing Driver: ERIK MEASUREMENT RESULTS: Intervals: Rate: 64 MA: 136 QRSD: 94 QT: 400 QTc: 412 [place]: P: 24 MA: 136 QRS: 35 T: 34 INTERPRETIVE STATEMENTS: Normal sinus rhythm Normal ECG Compared to ECG 03/05/2021 09:09:37 Right-axis deviation no longer present Electronically Signed On 07-29-21 12:52:55 CDT by Gopi Meenndez
--- NOTE | 2021-07-30 06:55 | ECHO ---
HEIGHT: 5 ft 3 in WEIGHT: 200 lb 0.054 oz DATE OF STUDY: 07/27/[address]: Keyur Anderson MD 2-DIMENSIONAL: YES M.MODE: YES DOPPLER: YES COLOR FLOW: YES TDS: PORTABLE: YES DEFINITY: BUBBLE STUDY: DIAGNOSIS: CHEST PAIN, RULE OUT ACUTE CORONARY SYNDROME CARDIAC HISTORY: CATHERIZATION: NO SURGERY: NO PROSTHETIC VALVE: NO PACEMAKER: NO MEASUREMENTS (cm) DIASTOLIC (NORMALS) SYSTOLIC (NORMALS) IVSd 1.2 (0.6-1.2) LA Diam 2.6 (1.9-4.0) LVEF 60% LVIDd 3.4 (3.5-5.7) LVIDs 2.3 (2.0-3.5) %FS 31% LVPWd 1.3 (0.6-1.2) Ao Diam 2.6 (2.0-3.7) 2 DIMENSIONAL ASSESSMENT: RIGHT ATRIUM: NORMAL LEFT ATRIUM: NORMAL RIGHT VENTRICLE: NORMAL LEFT VENTRICLE: NORMAL TRICUSPID VALVE: NORMAL MITRAL VALVE: NORMAL PULMONIC VALVE: NORMAL AORTIC VALVE: NORMAL PERICARDIAL EFFUSION: NONE AORTIC ROOT: NORMAL LEFT VENTRICULAR WALL MOTION: NORMAL DOPPLER/COLOR FLOW: MILD TRICUSPID REGURGITATION. COMMENTS: NORMAL LEFT VENTRICULAR EJECTION FRACTION 55-60%. NORMAL EJECTION FRACTION. MILD TRICUSPID REGURGITATION. TECHNOLOGIST: GALA SANCHEZ
--- NOTE | 2021-08-11 02:11 | P.HP ---
Certification for Inpatient Patient admitted to: Observation With expected LOS: <2 Midnights Patient will require the following post-hospital care: None Practitioner: I am a practitioner with admitting privileges, knowledge of patient current condition, hospital course, and medical plan of care. Services: Services provided to patient in accordance with Admission requirements found in Title 42 Section 412.3 of the Code of Federal Regulations Patient History Date of Service: 07/27/21 Reason for admission: Chest pain r/o ACS History of Present Illness: Pt is a 56yo who was admitted to the hospital with CP. Pain radiated to the left shoulder with dyspnea, and cough and congestion. Patient was admitted [facility] for further evaluation. Allergies No Known Allergies Allergy (Unverified 07/27/21 10:56) Home Medications: Aspirin [Aspirin EC 81 MG] 162 mg PO DAILY #60 tablet.dr 07/28/21 Atorvastatin Calcium [Lipitor] 20 mg PO BEDTIME #30 tab 07/28/21 Divalproex Sodium [Divalproex Sodium ER] 500 mg PO BID 07/28/21 Gabapentin 100 mg PO TID 07/28/21 Ibuprofen 800 mg PO Q12H PRN 07/28/21 Losartan Potassium [Cozaar] 100 mg PO DAILY #30 tablet 07/28/21 Nitroglycerin 0.4 mg SL SEECOM PRN 07/28/21 OLANZapine [Zyprexa*] 10 mg PO BEDTIME 07/28/21 - Past Medical/Surgical History Diabetic: Yes -: diabetes -: hypertension -: anxiety -: depression Past Surgical History: Patient denies surgical history - Family History Father Family History: Reviewed- Non-Contributory - Social History Smoking Status: Never smoker Alcohol use: No CD- Drugs: No Caffeine use: No Place of Residence: Home Review of Systems 10-point ROS is otherwise unremarkable Physical Examination - Vital Signs Temperature: 98.5 F Blood Pressure: 164/81 Pulse: 58 Respirations: 16 Pulse Ox (%): 96 - Physical Exam General: Alert, In no apparent distress, Oriented x3 HEENT: Atraumatic, PERRLA, Mucous membr. moist/pink, EOMI, Sclerae nonicteric Neck: Supple, 2+ carotid pulse no bruit, No LAD, Without JVD or thyroid abnormality Respiratory: Clear to auscultation bilaterally, Normal air movement Cardiovascular: Regular rate/rhythm, Normal S1 S2, No murmurs Gastrointestinal: Normal bowel sounds, Soft and benign, Non-distended, No tenderness Musculoskeletal: No clubbing, No swelling, No tenderness Integumentary: No rashes Neurological: Normal gait, Normal speech, Normal strength at 5/5 x4 extr, Normal tone, Sensation intact, Cranial nerves 3-12 intact, Normal affect Lymphatics: No axilla or inguinal lymphadenopathy Assessment & Plan - Problems (Diagnosis) (1) Chest pain, rule out acute myocardial infarction Status: Acute - Plan 1. Serial troponins and EKG 2. Appreciate Cardiology consultation 3. Echocardiogram and stress test if cardiology is agreeable 4. Anti-platelet therapy, anti coagulation, beta-abundio, statin, and O2 as needed 5. IV morphine for pain 6. Nitro p.r.n. Discharge Plan: Home Plan to discharge in: 24 Hours - Advance Directives Does patient have a Living Will: No Does patient have a Durable POA for Healthcare: No - Code Status/Comfort Care Code Status Assessed: Yes Code Status: Full Code Critical Care: No Time Spent Managing PTS Care (In Minutes): 45
--- NOTE | 2021-08-11 02:12 | P.DS ---
Discharge Date: 07/28/21 Disposition: ROUTINE DISCHARGE Discharge Condition: GOOD Reason for Admission: Chest pain r/o ACS Consultations: Cardiology - Problems (1) Chest pain, rule out acute myocardial infarction Status: Acute Brief History of Present Illness: Pt is a 56yo who was admitted to the hospital with CP. Pain radiated to the left shoulder with dyspnea, and cough and congestion. Patient was admitted [facility] for further evaluation. Hospital Course: Patient has done well during hospital stay. Clinically, patient is much better. At this time, patient is stable for discharge home. Patient will follow-up with consultants and PCP as an outpatient. Vital Signs/Physical Exam: Temp Pulse Resp BP Pulse Ox 98.5 F 58 16 164/81 H 96 08/11/21 02:11 08/11/21 02:11 08/11/21 02:11 08/11/21 02:11 08/11/21 02:11 General: Alert, In no apparent distress, Oriented x3 Laboratory Data at Discharge: WBC 7.7 K/uL (4.3-10.9) 07/27/21 08:25 Hgb 14.0 g/dL (13.6-17.9) 07/27/21 08:25 Hct 42.6 % (39.6-49.0) 07/27/21 08:25 Plt Count 247 K/uL (152-406) 07/27/21 08:25 PT 12.2 SECONDS (9.5-12.5) 07/27/21 08:25 INR 1.11 07/27/21 08:25 Sodium 137 mmol/L (136-145) 07/27/21 08:25 Potassium 3.7 mmol/L (3.5-5.1) 07/27/21 08:25 BUN 14 mg/dL (7-18) 07/27/21 08:25 Creatinine 1.08 mg/dL (0.55-1.3) 07/27/21 08:25 Glucose 117 mg/dL (74-106) H 07/27/21 08:25 Magnesium 2.2 mg/dL (1.8-2.4) 07/27/21 08:25 Total Bilirubin 0.6 mg/dL (0.2-1.0) 07/27/21 08:25 AST 20 U/L (15-37) 07/27/21 08:25 ALT 36 U/L (12-78) 07/27/21 08:25 Alkaline Phosphatase 65 U/L (45-117) 07/27/21 08:25 Triglycerides 168 mg/dL (<150) H 07/28/21 06:13 Cholesterol 205 mg/dL (<200) H 07/28/21 06:13 HDL Cholesterol 29 mg/dL (40-60) L 07/28/21 06:13 Cholesterol/HDL Ratio 7.07 07/28/21 06:13 Lipase 62 U/L (73-393) L 07/27/21 08:25 Home Medications: Aspirin [Aspirin EC 81 MG] 162 mg PO DAILY #60 tablet. 07/28/21 Atorvastatin Calcium [Lipitor] 20 mg PO BEDTIME #30 tab 07/28/21 Divalproex Sodium [Divalproex Sodium ER] 500 mg PO BID 07/28/21 Gabapentin 100 mg PO TID 07/28/21 Ibuprofen 800 mg PO Q12H PRN 07/28/21 Losartan Potassium [Cozaar] 100 mg PO DAILY #30 tablet 07/28/21 Nitroglycerin 0.4 mg SL SEECOM PRN 07/28/21 OLANZapine [Zyprexa*] 10 mg PO BEDTIME 07/28/21 New Medications: Aspirin [Aspirin EC 81 MG] 162 mg PO DAILY #60 tablet. Losartan Potassium [Cozaar] 100 mg PO DAILY #30 tablet Atorvastatin Calcium [Lipitor] 20 mg PO BEDTIME #30 tab Physician Discharge Instructions: -DC IV and DC home -Follow-up with PCP in 1 to 2 weeks -Follow-up with Cardiology in 1 to 2 weeks -Please call Dr. Anderson at [phone] if any questions regarding hospital stay -Please call nursing station at [phone] if any nursing or medication questions -Return to the emergency room if symptoms worsen Diet: AHA Activity: Fall precautions Followup: NONE,NONE [Primary Care Provider] - Time spent managing pt's care (in minutes): 35
== END 2021-07-28 17:00 | disposition home or self-care (01) | DRG 313 ==
LOC: ER 08:00 → ERHOLD 10:19 → 4TH 19:56
PROVIDERS: ADMIT Hospitalist; ATTEND Hospitalist
DX: R07.9 Chest pain, unspecified (principal); R05.9 Cough, unspecified; M25.512 Pain in left shoulder; I10 Essential (primary) hypertension; E11.9 Type 2 diabetes mellitus without complications; F32.A Depression, unspecified; F41.9 Anxiety disorder, unspecified; Z20.822 Contact with and (suspected) exposure to COVID-19
CPT/HCPCS: 36415; 71045; 80048; 80061; 80076; 82947; 83690; 83735; 83880; 84484; 85025; 85610; 93005; 93306; 96365; 96372; 96375; 99285; J1650; J2270; J2405; U0003

== ENCOUNTER 2023-11-04 08:55 | Emergency (ER) | payer OTHER ==
[2023-11-04 09:42] LABS: Absolute Eosinophils 0.2 K/uL (0-0.5); Absolute Lymphocytes (CBC) 2.4 K/uL (0.7-4.9); Absolute Monocytes 0.8 K/uL (0.1-1.3); Absolute Neutrophil 5.2 K/uL (1.8-8.0); Basophils % 0.6 % (0-1.3); Eosinophils % 2.3 % (0-4.4); Hemoglobin 14.1 g/dL (13.6-17.9); Lymphocytes % 27.8 % (15.3-44.8); MCH 29.1 pg (27.0-35.0); MCHC 33.5 g/dL (32.0-36.0); MCV 86.9 fL (80-100); MPV 9.1 fL (7.6-11.3); Monocytes % 9.6 % (3.3-12.3); Neutrophils % 59.7 % (41.7-73.7); Platelets 264 thou/uL (152-406); RBC Red Blood Cell Count 4.83 M/uL (4.33-5.43); Red Cell Distribution Width 14.4 % (12.1-15.2)
[2023-11-04 09:47] LABS: PT Prothrombin Time 11.4 SECONDS (9.4-12.5); PTT, Activated Partial Thromb 36.4 SECONDS (24.3-36.9); Protime INR 1.02
--- NOTE | 2023-11-04 10:00 | RAD REPORT ---
EXAM DESCRIPTION: CT - Head Brain Wo Cont - 11/04/2023 9:40 am CLINICAL HISTORY: Headache COMPARISON: none TECHNIQUE: Computed axial tomography of the head was obtained. IV contrast was not requested. All CT scans are performed using dose optimization technique as appropriate and may include automated exposure control or mA/KV adjustment according to patient size. FINDINGS: An intracranial bleed is not seen The ventricles are normal in caliber No significant hypodense areas within the brain visualized No extra-axial fluid collection is noted. Fluid within the sinuses/ mastoids is not seen IMPRESSION: No acute intracranial abnormality is seen If patient's symptoms persist MRI of the brain would be recommended
[2023-11-04 10:02] LABS: Albumin 3.8 g/dL (3.4-5.0); Anion Gap 7.8 mEq/L (5.0-15.0); Bilirubin Direct 0.2 mg/dL (0-0.2); Bilirubin Indirect, Calculated 0.6 mg/dL (0.2-0.8); Bilirubin Total 0.8 mg/dL (0.2-1.0); Globulin 3.9 g/dL (2.3-3.5); Magnesium 2.2 mg/dL (1.6-2.4); Potassium 3.8 mEq/L (3.5-5.1); Protein, Total 7.7 g/dL (6.4-8.2); Troponin High Sensitivity 5.1 pg/mL (<58.9)
[2023-11-04] MEDS ORDERED: KETOROLAC 30 MG/ML INJ ONE (10:14)
[2023-11-04] MEDS ORDERED: PROMETHAZINE INJ 25 MG/ML AMP ONE (10:14)
[2023-11-04] MEDS ORDERED: NA CHLORIDE 0.9% 50 ML ONE (10:14)
--- NOTE | 2023-11-04 10:21 | EDPHYS ---
Physician Documentation [facility] Name: Sean Starks Age: 58 yrs Sex: Male : 1965 Arrival Date: 11/04/2023 Time: 08:55 Bed 15 Private MD: ED Physician Adan Santa HPI: 11/03 10:04 This 58 yrs old Male presents to ER via Ambulatory with complaints of sp3 Headache, Neck Pain, <24hrs Old, Numbness Of Arm, Vomiting, Dizziness. 10:04 58-year-old male with a history of diabetes, hyperlipidemia, hypertension, prior [place], sp3 anxiety now presents to the ED with chief complaint of mild headache rating to the neck and left shoulder area. He also states he has nausea and emesis x 2 without blood or mucus. He denies any sick contacts, fever, cough, chest pain, shortness of breath, numbness in extremities (only in the left shoulder area), motor dysfunction, speech abnormality, or any other signs or symptoms on ROS at this time. He states that a few weeks ago he went to [facility] for similar symptoms and was discharged after workup. He denies any other symptoms and review of systems otherwise negative.. Historical: - Allergies: 09:22 [place] And Derivatives; db 09:22 Nuts; db - PMHx: 09:22 depressive disorder; diabetes mellitus; Hypercholesterolemia; Anxiety; Hypertensive db disorder; PTSD; - Immunization history:: Adult Immunizations unknown. - Infectious Disease History:: Denies. - Social history:: Smoking status: Patient denies any tobacco usage or history of. ROS: 10:05 Constitutional: Negative for fever, chills, and weight loss, Eyes: Negative for injury, sp3 pain, redness, and discharge, Cardiovascular: Negative for chest pain, palpitations, and edema, Respiratory: Negative for shortness of breath, cough, wheezing, and pleuritic chest pain, Abdomen/GI: Negative for abdominal pain, nausea, vomiting, diarrhea, and constipation, Back: Negative for injury and pain, Skin: Negative for injury, rash, and discoloration, Psych: Negative for depression, anxiety, suicide ideation, homicidal ideation, and hallucinations, Allergy/Immunology: Negative for hives, rash, and allergies, Endocrine: Negative for neck swelling, polydipsia, polyuria, polyphagia, and marked weight changes, Hematologic/Lymphatic: Negative for swollen nodes, abnormal bleeding, and unusual bruising, 10:05 All other systems are negative, Exam: 10:05 Constitutional: This is a well developed, well nourished patient who is awake, alert, sp3 and in no acute distress. Head/Face: Normocephalic, atraumatic. Eyes: Pupils equal round and reactive to light, extra-ocular motions intact. Lids and lashes normal. Conjunctiva and sclera are non-icteric and not injected. Cornea within normal limits. Periorbital areas with no swelling, redness, or edema. ENT: Nares patent. No nasal discharge, no septal abnormalities noted. External auditory canals are clear. Oropharynx with no redness, swelling, or masses, exudates, or evidence of obstruction, uvula midline. Mucous membranes moist. Neck: Trachea midline, no thyromegaly or masses palpated, and no cervical lymphadenopathy. Supple, full range of motion without nuchal rigidity, or vertebral point tenderness. No Meningismus. Chest/axilla: Normal chest wall appearance and motion. Nontender with no deformity. No lesions are appreciated. Cardiovascular: Regular rate and rhythm with a normal S1 and S2. No gallops, murmurs, or rubs. Normal PMI, no JVD. No pulse deficits. Respiratory: Lungs have equal breath sounds bilaterally, clear to auscultation and percussion. No rales, rhonchi or wheezes noted. No increased work of breathing, no retractions or nasal flaring. Abdomen/GI: Soft, non-tender, with normal bowel sounds. No distension or tympany. No guarding or rebound. No evidence of tenderness throughout. Back: No spinal tenderness. No costovertebral tenderness. Full range of motion. Skin: Warm, dry with normal turgor. Normal color with no rashes, no lesions, and no evidence of cellulitis. Neuro: Awake and alert, GCS 15, oriented to person, place, time, and situation. Cranial nerves II-XII grossly intact. Motor strength 5/5 in all extremities. Sensory grossly intact. Cerebellar exam normal. Normal gait. Psych: Awake, alert, with orientation to person, place and time. Behavior, mood, and affect are within normal limits. 10:05 Musculoskeletal/extremity: Left shoulder pain reproducible on movement of trapezius and shoulder area. Mild pain to palpation also noted.. 10:06 Neuro: NIH stroke scale 0. Normal neurological exam., sp3 Vital Signs: 09:15 BP 151 / 94; Pulse 70; Resp 16; Temp 98.6; Pulse Ox 98% on R/A; Weight 90.72 kg; Height db 5 ft. 2 in. ; 10:14 BP 134 / 85; Pulse 55; Resp 14; Pulse Ox 99% on R/A; db 10:44 BP 117 / 78; Pulse 56; Resp 16; Pulse Ox 98% ; db 09:15 Body Mass Index 36.58 (90.72 kg, 157.48 cm) db MDM: 09:16 Patient medically screened. sp3 10:07 Data reviewed: vital signs, nurses notes, lab test result(s), EKG, radiologic studies. sp3 ED course: 58-year-old male with complaints of headache and muscular pain of the neck and left shoulder. Differential diagnosis includes nonspecific headache, viral illness, muscle strain, and to lesser degree given patient's history acute coronary syndrome or other related pathology. Clinically I am not highly suspicious for TIA/CVA spectrum, sepsis, shock or any other critical illness. Will obtain CT scan of the head, EKG, laboratory values including troponin and general supportive care. Will also administer ketorolac and Phenergan for symptomatic control. If workup negative we will safely discharge patient home to PCP follow-up.. ED course: Full workup negative. If medications improve patient's symptoms, we will continue with plan on discharge.. 10:20 ED course: Full workup negative including CT head. Patient does have pain to palpation sp3 on SCM muscle the posterior insertion point. I believe this is the cause of his symptoms and his headache. We will discharge him home on diclofenac and follow-up with PCP.. 11/03 09:22 Order name: Basic Metabolic Panel; Complete Time: 10: sp3 11/03 09:22 Order name: CBC with Diff; Complete Time: : sp3 11/03 08:22 Order name: Hepatic Function; Complete Time: 10: sp3 11/03 08:22 Order name: Magnesium; Complete Time: 10: sp3 11/03 09:22 Order name: Protime (+inr); Complete Time: 10: sp3 11/03 08:22 Order name: Ptt, Activated; Complete Time: 10:04 sp3 11/03 09:22 Order name: Troponin High Sensitivity; Complete Time: 10:04 sp3 11/03 09:22 Order name: CT Head Brain wo Cont; Complete Time: 10:04 sp3 11/03 09:22 Order name: Cardiac monitoring; Complete Time: 09:37 sp3 11/03 09:22 Order name: EKG - Nurse/Tech; Complete Time: 09:37 sp3 11/03 09:22 Order name: IV Saline Lock; Complete Time: 09:32 sp3 11/03 09:22 Order name: Labs collected and sent; Complete Time: :32 sp3 11/03 09:22 Order name: NPO; Complete Time: :32 sp3 Administered Medications: 10:12 Drug: Promethazine IVP 12.5 mg IVP once Route: IVP; Site: right antecubital; db 10:45 Follow up: Response: No adverse reaction; Pain is decreased; Nausea is decreased db 10:15 Drug: Ketorolac IVP 30 mg IVP once Route: IVP; Site: right antecubital; db 10:45 Follow up: Response: No adverse reaction; Pain is decreased db Disposition Summary: 11/04/23 10:21 Discharge Ordered Notes: Location: Home sp3 Condition: Stable sp3 Diagnosis - Headache, muscle strain sp3 Followup: sp3 - With: Private Physician - When: Upon discharge from the Emergency Department - Reason: Continuance of care Discharge Instructions: - Discharge Summary Sheet sp3 - General Headache Without Cause sp3 - Muscle Strain sp3 Forms: - Medication Reconciliation Form sp3 - Antibiotic Education sp3 - Prescription Opioid Use sp3 - Patient Portal Instructions sp3 - Leadership Thank You Letter sp3 - Work release form db Prescriptions: - Diclofenac Sodium 75 mg Oral Tablet Sustained Release - take 1 tablet ORAL route 2 times per day; 30 tablet; Refills: 0, Product sp3 Selection Permitted Signatures: Dispatcher [employer] Adan Guzmán MD MD sp3 Irlanda Mcclelland RN RN db
--- NOTE | 2023-11-04 10:21 | ER ---
Nurse's Notes [facility] Name: Sean Starks Age: 58 yrs Sex: Male : 1965 Arrival Date: 11/04/2023 Time: 08:55 Bed 15 Private MD: Diagnosis: Headache, muscle strain Presentation: 11/03 09:15 Chief complaint: Patient states: AT 0200 PAIN STARTED IN NECK AND CAUSES LEFT ARM PAIN db AND NUMBNESS. SEEN AT [facility] LAST WEEK. GIVEN FLUOXETINE STATED FELL LAST MONTH OFF STAIRS. Coronavirus screen: Client denies travel out of the [place] in the last 14 days. At this time, the client does not indicate any symptoms associated with coronavirus-19. Ebola Screen: Patient negative for fever greater than or equal to 101.5 degrees Fahrenheit, and additional compatible Ebola Virus Disease symptoms Patient denies exposure to infectious person. Patient denies travel to an Ebola-affected area in the 21 days before illness onset. No symptoms or risks identified at this time. Initial Sepsis Screen: Does the patient meet any 2 criteria? No. Patient's initial sepsis screen is negative. Does the patient have a suspected source of infection? No. Patient's initial sepsis screen is negative. Risk Assessment: Do you want to hurt yourself or someone else? Patient reports no desire to harm self or others. Onset of symptoms was November 04, 2023 at 02:00. 09:15 Method Of Arrival: Ambulatory db 09:15 Acuity: DOMINGA 3 db Triage Assessment: 09:15 Pain: Also complains of ARM NUMBNESS. db 09:22 Headache History: The patient has had previous headaches and this one is similar to db previous episodes. General: Appears in no apparent distress. comfortable, Behavior is calm, cooperative. Pain: Complains of pain in left arm Pain Pain began gradually. Neuro: Level of Consciousness is awake, alert, obeys commands, Oriented to person, place, time, situation. Respiratory: Airway is patent Respiratory effort is even, unlabored, Respiratory pattern is regular, symmetrical. Historical: - Allergies: 09:22 [place] And Derivatives; db 09:22 Nuts; db - PMHx: 09:22 depressive disorder; diabetes mellitus; Hypercholesterolemia; Anxiety; Hypertensive db disorder; PTSD; - Immunization history:: Adult Immunizations unknown. - Infectious Disease History:: Denies. - Social history:: Smoking status: Patient denies any tobacco usage or history of. Screenin:[facility] ED Fall Risk Assessment (Adult) History of falling in the last 3 months, db including since admission No falls in past 3 months (0 pts) Confusion or Disorientation No (0 pts) Intoxicated or Sedated No (0 pts) Impaired Gait No (0 pts) Mobility Assist Device Used No (0 pt) Altered Elimination No (0 pt) Score/Fall Risk Level 0 - 2 = Low Risk Oriented to surroundings, Maintained a safe environment. Abuse screen: Denies threats or abuse. Denies injuries from another. Nutritional screening: No deficits noted. Tuberculosis screening: No symptoms or risk factors identified. Assessment: 09:30 Reassessment: Patient appears in no apparent distress at this time. Patient and/or db family updated on plan of care and expected duration. Pain level reassessed. Patient is alert, oriented x 3, equal unlabored respirations, skin warm/dry/pink. General: Appears in no apparent distress. comfortable, Behavior is calm, cooperative. Pain: Complains of pain in head and left arm. Neuro: Level of Consciousness is awake, alert, obeys commands, Oriented to person, place, time, situation, Appropriate for age. Cardiovascular: Reports nausea, Capillary refill < 3 seconds Patient's skin is warm and dry. Rhythm is sinus rhythm. Respiratory: Airway is patent Respiratory effort is even, unlabored, Respiratory pattern is regular, symmetrical. GI: Reports nausea. 10:45 Reassessment: Patient appears in no apparent distress at this time. Patient and/or db family updated on plan of care and expected duration. Pain level reassessed. Patient is alert, oriented x 3, equal unlabored respirations, skin warm/dry/pink. Patient states feeling better. Patient states symptoms have improved. Vital Signs: 09:15 BP 151 / 94; Pulse 70; Resp 16; Temp 98.6; Pulse Ox 98% on R/A; Weight 90.72 kg; Height db 5 ft. 2 in. ; 10:14 BP 134 / 85; Pulse 55; Resp 14; Pulse Ox 99% on R/A; db 10:44 BP 117 / 78; Pulse 56; Resp 16; Pulse Ox 98% ; db 09:15 Body Mass Index 36.58 (90.72 kg, 157.48 cm) db Vitals: 10:45 Cardiac Rhythm Assessment Regular Sinus rhythm. db ED Course: 09:00 Patient arrived in ED. im 09:11 Adan Santa MD is Attending Physician. sp3 09:15 Arm band placed on Patient placed in an exam room. db 09:16 Irlanda Mcclelland, RN is Primary Nurse. db 09:22 Triage completed. db 09:32 Basic Metabolic Panel Sent. bc6 09:32 CBC with Diff Sent. bc6 09:32 Hepatic Function Sent. bc6 09:32 Magnesium Sent. bc6 09:32 Protime (+inr) Sent. bc6 09:32 Ptt, Activated Sent. bc6 09:32 Troponin High Sensitivity Sent. bc6 09:32 Initial lab(s) drawn, by me, sent to lab. Inserted saline lock: 20 gauge in right bc6 antecubital area, using aseptic technique. Blood collected. Flushed with 10 mL NS. 09:32 EKG done. db 09:[address] via wheelchair. db 09:38 Patient has correct armband on for positive identification. Bed in low position. Call db light in reach. Side rails up X 1. Client placed on continuous cardiac and pulse oximetry monitoring. NIBP monitoring applied. phototypesetting equipment monitor on. Pulse ox on. NIBP on. Warm blanket given. Pillow given. 09:40 CT Head Brain wo Cont In Process Unspecified. EDMS 10:44 Provided Education on: DISCHARGE AND FOLLOWUP. db 10:44 No provider procedures requiring assistance completed. IV discontinued, intact, db bleeding controlled, No redness/swelling at site. Administered Medications: 10:12 Drug: Promethazine IVP 12.5 mg IVP once Route: IVP; Site: right antecubital; db 10:45 Follow up: Response: No adverse reaction; Pain is decreased; Nausea is decreased db 10:15 Drug: Ketorolac IVP 30 mg IVP once Route: IVP; Site: right antecubital; db 10:45 Follow up: Response: No adverse reaction; Pain is decreased db Medication: 10:44 VIS not applicable for this client. db Outcome: 10:21 Discharge ordered by . sp3 10:44 Discharged to home ambulatory, with family, db 10:44 Condition: stable 10:44 Discharge instructions given to patient, Instructed on discharge instructions, follow up and referral plans. Prescriptions given X 1, 10:46 Patient left the ED. db Signatures: Dispatcher [employer] EDAdan Shaw MD MD sp3 Irlanda Mcclelland RN RN db Raiza Clifford 6 Cassidy Haro Corrections: (The following items were deleted from the chart) 09:24 09:15 BP 151 / 94; Pulse 70bpm; Resp 16bpm; Pulse Ox 98% RA; Temp 98.6F; db db
[2023-11-04 11:00] VITALS: TEMP 98.6
[2023-11-04 11:11] VITALS: BP 117/78; O2SAT 98
--- NOTE | 2023-11-06 16:30 | EKG ---
Test Date: 2023-11-04 Test Time: 09:31:28 Coffee Machine Technician: SHALOM MEASUREMENT RESULTS: Intervals: Rate: 68 DE: 130 QRSD: 90 QT: 400 QTc: 425 Rector: P: -2 DE: 130 QRS: 19 T: 25 INTERPRETIVE STATEMENTS: Normal sinus rhythm with sinus arrhythmia Normal ECG Compared to ECG 07/27/2021 08:15:26 No significant changes Electronically Signed On 11-06-23 16:23:57 CDT by Noel Beard
== END 2023-11-04 10:46 | disposition home or self-care (01) ==
LOC: ER 08:55
DX: R51.9 Headache, unspecified (principal); S46.912A Strain of unspecified muscle, fascia and tendon at shoulder and upper arm level, left arm, initial encounter
CPT/HCPCS: 93005; 85025; 80048; 36415; 83735; 85610; 80076; 85730; 84484; 70450; 96375; 96374; 99285; J2550